=== PATIENT | female | born 1940 | race Caucasian/White ===

== ENCOUNTER → 2023-05-24 11:23 | Outpatient (REF) | payer MEDICARE, SELFPAY | LOC: RAD 11:23 | PROVIDERS: ATTENDING PHYSICIAN Family Medicine | DX: M25.561 Pain in right knee (principal) | CPT/HCPCS: 73564 ==

== ENCOUNTER → 2023-06-10 11:55 | Outpatient (REF) | payer MEDICARE, SELFPAY ==
[2023-06-10 13:22] LABS: % Basophils 0.8 % (0-2); % Eosinophils 0.3 % (0-6); % Immature Granulocytes 0.9 % (0-0.5); % Lymphocytes 3.7 % (20.5-51.1); % Monocytes 2.8 % (1.7-9.3); % Neutrophils 91.5 % (42.2-75.2); Absolute Basophils 0.1 10^3/uL (0-0.2); Absolute Eosinophils 0.1 10^3/uL (0-0.7); Absolute Immature Granulocytes 0.1 10^3/uL (0-0.05); Absolute Lymphocytes 0.5 10^3/uL (1.2-3.4); Absolute Monocytes 0.4 10^3/uL (0.1-0.6); Absolute Neutrophils 13.2 10^3/uL (1.4-6.5); Hematocrit 39.3 % (37.0-47.0); Hemoglobin 12.8 g/dL (12.0-16.0); Mean Corp Hgb Conc. 32.6 g/dL (33.0-37.0); Mean Corpuscular Hgb 28.8 pg (27.0-31.0); Mean Corpuscular Volume 88.3 fL (81.0-99.0); Mean Platelet Volume 11.1 fL (7.4-10.4); Nucleated Red Blood Cells % 0 %; Platelet Count 206 10^3/uL (130-400); Red Blood Cell Count 4.45 10^6/uL (4.20-5.40); White Blood Cell Count 14.5 10^3/uL (4.8-10.8)
[2023-06-10 13:54] LABS: ALT (SGPT) 19 U/L (0-35); AST (SGOT) 24 U/L (14-36); Albumin 4.2 g/dl (3.5-5.0); Alkaline Phosphatase 96 U/L (38-126); Direct Bilirubin 0.6 mg/dl (0.0-0.4); Total Bilirubin 0.9 mg/dl (0.2-1.3); Total Protein 6.6 g/dl (6.3-8.2)
== END ==
LOC: RAD 11:55
PROVIDERS: ATTENDING PHYSICIAN Radiology Radiation Oncology; FAMILY PHYSICIAN Family Medicine; REFERRING PHYSICIAN Internal Medicine Hematology & Oncology
DX: C34.32 Malignant neoplasm of lower lobe, left bronchus or lung (principal)
CPT/HCPCS: 36415; 71046; 71250; 80076; 85025

== ENCOUNTER 2023-07-09 23:15 | Inpatient (IN) | payer MEDICARE, SELFPAY ==
[2023-07-09 19:11] VITALS: BP 183/93
[2023-07-09 19:38] LABS: % Basophils 0.3 % (0-2); % Immature Granulocytes 0.7 % (0-0.5); % Lymphocytes 5.4 % (20.5-51.1); % Monocytes 2.7 % (1.7-9.3); % Neutrophils 90.9 % (42.2-75.2); Absolute Immature Granulocytes 0.1 10^3/uL (0-0.05); Absolute Lymphocytes 0.7 10^3/uL (1.2-3.4); Absolute Monocytes 0.4 10^3/uL (0.1-0.6); Absolute Neutrophils 12.3 10^3/uL (1.4-6.5); Hematocrit 38.8 % (37.0-47.0); Hemoglobin 13.3 g/dL (12.0-16.0); Mean Corp Hgb Conc. 34.3 g/dL (33.0-37.0); Mean Corpuscular Hgb 28.3 pg (27.0-31.0); Mean Corpuscular Volume 82.6 fL (81.0-99.0); Mean Platelet Volume 9.8 fL (7.4-10.4); Nucleated Red Blood Cells % 0 %; Platelet Count 235 10^3/uL (130-400); Red Cell Dist. Width 14.1 % (11.5-14.5); White Blood Cell Count 13.5 10^3/uL (4.8-10.8)
[2023-07-09 20:12] VITALS: BMI 37.4
--- NOTE | 2023-07-09 20:12 | ED.GENMED ---
History of Present Illness
General
Chief Complaint: Abdominal Pain
Source: patient
Exam Limitations: none
Time Seen by Provider: 07/09/23 19:42
Travel History
Have you had any contact with someone who has COVID-19?: No
Do you have any symptoms of coronavirus? Fever > 100 degrees, chills, cough, shortness of breath, sore throat, loss of taste or smell, muscle aches, or headache?: No
History of Present Illness
History of Present Illness:
This is a 83 year old female that comes in with c/o abd pain. States that this started around 3pm out of the blue. Family state that she feels she had a bowel obstruction again and this is how them come on. States that she has been eating salads and
her stomach was bothering her some after this. Today she states she only had a little salad and then she started with severe pain. States that she is nauseated but has not vomited. States that she did have a BM before coming. States that she is
always SOB with the COPD. Denies any fever, chills, chest pain, diarrhea, headache, dizziness, urinary burning.
Past History
Past History
ED Past Medical History: Asthma, CAD, Cancer (Lung CA), COPD, GERD, HTN, Hypercholesterolemia, Hyperthyroidism, Psychiatric (Anxiety, depression), Other (TIA, Migraines, Sleep apnea, DVT, Hemorrhoids, Hiatal hernia, C-diff, Ovarian cyst, Renal
calculus, UTI, Overactive Parathyroid, Anemia, ) and Other (Small bowel obstruction 2004, total colectomy for polyps, ileostomy with reversal)
ED Past Surgical History: Bowel resection, Cardiac (Catheterization, Stent), Orthopedic (Right hand tendon repair) and Other (Hernia, Cataracts, Right vein stripping)
Social History
Tobacco: Former smoker
Alcohol: None
Drug: None
Personal:
Living: alone
Employment: Retired
Family History
Family History: CAD
Review of Systems
Review of Systems
All Other Systems: ROS reviewed and negative except as documented in HPI and ROS
Constitutional: Reports no symptoms; Denies fever or chills
EENT: Reports no symptoms
Respiratory: Reports trouble breathing; Denies cough
Cardiac: Reports no symptoms; Denies chest pain
ABD/GI: Reports abdominal pain and nausea; Denies vomiting or diarrhea
: Reports no symptoms; Denies dysuria, frequency or urgency
Musculoskeletal: Reports no symptoms
Skin: Reports no symptoms
Neurological: Reports no symptoms; Denies dizzy or headache
Psychiatric: Reports no symptoms
Phy Exam
General Physical Exam
General Presentation: mild distress
General age: appears stated age
General Skin: warm and dry
General Habitus: elderly
General Mental: alert
General Hydration: dry mucous membranes
ENT Exam
ENT Exam: TM's normal, pharynx normal and neck supple
Eye Exam
Eye Exam: EOMI
Cardiovascular Exam
Cardiovascular Exam: regular rate/rhythm, no edema, no murmur and normal peripheral pulses
Pulmonary Exam
Pulmonary Exam: no respiratory distress, no rales, chest non tender, no crackles, no rhonchi, no cough and other (Exp wheezing throughout)
Gastrointestinal Exam
Gastrointestinal Exam: soft, no organomegaly, no pulsatile mass, non distended, tender (Upper abd tenderness with palpation) and other (Hyperactive bowel sounds)
Musculoskeletal Exam
Musculoskeletal Exam: full ROM and no edema
Skin Exam
Skin Exam: normal color, warm/dry, no rash and no petechia
Psychiatric Exam
Psychiatric Exam: normal mood/affect
Course
Orders/Labs/Results
Orders:
Orders
07/09/23 19:28
Complete Blood Count/With Diff Urgent
Comprehensive Metabolic Panel Urgent
Lipase Urgent
07/09/23 20:09
0.9% Sodium Chloride 1000 ml [Nss] 1,000 ml IV BOLUS
HYDROmorphone [Dilaudid] 0.5 mg IV NOW STA
Ondansetron Injectable [Zofran] 4 mg IV NOW STA
07/09/23 20:10
CT Abd/pelvis W Iv Cont Urgent
Comment: history of bowel obstruction
Reason For Exam: abd pain
07/09/23 20:15
Lactic Acid Urgent
07/09/23 20:34
HYDROmorphone [Dilaudid] 0.5 mg IV NOW STA
07/09/23 21:00
Ondansetron Injectable [Zofran] 4 mg .ROUTE .STK-MED ONE
07/09/23 21:01
Ondansetron Injectable [Zofran] 4 mg IV NOW STA
Abnormal Lab Results
07/09/23
19:28
WBC 13.5 H 10^3/uL
(4.8-10.8)
Abs Immat Gran (auto) 0.1 H 10^3/uL
(0-0.05)
Absolute Neuts (auto) 12.3 H 10^3/uL
(1.4-6.5)
Absolute Lymphs (auto) 0.7 L 10^3/uL
(1.2-3.4)
Immature Gran % 0.7 H %
(0-0.5)
Neutrophils % 90.9 H %
(42.2-75.2)
Lymphocytes % 5.4 L %
(20.5-51.1)
Sodium 132 L mmol/L
(135-145)
Carbon Dioxide 19 L mmol/L
(22-30)
BUN 25 H mg/dl
(7-17)
Glucose 122 H mg/dl
(70-99)
Calcium 10.7 H mg/dl
(8.4-10.2)
07/09/23 19:28
07/09/23 19:28
Leukocytosis, Sodium slightly low. Carbon dioxode low. Dehydration. Glucose nonfasting. Calcium slightly elevated. Lactic acid normal at 1.3
Vital Signs
Initial and Last Documented VS:
Initial Vital Signs
Temp Pulse BP Pulse Ox
98.3 F 86 183/93 95
07/09/23 19:11 07/09/23 19:11 07/09/23 19:11 07/09/23 19:11
Last Documented Vital Signs
Temp Pulse BP Pulse Ox
98.3 F 86 183/93 95
07/09/23 19:11 07/09/23 19:11 07/09/23 19:11 07/09/23 19:11
MDM/Problems Addressed
Differential Diagnosis Includes:
Bowel obstruction, Viral syndrome
MDM/Problems Addressed:
This is a 83 year old female that comes in with c/o abd pain. Family states that she feels she had a bowel obstruction. States that this just came on out of the blue.
Will get labs and CT scan. Medicate for pain, IV fluids
Back into see patent. Explained that the CT shows that she has a partial small bowel obstruction that is secondary to adhesions. Patient states that this time she has no nausea or pain. Hospitalist notified about admission.
Chronic conditions affecting care: Previous abdomnial surgery
Acute Exacerbation and/or Progression of Chronic Illness: Previous abdomnial surgery
*Radiology
Radiology exam reviewed: radiology read reviewed (CT Moderate distention of the small bowel loops in the right side of the midabdomen with suggetion of a partial small bowel obstruction secondary to a partially obstructing adhesive band. Distention
of distal small bowel loops in the lower abd and pelvis containing fecal-like material. ), all reviewed NAD by ED Provider (CT cont- Previous total proctocolectomy. Small midline lower anterior abd wall hernia containing a nonobstructed small bowel
loop. Small hiatal hernia. Fusiform infrarenal abdominal aortic aneurysm (2.3 cm AP dimension). Severe calcific atherosclerotic plaque in the abdominal aorta, right renal ) and other (CT cont- right renal artery and common iliac arteries. Mild
cardiomegaly. Severe lower lumbar facet joint arthrosis. )
*Pulse Oximetry
Patient hypoxic: no
*EKG
Interpreted by ED Provider?: NA
Rate: EKG- N/A
*Critical Care Note
Total Time (30-74mins, 75-104mins- exclusive of procedures): Not Applicable
ED Attending Note
-
Portions of this chart may have been created with voice recognition software.� Occasional wrong word or��sound alike� substitutions may have occurred due to the inherent limitations of voice recognition software.
Discharge Plan
Departure
Patient Disposition: Admit
Date of Disposition: 07/09/23
Time of Disposition: 22:28
Admit to: Med/Surg
Presentation/result/management discussed w/ accepting MD/DO: Hospitalist
Patient with high blood pressure during this ER visit?: Yes
Condition: Good
Covid-19: Not Applicable
Discharge Problem:
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
Prescriptions:
No Action
atorvastatin 40 MG tablet
40 mg PO QPM
aspirin 81 MG tablet,delayed release (DR/EC)
81 mg PO DAILY
pantoprazole 40 MG tablet,delayed release (DR/EC)
40 mg PO QPM
loperamide 2 MG capsule
2 mg PO Q4H PRN (Reason: diarrhea)
PreserVision AREDS 1 CAP capsule
1 cap PO DAILY
glucosamine sulfate 500 MG tablet
500 mg PO DAILY
nitroglycerin 0.4 MG tablet, sublingual
0.4 mg sublingual [id number] PRN (Reason: chest pain) Qty: 25 2RF
famotidine 20 MG tablet
20 mg PO DAILY PRN (Reason: heartburn)
dextromethorphan-guaifenesin [Mucinex DM] 1 EACH tablet extended release 12 hr
1 ea PO BID PRN (Reason: Cough/congestion)
albuterol sulfate 1 PUFF HFA aerosol inhaler
2 puff inhalation R Q4HPRN PRN (Reason: sob/wheezing)
cholecalciferol (vitamin D3) 1,000 UNITS tablet
1,000 units PO DAILY
citalopram 40 mg tablet
40 mg PO DAILY
Patient Comments:
Dose confirmed with patient and outside list of Pharmacy
nifedipine 60 mg Tablet Extended Release
60 mg PO DAILY Qty: 30 1RF
furosemide 40 mg tablet
40 mg PO DAILY
montelukast 10 mg tablet
10 mg PO DAILY
potassium chloride 10 mEq tablet,ER particles/crystals
10 meq PO DAILY
Soothe Night Time Lubricant 80-20 % Ointment
1 applic BOTH EYES HS
Soothe Lubricant 0.6-0.6 % Dropperette
1 drp OPHTHALMIC (EYE) BID PRN (Reason: dry/irrirated eyes)
Breztri Aerosphere 160-9-4.8 mcg/actuation Hfa Aerosol Inhaler
2 inh INHALATION R BID
prednisone 10 mg tablet
10 mg PO .TAPER
Rx Instructions:
take 5 tabs (50mg) daily x 3 days, take 4 tabs (40mg) daily x 3 days, take 3 tabs (30mg) daily x 3 days, take 2 tabs (20mg) daily x 3 days, take 1 tab (10mg) daily x 3 days
fexofenadine 180 mg Tablet
180 mg PO DAILY
latanoprost 0.005 % drops
1 drp BOTH EYES HS
ipratropium-albuterol 0.5 mg-3 mg(2.5 mg base)/3 mL solution for nebulization
3 ml INHALATION R Q6 PRN (Reason: sob/wheezing)
lorazepam 0.5 mg Tablet
0.5 mg PO Q8H PRN (Reason: anxiety)
Patient Comments:
07/09/2023: last filled 03/18/23, 15 tabs for 5 days from [id number]
ascorbic acid (vitamin C) [Vitamin C] 500 mg Tablet
500 mg PO DAILY
Referrals:
Juan Anaya MD [Family Provider] -
Interventions
Interventions:
*Risk Screen - Suicide Last Done: 07/09/23 19:11
*General Assessment Last Done: 07/09/23 19:11
*Neglect/Abuse Screening Last Done: 07/09/23 19:11
ED- Fall Risk Assessment Last Done: 07/09/23 20:02
*ED COVID-19 Vaccine History Last Done: 07/09/23 20:02
ZV-Revtpe-Ounfltacda Assessment Last Done: 07/09/23 20:02
[2023-07-09 20:16] LABS: ALT (SGPT) 21 U/L (0-35); AST (SGOT) 26 U/L (14-36); Albumin 4.4 g/dl (3.5-5.0); Alkaline Phosphatase 100 U/L (38-126); Blood Urea Nitrogen 25 mg/dl (7-17); Calcium 10.7 mg/dl (8.4-10.2); Carbon Dioxide 19 mmol/L (22-30); Chloride 107 mmol/L (98-107); Estimated Creatinine Clearance 45 ml/min; Glucose 122 mg/dl (70-99); Lipase 55 U/L (23-300); Potassium 4.6 mmol/L (3.5-5.1); Sodium 132 mmol/L (135-145); Total Bilirubin 0.8 mg/dl (0.2-1.3); Total Protein 7.1 g/dl (6.3-8.2); eGFR > 60.00
[2023-07-09] MEDS: ZOFRAN 4 MG IV ×2 (20:25→21:02)
[2023-07-09] MEDS: NSS 1000 IV (20:27)
[2023-07-09] MEDS: DILAUDID 0.5 MG IV ×2 (20:28→20:35)
[2023-07-09 20:39] LABS: Lactic Acid 1.3 mmol/L (0.7-2.0)
[2023-07-09 20:43] VITALS: BP 157/74
--- NOTE | 2023-07-09 22:41 | HPS.HSE ---
Family Physician
-
Family Physician: Juan Anaya
Chief Complaint
-
abrupt onset abdominal pain felt like obstucted again
History of Present Illness
83F HX partial SBO s/p total colectomy for polyps, ileostomy with reversal pw abrupt onset of sever abdominal pain following salad meal.
Associated Nausea . Denied vomiting. She had BM before coming.
@ ER she received IV Dilaudid 0.5mg x 2 and IV Zofran 4mg x 2.
Current abdominal pain is very similar to previous episodes of small bowel obstructions.
Just had large BM and felt improved with nausea and abdominal pain
ROS:
Denies back pain, no dysuria no urgency nor hematuria.
Denies chest pain nor shortness of breath.
Medical History
Past Medical History
Past Medical History: Reports Other
Additional Past Medical History:
CAD
COD
HTN
HKD
Hypothyroidism
Nephrolithiasis
Past Surgical History: Reports Other
Additional Past Surgical History:
Bowel Resection
TAC with ileostomy, ileostomy reversal, DLI reversal, ex lap with BREANNA
PTCA with stent
Tubal ligation)
Social History
Tobacco: Former Smoker
Alcohol: None
Drug: None
Family History
Family History: Not pertinent
Allergies / Home Medications
Allergies reflects when Allergies were last updated in [employer].
Home Medications with original date entered in [employer]
Allergy/Medication List:
Allergies
Allergy/AdvReac Type Severity Reaction Status Date / Time
codeine Allergy NAUSEA Verified 12/23/22 00:27
doxycycline Allergy HEART Verified 12/23/22 00:27
PALPITATIONS
meperidine HCl [From Demerol] Allergy Nausea/ligh Verified 12/23/22 00:27
theaded
morphine Allergy Nausea Verified 12/23/22 00:27
norepinephrine Allergy rash to Verified 12/23/22 00:27
ethylnorepinephrine
oxycodone Allergy SEVERE Verified 12/23/22 00:27
NAUSEA
pentazocine Allergy TALWIN Verified 12/23/22 00:27
pentazocine lactate Allergy Nausea Verified 12/23/22 00:27
[From Khushi]
Tetracyclines Allergy very Verified 12/23/22 00:27
disoriented
Home Medications
aspirin 81 mg tablet,delayed release 81 mg PO DAILY Blood clot prevention/tx 07/22/17
atorvastatin 40 mg tablet 40 mg PO QPM High cholesterol 07/22/17
pantoprazole 40 mg tablet,delayed release 40 mg PO QPM Gastrointestinal issue 07/22/17
loperamide 2 mg capsule 2 mg PO Q4H PRN diarrhea 06/21/18
glucosamine sulfate 500 mg tablet 500 mg PO DAILY Supplement 02/16/19
nitroglycerin 0.4 mg sublingual tablet 0.4 mg sublingual [id number] PRN chest pain #25 tabs 02/16/19
vitamins A,C,N-gkad-akaors 4,296 mcg-226 mg-90 mg capsule (PreserVision AREDS) 1 cap PO DAILY Eye condition 02/16/19
albuterol sulfate 90 mcg/actuation aerosol inhaler 2 puff inhalation R Q4HPRN PRN sob/wheezing 07/13/21
cholecalciferol (vitamin D3) 25 mcg (1,000 unit) tablet 1,000 units PO DAILY Supplement 07/13/21
dextromethorphan-guaifenesin ER 60 mg-1,200 mg tab,extend release,12hr (Mucinex DM) 1 ea PO BID PRN Cough/congestion 07/13/21
famotidine 20 mg tablet 20 mg PO DAILY PRN heartburn 07/13/21
citalopram 40 mg tablet 40 mg PO DAILY Mental Health/Anxiety 04/07/22
nifedipine 60 mg tablet,extended release 60 mg PO DAILY #30 tabs 04/11/22
budesonide 160 mcg-glycopyr 9 mcg-formot 4.8 mcg/actuation HFA inhaler (Breztri Aerosphere) 2 inh inhalation R BID Lung/Breathing Issues 12/25/22
furosemide 40 mg tablet 40 mg PO DAILY Fluid Retention/Swelling 12/25/22
montelukast 10 mg tablet 10 mg PO DAILY Lung/Breathing Issues 12/25/22
potassium chloride 10 mEq tablet,extended release(part/cryst) 10 meq PO DAILY Electrolyte Repletion 12/25/22
propylene glycol-glycerin 0.6 %-0.6 % eye drops in a dropperette (Soothe Lubricant) 1 drp ophthalmic (eye) BID PRN dry/irrirated eyes 12/25/22
white petrolatum-mineral oil 80 %-20 % eye ointment (Soothe Night Time Lubricant) 1 applic BOTH EYES HS dry eyes 12/25/22
ascorbic acid (vitamin C) 500 mg tablet (Vitamin C) 500 mg PO DAILY 07/09/23
fexofenadine 180 mg tablet 180 mg PO DAILY 07/09/23
ipratropium 0.5 mg-albuterol 3 mg (2.5 mg base)/3 mL nebulization soln 3 ml inhalation R Q6 PRN sob/wheezing 07/09/23
latanoprost 0.005 % eye drops 1 drp BOTH EYES HS 07/09/23
lorazepam 0.5 mg tablet 0.5 mg PO Q8H PRN anxiety 07/09/23
prednisone 10 mg tablet 10 mg PO .TAPER 07/09/23
Review of Systems
-
Constitutional: Reports No Symptoms
EENT: Reports No Symptoms
Respiratory: Reports No Symptoms
Cardiac: Reports No Symptoms
Abdomen/GI: Reports Abdominal Pain and Nausea; Denies Vomiting, Diarrhea or Constipated
: Reports No Symptoms
Musculoskeletal: Reports No Symptoms
Skin: Reports No Symptoms
Neurological: Reports No Symptoms
Endocrine: Reports No Symptoms
Hematologic/Lymphatic: Reports No Symptoms
Psych: Reports No Symptoms
Physical Exam
Vital Signs
Vital Signs
Temp Pulse BP Pulse Ox
98.3 F 86 183/93 95
07/09/23 19:11 07/09/23 19:11 07/09/23 19:11 07/09/23 19:11
Physical Exam
General: Well Nourished, No Apparent Distress, Comfortable and Other
HEENT: NormoCephalic, Anicteric and Moist mucous membranes
Respiratory: Clear
Cardiac: S1/S2 and Regular Rhythm; No Murmur
GI: Soft, Normal Bowel Sounds (hyperactive ) and Tender (upper abdomen with palpitation)
Genito-urinary: Deferred by me
Musculoskeletal: No Edema
Skin: Warm
Neuro: AO x 3
Psych: Calm
Laboratory Results
-
07/09/23 19:28
07/09/23 19:28
Laboratory Results
Lactic Acid 1.3 mmol/L (0.7-2.0) 07/09/23 20:15
Total Bilirubin 0.8 mg/dl (0.2-1.3) 07/09/23 19:28
AST 26 U/L (14-36) 07/09/23 19:28
ALT 21 U/L (0-35) 07/09/23 19:28
Alkaline Phosphatase 100 U/L (38-126) 07/09/23 19:28
Lipase 55 U/L (23-300) 07/09/23 19:28
Data Reviewed
-
CT Scan: Report Reviewed by me
Lab Data: Labs Reviewed by me
Old Records: Reviewed
Impression/Plan
-
Data
WCC 13.5
Na 132
CO2 19
BUN 25
nl [address] Abd/pelvis W Iv Cont
1. Moderate distention of small bowel loops in the right side of the midabdomen with suggestion of a PARTIAL SMALL BOWEL OBSTRUCTION secondary to a partially obstructing adhesive band.
2. Distention of distal small bowel loops in the lower abdomen and pelvis containing fecal-like material. PREVIOUS TOTAL PROCTOCOLECTOMY.
3. Small midline lower anterior abdominal wall hernia containing a nonobstructed small bowel loop.
4. Small hiatal hernia.
5. Fusiform infrarenal abdominal aortic aneurysm (2.3 cm AP dimension).
6. Severe calcific atherosclerotic plaque in the abdominal aorta, right renal artery, and common iliac arteries.
7. Mild cardiomegaly.
8. Severe lower lumbar facet joint arthrosis.
Last hospitalist admission: 12/23/22 - 12/27/22 DX: Partial small bowel obstruction
ASSESSMENT & PLAN
Partial SBO - recurrence
Likely secondary to adhesions
lower midline ventral hernia
HX multiple prior operations
- just has large BM at ER and abdominal has improved
- NPO, IVF, NGT for nausea or emesis
- Narcotic analgesia
- GS consult
HX GERD
- IV Protonix
Essential HTN
- add IV Hydralazine PRN
- Hold nifedipine due to NPO
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
HX COPD: Not on home O2
HX lung cancer LLL s/p XRT
HLD: Held Lipitor due to NPO
Hyperthyroidism
Anxiety/Depression - Held Celexa
HX TIA
DVT ppx: LMWH
Full code
IP MS
[2023-07-09 23:31] VITALS: BP 161/67
[2023-07-09 23:43] VITALS: BP 161/67
[2023-07-10] MEDS: NSS 1000 IV (00:17)
[2023-07-10 06:01] LABS: Hematocrit 37.8 % (37.0-47.0); Hemoglobin 12.2 g/dL (12.0-16.0); Mean Corp Hgb Conc. 32.3 g/dL (33.0-37.0); Mean Corpuscular Hgb 28.2 pg (27.0-31.0); Mean Corpuscular Volume 87.3 fL (81.0-99.0); Mean Platelet Volume 10.3 fL (7.4-10.4); Platelet Count 191 10^3/uL (130-400); Red Blood Cell Count 4.33 10^6/uL (4.20-5.40); Red Cell Dist. Width 14.3 % (11.5-14.5)
[2023-07-10 06:26] LABS: Blood Urea Nitrogen 21 mg/dl (7-17); Calcium 10.1 mg/dl (8.4-10.2); Carbon Dioxide 25 mmol/L (22-30); Chloride 105 mmol/L (98-107); Estimated Creatinine Clearance 58 ml/min; Glucose 90 mg/dl (70-99); Potassium 3.8 mmol/L (3.5-5.1); Sodium 138 mmol/L (135-145); eGFR > 60.00
--- NOTE | 2023-07-10 09:22 | W.PN.HOSP.TC ---
Today's Communication/Plan
-
see plan
Assessment / Plan
Assessment / Plan
CT Abd/pelvis W Iv Cont
1. � Moderate distention of small bowel loops in the right side of the midabdomen with suggestion of a PARTIAL SMALL BOWEL OBSTRUCTION secondary to a partially obstructing adhesive band.
2. � Distention of distal small bowel loops in the lower abdomen and pelvis containing fecal-like material. PREVIOUS TOTAL PROCTOCOLECTOMY.
3. � Small midline lower anterior abdominal wall hernia containing a nonobstructed small bowel loop.
4. � Small hiatal hernia.
5. � Fusiform infrarenal abdominal aortic aneurysm (2.3 cm AP dimension).
6. � Severe calcific atherosclerotic plaque in the abdominal aorta, right renal artery, and common iliac arteries.
7. � Mild cardiomegaly.
8. � Severe lower lumbar facet joint arthrosis.
Last hospitalist admission: 12/23/22 - 12/27/22 DX: Partial small bowel obstruction
ASSESSMENT & PLAN
Partial SBO - recurrence
Likely secondary to adhesions
lower midline ventral hernia
HX multiple prior operations
-now having BM with improvement in sx, obstruction seems to have resolved
-advance to clears
-resume home meds
-F/U further GS recs
HX GERD
-LABOR [employer]OR Protonix
Essential HTN
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
HX lung cancer LLL s/p XRT
HLD: Held Lipitor due to NPO
Hyperthyroidism
Anxiety/Depression - resume celexa
HX TIA - resume asa
DVT ppx: LMWH
Full code
IP MS
Anticipated Discharge: Within 24 hours
Subjective/Interval History
-
Date of Service: July 10, 2023
has had multiple BM
pain and nausea resolved
wants to drink
Objective Data
-
Labs:
Laboratory Results
07/10/23
05:46
WBC 14.0 H
Hgb 12.2
Hct 37.8
Plt Count 191
Sodium 138
Potassium 3.8
Chloride 105
Carbon Dioxide 25
BUN 21 H
Creatinine 0.7
Glucose 90
Calcium 10.1
Vital Signs:
Vital Signs
Temp Pulse Resp BP Pulse Ox
98.3 F 88 20 161/67 96
07/09/23 19:11 07/09/23 23:43 07/09/23 23:43 07/09/23 23:43 07/09/23 23:43
Review of Systems
-
History Source: Patient
All other systems: Reviewed and negative
Physical Exam
-
General: No Apparent Distress
HEENT: Normocephalic and Atraumatic
Respiratory: Wheezes (mild); Negative Rales or Rhonchi
Cardiac: Regular Rhythm and S1/S2
GI: Soft and Nontender
Genito-urinary: No Costovertebral Tender
Neuro: AO x 3
Hematologic / Lymphatic: No Lymphadenopathy
Psych: Calm
Data Reviewed
-
Diagnostic Radiology: Report Reviewed by me
Labs: Labs Reviewed by me
[2023-07-10] MEDS: DELTASONE 40 MG PO (11:07)
[2023-07-10] MEDS: SINGULAIR 10 MG PO (11:07)
[2023-07-10] MEDS: CELEXA 40 MG PO (11:07)
[2023-07-10] MEDS: ASPIR LOW (ENTERIC COATED) 81 MG PO (11:07)
[2023-07-10] MEDS: PROCARDIA XL (EXTENDED RELEASE) 60 MG PO (11:08)
[2023-07-10 11:13] VITALS: BP 155/51
--- NOTE | 2023-07-10 13:20 | CM ---
Patient seen at bedside. Patient lives alone in a ranch style home. Patient is very independent and states that she has a daughter and son that assist as she needs help. Patient PCP is Dr. patino and she uses the [facility] in [place]. Patient has a
walker, cane and transport chair at home. Patient has no home O2. Patient plan is to return to home with no needs. CM will continue to follow for discharge planning needs.
Plan;home with no needs vs home with VN; watch for possible home O2 needs
--- NOTE | 2023-07-10 14:12 | CON.GS ---
Consultation
-
Requesting Provider: Damaso
Performing Provider: Sona
Reason for Consultation: pSBO
Medical History
-
Chief Complaint: Abd pain
History of Present Illness:
83F with acute onset abdominal pain, that began after eating a salad. 'I ate a salad and I know that was a mistake.' Pain began shortly afterwards and was progressive and mod-sev, generalized, without exacerbating/relieving factors. Since arrival
has had a large BM with relief, now pain and nausea have resolved and she has tolerated clears.
Past Medical History
Past Medical History: Other (CAD COD HTN HKD Hypothyroidism Nephrolithiasis)
Past Surgical History: Other (Bowel Resection TAC with ileostomy, ileostomy reversal, DLI reversal, ex lap with BREANNA, PTCA with stent, Tubal ligation))
Social History
Tobacco: Former Smoker
Alcohol: None
Drug: None
Family History
Family History: Reviewed & Noncontributory
Allergies / Home Medications
Allergy/AdvReac Type Severity Reaction Status Date / Time
codeine Allergy NAUSEA Verified 12/23/22 00:27
doxycycline Allergy HEART Verified 12/23/22 00:27
PALPITATIONS
meperidine HCl [From Demerol] Allergy Nausea/ligh Verified 12/23/22 00:27
theaded
morphine Allergy Nausea Verified 12/23/22 00:27
norepinephrine Allergy rash to Verified 12/23/22 00:27
ethylnorepinephrine
oxycodone Allergy SEVERE Verified 12/23/22 00:27
NAUSEA
pentazocine Allergy TALWIN Verified 12/23/22 00:27
pentazocine lactate Allergy Nausea Verified 12/23/22 00:27
[From Talwin]
Tetracyclines Allergy very Verified 12/23/22 00:27
disoriented
Medication Instructions Recorded Confirmed Type
aspirin 81 mg tablet,delayed 81 mg PO DAILY Blood clot 07/22/17 07/09/23 History
release prevention/tx
atorvastatin 40 mg tablet 40 mg PO QPM High cholesterol 07/22/17 07/09/23 History
pantoprazole 40 mg tablet,delayed 40 mg PO QPM Gastrointestinal issue 07/22/17 07/09/23 History
release
loperamide 2 mg capsule 2 mg PO Q4H PRN diarrhea 06/21/18 07/09/23 History
glucosamine sulfate 500 mg tablet 500 mg PO DAILY Supplement 02/16/19 07/09/23 History
nitroglycerin 0.4 mg sublingual 0.4 mg sublingual [id number] PRN 02/16/19 07/09/23 Rx
tablet chest pain #25 tabs
vitamins A,C,N-xjjp-ijgzcr 4,296 1 cap PO DAILY Eye condition 02/16/19 07/09/23 History
mcg-226 mg-90 mg capsule
(PreserVision AREDS)
albuterol sulfate 90 mcg/actuation 2 puff inhalation R Q4HPRN PRN 07/13/21 07/09/23 History
aerosol inhaler sob/wheezing
cholecalciferol (vitamin D3) 25 1,000 units PO DAILY Supplement 07/13/21 07/09/23 History
mcg (1,000 unit) tablet
dextromethorphan-guaifenesin ER 60 1 ea PO BID PRN Cough/congestion 07/13/21 07/09/23 History
mg-1,200 mg tab,extend
release,12hr (Mucinex DM)
famotidine 20 mg tablet 20 mg PO DAILY PRN heartburn 07/13/21 07/09/23 History
citalopram 40 mg tablet 40 mg PO DAILY Mental 04/07/22 07/09/23 History
Health/Anxiety
nifedipine 60 mg tablet,extended 60 mg PO DAILY #30 tabs 04/11/22 07/09/23 Rx
release
budesonide 160 mcg-glycopyr 9 2 inh inhalation R BID 12/25/22 07/09/23 History
mcg-formot 4.8 mcg/actuation HFA Lung/Breathing Issues
inhaler (Breztri Aerosphere)
furosemide 40 mg tablet 40 mg PO DAILY Fluid 12/25/22 07/09/23 History
Retention/Swelling
montelukast 10 mg tablet 10 mg PO DAILY Lung/Breathing 12/25/22 07/09/23 History
Issues
potassium chloride 10 mEq 10 meq PO DAILY Electrolyte 12/25/22 07/09/23 History
tablet,extended release(part/cryst) Repletion
propylene glycol-glycerin 0.6 1 drp ophthalmic (eye) BID PRN 12/25/22 07/09/23 History
%-0.6 % eye drops in a dropperette dry/irrirated eyes
(Soothe Lubricant)
white petrolatum-mineral oil 80 1 applic BOTH EYES HS dry eyes 12/25/22 07/09/23 History
%-20 % eye ointment (Soothe Night
Time Lubricant)
ascorbic acid (vitamin C) 500 mg 500 mg PO DAILY 07/09/23 07/09/23 History
tablet (Vitamin C)
fexofenadine 180 mg tablet 180 mg PO DAILY 07/09/23 07/09/23 History
ipratropium 0.5 mg-albuterol 3 mg 3 ml inhalation R Q6 PRN 07/09/23 07/09/23 History
(2.5 mg base)/3 mL nebulization sob/wheezing
soln
latanoprost 0.005 % eye drops 1 drp BOTH EYES HS 07/09/23 07/09/23 History
lorazepam 0.5 mg tablet 0.5 mg PO Q8H PRN anxiety 07/09/23 07/09/23 History
prednisone 10 mg tablet 10 mg PO .TAPER 07/09/23 07/09/23 History
Review of Systems
-
A 10 point review of systems was completed, and was negative except as per HPI.
Physical Exam
Vital Signs
Temp Pulse Resp BP Pulse Ox
98.3 F 65 18 155/51 94
07/09/23 19:11 07/10/23 11:13 07/10/23 11:13 07/10/23 11:13 07/10/23 12:56
07/09/23 07/10/23 07/11/23
06:59 06:59 06:59
Actual Weight 85.5 kg
Body Mass Index (BMI) 37.4
Lab Results
07/10/23 05:46
07/10/23 05:46
WBC 14.0 10^3/uL (4.8-10.8) H 07/10/23 05:46
Hgb 12.2 g/dL (12.0-16.0) 07/10/23 05:46
Hct 37.8 % (37.0-47.0) 07/10/23 05:46
Plt Count 191 10^3/uL (130-400) 07/10/23 05:46
Abs Immat Gran (auto) 0.1 10^3/uL (0-0.05) H 07/09/23 19:28
Neutrophils % 90.9 % (42.2-75.2) H 07/09/23 19:28
Physical Exam
General: Well Developed, Well Nourished and No Apparent Distress
GI: Soft, Non Tender, Non Distended and Obese
Skin: Warm and Dry
Neuro: AO x 3
Psych: Calm
Data Reviewed
-
CT Scan: Image Personally Visualized and interpreted, Report Reviewed by me and Discussed with Patient
Labs: Labs Reviewed by me
Assessment / Plan
-
83F with resolving pSBO in setting of dietary indiscretion
AFVSS, passing BM and flatus, pain and nausea resolved, antonio clears
Mild leukocytosis trending up slightly
CT with dilated small bowel and an area of decompressed small bowel, apparent subtle transition point in the pelvis, all anastomoses appear patent, no signs of bowel compromise or threat
Plan:
Adv to fulls this steve
If no further issues, adv to LRD tomorrow am and DC home when tolerating
Dietary guidance, advised to avoid raw veg and to be careful generally with all fruit and veg
[2023-07-10 14:53] VITALS: BP 143/57
[2023-07-10 15:00] VITALS: BP 129/67
[2023-07-10 15:57] VITALS: BMI 37.6
[2023-07-10] MEDS: LOVENOX 40 MG SC (17:34)
[2023-07-10] MEDS: PROTONIX 40 MG PO (17:34)
[2023-07-10] MEDS: SYMBICORT 160/4.5 MCG INHALER 2 PUFF INH (20:16)
[2023-07-10] MEDS: VENTOLIN NEBULES 2.5 MG INH (20:17)
[2023-07-10] MEDS: XALATAN OPHTHALMIC SOLUTION 1 DROP BOTH EYES (21:03)
[2023-07-10] MEDS: REFRESH CELLUVISC GEL 1 DROPS BOTH EYES (21:03)
[2023-07-10 23:50] VITALS: BP 124/73
[2023-07-11] MEDS: VENTOLIN NEBULES 2.5 MG INH ×2 (01:39→06:20)
[2023-07-11 05:40] VITALS: BMI 37.4
[2023-07-11] MEDS: CELEXA 40 MG PO (07:26)
[2023-07-11] MEDS: ASPIR LOW (ENTERIC COATED) 81 MG PO (07:27)
[2023-07-11] MEDS: SINGULAIR 10 MG PO (07:27)
[2023-07-11] MEDS: DELTASONE 40 MG PO (07:27)
[2023-07-11] MEDS: PROCARDIA XL (EXTENDED RELEASE) 60 MG PO (07:28)
[2023-07-11 07:30] VITALS: BP 104/75
[2023-07-11] MEDS: SPIRIVA RESPIMAT 2.5 MCG 2 PUFF INH (08:29)
[2023-07-11] MEDS: SYMBICORT 160/4.5 MCG INHALER 2 PUFF INH (08:29)
[2023-07-11 08:53] LABS: Hematocrit 37.5 % (37.0-47.0); Hemoglobin 11.9 g/dL (12.0-16.0); Mean Corp Hgb Conc. 31.7 g/dL (33.0-37.0); Mean Corpuscular Hgb 28.1 pg (27.0-31.0); Mean Corpuscular Volume 88.7 fL (81.0-99.0); Mean Platelet Volume 10.2 fL (7.4-10.4); Platelet Count 172 10^3/uL (130-400); Red Blood Cell Count 4.23 10^6/uL (4.20-5.40); Red Cell Dist. Width 14.2 % (11.5-14.5); White Blood Cell Count 10.6 10^3/uL (4.8-10.8)
--- NOTE | 2023-07-11 09:40 | W.PN.GS2 ---
Today's Communication / Plan
-
`
Assessment / Plan
-
Assessment: 83 y/o female admitted with probable partial SBO
clinically resolving and antonio diet advancement
Plan: okay to d/c home on LR diet
dietary counseling provided
Subjective Data
-
Date of Service: July 11, 2023
pt seen and examined
antonio breakfast
no abd pain, no nausea
+ flatus
Objective Data
-
Intake and Output
07/10/23 07/11/23 07/12/23
06:59 06:59 06:59
Other:
Number of unmeasured voidings 2
How many times incontinent 1
Vital Signs
Temp Pulse Resp BP Pulse Ox
98.4 F 70 18 104/75 93
07/11/23 07:30 07/11/23 08:35 07/11/23 08:35 07/11/23 07:30 07/11/23 08:35
Lab Results
07/11/23 08:00
Calcium 10.1 mg/dl (8.4-10.2) 07/10/23 05:46
Total Bilirubin 0.8 mg/dl (0.2-1.3) 07/09/23 19:28
AST 26 U/L (14-36) 07/09/23 19:28
ALT 21 U/L (0-35) 07/09/23 19:28
Alkaline Phosphatase 100 U/L (38-126) 07/09/23 19:28
Total Protein 7.1 g/dl (6.3-8.2) 07/09/23 19:28
Albumin 4.4 g/dl (3.5-5.0) 07/09/23 19:28
Physical Exam
-
NAD AAOx3
ABD: soft, obese, ND, nontender
[2023-07-11 09:48] LABS: Blood Urea Nitrogen 13 mg/dl (7-17); Calcium 9.9 mg/dl (8.4-10.2); Carbon Dioxide 28 mmol/L (22-30); Chloride 103 mmol/L (98-107); Estimated Creatinine Clearance 57 ml/min; Glucose 69 mg/dl (70-99); Magnesium 1.7 mg/dl (1.6-2.3); Sodium 133 mmol/L (135-145); eGFR > 60.00
[2023-07-11] MEDS: PEPCID 20 MG PO (11:17)
--- NOTE | 2023-07-11 11:31 | W.PN.HOSP.TC ---
Addendum entered and electronically signed by Padmini Fierro MD 07/11/23 14:04:
Hyponatremia
-stable
Original Note:
Today's Communication/Plan
-
OK for DC today
Assessment / Plan
Assessment / Plan
CT Abd/pelvis W Iv Cont
1. � Moderate distention of small bowel loops in the right side of the midabdomen with suggestion of a PARTIAL SMALL BOWEL OBSTRUCTION secondary to a partially obstructing adhesive band.
2. � Distention of distal small bowel loops in the lower abdomen and pelvis containing fecal-like material. PREVIOUS TOTAL PROCTOCOLECTOMY.
3. � Small midline lower anterior abdominal wall hernia containing a nonobstructed small bowel loop.
4. � Small hiatal hernia.
5. � Fusiform infrarenal abdominal aortic aneurysm (2.3 cm AP dimension).
6. � Severe calcific atherosclerotic plaque in the abdominal aorta, right renal artery, and common iliac arteries.
7. � Mild cardiomegaly.
8. � Severe lower lumbar facet joint arthrosis.
Last hospitalist admission: 12/23/22 - 12/27/22 DX: Partial small bowel obstruction
ASSESSMENT & PLAN
Partial SBO - recurrence
Likely secondary to adhesions
lower midline ventral hernia
HX multiple prior operations
-now having BM with improvement in sx, obstruction seems to have resolved
-tolerated LRD this morning
-OK for DC
-home meds resumed
HX GERD
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
Essential HTN
-resume INDUSTRIAL TRUCK DRIVER Nifedipine
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
HX lung cancer LLL s/p XRT
HLD: resume lipitor on DC
Hyperthyroidism
Anxiety/Depression - resume celexa
HX TIA - resume asa
DVT ppx: LMWH
Full code
IP MS
Anticipated Discharge: Today
Subjective/Interval History
-
Date of Service: July 11, 2023
feeling better this morning
ate breakfast
Objective Data
-
Labs:
Laboratory Results
07/11/23
08:00
WBC 10.6
Hgb 11.9 L
Hct 37.5
Plt Count 172
Sodium 133 L
Potassium 4.0
Chloride 103
Carbon Dioxide 28
BUN 13
Creatinine 0.7
Glucose 69 L
Calcium 9.9
Vital Signs:
Vital Signs
Temp Pulse Resp BP Pulse Ox
98.4 F 70 18 104/75 93
07/11/23 07:30 07/11/23 08:35 07/11/23 08:35 07/11/23 07:30 07/11/23 08:35
Review of Systems
-
History Source: Patient
All other systems: Reviewed and negative
Physical Exam
-
General: No Apparent Distress
HEENT: Normocephalic and Atraumatic
Respiratory: Wheezes (mild); Negative Rales or Rhonchi
Cardiac: Regular Rhythm and S1/S2
GI: Soft and Nontender
Genito-urinary: No Costovertebral Tender
Neuro: AO x 3
Hematologic / Lymphatic: No Lymphadenopathy
Psych: Calm
Data Reviewed
-
Diagnostic Radiology: Report Reviewed by me
Labs: Labs Reviewed by me
--- NOTE | 2023-07-11 11:35 | W.DS.TRANS ---
DC Summary - Mid Level Net Developer
-
Discharge Instructions:
Discharge Diagnosis/Procedures partial small bowel obstruction
Diet Low Residue
Additional Diets low residue diet x 1 week; follow dietary recs
per surgeon
Activity As tolerated
Driving Restrictions As prior to admission
Bathing Restrictions None
Instructions:
Stand-Alone Forms:
Changes to Home Medications: No
Discharge Medications:
DC Medications w/original date entered in [employer]
aspirin 81 mg tablet,delayed release 81 mg PO DAILY Blood clot prevention/tx 07/22/17
atorvastatin 40 mg tablet 40 mg PO QPM High cholesterol 07/22/17
pantoprazole 40 mg tablet,delayed release 40 mg PO QPM Gastrointestinal issue 07/22/17
loperamide 2 mg capsule 2 mg PO Q4H PRN diarrhea 06/21/18
glucosamine sulfate 500 mg tablet 500 mg PO DAILY Supplement 02/16/19
nitroglycerin 0.4 mg sublingual tablet 0.4 mg sublingual [id number] PRN chest pain #25 tabs 02/16/19
vitamins A,C,C-ymqd-yzroej 4,296 mcg-226 mg-90 mg capsule (PreserVision AREDS) 1 cap PO DAILY Eye condition 02/16/19
albuterol sulfate 90 mcg/actuation aerosol inhaler 2 puff inhalation R Q4HPRN PRN sob/wheezing 07/13/21
cholecalciferol (vitamin D3) 25 mcg (1,000 unit) tablet 1,000 units PO DAILY Supplement 07/13/21
dextromethorphan-guaifenesin ER 60 mg-1,200 mg tab,extend release,12hr (Mucinex DM) 1 ea PO BID PRN Cough/congestion 07/13/21
famotidine 20 mg tablet 20 mg PO DAILY PRN heartburn 07/13/21
citalopram 40 mg tablet 40 mg PO DAILY Mental Health/Anxiety 04/07/22
nifedipine 60 mg tablet,extended release 60 mg PO DAILY #30 tabs 04/11/22
budesonide 160 mcg-glycopyr 9 mcg-formot 4.8 mcg/actuation HFA inhaler (Breztri Aerosphere) 2 inh inhalation R BID Lung/Breathing Issues 12/25/22
furosemide 40 mg tablet 40 mg PO DAILY Fluid Retention/Swelling 12/25/22
montelukast 10 mg tablet 10 mg PO DAILY Lung/Breathing Issues 12/25/22
potassium chloride 10 mEq tablet,extended release(part/cryst) 10 meq PO DAILY Electrolyte Repletion 12/25/22
propylene glycol-glycerin 0.6 %-0.6 % eye drops in a dropperette (Soothe Lubricant) 1 drp ophthalmic (eye) BID PRN dry/irrirated eyes 12/25/22
white petrolatum-mineral oil 80 %-20 % eye ointment (Soothe Night Time Lubricant) 1 applic BOTH EYES HS dry eyes 12/25/22
ascorbic acid (vitamin C) 500 mg tablet (Vitamin C) 500 mg PO DAILY 07/09/23
fexofenadine 180 mg tablet 180 mg PO DAILY 07/09/23
ipratropium 0.5 mg-albuterol 3 mg (2.5 mg base)/3 mL nebulization soln 3 ml inhalation R Q6 PRN sob/wheezing 07/09/23
latanoprost 0.005 % eye drops 1 drp BOTH EYES HS 07/09/23
lorazepam 0.5 mg tablet 0.5 mg PO Q8H PRN anxiety 07/09/23
prednisone 10 mg tablet 10 mg PO .TAPER 07/09/23
Home Medication Changes
Pending Results: No
--- NOTE | 2023-07-11 11:48 | CM ---
Patient seen bedside.
Patient denies home care needs.
IMM reviewed and signed.
Plan: home no needs.
--- NOTE | 2023-07-11 12:57 | PN.CDI ---
CDI
- -
CDI:
Physician Documentation Request
Admit Date: 07/09/23 23:15
Dear Doctor Vadim,
Patient admitted with partial small bowel obstruction reoccurrence.
Sodium resulted as follows:
Laboratory Tests
07/09/23 07/10/23 07/11/23
19:28 05:46 08:00
Sodium 132 L 138 133 L
Could you please provide a diagnosis that supports the above lab abnormalities and additional evaluation/ monitoring:
Hyponatremia
Abnormal lab value clinically insignificant
Other
Use of terms such as suspected, likely, concern for, or probable (associated with a specific diagnosis that is being evaluated, monitored, or treated as if it exists) are acceptable and can be coded in the inpatient setting, when documented at the
time of discharge.
Thank you,
Jessica Díaz RN, BSN
CDI Specialist
tiger text
Please use your independent medical judgment in providing your response.
--- NOTE | 2023-07-11 12:57 | W.DCSUMMARY ---
Discharge Summary
Discharge Data
Date of Admission: 07/09/23
Date of Discharge: 07/11/23
-
Pending Results: No
Hospital Course
Discharging Physician : Dr. Padmini Fierro
Disposition : Home
Primary care physician : Dr. Juan Anaya
Principal Discharge diagnosis : small bowel obstruction
Hospital Course :
Ms. Aisha Mandujano is a 83 yo woman with hx COPD, CAD, HTN, hypothyroidism, hx total abdominal colectomy with ileorectal anastomosis, admissions for SBO presents to the ER with abdominal pain. Triage vitals 98.3, P 86, BP 183/93, SpO2 95%. Labs
with WBC 13.5, Cr 0.9. CT with evidence of small bowel obstruction (results below). While in the ER patient had a bowel movement with relief of symptoms. She was admitted to medicine with GS consulting. Diet advanced to clears and patient
tolerated well. She was then advanced to LRD by hospital day 2 and feels ready for discharge. No changes made to home medications.
Time spent on discharge was 32 minutes.
Important imaging findings :
CT A/P 07/11/23
IMPRESSION:
1. � Moderate distention of small bowel loops in the right side of the midabdomen with suggestion of a PARTIAL SMALL BOWEL OBSTRUCTION secondary to a partially obstructing adhesive band.
2. � Distention of distal small bowel loops in the lower abdomen and pelvis containing fecal-like material. PREVIOUS TOTAL PROCTOCOLECTOMY.
3. � Small midline lower anterior abdominal wall hernia containing a nonobstructed small bowel loop.
4. � Small hiatal hernia.
5. � Fusiform infrarenal abdominal aortic aneurysm (2.3 cm AP dimension).
6. � Severe calcific atherosclerotic plaque in the abdominal aorta, right renal artery, and common iliac arteries.
7. � Mild cardiomegaly.
8. � Severe lower lumbar facet joint arthrosis.
Procedure findings :
Discharge Plan
-
Patient Disposition: Home (Routine Discharge)
Discharge Diagnosis/Procedures: partial small bowel obstruction
Condition: Good
Diet: Low Residue
Additional Diets: low residue diet x 1 week; follow dietary recs per surgeon
Activity: As tolerated
Driving Restrictions: As prior to admission
Bathing Restrictions: None
Referrals:
Juan Anaya MD [Family Provider] - in less than 1 week
Additional Discharge Medication Instructions: Resume prednisone taper as previously prescribed
Prescriptions:
Continued
atorvastatin 40 MG tablet
40 mg PO QPM
aspirin 81 MG tablet,delayed release (DR/EC)
81 mg PO DAILY
pantoprazole 40 MG tablet,delayed release (DR/EC)
40 mg PO QPM
loperamide 2 MG capsule
2 mg PO Q4H PRN (Reason: diarrhea)
PreserVision AREDS 1 CAP capsule
1 cap PO DAILY
glucosamine sulfate 500 MG tablet
500 mg PO DAILY
nitroglycerin 0.4 MG tablet, sublingual
0.4 mg sublingual [id number] PRN (Reason: chest pain) Qty: 25 2RF
famotidine 20 MG tablet
20 mg PO DAILY PRN (Reason: heartburn)
dextromethorphan-guaifenesin [Mucinex DM] 1 EACH tablet extended release 12 hr
1 ea PO BID PRN (Reason: Cough/congestion)
albuterol sulfate 1 PUFF HFA aerosol inhaler
2 puff inhalation R Q4HPRN PRN (Reason: sob/wheezing)
cholecalciferol (vitamin D3) 1,000 UNITS tablet
1,000 units PO DAILY
citalopram 40 mg tablet
40 mg PO DAILY
Patient Comments:
Dose confirmed with patient and outside list of Pharmacy
nifedipine 60 mg Tablet Extended Release
60 mg PO DAILY Qty: 30 1RF
furosemide 40 mg tablet
40 mg PO DAILY
montelukast 10 mg tablet
10 mg PO DAILY
potassium chloride 10 mEq tablet,ER particles/crystals
10 meq PO DAILY
Soothe Night Time Lubricant 80-20 % Ointment
1 applic BOTH EYES HS
Soothe Lubricant 0.6-0.6 % Dropperette
1 drp OPHTHALMIC (EYE) BID PRN (Reason: dry/irrirated eyes)
Breztri Aerosphere 160-9-4.8 mcg/actuation Hfa Aerosol Inhaler
2 inh INHALATION R BID
prednisone 10 mg tablet
10 mg PO .TAPER
Rx Instructions:
take 5 tabs (50mg) daily x 3 days, take 4 tabs (40mg) daily x 3 days, take 3 tabs (30mg) daily x 3 days, take 2 tabs (20mg) daily x 3 days, take 1 tab (10mg) daily x 3 days
fexofenadine 180 mg Tablet
180 mg PO DAILY
latanoprost 0.005 % drops
1 drp BOTH EYES HS
ipratropium-albuterol 0.5 mg-3 mg(2.5 mg base)/3 mL solution for nebulization
3 ml INHALATION R Q6 PRN (Reason: sob/wheezing)
lorazepam 0.5 mg Tablet
0.5 mg PO Q8H PRN (Reason: anxiety)
Patient Comments:
07/09/2023: last filled 03/18/23, 15 tabs for 5 days from [facility][id number]
ascorbic acid (vitamin C) [Vitamin C] 500 mg Tablet
500 mg PO DAILY
Discharge Orders:
Discharge Patient (As Directed); Ordered 07/11/23
Ordered By: Padmini Fierro
== END 2023-07-11 14:14 | disposition home or self-care (01) | DRG 389 ==
LOC: 4 WEST ACU 23:15
PROVIDERS: Clinical Nurse Specialist Family Health; ADMITTING PHYSICIAN Internal Medicine; ATTENDING PHYSICIAN Student in an Organized Health Care Education/Training Program; CONSULT PHYSICIAN Surgery; EMERGENCY PHYSICIAN Student in an Organized Health Care Education/Training Program; FAMILY PHYSICIAN Family Medicine
DX: K56.51 Intestinal adhesions [bands], with partial obstruction (principal); E87.1 Hypo-osmolality and hyponatremia; Z87.891 Personal history of nicotine dependence; I10 Essential (primary) hypertension; F32.A Depression, unspecified; F41.9 Anxiety disorder, unspecified; E05.90 Thyrotoxicosis, unspecified without thyrotoxic crisis or storm; K43.9 Ventral hernia without obstruction or gangrene; K44.9 Diaphragmatic hernia without obstruction or gangrene; I71.43 Infrarenal abdominal aortic aneurysm, without rupture; M47.819 Spondylosis without myelopathy or radiculopathy, site unspecified
CPT/HCPCS: 74177; 80048; 80053; 83605; 83690; 83735; 85025; 85027; 94640; 96361; 96374; 96375; 96376; 99285; Q9967

== ENCOUNTER → 2023-09-19 08:06 | Outpatient (REF) | payer MEDICARE, SELFPAY ==
[2023-09-19 10:00] LABS: % Basophils 0.3 % (0-2); % Eosinophils 0.1 % (0-6); % Immature Granulocytes 0.6 % (0-0.5); % Lymphocytes 6.8 % (20.5-51.1); % Monocytes 4.5 % (1.7-9.3); % Neutrophils 87.7 % (42.2-75.2); Absolute Immature Granulocytes 0.1 10^3/uL (0-0.05); Absolute Lymphocytes 0.5 10^3/uL (1.2-3.4); Absolute Monocytes 0.4 10^3/uL (0.1-0.6); Hematocrit 39.9 % (37.0-47.0); Hemoglobin 12.5 g/dL (12.0-16.0); Mean Corp Hgb Conc. 31.3 g/dL (33.0-37.0); Mean Corpuscular Volume 89.5 fL (81.0-99.0); Mean Platelet Volume 11.3 fL (7.4-10.4); Nucleated Red Blood Cells % 0 %; Platelet Count 164 10^3/uL (130-400); Red Blood Cell Count 4.46 10^6/uL (4.20-5.40); Red Cell Dist. Width 14.9 % (11.5-14.5)
[2023-09-19 10:36] LABS: C-Reactive Protein < 5.00 mg/L (0.0-10.00)
[2023-09-19 10:41] LABS: Erythrocyte Sed Rate 18 mm/hour (0-20)
[2023-09-19 11:02] LABS: Uric Acid 4.4 mg/dl (2.5-6.2)
== END ==
LOC: REG 08:06
PROVIDERS: ATTENDING PHYSICIAN Family Medicine
DX: M25.569 Pain in unspecified knee (principal); M25.469 Effusion, unspecified knee
CPT/HCPCS: 36415; 84550; 85025; 85652; 86140

== ENCOUNTER → 2023-09-20 11:29 | Outpatient (REF) | payer MEDICARE, SELFPAY | LOC: RAD 11:29 | PROVIDERS: ATTENDING PHYSICIAN Family Medicine | DX: M25.561 Pain in right knee (principal) | CPT/HCPCS: 73564 ==

== ENCOUNTER → 2023-09-27 17:59 | Outpatient (REF) | payer MEDICARE, SELFPAY | LOC: MRI 3T 17:59 | PROVIDERS: ATTENDING PHYSICIAN Student in an Organized Health Care Education/Training Program; FAMILY PHYSICIAN Family Medicine | DX: M17.11 Unilateral primary osteoarthritis, right knee (principal) | CPT/HCPCS: 73721 ==

== ENCOUNTER → 2023-10-03 11:22 | Outpatient (REF) | payer MEDICARE, SELFPAY | LOC: RCS 11:22 | PROVIDERS: ATTENDING PHYSICIAN Internal Medicine Cardiovascular Disease; FAMILY PHYSICIAN Family Medicine | DX: I25.10 Atherosclerotic heart disease of native coronary artery without angina pectoris (principal); I35.0 Nonrheumatic aortic (valve) stenosis | CPT/HCPCS: 93306 ==

== ENCOUNTER → 2023-11-21 11:17 | Outpatient (REF) | payer MEDICARE, SELFPAY ==
[2023-11-21 13:08] LABS: % Eosinophils 0.9 % (0-6); % Immature Granulocytes 0.9 % (0-0.5); % Lymphocytes 8.6 % (20.5-51.1); % Monocytes 5.4 % (1.7-9.3); % Neutrophils 83.2 % (42.2-75.2); Absolute Basophils 0.1 10^3/uL (0-0.2); Absolute Eosinophils 0.1 10^3/uL (0-0.7); Absolute Immature Granulocytes 0.1 10^3/uL (0-0.05); Absolute Lymphocytes 0.9 10^3/uL (1.2-3.4); Absolute Monocytes 0.6 10^3/uL (0.1-0.6); Absolute Neutrophils 8.6 10^3/uL (1.4-6.5); Hematocrit 38.5 % (37.0-47.0); Hemoglobin 12.6 g/dL (12.0-16.0); Mean Corp Hgb Conc. 32.7 g/dL (33.0-37.0); Mean Corpuscular Hgb 28.6 pg (27.0-31.0); Mean Corpuscular Volume 87.3 fL (81.0-99.0); Mean Platelet Volume 10.2 fL (7.4-10.4); Nucleated Red Blood Cells % 0 %; Platelet Count 212 10^3/uL (130-400); Red Blood Cell Count 4.41 10^6/uL (4.20-5.40); White Blood Cell Count 10.3 10^3/uL (4.8-10.8)
[2023-11-21 13:51] LABS: ALT (SGPT) 16 U/L (0-35); AST (SGOT) 23 U/L (14-36); Albumin 4.4 g/dl (3.5-5.0); Alkaline Phosphatase 83 U/L (38-126); Direct Bilirubin 0.3 mg/dl (0.0-0.4); Total Bilirubin 0.8 mg/dl (0.2-1.3); Total Protein 6.8 g/dl (6.3-8.2)
== END ==
LOC: REG 11:17
PROVIDERS: ATTENDING PHYSICIAN Internal Medicine Hematology & Oncology; FAMILY PHYSICIAN Family Medicine
DX: C34.12 Malignant neoplasm of upper lobe, left bronchus or lung (principal)
CPT/HCPCS: 36415; 80076; 85025

== ENCOUNTER 2024-01-09 09:34 | Inpatient (IN) | payer MEDICARE, SELFPAY ==
[2023-12-19 13:25] VITALS: BMI 38.4
[2023-12-19 14:26] LABS: Hematocrit 38.2 % (37.0-47.0); Hemoglobin 12.8 g/dL (12.0-16.0); Mean Corp Hgb Conc. 33.5 g/dL (33.0-37.0); Mean Corpuscular Hgb 29.8 pg (27.0-31.0); Mean Corpuscular Volume 88.8 fL (81.0-99.0); Mean Platelet Volume 10.4 fL (7.4-10.4); Platelet Count 176 10^3/uL (130-400); Red Cell Dist. Width 14.5 % (11.5-14.5); White Blood Cell Count 12.1 10^3/uL (4.8-10.8)
[2023-12-19 15:09] LABS: ALT (SGPT) 18 U/L (0-35); AST (SGOT) 27 U/L (14-36); Albumin 4.4 g/dl (3.5-5.0); Alkaline Phosphatase 94 U/L (38-126); Blood Urea Nitrogen 26 mg/dl (7-17); Calcium 10.8 mg/dl (8.4-10.2); Carbon Dioxide 26 mmol/L (22-30); Chloride 104 mmol/L (98-107); Estimated Creatinine Clearance 51 ml/min; Glucose 97 mg/dl (70-99); Potassium 4.9 mmol/L (3.5-5.1); Sodium 140 mmol/L (135-145); Total Bilirubin 0.9 mg/dl (0.2-1.3); Total Protein 6.9 g/dl (6.3-8.2); eGFR > 60.00
[2023-12-20 08:49] LABS: Glycohemoglobin (HgbA1c) 5.8 % (4.0-5.6)
[2024-01-03 09:08] VITALS: BMI 38.4
[2024-01-09] VITALS (18 sets, daily range): BP systolic 118–192; BP diastolic 53–88; PULSE 76; O2SAT 96
[2024-01-09] MEDS: TYLENOL 650 MG PO (10:19)
[2024-01-09] MEDS: CELEBREX 200 MG PO (10:20)
[2024-01-09] MEDS: NORMOSOL-R/PLASMALYTE-A 1000 IV ×2 (10:20→15:30)
[2024-01-09] MEDS: TRANDATE 5 MG IV (14:31)
[2024-01-09] MEDS: ULTRAM 50 MG PO ×2 (14:33→20:31)
--- NOTE | 2024-01-09 15:30 | PTCARENOTE ---
Pt received from the PACU via bed. Transport was w/o incident. Pt is AAOx3, HRR, lungs are clear, resp. are easy. VSS, Pt is afebrile. Pt's right leg with Prima seal dressing intact with scant bloody drainage noted at time of arrival to [facility]. No
current bleeding noted. Pt reports her pain in right leg as moderate 5/10 on pain scale. Will administer pain med as ordered. Pt denies nausea at this time. Pt instructed on plan of care. Pt verbalized understanding of instructions. Call [facility] is
within reach.
--- NOTE | 2024-01-09 15:59 | W.PN.UPDATE ---
Update Note
Progress Note Update
Patient seen and examined. S/P R TKR. Has been OOB and walking in the hamm. Doing well. VSS. Pulm: nonlabored. CV: regular. RLE: dressing CDI. NVI distally. Calf soft. Able to fully extend and flex to 90 degrees. Postop xrays as
expected. ASA for DVT prophylaxis. Plan for discharge home tomorrow with outpatient PT on Saturday.
[2024-01-09] MEDS: DILAUDID 2 MG PO (16:08)
[2024-01-09] MEDS: PROTONIX 40 MG PO (18:14)
[2024-01-09] MEDS: ASPIRIN 325 MG PO (18:14)
[2024-01-09] MEDS: LIPITOR 40 MG PO (18:14)
[2024-01-09] MEDS: SYMBICORT 160/4.5 MCG INHALER 2 PUFF INH (19:55)
[2024-01-09] MEDS: BACTROBAN 2% OINTMENT 1 APPLIC NASAL (20:28)
[2024-01-09] MEDS: ANCEF 5 IV (20:29)
[2024-01-09] MEDS: XALATAN OPHTHALMIC SOLUTION 1 DROP BOTH EYES (20:30)
[2024-01-10] MEDS: DILAUDID 2 MG PO ×2 (01:15→08:40)
[2024-01-10 03:02] VITALS: BP 152/64
[2024-01-10] MEDS: ANCEF 5 IV (03:40)
[2024-01-10] MEDS: ULTRAM 50 MG PO ×2 (06:02→12:17)
[2024-01-10] MEDS: MUCINEX 600 MG PO (06:26)
[2024-01-10] MEDS: ProAIR HFA INHALER 2 PUFF INH (06:33)
[2024-01-10] MEDS: SYMBICORT 160/4.5 MCG INHALER 2 PUFF INH (06:33)
[2024-01-10] MEDS: SPIRIVA RESPIMAT 2.5 MCG 2 PUFF INH (06:34)
--- NOTE | 2024-01-10 07:20 | W.PN.ORTHO ---
Today's Communication / Plan
-
Plan for discharge home today with outpatient PT on Saturday
Assessment
.
Distal Motor Intact: Yes
Dressing:
Clean, dry and intact.
Assessment:
Doing well s/p R TKR
Plan
.
Surgery / Date: 01/09/2024
DVT Prophylaxis: Aspirin
Activity:
Out of bed.
PT/OT
Discharge Plan: Home w/ Outpatient PT
Subjective
.
.:
Patient resting comfortably. Doing well
Vital Signs and Labs
.
Vital Signs and Labs:
Lab Results
12/19/23 13:33
12/19/23 13:33
Temp Pulse Resp BP Pulse Ox
98.3 F 77 18 152/64 96
01/10/24 03:02 01/10/24 06:41 01/10/24 06:41 01/10/24 03:02 01/10/24 06:41
Non-invasive Hgb result: 11.7
Physical Exam
-
Pulmonary nonlabored
CV: regular
Abd: benign
RLE: Dressing changed. Calf soft. Able to fully extend and flex to 90 degrees. NVI distally
[2024-01-10 07:39] VITALS: BP 121/89
[2024-01-10] MEDS: BACTROBAN 2% OINTMENT 1 APPLIC NASAL (08:05)
[2024-01-10] MEDS: CELEXA 40 MG PO (08:06)
[2024-01-10] MEDS: ASPIRIN 325 MG PO (08:06)
[2024-01-10] MEDS: CLARITIN 10 MG PO (08:06)
[2024-01-10] MEDS: LASIX 40 MG PO (08:06)
[2024-01-10] MEDS: PROCARDIA XL (EXTENDED RELEASE) 60 MG PO (08:06)
[2024-01-10] MEDS: SINGULAIR 10 MG PO (08:06)
[2024-01-10] MEDS: VITAMIN D3 (cholecalciferol) 25 MCG PO (08:06)
[2024-01-10] MEDS: OCUVITE SOFTGEL 1 CAP PO (08:06)
[2024-01-10] MEDS: KCL 10 MEQ PO (08:06)
[2024-01-10] MEDS: PLAVIX 75 MG PO (08:06)
[2024-01-10] MEDS: DELTASONE 5 MG PO (08:06)
--- NOTE | 2024-01-10 10:17 | CM ---
Reviewed the chart notes and spoke with the patient at the bedside. CM consult for VN/homcare received. Patient will be doing outpatient therapy. The patient reside alone in a one story home with one step to enter. The patient's daughter will be
staying with the patient and providing transportation to PT. The patient has a rolling walker, rollator, shower chair, transport chair, and a wheelchair in home. Patient denies VN or SNF in the past. CM continues to be available to patient/family
and is monitoring medical plan for needs at discharge.
Plan: Discharge to home today. Daughter will provide transportation.
[2024-01-10 10:55] VITALS: BP 126/57; BP 137/73; PULSE 75; PULSE 90; O2SAT 91
[2024-01-10 11:10] VITALS: BP 119/61
--- NOTE | 2024-01-10 12:06 | W.DS.TRANS ---
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
-
Discharge Instructions:
Discharge Diagnosis/Procedures s/p right total knee replacement
Diet No restrictions
Activity With assistance
Driving Restrictions Not until seen by your Dr
Bathing Restrictions OK to Shower
Wound Care Remove dressing in 7-10 days
Instructions:
Stand-Alone Forms:
Changes to Home Medications: No
Discharge Medications:
DC Medications w/original date entered in [employer]
aspirin 81 mg tablet,delayed release 81 mg PO DAILY Blood clot prevention/tx 07/22/17
atorvastatin 40 mg tablet 40 mg PO QPM High cholesterol 07/22/17
pantoprazole 40 mg tablet,delayed release 40 mg PO QPM Gastrointestinal issue 07/22/17
loperamide 2 mg capsule 2 mg PO Q4H PRN diarrhea 06/21/18
glucosamine sulfate 500 mg tablet 500 mg PO DAILY Supplement 02/16/19
nitroglycerin 0.4 mg sublingual tablet 0.4 mg sublingual [id number] PRN chest pain #25 tabs 02/16/19
vitamins A,C,I-fcup-jmynyw 4,296 mcg-226 mg-90 mg capsule (PreserVision AREDS) 1 cap PO DAILY Eye condition 02/16/19
albuterol sulfate 90 mcg/actuation aerosol inhaler 2 puff inhalation R Q4HPRN PRN sob/wheezing 07/13/21
cholecalciferol (vitamin D3) 25 mcg (1,000 unit) tablet 1,000 units PO DAILY Supplement 07/13/21
dextromethorphan-guaifenesin ER 60 mg-1,200 mg tab,extend release,12hr (Mucinex DM) 1 ea PO BID PRN Cough/congestion 07/13/21
famotidine 20 mg tablet 20 mg PO DAILY PRN GERD 07/13/21
citalopram 40 mg tablet 40 mg PO DAILY Mental Health/Anxiety 04/07/22
nifedipine 60 mg tablet,extended release 60 mg PO DAILY #30 tabs 04/11/22
budesonide 160 mcg-glycopyr 9 mcg-formot 4.8 mcg/actuation HFA inhaler (Breztri Aerosphere) 2 inh inhalation R BID Lung/Breathing Issues 12/25/22
furosemide 40 mg tablet 40 mg PO DAILY Fluid Retention/Swelling 12/25/22
montelukast 10 mg tablet 10 mg PO DAILY Lung/Breathing Issues 12/25/22
potassium chloride 10 mEq tablet,extended release(part/cryst) 10 meq PO DAILY Electrolyte Repletion 12/25/22
propylene glycol-glycerin 0.6 %-0.6 % eye drops in a dropperette (Soothe Lubricant) 1 drp ophthalmic (eye) BID PRN dry/irrirated eyes 12/25/22
white petrolatum-mineral oil 80 %-20 % eye ointment (Soothe Night Time Lubricant) 1 applic BOTH EYES HS dry eyes 12/25/22
ascorbic acid (vitamin C) 500 mg tablet (Vitamin C) 500 mg PO DAILY 07/09/23
fexofenadine 180 mg tablet 180 mg PO DAILY 07/09/23
ipratropium 0.5 mg-albuterol 3 mg (2.5 mg base)/3 mL nebulization soln 3 ml inhalation R Q6 PRN sob/wheezing 07/09/23
latanoprost 0.005 % eye drops 1 drp BOTH EYES HS 07/09/23
lorazepam 0.5 mg tablet 0.5 mg PO Q8H PRN anxiety 07/09/23
prednisone 5 mg tablet 5 mg PO DAILY 01/03/24
clopidogrel 75 mg tablet 75 mg PO DAILY Blood clot prevention/tx 30 days #30 tabs 01/09/24
docusate sodium 100 mg capsule 100 mg PO BID PRN Constipation 5 days #10 caps 01/09/24
mupirocin 2 % topical ointment 1 applic intranasal BID Infection 2 days 01/09/24
tramadol 50 mg tablet 50 mg PO Q6HPRN PRN moderate pain 5 days 01/09/24
aspirin 325 mg tablet 325 mg PO DAILY 30 days #30 tabs 01/10/24
Home Medication Changes
Pending Results: No
--- NOTE | 2024-01-10 12:07 | W.DCSUMMARY ---
Discharge Summary
Discharge Data
Date of Admission: 01/09/24
Date of Discharge: 01/10/24
-
Pending Results: No
Hospital Course
83 year old female admitted to the hospital following elective right total knee replacement on 01/09/24 under the direction of Dr. Petty. She was monitored overnight. She was able to work with physical therapy. Once she was medically stable and her
pain was controlled, she was discharged to home. She will be weight bearing as tolerated to the right leg. She is to take aspirin 325mg daily for one month and resume her plavix for DVT prophylaxis. She will have an outpatient appointment in two
weeks.
Discharge Plan
-
Patient Disposition: Home (Routine Discharge)
Discharge Diagnosis/Procedures: status post right total knee replacement
Condition: Good
Diet: No restrictions
Activity: With assistance
Driving Restrictions: Not until seen by your Dr
Bathing Restrictions: OK to Shower
Wound Care: Remove dressing in 7-10 days
Referrals:
Juan Anaya MD [Family Provider] -
Prescriptions:
New
docusate sodium 100 mg Capsule
100 mg PO BID PRN (Reason: Constipation) 5 Days Qty: 10 0RF
clopidogrel 75 mg Tablet
75 mg PO DAILY 30 Days Qty: 30 0RF
mupirocin 2 % Ointment
1 applic intranasal BID 2 Days 0RF
tramadol 50 mg Tablet
50 mg PO Q6HPRN PRN (Reason: moderate pain) 5 Days 0RF
aspirin 325 mg Tablet
325 mg PO DAILY 30 Days Qty: 30 0RF
Continued
atorvastatin 40 MG tablet
40 mg PO QPM
pantoprazole 40 MG tablet,delayed release (DR/EC)
40 mg PO QPM
loperamide 2 MG capsule
2 mg PO Q4H PRN (Reason: diarrhea)
PreserVision AREDS 1 CAP capsule
1 cap PO DAILY
nitroglycerin 0.4 MG tablet, sublingual
0.4 mg sublingual [id number] PRN (Reason: chest pain) Qty: 25 2RF
famotidine 20 MG tablet
20 mg PO DAILY PRN (Reason: GERD)
dextromethorphan-guaifenesin [Mucinex DM] 1 EACH tablet extended release 12 hr
1 ea PO BID PRN (Reason: Cough/congestion)
albuterol sulfate 1 PUFF HFA aerosol inhaler
2 puff inhalation R Q4HPRN PRN (Reason: sob/wheezing)
cholecalciferol (vitamin D3) 1,000 UNITS tablet
1,000 units PO DAILY
citalopram 40 mg tablet
40 mg PO DAILY
Patient Comments:
Dose confirmed with patient and outside list of Pharmacy
nifedipine 60 mg Tablet Extended Release
60 mg PO DAILY Qty: 30 1RF
furosemide 40 mg tablet
40 mg PO DAILY
montelukast 10 mg tablet
10 mg PO DAILY
potassium chloride 10 mEq tablet,ER particles/crystals
10 meq PO DAILY
Soothe Night Time Lubricant 80-20 % Ointment
1 applic BOTH EYES HS
Soothe Lubricant 0.6-0.6 % Dropperette
1 drp OPHTHALMIC (EYE) BID PRN (Reason: dry/irrirated eyes)
Breztri Aerosphere 160-9-4.8 mcg/actuation Hfa Aerosol Inhaler
2 inh INHALATION R BID
fexofenadine 180 mg Tablet
180 mg PO DAILY
latanoprost 0.005 % drops
1 drp BOTH EYES HS
ipratropium-albuterol 0.5 mg-3 mg(2.5 mg base)/3 mL solution for nebulization
3 ml INHALATION R Q6 PRN (Reason: sob/wheezing)
lorazepam 0.5 mg Tablet
0.5 mg PO Q8H PRN (Reason: anxiety)
Patient Comments:
07/09/2023: last filled 03/18/23, 15 tabs for 5 days from [facility]
ascorbic acid (vitamin C) [Vitamin C] 500 mg Tablet
500 mg PO DAILY
prednisone 5 mg Tablet
5 mg PO DAILY
Held
aspirin 81 MG tablet,delayed release (DR/EC)
81 mg PO DAILY
Hold Instructions: Resume on 01/30/24. Resume after 4 weeks post-op.
glucosamine sulfate 500 MG tablet
500 mg PO DAILY
Hold Instructions: Resume on 01/11/24.
Discontinued
mupirocin 2 % Ointment
1 applic TOPICAL BID
Discharge Orders:
Discharge Patient (As Directed); Ordered 01/10/24
Ordered By: Merly Nina
Discharge Date and Time
Print Language: SERBIAN
== END 2024-01-10 13:11 | disposition home or self-care (01) | DRG 470 ==
LOC: 2 SOUTH 09:34
PROVIDERS: ADMITTING PHYSICIAN Orthopaedic Surgery; FAMILY PHYSICIAN Family Medicine; OTHER PHYSICIAN Internal Medicine Cardiovascular Disease; REFERRING PHYSICIAN Internal Medicine Critical Care Medicine
PROC: 0SRC0J9 Replacement of Right Knee Joint with Synthetic Substitute, Cemented, Open Approach (ICD-10-PCS; 2024-01-09)
DX: M17.11 Unilateral primary osteoarthritis, right knee (principal); J44.9 Chronic obstructive pulmonary disease, unspecified; I10 Essential (primary) hypertension; F32.A Depression, unspecified; I25.10 Atherosclerotic heart disease of native coronary artery without angina pectoris; Z95.5 Presence of coronary angioplasty implant and graft; E78.00 Pure hypercholesterolemia, unspecified; E21.0 Primary hyperparathyroidism; F41.9 Anxiety disorder, unspecified; K21.9 Gastro-esophageal reflux disease without esophagitis; K59.00 Constipation, unspecified; Z79.02 Long term (current) use of antithrombotics/antiplatelets; Z79.82 Long term (current) use of aspirin; Z79.52 Long term (current) use of systemic steroids; Z79.899 Other long term (current) drug therapy; Z87.891 Personal history of nicotine dependence; Z87.19 Personal history of other diseases of the digestive system; Z86.73 Personal history of transient ischemic attack (TIA), and cerebral infarction without residual deficits; Z85.118 Personal history of other malignant neoplasm of bronchus and lung; Z82.49 Family history of ischemic heart disease and other diseases of the circulatory system; Z88.5 Allergy status to narcotic agent; Z88.8 Allergy status to other drugs, medicaments and biological substances
CPT/HCPCS: 36415; 73560; 80053; 83036; 85027; 87070; 94640; 97110; 97116; 97162; 97166; 97530; 97535; C1713; C1776

== ENCOUNTER → 2024-02-18 11:53 | Outpatient (REF) | payer MEDICARE, SELFPAY | LOC: RAD 11:53 | PROVIDERS: ATTENDING PHYSICIAN Orthopaedic Surgery; FAMILY PHYSICIAN Family Medicine | DX: M79.661 Pain in right lower leg (principal); Z96.651 Presence of right artificial knee joint | CPT/HCPCS: 93971 ==

== ENCOUNTER 2024-04-25 05:46 | Inpatient (IN) | payer MEDICARE, SELFPAY ==
[2024-04-25] VITALS (10 sets, daily range): BP systolic 130–156; BP diastolic 51–79; BMI 37.8; BMI 38.6
[2024-04-25 00:39] LABS: % Basophils 0.3 % (0-2); % Immature Granulocytes 0.4 % (0-0.5); % Lymphocytes 1.8 % (20.5-51.1); % Monocytes 5.7 % (1.7-9.3); % Neutrophils 91.8 % (42.2-75.2); Absolute Lymphocytes 0.2 10^3/uL (1.2-3.4); Absolute Monocytes 0.6 10^3/uL (0.1-0.6); Hematocrit 35.6 % (37.0-47.0); Hemoglobin 11.6 g/dL (12.0-16.0); Mean Corp Hgb Conc. 32.6 g/dL (33.0-37.0); Mean Corpuscular Hgb 28.6 pg (27.0-31.0); Mean Corpuscular Volume 87.9 fL (81.0-99.0); Mean Platelet Volume 10.7 fL (7.4-10.4); Nucleated Red Blood Cells % 0 %; Platelet Count 222 10^3/uL (130-400); Red Blood Cell Count 4.05 10^6/uL (4.20-5.40); Red Cell Dist. Width 14.4 % (11.5-14.5); White Blood Cell Count 10.9 10^3/uL (4.8-10.8)
[2024-04-25 01:02] LABS: AST (SGOT) 26 U/L (14-36); Albumin 4.2 g/dl (3.5-5.0); Alkaline Phosphatase 151 U/L (38-126); Blood Urea Nitrogen 28 mg/dl (7-17); Carbon Dioxide 19 mmol/L (22-30); Chloride 106 mmol/L (98-107); Glucose 183 mg/dl (70-99); Potassium 4.2 mmol/L (3.5-5.1); Sodium 139 mmol/L (135-145); Total Bilirubin 0.5 mg/dl (0.2-1.3); Total Protein 6.6 g/dl (6.3-8.2); eGFR 29.57
[2024-04-25 01:13] LABS: Troponin I 0.026 ng/ml
[2024-04-25 01:32] LABS: ALT (SGPT) < 30 U/L (0-35)
--- NOTE | 2024-04-25 01:50 | EDRN ---
Pt says 'I'm not breathing so good.' Pt has felt more sob in the past few days. Pt went to her doctor on and was given Rx for doxycyline 100mg BID and prednisone 60mg daily. Pt has had two doses of prednisone. Pt was told to call on
Saturday if she was not feeling better however pt did not feel better last night and called the doctor. While waiting for the doctor to call back, 911 was called and pt came to ED. Pt notes increased sob at rest and with exertion. Pt unable to
lie down to sleep at night due to sob. Pt has a hacking cough that is productive of clear mucus. Pt denies fever/chills, cp, abd pain, n/v/d/c, dizziness, urinary symptoms. Pt feels unsteady on her feet however she is doing PT for knee
replacement and uses a cane currently.
--- NOTE | 2024-04-25 02:33 | ED.GENMED ---
History of Present Illness
General
Chief Complaint: Breathing Problem
Source: patient
Exam Limitations: none
Time Seen by Provider: 04/25/24 01:41
History of Present Illness
History of Present Illness:
This is a 83 year old female that comes in with co SOB. States that this started 4-5 days ago. States that she saws the PCP on and she upped her Prednisone to 60mg for 3 days. States that she has done this know for 2 days. States that she
was also given Doxycycline 100mg. States that she was told that if she got worse to come to the ER. States that she is very SOB and has a headache. Denies any fever, chest pain, abd pain, nausea, vomiting, diarrhea, dizziness, urinary burning.
Past History
Past History
ED Past Medical History: Asthma, CAD, Cancer (Lung CA), COPD, GERD, HTN, Hypercholesterolemia, Hyperthyroidism, Hypothyroidism, Psychiatric (Anxiety, depression), Other (TIA, Migraines, Sleep apnea, DVT, Hemorrhoids, Hiatal hernia, C-diff, Ovarian
cyst, Renal calculus, UTI, Overactive Parathyroid, Anemia, Fibrosis, AAA) and Other (Small bowel obstruction 2004, total colectomy for polyps, ileostomy with reversal)
ED Past Surgical History: Bowel resection (Total proctocolectomy with Ileostomy and then reversal), Cardiac (Catheterization, Stent), Gynecological (Tubal), Orthopedic (Right hand tendon repair, Right knee replacement) and Other (Hernia, Cataracts,
Right vein stripping)
Social History
Tobacco: Former smoker
Alcohol: None
Drug: None
Personal:
Living: alone
Employment: Retired
Family History
Family History: CAD
Review of Systems
Review of Systems
All Other Systems: ROS reviewed and negative except as documented in HPI and ROS
Constitutional: Reports no symptoms; Denies fever or chills
EENT: Reports no symptoms
Respiratory: Reports cough and trouble breathing
Cardiac: Reports no symptoms; Denies chest pain
ABD/GI: Reports no symptoms; Denies abdominal pain, nausea, vomiting or diarrhea
: Reports no symptoms; Denies dysuria, frequency or urgency
Musculoskeletal: Reports no symptoms
Skin: Reports no symptoms
Neurological: Reports headache; Denies dizzy
Psychiatric: Reports no symptoms
Phy Exam
General Physical Exam
General Presentation: mild distress
General age: appears stated age
General Skin: warm and dry
General Habitus: elderly
General Mental: alert
General Hydration: appears well hydrated
ENT Exam
ENT Exam: TM's normal, pharynx normal and neck supple
Eye Exam
Eye Exam: EOMI
Cardiovascular Exam
Cardiovascular Exam: regular rate/rhythm, no edema and normal peripheral pulses
Pulmonary Exam
Pulmonary Exam: chest non tender, no rhonchi, respiratory distress (Tachypnea) and other (Faint exp wheezing throughout, Decreased breath sounds, Dry cough noted)
Gastrointestinal Exam
Gastrointestinal Exam: normal bowel sounds, non tender, soft, no organomegaly, no pulsatile mass and non distended
Musculoskeletal Exam
Musculoskeletal Exam: full ROM and no edema
Skin Exam
Skin Exam: normal color, warm/dry, no rash and no petechia
Psychiatric Exam
Psychiatric Exam: normal mood/affect
Scores
Heart Failure Risk
Heart Failure Risk Score: Not Applicable
Course
Orders/Labs/Results
Orders:
Orders
04/25/24 00:11
Electrocardiogram (*1) Urgent
Reason for Study: Shortness of Breath
04/25/24 00:12
EKG- Treatment ONCE
CXR2 [CR Chest - 2 Views ] Urgent
Comment:
Reason For Exam: cough and shortness of breath
04/25/24 00:24
CMP [Comprehensive Metabolic Panel] Urgent
Complete Blood Count/With Diff Urgent
Troponin I Urgent
04/25/24 02:29
COVID-19 Antigen Urgent
Source: Nasal Swab
Influenza A+B Rapid Molecular Urgent
CAROLINE Source: Nasal Swab
Specimen Description:
Ipratropium/Albuterol Sulfate [Duoneb] 3 ml INH R NOW ONE
04/25/24 02:32
Zosyn 3.375 grams IVPB NOW Piperacillin/Tazo 3.375 Gram [Zosyn] 3.375 gram in 50 ml IV NOW
Abnormal Lab Results
04/25/24
00:24
WBC 10.9 H 10^3/uL
(4.8-10.8)
RBC 4.05 L 10^6/uL
(4.20-5.40)
Hgb 11.6 L g/dL
(12.0-16.0)
Hct 35.6 L %
(37.0-47.0)
MCHC 32.6 L g/dL
(33.0-37.0)
MPV 10.7 H fL
(7.4-10.4)
Absolute Neuts (auto) 10.0 H 10^3/uL
(1.4-6.5)
Absolute Lymphs (auto) 0.2 L 10^3/uL
(1.2-3.4)
Neutrophils % 91.8 H %
(42.2-75.2)
Lymphocytes % 1.8 L %
(20.5-51.1)
Carbon Dioxide 19 L mmol/L
(22-30)
BUN 28 H mg/dl
(7-17)
Creatinine 1.7 H mg/dL
(0.6-1.0)
Glucose 183 H mg/dl
(70-99)
Calcium 11.0 H mg/dl
(8.4-10.2)
Alkaline Phosphatase 151 H U/L
(38-126)
04/25/24 00:24
04/25/24 00:24
WBC very slightly elevated. H/h slightly low. carbon dioxide low. Dehydration. Glucose nonfasting. Calcium slightly elevated. Alk phos elevation. Troponin 0.026
Vital Signs
Initial and Last Documented VS:
Initial Vital Signs
Temp Pulse Resp BP Pulse Ox
99.0 F 95 24 130/66 96
04/25/24 00:09 04/25/24 00:09 04/25/24 00:09 04/25/24 00:09 04/25/24 00:09
Last Documented Vital Signs
Temp Pulse Resp BP Pulse Ox
99.0 F 100 26 150/61 91
04/25/24 00:09 04/25/24 01:30 04/25/24 01:30 04/25/24 01:29 04/25/24 01:30
MDM/Problems Addressed
Differential Diagnosis Includes:
COPD/asthma exacerbation, PNA
MDM/Problems Addressed:
This is a 83 year old female that comes in with increased SOB. States that this has been going on for the past 4-5 days. State that they increased her Prednisone to 60mg which she has done for the past 2 days. States that she is more SOB.
Will check labs, chest x-ray, COVID, Influenza. Will give Duo neb and admit patient. Will also get Chest x-ray.
Explained to patient that she will be admitted. Hospitalist notified.
Chronic conditions affecting care: COPD and Asthma
Acute Exacerbation and/or Progression of Chronic Illness: COPD and Asthma
*Radiology
Radiology exam reviewed: preliminary read by ED provider (Chest- right lower lobe Pneumonia)
*Pulse Oximetry
Patient hypoxic: no
*EKG
Interpreted by ED Provider?: Yes
Heart Rate: 96
Rate: normal
Rhythm: sinus and PVC's
[place]: left axis deviation
Interval: normal interval
QRS Pattern: right bundle branch block
Ischemia: no ischemia
*District Or District Office Director Interpretation
Rate: normal
Heart Rate: 90
Rhythm: sinus and PVC's
*Critical Care Note
Total Time (30-74mins, 75-104mins- exclusive of procedures): Not Applicable
ED Attending Note
-
Portions of this chart may have been created with voice recognition software.� Occasional wrong word or��sound alike� substitutions may have occurred due to the inherent limitations of voice recognition software.
Discharge Plan
Departure
Patient Disposition: Admit
Date of Disposition: 04/25/24
Time of Disposition: 02:48
Admit to: Telemetry
Presentation/result/management discussed w/ accepting MD/DO: Hospitalist
Patient with high blood pressure during this ER visit?: Yes
Condition: Good
Discharge Problem:
Right lower lobe pneumonia, Acute exacerbation of COPD with asthma
Prescriptions:
No Action
atorvastatin 40 MG tablet
40 mg PO QPM
aspirin 81 MG tablet,delayed release (DR/EC)
81 mg PO DAILY
pantoprazole 40 MG tablet,delayed release (DR/EC)
40 mg PO QPM
loperamide 2 MG capsule
2 mg PO Q4H PRN (Reason: diarrhea)
PreserVision AREDS 1 CAP capsule
1 cap PO DAILY
glucosamine sulfate 500 MG tablet
500 mg PO DAILY
nitroglycerin 0.4 MG tablet, sublingual
0.4 mg sublingual [id number] PRN (Reason: chest pain) Qty: 25 2RF
famotidine 20 MG tablet
20 mg PO DAILY PRN (Reason: GERD)
dextromethorphan-guaifenesin [Mucinex DM] 1 EACH tablet extended release 12 hr
1 ea PO BID PRN (Reason: Cough/congestion)
albuterol sulfate 1 PUFF HFA aerosol inhaler
2 puff inhalation R Q4HPRN PRN (Reason: sob/wheezing)
cholecalciferol (vitamin D3) 1,000 UNITS tablet
1,000 units PO DAILY
citalopram 40 mg tablet
40 mg PO DAILY
Patient Comments:
Dose confirmed with patient and outside list of Pharmacy
nifedipine 60 mg Tablet Extended Release
60 mg PO DAILY Qty: 30 1RF
furosemide 40 mg tablet
40 mg PO DAILY
montelukast 10 mg tablet
10 mg PO DAILY
potassium chloride 10 mEq tablet,ER particles/crystals
10 meq PO DAILY
Soothe Night Time Lubricant 80-20 % Ointment
1 applic BOTH EYES HS
Soothe Lubricant 0.6-0.6 % Dropperette
1 drp OPHTHALMIC (EYE) BID PRN (Reason: dry/irritated eyes)
Breztri Aerosphere 160-9-4.8 mcg/actuation Hfa Aerosol Inhaler
2 inh INHALATION R BID
fexofenadine 180 mg Tablet
180 mg PO DAILY
latanoprost 0.005 % drops
1 drp BOTH EYES HS
ipratropium-albuterol 0.5 mg-3 mg(2.5 mg base)/3 mL solution for nebulization
3 ml INHALATION R Q6 PRN (Reason: sob/wheezing)
lorazepam 0.5 mg Tablet
0.5 mg PO Q8H PRN (Reason: anxiety)
Patient Comments:
07/09/2023: last filled 03/18/23, 15 tabs for 5 days from [id number]
ascorbic acid (vitamin C) [Vitamin C] 500 mg Tablet
500 mg PO DAILY
clopidogrel 75 mg Tablet
75 mg PO DAILY 30 Days Qty: 30 0RF
mupirocin 2 % Ointment
1 applic intranasal BID 2 Days 0RF
prednisone 20 mg Tablet
60 mg PO DAILY
doxycycline hyclate 100 mg Tablet
100 mg PO BID
Interventions
Interventions:
*Risk Screen - Suicide Last Done: 04/25/24 00:08
*General Assessment Last Done: 04/25/24 00:08
*Neglect/Abuse Screening Last Done: 04/25/24 00:08
*ED COVID-19 Vaccine History Last Done: 04/25/24 00:10
ED- Cardiac Assessment Last Done: 04/25/24 01:43
ED- Pulmonary Assessment Last Done: 04/25/24 01:43
Discharge Date and Time
Print Language: GUYANESE
[2024-04-25] MEDS: DECADRON 20 MG IV (03:02)
[2024-04-25] MEDS: DUONEB 3 ML INH ×5 (03:06→19:26)
[2024-04-25] MEDS: ZOSYN 50 IV (03:10)
[2024-04-25 03:12] LABS: COVID-19 Antigen Negative (Negative)
--- NOTE | 2024-04-25 04:08 | HPS.HSE ---
Family Physician
-
Family Physician: Juan Anaya
Chief Complaint
-
Shortness of breath
History of Present Illness
This is a 82-year-old female with past medical history of COPD not on home O2, hypertension, hyperlipidemia, hypothyroid, sleep apnea not on CPAP, GERD who presents to the emergency department with worsening shortness of breath.
Patient reports symptoms began about 6 days ago with productive cough, shortness of breath and wheezing. She reports chest congestion. No rhinorrhea or postnasal drip. Patient was seen by her clinic and was started on prednisone 60 mg daily about
3 days ago. She says she had no improvement despite taking the prednisone. She denied having any fevers at home. She denies having any chills. She reports and no increase in lower extremity edema. She denies orthopnea or PND. The shortness of
breath got more severe so she came to ED.
In the ED to was afebrile, blood pressure 150/60, pulse 92. Respiratory rate was high in the 20s. ECG showed a normal sinus rhythm with a drawl rate of 96. Troponin was negative. Chest x-ray with a small right lower lobe opacity. CBC was
unremarkable. Her creatinine is increased to 1.7 from a baseline of around 0.8. Her BUN is unchanged from prior. Electrolytes are unchanged from prior. COVID test was negative. Influenza test was positive.
Medical History
Past Medical History
Past Medical History: Reports Asthma, CAD (Status post stent), Cancer (Lungs Ca), COPD, GERD, HTN, Hypercholesterolemia, Hypothyroidism and Psychiatric (anxiety)
Additional Past Medical History:
Sleep apnea not on CPAP
History of DVT
History of TIA
Migraines
AAA
Past Surgical History: Reports Bowel Resection (Small bowel obstruction status post total colectomy, ileostomy with reversal,) and Orthopedic (Right total knee arthroplasty)
Additional Past Surgical History:
Partial small bowel obstruction
Intestinal adhesions
Social History
Tobacco: Non-smoker
Alcohol: None
Drug: None
Personal: Single
Living: Alone
Employment: Retired
Family History
Family History: Not pertinent
Allergies / Home Medications
Allergies reflects when Allergies were last updated in [employer]
Home Medications with original date entered in [employer]
Allergy/Medication List:
Allergies
Allergy/AdvReac Type Severity Reaction Status Date / Time
codeine Allergy NAUSEA Verified 04/25/24 00:04
doxycycline Allergy HEART Verified 04/25/24 00:04
PALPITATIONS
meperidine HCl [From Demerol] Allergy Nausea/ligh Verified 04/25/24 00:04
theaded
morphine Allergy Nausea Verified 04/25/24 00:04
norepinephrine Allergy rash to Verified 04/25/24 00:04
ethylnorepinephrine
oxycodone Allergy SEVERE Verified 04/25/24 00:04
NAUSEA
pentazocine Allergy TALWIN Verified 04/25/24 00:04
pentazocine lactate Allergy Nausea Verified 04/25/24 00:04
[From Talwin]
Tetracyclines Allergy very Verified 04/25/24 00:04
disoriented
Home Medications
aspirin 81 mg tablet,delayed release 81 mg PO DAILY Blood clot prevention/tx 07/22/17
atorvastatin 40 mg tablet 40 mg PO QPM High cholesterol 07/22/17
pantoprazole 40 mg tablet,delayed release 40 mg PO QPM Gastrointestinal issue 07/22/17
loperamide 2 mg capsule 2 mg PO Q4H PRN diarrhea 06/21/18
glucosamine sulfate 500 mg tablet 500 mg PO DAILY Supplement 02/16/19
nitroglycerin 0.4 mg sublingual tablet 0.4 mg sublingual [id number] PRN chest pain #25 tabs 02/16/19
vitamins A,C,B-icjp-xooazp 4,296 mcg-226 mg-90 mg capsule (PreserVision AREDS) 1 cap PO DAILY Eye condition 02/16/19
albuterol sulfate 90 mcg/actuation aerosol inhaler 2 puff inhalation R Q4HPRN PRN sob/wheezing 07/13/21
cholecalciferol (vitamin D3) 25 mcg (1,000 unit) tablet 1,000 units PO DAILY Supplement 07/13/21
dextromethorphan-guaifenesin ER 60 mg-1,200 mg tab,extend release,12hr (Mucinex DM) 1 ea PO BID PRN Cough/congestion 07/13/21
famotidine 20 mg tablet 20 mg PO DAILY PRN GERD 07/13/21
citalopram 40 mg tablet 40 mg PO DAILY Mental Health/Anxiety 04/07/22
nifedipine 60 mg tablet,extended release 60 mg PO DAILY #30 tabs 04/11/22
budesonide 160 mcg-glycopyr 9 mcg-formot 4.8 mcg/actuation HFA inhaler (Breztri Aerosphere) 2 inh inhalation R BID Lung/Breathing Issues 12/25/22
furosemide 40 mg tablet 40 mg PO DAILY Fluid Retention/Swelling 12/25/22
montelukast 10 mg tablet 10 mg PO DAILY Lung/Breathing Issues 12/25/22
potassium chloride 10 mEq tablet,extended release(part/cryst) 10 meq PO DAILY Electrolyte Repletion 12/25/22
propylene glycol-glycerin 0.6 %-0.6 % eye drops in a dropperette (Soothe Lubricant) 1 drp ophthalmic (eye) BID PRN dry/irritated eyes 12/25/22
white petrolatum-mineral oil 80 %-20 % eye ointment (Soothe Night Time Lubricant) 1 applic BOTH EYES HS dry eyes 12/25/22
ascorbic acid (vitamin C) 500 mg tablet (Vitamin C) 500 mg PO DAILY 07/09/23
fexofenadine 180 mg tablet 180 mg PO DAILY 07/09/23
ipratropium 0.5 mg-albuterol 3 mg (2.5 mg base)/3 mL nebulization soln 3 ml inhalation R Q6 PRN sob/wheezing 07/09/23
latanoprost 0.005 % eye drops 1 drp BOTH EYES HS 07/09/23
lorazepam 0.5 mg tablet 0.5 mg PO Q8H PRN anxiety 07/09/23
clopidogrel 75 mg tablet 75 mg PO DAILY Blood clot prevention/tx 30 days #30 tabs 01/09/24
mupirocin 2 % topical ointment 1 applic intranasal BID Infection 2 days 01/09/24
doxycycline hyclate 100 mg tablet 100 mg PO BID 04/25/24
prednisone 20 mg tablet 60 mg PO DAILY 04/25/24
Review of Systems
-
History Source: Patient
Constitutional: Reports No Symptoms
EENT: Reports No Symptoms
Respiratory: Reports Cough and Trouble Breathing
Cardiac: Reports No Symptoms
Abdomen/GI: Reports No Symptoms
: Reports No Symptoms
Musculoskeletal: Reports No Symptoms
Skin: Reports No Symptoms
Neurological: Reports No Symptoms
Endocrine: Reports No Symptoms
Hematologic/Lymphatic: Reports No Symptoms
Psych: Reports No Symptoms
Physical Exam
Vital Signs
Vital Signs
Temp Pulse Resp BP Pulse Ox
99.0 F 92 29 150/61 94
04/25/24 00:09 04/25/24 03:00 04/25/24 03:00 04/25/24 01:29 04/25/24 03:00
Physical Exam
General: Well Developed, Well Nourished and Respiratory Distress
HEENT: NormoCephalic, Anicteric and Moist mucous membranes
Respiratory: Clear, Wheezes and Accessory Resp Muscle Use
Cardiac: S1/S2 and Regular Rhythm
Breast: Deferred by me
GI: Soft, Non Tender and Normal Bowel Sounds
Rectal: Deferred by Provider
Genito-urinary: Deferred by me
Musculoskeletal: No Clubbing, No Cyanosis, Edema, Left Lower Extremity (1+) and Edema, Right Lower Extremity (1+)
Skin: Warm
Neuro: AO x 3 and Nonfocal/grossly intact
Hematologic/Lymphatic: No Lymphadenopathy
Psych: Calm
Laboratory Results
-
04/25/24 00:24
04/25/24 00:24
Laboratory Results
Total Bilirubin 0.5 mg/dl (0.2-1.3) 04/25/24 00:24
AST 26 U/L (14-36) 04/25/24 00:24
ALT < 30 U/L (0-35) 04/25/24 00:24
Alkaline Phosphatase 151 U/L (38-126) H 04/25/24 00:24
Troponin I 0.026 ng/ml 04/25/24 00:24
Data Reviewed
-
Diagnostic Radiology: Image Personally Visualized and interpreted
Medical Tests (Nuc Med, Echo, EKG etc): Image Personally Visualized and interpreted
Lab Data: Labs Reviewed by me
Old Records: Reviewed
Impression/Plan
-
IMPRESSION:
83 y.o w/ multiple commorbidities here with acute respiratory distress with wheezing, tachypnea and sob. Influenza is positive, no hypoxia at this time. Possible RLL infiltrate. Picture complicated by LEANN.
PLAN:
1. Influenza - S/P six days of symptoms. She remains quite tachypneic. She is afebrile. Not hypoxic
- admit to telemetry
- given severity of presentation will start tamiflu
- supportive care with supplemental oxygen and nebs
2. Pneumonia - RLL infiltrate, possible pna
- cover bacterial co-infection empirically with ceftriaxone
- check mrsa
- check procalcitonin
3. COPD exacerbation- Increase wob, few scattered wheezes
- solu-medrol 40 q 6
- albuterol nebs q 2 hours prn
- continue ics/laba and montelukast
- duonebs q 6
4. LEANN - Suspect ATN given influenza. Cannot rule out obstruction
- hold diuretics for now
- check renal/bladder u/s
- avoid nephrotoxins
- u/a
- nephrology consult.
5. HTN
- continue home nifedipine
6. CAD - no acute process
- continue aspirin/plavix statin
DVT PPX - heparin sq
Code status - DNR
[2024-04-25] MEDS: VENTOLIN NEBULES 2.5 MG INH (04:36)
[2024-04-25] MEDS: TAMIFLU 30 MG PO (04:36)
[2024-04-25 06:22] LABS: Hematocrit 36.5 % (37.0-47.0); Hemoglobin 11.6 g/dL (12.0-16.0); Mean Corp Hgb Conc. 31.8 g/dL (33.0-37.0); Mean Corpuscular Hgb 28.3 pg (27.0-31.0); Mean Platelet Volume 10.5 fL (7.4-10.4); Platelet Count 192 10^3/uL (130-400); Red Cell Dist. Width 14.4 % (11.5-14.5); White Blood Cell Count 11.3 10^3/uL (4.8-10.8)
[2024-04-25 06:29] LABS: Blood Urea Nitrogen 29 mg/dl (7-17); Calcium 10.9 mg/dl (8.4-10.2); Carbon Dioxide 20 mmol/L (22-30); Chloride 105 mmol/L (98-107); Glucose 173 mg/dl (70-99); Potassium 3.9 mmol/L (3.5-5.1); Sodium 138 mmol/L (135-145); eGFR 34.36
[2024-04-25 06:44] LABS: Procalcitonin < 0.05 ng/ml (0.0-0.25)
[2024-04-25] MEDS: PULMICORT 0.5 MG INH ×2 (08:42→19:26)
[2024-04-25 08:50] LABS: Urine Albumin Trace (Neg - Trace); Urine Bilirubin Negative (Negative); Urine Character Clear (Clear); Urine Color Yellow; Urine Glucose Negative (Negative); Urine Ketone Negative (Negative); Urine Leukocyte Negative (Negative); Urine Nitrite Negative (Negative); Urine Occult Blood Negative (Negative); Urine Urobilinogen Negative (Neg - 1+)
[2024-04-25] MEDS: PLAVIX 75 MG PO (08:51)
[2024-04-25] MEDS: ASPIR LOW (ENTERIC COATED) 81 MG PO (08:51)
[2024-04-25] MEDS: HEPARIN 5000 UNITS SC ×3 (08:51→23:17)
[2024-04-25] MEDS: CLARITIN 10 MG PO (08:51)
[2024-04-25] MEDS: SINGULAIR 10 MG PO (08:51)
[2024-04-25] MEDS: CELEXA 40 MG PO (08:51)
[2024-04-25] MEDS: PROCARDIA XL (EXTENDED RELEASE) 60 MG PO (08:54)
[2024-04-25] MEDS: ROBITUSSIN 200 MG PO ×3 (08:57→20:31)
[2024-04-25] MEDS: STERILE WATER FOR INJECTION 10 ML IV (09:25)
[2024-04-25] MEDS: ROCEPHIN 1000 MG IV (09:25)
--- NOTE | 2024-04-25 11:03 | PTCARENOTE ---
Assumed care of patient. AOx3, pleasant. Harsh, productive cough, sating 95% on 2L, tachypneic and labored breathing. RT at bedside administering Neb at this time. LS diminished w/ expiratory wheeze. Pt drinking and taking pills w/o difficulty. Does
not wish to eat at this time. Full assessment and admission as documented.
[2024-04-25] MEDS: SOLU-MEDROL PF 40 MG IV (11:41)
--- NOTE | 2024-04-25 14:29 | W.PN.HOSP.TC ---
Today's Communication/Plan
-
Monitor vital signs see plan
Wean oxygen as tolerated
Continue Tamiflu
Nephrology evaluation
Monitor urinary output
Start fluids
Continue antibiotics
Nonbillable note
Assessment / Plan
Assessment / Plan
General: Well Developed, Well Nourished and Respiratory Distress
HEENT: NormoCephalic, Anicteric and Moist mucous membranes
Respiratory: Clear, Wheezes and Accessory Resp Muscle Use
Cardiac: S1/S2 and Regular Rhythm
GI: Soft, Non Tender and Normal Bowel Sounds
Musculoskeletal: No Clubbing, No Cyanosis, Edema, Left Lower Extremity (1+) and Edema, Right Lower Extremity (1+)
Neuro: AO x 3 and Nonfocal/grossly intact
Psych: Calm
Acute hypoxic respiratory insufficiency likely secondary to influenza A with possibility of superimposed bacterial pneumonia, also COPD exacerbation
Started Tamiflu given severity of presentation
Wean oxygen as tolerated
- cover bacterial co-infection empirically with ceftriaxone and doxy
COPD exacerbation
- albuterol nebs q 2 hours prn
- continue ics/laba and montelukast
DuoNeb standing and as needed
Decadron
LEANN - Suspect ATN
- hold diuretics for now
- avoid nephrotoxins
- u/a normal
- nephrology evaluation
Give fluids
Hypercalcemia
Fluids
Monitor
HTN
- continue home nifedipine
CAD - no acute process
- continue aspirin/plavix statin
DVT PPX - heparin sq
Code status - DNR
Anticipated Discharge: > 48 hours
Subjective/Interval History
-
Date of Service: April 25, 2024
denies pain
Objective Data
-
Labs:
Laboratory Results
04/25/24
06:09
WBC 11.3 H
Hgb 11.6 L
Hct 36.5 L
Plt Count 192
Sodium 138
Potassium 3.9
Chloride 105
Carbon Dioxide 20 L
BUN 29 H
Creatinine 1.5 H
Glucose 173 H
Calcium 10.9 H
Vital Signs:
Vital Signs
Temp Pulse Resp BP Pulse Ox
98.3 F 106 20 150/73 98
04/25/24 12:58 04/25/24 12:58 04/25/24 12:58 04/25/24 12:58 04/25/24 12:58
--- NOTE | 2024-04-25 15:15 | W.CON.NEPH ---
Consultation
-
Date/Time Consultation Requested: 04/25/24 0551
Date/Time Consultation Performed: 04/25/24 1530
Requesting Provider: Donato Velazquez MD
Performing Provider: Varsha Maldonado
Reason for Consultation: LEANN
Medical History
-
Chief Complaint: SOB
History of Present Illness:
82-year-old female with past medical history of COPD on inhalers, hypertension on nifedipine, hyperlipidemia on atorvastatin, hypothyroid, sleep apnea not on CPAP, GERD on PPI,Remote history of kidney stone, takes Lasix with a history of heart
disease who presents to the emergency department with worsening shortness of breath on 04/24. Patient reports operative week of symptoms with coughing and wheezing with shortness of breath. She was prescribed prednisone 60 mg and doxycycline few
days ago however symptoms did not improve and presented to the ER. She is currently treated as COPD exacerbation And positive for influenza. Creatinine on admission was at 1.7, today improved to 1.5. Baseline creatinine of 0.8 in November 2023.
Calcium chronically intermittently elevated on admission was at 11. She reports of taking vitamin D and probably calcium tablets. She reports no fever or nausea or vomiting. No abdominal pain or diarrhea. Reports her oral intake has decreased in
last 1 week and compliant with her Lasix intake.
Past Medical History
Asthma, CAD (Status post stent), Cancer (Lungs Ca), COPD, GERD, HTN, Hypercholesterolemia, Hypothyroidism and Psychiatric (anxiety)
Sleep apnea not on CPAP
History of DVT
History of TIA
Migraines
AAA
History of kidney stones
primary hyperparathyroidism
Lung nodule
Depression
History of blood clots
Lung cancer lower lobe in 2019
TIA
Actinic keratosis
Past Surgical History: Bowel Resection ( status post colectomy, ileostomy with reversal), Orthopedic ( right knee arthroplasty) and Other (Hand surgery, rectal fissure repair, left breast biopsy, right hand tendon repair, bilateral tubal ligation,
bilateral cataract extraction and lens implants, vocal cord polypectomy, cardiac catheter with a stent, right knee replacement)
Social History
Tobacco: Non-Smoker
Alcohol: None
Drug: None
Personal: Single
Employment: Retired
Family History
no CKD
Family History: Not Pertinent
Allergies / Home Medications
Allergy/AdvReac Type Severity Reaction Status Date / Time
codeine Allergy NAUSEA Verified 04/25/24 00:04
doxycycline Allergy HEART Verified 04/25/24 00:04
PALPITATIONS
meperidine HCl [From Demerol] Allergy Nausea/ligh Verified 04/25/24 00:04
theaded
morphine Allergy Nausea Verified 04/25/24 00:04
norepinephrine Allergy rash to Verified 04/25/24 00:04
ethylnorepinephrine
oxycodone Allergy SEVERE Verified 04/25/24 00:04
NAUSEA
pentazocine Allergy TALWIN Verified 04/25/24 00:04
pentazocine lactate Allergy Nausea Verified 04/25/24 00:04
[From Talwin]
Tetracyclines Allergy very Verified 04/25/24 00:04
disoriented
�Medication �Instructions �Recorded �Confirmed �Type
aspirin 81 mg tablet,delayed 81 mg PO DAILY Blood clot 07/22/17 04/25/24 History
release prevention/tx
atorvastatin 40 mg tablet 40 mg PO QPM High cholesterol 07/22/17 04/25/24 History
pantoprazole 40 mg tablet,delayed 40 mg PO QPM Gastrointestinal issue 07/22/17 04/25/24 History
release
loperamide 2 mg capsule 2 mg PO Q4H PRN diarrhea 06/21/18 04/25/24 History
glucosamine sulfate 500 mg tablet 500 mg PO DAILY Supplement 02/16/19 04/25/24 History
nitroglycerin 0.4 mg sublingual 0.4 mg sublingual [id number] PRN 02/16/19 04/25/24 Rx
tablet chest pain #25 tabs
vitamins A,C,K-aoez-zlfrpp 4,296 1 cap PO DAILY Eye condition 02/16/19 04/25/24 History
mcg-226 mg-90 mg capsule
(PreserVision AREDS)
albuterol sulfate 90 mcg/actuation 2 puff inhalation R Q4HPRN PRN 07/13/21 04/25/24 History
aerosol inhaler sob/wheezing
cholecalciferol (vitamin D3) 25 1,000 units PO DAILY Supplement 07/13/21 04/25/24 History
mcg (1,000 unit) tablet
dextromethorphan-guaifenesin ER 60 1 ea PO BID PRN Cough/congestion 07/13/21 04/25/24 History
mg-1,200 mg tab,extend
release,12hr (Mucinex DM)
famotidine 20 mg tablet 20 mg PO DAILY PRN GERD 07/13/21 04/25/24 History
citalopram 40 mg tablet 40 mg PO DAILY Mental 04/07/22 04/25/24 History
Health/Anxiety
nifedipine 60 mg tablet,extended 60 mg PO DAILY #30 tabs 04/11/22 04/25/24 Rx
release
budesonide 160 mcg-glycopyr 9 2 inh inhalation R BID 12/25/22 04/25/24 History
mcg-formot 4.8 mcg/actuation HFA Lung/Breathing Issues
inhaler (Breztri Aerosphere)
furosemide 40 mg tablet 40 mg PO DAILY Fluid 12/25/22 04/25/24 History
Retention/Swelling
montelukast 10 mg tablet 10 mg PO DAILY Lung/Breathing 12/25/22 04/25/24 History
Issues
potassium chloride 10 mEq 10 meq PO DAILY Electrolyte 12/25/22 04/25/24 History
tablet,extended release(part/cryst) Repletion
propylene glycol-glycerin 0.6 1 drp ophthalmic (eye) BID PRN 12/25/22 04/25/24 History
%-0.6 % eye drops in a dropperette dry/irritated eyes
(Soothe Lubricant)
white petrolatum-mineral oil 80 1 applic BOTH EYES HS dry eyes 12/25/22 04/25/24 History
%-20 % eye ointment (Soothe Night
Time Lubricant)
ascorbic acid (vitamin C) 500 mg 500 mg PO DAILY 07/09/23 04/25/24 History
tablet (Vitamin C)
fexofenadine 180 mg tablet 180 mg PO DAILY 07/09/23 04/25/24 History
ipratropium 0.5 mg-albuterol 3 mg 3 ml inhalation R Q6 PRN 07/09/23 04/25/24 History
(2.5 mg base)/3 mL nebulization sob/wheezing
soln
latanoprost 0.005 % eye drops 1 drp BOTH EYES HS 07/09/23 04/25/24 History
lorazepam 0.5 mg tablet 0.5 mg PO Q8H PRN anxiety 07/09/23 04/25/24 History
clopidogrel 75 mg tablet 75 mg PO DAILY Blood clot 01/09/24 04/25/24 Rx
prevention/tx 30 days #30 tabs
mupirocin 2 % topical ointment 1 applic intranasal BID Infection 01/09/24 04/25/24 Rx
2 days
doxycycline hyclate 100 mg tablet 100 mg PO BID 04/25/24 04/25/24 History
prednisone 20 mg tablet 60 mg PO DAILY 04/25/24 04/25/24 History
Review of Systems
-
All complete all point review of system have been inquired and found negative other than stated in HPI
Physical Exam
Vital Signs
Vital Signs
Temp Pulse Resp BP Pulse Ox
98.3 F 106 20 150/73 98
04/25/24 12:58 04/25/24 12:58 04/25/24 12:58 04/25/24 12:58 04/25/24 12:58
Lab Results
WBC 11.3 10^3/uL (4.8-10.8) H 04/25/24 06:09
RBC 4.10 10^6/uL (4.20-5.40) L 04/25/24 06:09
Hgb 11.6 g/dL (12.0-16.0) L 04/25/24 06:09
Hct 36.5 % (37.0-47.0) L 04/25/24 06:09
Plt Count 192 10^3/uL (130-400) 04/25/24 06:09
Sodium 138 mmol/L (135-145) 04/25/24 06:09
Potassium 3.9 mmol/L (3.5-5.1) 04/25/24 06:09
Chloride 105 mmol/L (98-107) 04/25/24 06:09
Carbon Dioxide 20 mmol/L (22-30) L 04/25/24 06:09
BUN 29 mg/dl (7-17) H 04/25/24 06:09
Creatinine 1.5 mg/dL (0.6-1.0) H 04/25/24 06:09
eGFR 34.36 04/25/24 06:09
Glucose 173 mg/dl (70-99) H 04/25/24 06:09
Calcium 10.9 mg/dl (8.4-10.2) H 04/25/24 06:09
Albumin 4.2 g/dl (3.5-5.0) 04/25/24 00:24
CXR:
IMPRESSION:
New findings suggesting mild right lower lobe pneumonia.
Mild cardiomegaly. Stable.
Stable mid left lung scarring.
Renal ultrasound:
IMPRESSION: Unremarkable exam of the kidneys and bladder.
Postvoid residual not performed.
Bilateral ureteral jets not visualized.
Physical Exam
General: Awake, Alert, Oriented, AOx3, No Distress and Nontoxic
HEENT: EOMI, Anicteric, Facial Symmetry and No JVD
Respiratory: Wheezes, Normal Excursion and Nonlabored Respirations
Cardiac: S1/S2 and Regular Rate/Rhythm
Breast: Deferred by me
Abdomen: Soft, Nontender and Nondistended
Musculoskeletal: No Cyanosis and No Edema
Skin: No Rash
Neuro: Nonfocal/Grossly Intact
Psych: Mood/afflect pleasant, Insight/judgement good and Appropriate
Data Reviewed
-
Radiology: Report Reviewed by me and Discussed with Patient
Labs: Labs Reviewed by me and Discussed with Patient
Assessment/Plan
-
IMP:
Acute hypoxic respiratory insufficiency likely secondary to influenza A with possibility of superimposed bacterial pneumonia
COPD exacerbation
LEANN -baseline cr 0.8
Hypercalcemia
History of primary hyperparathyroidism, negative parathyroid scan in 2019
Sleep apnea
Depression/anxiety
HTN
CAD
History of kidney stone
h/o TIA
h/o lung ca
plan:
A/w SOb-noted flu positive, COPD exacerbation
LEANN-baseline creatinine 0.8, peaked 1.7 on admission and currently at 1.5
Agree unlikely has a CHF, okay to hold diuretics until creatinine stabilized
Gentle IV fluids per primary especially in setting of hypercalcemia too
Urinalysis is bland and nonacute renal ultrasound
Blood pressures are stable continue nifedipine
Hypercalcemia probably from hyperparathyroidism, check PTH.
Parathyroid scan in 2019 was negative
If PTH is not elevated likely need further evaluation for hypercalcemia
IV steroids and antibiotics per primary
Follow labs in the morning, follow bladder scan
Discussed with the patient
[2024-04-25] MEDS: NSS 1000 IV (16:07)
--- NOTE | 2024-04-25 16:32 | PTCARENOTE ---
Pt arrived aprox 1300 from ED in hospital bed. Pt positive flu. Vitals stable. 95 on 2 L. SR with BBC on monitor. Pt to eat lunch. Instructed on use of call gamez and advised to ring for assistance. [place] in place.
[2024-04-25] MEDS: LIPITOR 40 MG PO (17:04)
[2024-04-25] MEDS: PROTONIX 40 MG PO (17:04)
[2024-04-25] MEDS: DECADRON 4 MG IV (20:26)
[2024-04-25] MEDS: ANTIFUNGAL CLEAR 1 APPLIC TOPICAL (20:27)
[2024-04-26] MEDS: DECADRON 4 MG IV ×2 (03:35→21:04)
[2024-04-26] MEDS: ROBITUSSIN 200 MG PO ×3 (03:35→21:25)
[2024-04-26] MEDS: DUONEB 3 ML INH ×2 (03:46→07:49)
[2024-04-26 03:54] VITALS: BP 164/69
[2024-04-26] MEDS: NSS 1000 IV (06:14)
[2024-04-26 07:00] VITALS: BP 168/94
[2024-04-26 07:14] LABS: % Basophils 0.1 % (0-2); % Immature Granulocytes 0.8 % (0-0.5); % Lymphocytes 2.9 % (20.5-51.1); % Monocytes 3.1 % (1.7-9.3); % Neutrophils 93.1 % (42.2-75.2); Absolute Immature Granulocytes 0.1 10^3/uL (0-0.05); Absolute Lymphocytes 0.3 10^3/uL (1.2-3.4); Absolute Monocytes 0.3 10^3/uL (0.1-0.6); Absolute Neutrophils 9.9 10^3/uL (1.4-6.5); Hematocrit 37.7 % (37.0-47.0); Hemoglobin 11.9 g/dL (12.0-16.0); Mean Corp Hgb Conc. 31.6 g/dL (33.0-37.0); Mean Corpuscular Hgb 28.1 pg (27.0-31.0); Mean Corpuscular Volume 89.1 fL (81.0-99.0); Mean Platelet Volume 9.9 fL (7.4-10.4); Nucleated Red Blood Cells % 0 %; Platelet Count 183 10^3/uL (130-400); Red Blood Cell Count 4.23 10^6/uL (4.20-5.40); Red Cell Dist. Width 14.6 % (11.5-14.5); White Blood Cell Count 10.6 10^3/uL (4.8-10.8)
[2024-04-26] MEDS: PULMICORT 0.5 MG INH ×2 (07:49→19:47)
[2024-04-26 07:55] LABS: Blood Urea Nitrogen 22 mg/dl (7-17); Calcium 10.4 mg/dl (8.4-10.2); Carbon Dioxide 25 mmol/L (22-30); Chloride 103 mmol/L (98-107); Estimated Creatinine Clearance 59 ml/min; Glucose 129 mg/dl (70-99); Potassium 4.2 mmol/L (3.5-5.1); Sodium 137 mmol/L (135-145); eGFR > 60.00
[2024-04-26] MEDS: TAMIFLU 30 MG PO ×2 (08:59→21:04)
[2024-04-26] MEDS: SINGULAIR 10 MG PO (08:59)
[2024-04-26] MEDS: CELEXA 40 MG PO (08:59)
[2024-04-26] MEDS: PLAVIX 75 MG PO (08:59)
[2024-04-26] MEDS: CLARITIN 10 MG PO (08:59)
[2024-04-26] MEDS: HEPARIN 5000 UNITS SC ×2 (08:59→16:28)
[2024-04-26] MEDS: PROCARDIA XL (EXTENDED RELEASE) 60 MG PO (08:59)
[2024-04-26] MEDS: ASPIR LOW (ENTERIC COATED) 81 MG PO (08:59)
[2024-04-26] MEDS: ANTIFUNGAL CLEAR 1 APPLIC TOPICAL ×2 (09:01→21:09)
[2024-04-26] MEDS: STERILE WATER FOR INJECTION 10 ML IV (09:11)
[2024-04-26] MEDS: ROCEPHIN 1000 MG IV (09:11)
[2024-04-26 11:00] VITALS: BP 148/69
[2024-04-26] MEDS: ATIVAN 0.5 MG PO (11:16)
--- NOTE | 2024-04-26 12:16 | W.PN.HOSP.TC ---
Today's Communication/Plan
-
Monitor vital signs see plan
Continue with breathing treatments, titrate steroids
PTH pending
Wean oxygen as tolerated
Continue with Tamiflu
Assessment / Plan
Assessment / Plan
General: Well Developed, Well Nourished and Respiratory Distress
HEENT: NormoCephalic, Anicteric and Moist mucous membranes
Respiratory: Clear, Wheezes and Accessory Resp Muscle Use
Cardiac: S1/S2 and Regular Rhythm
GI: Soft, Non Tender and Normal Bowel Sounds
Musculoskeletal: No Clubbing, No Cyanosis, Edema, Left Lower Extremity (1+) and Edema, Right Lower Extremity (1+)
Neuro: AO x 3 and Nonfocal/grossly intact
Psych: Calm
Acute hypoxic respiratory insufficiency likely secondary to influenza A and COPD exacerbation
Started Tamiflu given severity of presentation; now that creatinine improved, transition to twice daily Tamiflu
Wean oxygen as tolerated
dc further abx; procal neg
COPD exacerbation
Xopenex, ipratropium as needed and standing
- continue ics/laba and montelukast
DuoNeb standing and as needed
Continue with Decadron
LEANN - Suspect ATN
- hold diuretics for now
- avoid nephrotoxins
- u/a normal
- nephrology following
Creatinine now improving
Hypercalcemia
Monitor, improving
PTH pending
Does have baseline essential tremors
HTN
- continue home nifedipine
Hydralazine as needed
CAD - no acute process
- continue aspirin/plavix statin
DVT PPX - heparin sq
Code status - DNR
I spent a total of 52 minutes with the patient or on the floor. More than 50% of this time involved counseling and coordination of care.
Anticipated Discharge: > 48 hours
Subjective/Interval History
-
Date of Service: April 26, 2024
Denies pain
Objective Data
-
Labs:
Laboratory Results
04/26/24
06:47
WBC 10.6
Hgb 11.9 L
Hct 37.7
Plt Count 183
Sodium 137
Potassium 4.2
Chloride 103
Carbon Dioxide 25
BUN 22 H
Creatinine 0.7
Glucose 129 H
Calcium 10.4 H
Vital Signs:
Vital Signs
Temp Pulse Resp BP Pulse Ox
97.3 F 89 20 168/94 95
04/26/24 07:00 04/26/24 07:51 04/26/24 07:51 04/26/24 07:00 04/26/24 07:51
I&O
04/25/24 04/26/24 04/27/24
06:59 06:59 06:59
Intake Total 980 / 980
Output Total 400 / 400
Balance 580 / 580
[2024-04-26] MEDS: ATROVENT NEBULES 0.5 MG INH ×2 (12:55→19:47)
[2024-04-26] MEDS: XOPENEX 1.25 MG INHALANT SOLUTION INH ×2 (12:55→19:46)
[2024-04-26 15:00] VITALS: BP 151/75
--- NOTE | 2024-04-26 16:08 | W.PN.NEPH.PH ---
Today's Communication / Plan
-
resume lasix tomorrow
Assessment/Plan
-
IMP:
Acute hypoxic respiratory insufficiency likely secondary to influenza A with possibility of superimposed bacterial pneumonia
COPD exacerbation
LEANN -baseline cr 0.8
Hypercalcemia
History of primary hyperparathyroidism, negative parathyroid scan in 2019
Sleep apnea
Depression/anxiety
HTN
CAD
History of kidney stone
h/o TIA
h/o lung ca
plan:
A/w SOb-noted flu positive, COPD exacerbation
LEANN-baseline creatinine 0.8, peaked 1.7 on admission and currently at 0.7
can d/c IVF and likely resume lasix in am
Urinalysis is bland and nonacute renal ultrasound, PVR 199cc
Blood pressures high likely from steroids, continue nifedipine
Hypercalcemia probably from hyperparathyroidism, pending PTH-pt saw endo before
Parathyroid scan in 2019 was negative
will s/o, call with ?s
-
-
Date of Service: April 26, 2024
CC / HPI / ROS
-
Chief Complaint:
LEANN
History of Present Illness:
cr is better at 0.7
BP high on IV steroids
no fever, wendy 10.4
Review of Systems:
no cp
sob improving slowly
still cough
on 2lit of O2
Labs
-
Labs:
WBC 10.6 10^3/uL (4.8-10.8) 04/26/24 06:47
RBC 4.23 10^6/uL (4.20-5.40) 04/26/24 06:47
Hgb 11.9 g/dL (12.0-16.0) L 04/26/24 06:47
Hct 37.7 % (37.0-47.0) 04/26/24 06:47
Plt Count 183 10^3/uL (130-400) 04/26/24 06:47
Sodium 137 mmol/L (135-145) 04/26/24 06:47
Potassium 4.2 mmol/L (3.5-5.1) 04/26/24 06:47
Chloride 103 mmol/L (98-107) 04/26/24 06:47
Carbon Dioxide 25 mmol/L (22-30) 04/26/24 06:47
BUN 22 mg/dl (7-17) H 04/26/24 06:47
Creatinine 0.7 mg/dL (0.6-1.0) 04/26/24 06:47
eGFR > 60.00 04/26/24 06:47
Glucose 129 mg/dl (70-99) H 04/26/24 06:47
Calcium 10.4 mg/dl (8.4-10.2) H 04/26/24 06:47
Albumin 4.2 g/dl (3.5-5.0) 04/25/24 00:24
Physical Exam
-
Vital Signs:
Vital Signs
Temp Pulse Resp BP Pulse Ox
97.8 F 96 20 151/75 96
04/26/24 15:00 04/26/24 15:00 04/26/24 15:00 04/26/24 15:00 04/26/24 15:00
Cardiovascular:: Regular rate and rhythm
Respiratory:: Bilateral: Rhonchi
Lung Excursion:: Normal
Abdomen:: Nontender and Soft
Extremity Edema:: None: Bilateral:
Jacobs Catheter: No
[2024-04-26] MEDS: NSS IV (16:29)
[2024-04-26] MEDS: PROTONIX 40 MG PO (16:29)
[2024-04-26] MEDS: LIPITOR 40 MG PO (16:29)
[2024-04-26 19:56] VITALS: BP 179/85
[2024-04-26] MEDS: XALATAN OPHTHALMIC SOLUTION 1 DROP BOTH EYES (21:06)
[2024-04-26 23:40] VITALS: BP 169/94
[2024-04-27] VITALS (8 sets, daily range): BP systolic 124–166; BP diastolic 68–94; PULSE 100; O2SAT 96; BMI 38.4
[2024-04-27] MEDS: HEPARIN 5000 UNITS SC ×3 (00:50→15:49)
[2024-04-27] MEDS: VENTOLIN NEBULES 2.5 MG INH (02:23)
[2024-04-27 07:24] LABS: % Basophils 0.2 % (0-2); % Lymphocytes 4.4 % (20.5-51.1); % Monocytes 4.3 % (1.7-9.3); % Neutrophils 90.1 % (42.2-75.2); Absolute Immature Granulocytes 0.1 10^3/uL (0-0.05); Absolute Lymphocytes 0.6 10^3/uL (1.2-3.4); Absolute Monocytes 0.5 10^3/uL (0.1-0.6); Absolute Neutrophils 11.2 10^3/uL (1.4-6.5); Hematocrit 36.6 % (37.0-47.0); Hemoglobin 11.9 g/dL (12.0-16.0); Mean Corp Hgb Conc. 32.5 g/dL (33.0-37.0); Mean Corpuscular Hgb 28.7 pg (27.0-31.0); Mean Corpuscular Volume 88.4 fL (81.0-99.0); Mean Platelet Volume 10.8 fL (7.4-10.4); Nucleated Red Blood Cells % 0 %; Platelet Count 187 10^3/uL (130-400); Red Blood Cell Count 4.14 10^6/uL (4.20-5.40); Red Cell Dist. Width 14.4 % (11.5-14.5); White Blood Cell Count 12.4 10^3/uL (4.8-10.8)
[2024-04-27] MEDS: PULMICORT 0.5 MG INH ×2 (07:28→19:08)
[2024-04-27] MEDS: ATROVENT NEBULES 0.5 MG INH ×3 (07:28→19:08)
[2024-04-27] MEDS: XOPENEX 1.25 MG INHALANT SOLUTION INH ×3 (07:28→19:08)
[2024-04-27 07:57] LABS: Blood Urea Nitrogen 21 mg/dl (7-17); Carbon Dioxide 29 mmol/L (22-30); Chloride 99 mmol/L (98-107); Estimated Creatinine Clearance 69 ml/min; Glucose 115 mg/dl (70-99); Potassium 4.1 mmol/L (3.5-5.1); Sodium 136 mmol/L (135-145); eGFR > 60.00
[2024-04-27] MEDS: PLAVIX 75 MG PO (08:35)
[2024-04-27] MEDS: PROCARDIA XL (EXTENDED RELEASE) 60 MG PO (08:35)
[2024-04-27] MEDS: CELEXA 40 MG PO (08:35)
[2024-04-27] MEDS: CLARITIN 10 MG PO (08:35)
[2024-04-27] MEDS: ASPIR LOW (ENTERIC COATED) 81 MG PO (08:35)
[2024-04-27] MEDS: SINGULAIR 10 MG PO (08:35)
[2024-04-27] MEDS: LASIX 40 MG PO (08:35)
[2024-04-27] MEDS: TAMIFLU 30 MG PO ×2 (08:36→20:10)
[2024-04-27] MEDS: DECADRON 4 MG IV ×2 (08:36→20:09)
[2024-04-27] MEDS: ANTIFUNGAL CLEAR 1 APPLIC TOPICAL ×2 (08:37→20:25)
--- NOTE | 2024-04-27 13:22 | W.PN.HOSP.TC ---
Addendum entered and electronically signed by Venkatesh Lizarraga DO 04/28/24 14:11:
CDI clarification: Tachycardia and tachypnea secondary to hypoxemia. Low suspicion for sepsis
Original Note:
Today's Communication/Plan
-
Continue Tamiflu, steroid, bronchodilators
Wean supplemental oxygen
PT eval
Assessment / Plan
Assessment / Plan
#Acute hypoxemic respiratory insufficiency
-Suspect multifactorial etiology with influenza A, COPD, possible pneumonia; may have component of hypercapnia
-Has not required more than 2 L of oxygen here, remains on 2 L via nasal cannula as of this morning
-Previously started on Tamiflu, bronchodilators, dexamethasone regimen; s/p course of antibiotics empirically
-States that she feels better today, remains on 2 L, no signs of respiratory distress
-Continue Tamiflu twice daily for planned 5-day course
-Continue with bronchodilators and dexamethasone, plan for steroid taper at DC
-Continue to wean oxygen for SpO2 goal 88 to 94%
-Low threshold for Pulm consult if worsening
#LEANN
-Suspected ATN, likely prerenal/ischemic
-Resolved, diuretics resumed
#Hypercalcemia
-Mild, near the borderline of the ULN
-Suspect primary hyperparathyroidism
-PTH ordered, will follow-up results
#HTN
-Home medications include nifedipine; also on Lasix for leg swelling
-No known history of hypertensive systemic disease states
-Blood pressure currently well-controlled on home regimen
#CAD s/p PCI
-Home medications include DAPT, high intensity statin; no beta-blockade
-Will confirm timing of most recent stent placement
-Will only need DAPT for 1 year after stenting
#Essential Tremors
-Noted on exam here, unclear if formally diagnosed
-Will consider low-dose propranolol
#H/O DVT
-Not currently on anticoagulant regimen though is on DAPT
-Suspect this was a provoked event and she completed anticoagulation
-Will confirm history with her
DVT PPhx - heparin sq
Diet - Low cholesterol
Code status - DNR
Anticipated Discharge: 24 - 48 hours
Subjective/Interval History
-
Date of Service: April 27, 2024
Seen and examined at the bedside. No acute events reported overnight. AFVSS on 2 L oxygen this morning
She states that she is feeling better, less short of breath today but still has significant cough and wheeze
Denies any acute complaints
Objective Data
-
Labs:
Laboratory Results
04/27/24
06:44
WBC 12.4 H
Hgb 11.9 L
Hct 36.6 L
Plt Count 187
Sodium 136
Potassium 4.1
Chloride 99
Carbon Dioxide 29
BUN 21 H
Creatinine 0.6
Glucose 115 H
Calcium 10.0
Vital Signs:
Vital Signs
Temp Pulse Resp BP Pulse Ox
98.6 F 93 20 166/75 97
04/27/24 11:00 04/27/24 11:00 04/27/24 11:00 04/27/24 11:00 04/27/24 11:00
I&O
04/26/24 04/27/24 04/28/24
06:59 06:59 06:59
Intake Total 980 / 980 1200 / 1200 480 / 480
Output Total 400 / 400 500 / 500 100 / 100
Balance 580 / 580 700 / 700 380 / 380
Review of Systems
-
History Source: Patient
All other systems: Reviewed and negative
Physical Exam
-
General: Well Developed, No Apparent Distress and Obese; Negative Comfortable or Respiratory Distress
HEENT: Normocephalic, Atraumatic, Moist Mucous Membranes, Anicteric and Oxygen
Respiratory: Wheezes (Generalized), Non Labored Respirations and Other (Shallow breaths with fairly persistent cough); Negative Rales, Rhonchi or Accessory Resp Muscle Use
Cardiac: Regular Rhythm and S1/S2; Negative Murmur, Rub or Gallop
GI: Soft, Nontender, Nondistended and Normal Bowel Sounds
Musculoskeletal: No Clubbing, No Cyanosis and No Edema
Skin: Warm, Dry and Normal Turgor; Negative Rash
Neuro: AO x 3 and Nonfocal/Grossly Intact
Psych: Calm
Data Reviewed
-
Labs: Labs Reviewed by me and Discussed with Patient
[2024-04-27] MEDS: APRESOLINE 5 MG IV (15:51)
[2024-04-27] MEDS: PROTONIX 40 MG PO (18:43)
[2024-04-27] MEDS: LIPITOR 40 MG PO (18:43)
[2024-04-27] MEDS: XALATAN OPHTHALMIC SOLUTION 1 DROP BOTH EYES (21:03)
[2024-04-27] MEDS: ROBITUSSIN 200 MG PO (23:43)
[2024-04-28] VITALS (10 sets, daily range): BP systolic 144–208; BP diastolic 8–94; PULSE 82–90; O2SAT 93–94; BMI 36.4
[2024-04-28] MEDS: HEPARIN SC (01:05)
[2024-04-28] MEDS: APRESOLINE 5 MG IV ×3 (03:20→23:07)
[2024-04-28] MEDS: VENTOLIN NEBULES 2.5 MG INH (03:56)
[2024-04-28 07:10] LABS: % Basophils 0.2 % (0-2); % Immature Granulocytes 1.6 % (0-0.5); % Lymphocytes 6.6 % (20.5-51.1); % Monocytes 4.9 % (1.7-9.3); % Neutrophils 86.7 % (42.2-75.2); Absolute Immature Granulocytes 0.2 10^3/uL (0-0.05); Absolute Lymphocytes 0.7 10^3/uL (1.2-3.4); Absolute Monocytes 0.5 10^3/uL (0.1-0.6); Absolute Neutrophils 9.2 10^3/uL (1.4-6.5); Hematocrit 37.2 % (37.0-47.0); Hemoglobin 12.1 g/dL (12.0-16.0); Mean Corp Hgb Conc. 32.5 g/dL (33.0-37.0); Mean Corpuscular Hgb 28.3 pg (27.0-31.0); Mean Corpuscular Volume 87.1 fL (81.0-99.0); Mean Platelet Volume 10.3 fL (7.4-10.4); Nucleated Red Blood Cells % 0 %; Platelet Count 169 10^3/uL (130-400); Red Blood Cell Count 4.27 10^6/uL (4.20-5.40); Red Cell Dist. Width 14.2 % (11.5-14.5); White Blood Cell Count 10.6 10^3/uL (4.8-10.8)
[2024-04-28] MEDS: ATROVENT NEBULES 0.5 MG INH ×3 (07:49→20:08)
[2024-04-28] MEDS: PULMICORT 0.5 MG INH ×2 (07:49→20:08)
[2024-04-28] MEDS: XOPENEX 1.25 MG INHALANT SOLUTION INH ×3 (07:50→20:08)
[2024-04-28 08:00] LABS: Blood Urea Nitrogen 22 mg/dl (7-17); Calcium 10.2 mg/dl (8.4-10.2); Carbon Dioxide 31 mmol/L (22-30); Chloride 95 mmol/L (98-107); Estimated Creatinine Clearance 67 ml/min; Glucose 116 mg/dl (70-99); Potassium 3.6 mmol/L (3.5-5.1); Sodium 134 mmol/L (135-145); eGFR > 60.00
[2024-04-28] MEDS: SINGULAIR 10 MG PO (08:17)
[2024-04-28] MEDS: LASIX 40 MG PO (08:17)
[2024-04-28] MEDS: PROCARDIA XL (EXTENDED RELEASE) 60 MG PO (08:17)
[2024-04-28] MEDS: HEPARIN 5000 UNITS SC ×3 (08:18→23:07)
[2024-04-28] MEDS: CELEXA 40 MG PO (08:18)
[2024-04-28] MEDS: TAMIFLU 30 MG PO (08:18)
[2024-04-28] MEDS: ASPIR LOW (ENTERIC COATED) 81 MG PO (08:18)
[2024-04-28] MEDS: PLAVIX 75 MG PO (08:18)
[2024-04-28] MEDS: CLARITIN 10 MG PO (08:18)
[2024-04-28] MEDS: DECADRON 4 MG IV ×2 (08:18→19:48)
[2024-04-28] MEDS: ANTIFUNGAL CLEAR 1 APPLIC TOPICAL ×2 (08:22→19:49)
--- NOTE | 2024-04-28 10:56 | PN.CDI ---
CDI
- -
CDI:
Physician Documentation Request
Admit Date: 04/25/24 05:46
Dear Doctor Zia,
Please review the following and provide your response in the progress notes.
Clinical Indicators:
Pt admitted with Influenza A/PNA / COPD exacerbation/ATN
Documented per ED, ' States that she saws the PCP on and she upped her Prednisone to 60mg for 3 days. States that she has done this know for 2 days. States that she was also given Doxycycline 100mg...'
On admission HR 118,Respirations 41
Please clarify which of the following most accurately describes the status of the patient's infection:
Viral Sepsis-POA
- Systemic manifestations of infection, with 2 or more SIRS criteria which include:
- Fever >100.4 degrees F or hypothermia < 96.8 degrees F
- Leukocytosis - WBC > 12,000 or leukopenia - WBC < 4,000 or > 10% bands
- Tachycardia > 90 beats per minute
- Tachypnea - RR > 20 breaths per minute or PaCO2 , 32mmHg
Source: Merck Manual 2013
Influenza A with PNA Only, Without Systemic Illness
Other ( please specify)
Use of terms such as suspected, likely, concern for, or probable (associated with a specific diagnosis that is being evaluated, monitored, or treated as if it exists) are acceptable and can be coded in the inpatient setting, when documented at the
time of discharge.
Thank you,
Yarelis Hurt RN
CDI Specialist
[facility]
Please use your independent medical judgment in providing your response.
[2024-04-28 12:21] LABS: Intact PTH 115.5 pg/ml (13.6-85.8)
--- NOTE | 2024-04-28 13:31 | CM ---
Met with patient to obtain information for assessment. Patient stated that she lives alone in a single, one story home with two steps to enter by herself. She relayed that her spouse last year, however her two daughters lives close and
are supportive. Patient described herself as independent with all ADLs, personal care, dressing and bathing. 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 She is not able to drive, however her daughters take her to all of her
appointments and assist with the shopping. Patient uses a cane to assist her ambulation. She does have a walker and a w/c at home as well.
She has not had VN services.
She has been to [facility] in the past.
Patient has a prescription plan and uses [facility] in [place] for all of her medications.
Her PCP is, Juan Anaya.
Patient stated that she is not on o2 at home but she currently needs it.
Plan: Case management will continue to follow and assist with discharge planning. Home will watch for o2 needs.
--- NOTE | 2024-04-28 14:12 | W.PN.HOSP.TC ---
Today's Communication/Plan
-
Continue bronchodilators, IV steroid, budesonide INH
Continue with Tamiflu through 04/30/2024
Wean oxygen for SpO2 goal 88 to 94%
Consider pulm consult in AM
Assessment / Plan
Assessment / Plan
#Acute hypoxemic and hypercapnic respiratory insufficiency
-Suspect multifactorial etiology with influenza A, COPD, possible pneumonia
-Has not required more than 2 L of oxygen here, remains on 2 L via nasal cannula as of this morning
-Previously started on Tamiflu, bronchodilators, dexamethasone regimen; s/p course of antibiotics empirically
-Remains on low level of oxygen, subjectively improving; remains with wheezes on exam
-Continue with bronchodilators and dexamethasone, plan prolonged steroid taper at DC
-Continue Tamiflu twice daily for planned 5-day course, last day 04/30/2024
-Continue to wean oxygen for SpO2 goal 88 to 94%
-Consider pulm consult if not off oxygen by tomorrow
#LEANN
-Suspected ATN, likely prerenal/ischemic
-Resolved, diuretics resumed
#Primary hyperparathyroidism
-Presented with borderline high calcium levels
-Has an elevated PTH consistent with primary hyperparathyroidism
-Need to have outpatient follow-up, unlikely a surgical candidate
#HTN
-Home medications include nifedipine; also on Lasix for leg swelling
-No known history of hypertensive systemic disease states
-Blood pressure currently well-controlled on home regimen
#CAD s/p PCI
-Home medications include DAPT, high intensity statin; no beta-blockade
-Will confirm timing of most recent stent placement
-Will only need DAPT for 1 year after stenting
#Essential Tremors
-Noted on exam here, unclear if formally diagnosed
-Will consider low-dose propranolol
#H/O DVT
-Not currently on anticoagulant regimen though is on DAPT
-Suspect this was a provoked event and she completed anticoagulation
DVT PPhx - heparin sq
Diet - Low cholesterol
Code status - DNR
Anticipated Discharge: 24 - 48 hours
Subjective/Interval History
-
Date of Service: April 28, 2024
Seen and examined while sitting in the chair. No acute events reported overnight. AFVSS on 1 to 2 L oxygen
Blood pressure was elevated prior to a.m. meds however improved afterward. Was temporarily off supplemental oxygen though became short of breath. States that she has worked with physical therapy, feels okay with her breathing when up and moving
Denies any acute complaints today. States she feels better slowly each day
Objective Data
-
Labs:
Laboratory Results
04/28/24
06:35
WBC 10.6
Hgb 12.1
Hct 37.2
Plt Count 169
Sodium 134 L
Potassium 3.6
Chloride 95 L
Carbon Dioxide 31 H
BUN 22 H
Creatinine 0.5 L
Glucose 116 H
Calcium 10.2
Vital Signs:
Vital Signs
Temp Pulse Resp BP Pulse Ox
97.8 F 86 18 157/77 94
04/28/24 11:32 04/28/24 12:29 04/28/24 12:29 04/28/24 11:32 04/28/24 12:29
I&O
04/27/24 04/28/24 04/29/24
06:59 06:59 06:59
Intake Total 1200 / 1200 2460 / 2460 480 / 480
Output Total 500 / 500 800 / 800
Balance 700 / 700 1660 / 1660 480 / 480
Review of Systems
-
History Source: Patient
All other systems: Reviewed and negative
Physical Exam
-
General: Well Developed, No Apparent Distress, Comfortable and Obese
HEENT: Normocephalic, Atraumatic, Moist Mucous Membranes, Anicteric and Oxygen
Respiratory: Clear to Auscultation, Wheezes, Non Labored Respirations and Other (Shallow breaths/poor inspiratory effort); Negative Rales, Rhonchi or Accessory Resp Muscle Use
Cardiac: Regular Rhythm and S1/S2; Negative Murmur, Rub or Gallop
GI: Soft, Nontender, Nondistended and Normal Bowel Sounds
Musculoskeletal: No Clubbing, No Cyanosis and No Edema
Skin: Warm, Dry and Normal Turgor; Negative Rash
Neuro: AO x 3 and Nonfocal/Grossly Intact; Negative Tremors
Psych: Calm
Data Reviewed
-
Labs: Labs Reviewed by me and Discussed with Patient
[2024-04-28] MEDS: LIPITOR 40 MG PO (17:11)
[2024-04-28] MEDS: PROTONIX 40 MG PO (17:11)
[2024-04-28] MEDS: TAMIFLU 75 MG PO (19:48)
[2024-04-28] MEDS: XALATAN OPHTHALMIC SOLUTION 1 DROP BOTH EYES (23:07)
[2024-04-29] VITALS (7 sets, daily range): BP systolic 125–216; BP diastolic 72–94; BMI 36.6
[2024-04-29] MEDS: ROBITUSSIN 200 MG PO (05:27)
[2024-04-29 06:52] LABS: % Basophils 0.3 % (0-2); % Immature Granulocytes 1.6 % (0-0.5); % Lymphocytes 8.1 % (20.5-51.1); % Monocytes 5.4 % (1.7-9.3); % Neutrophils 84.6 % (42.2-75.2); Absolute Immature Granulocytes 0.2 10^3/uL (0-0.05); Absolute Monocytes 0.6 10^3/uL (0.1-0.6); Absolute Neutrophils 10.1 10^3/uL (1.4-6.5); Hematocrit 39.1 % (37.0-47.0); Hemoglobin 12.7 g/dL (12.0-16.0); Mean Corp Hgb Conc. 32.5 g/dL (33.0-37.0); Mean Corpuscular Hgb 28.2 pg (27.0-31.0); Mean Corpuscular Volume 86.7 fL (81.0-99.0); Mean Platelet Volume 10.5 fL (7.4-10.4); Nucleated Red Blood Cells % 0 %; Platelet Count 184 10^3/uL (130-400); Red Blood Cell Count 4.51 10^6/uL (4.20-5.40); White Blood Cell Count 11.9 10^3/uL (4.8-10.8)
[2024-04-29 06:53] LABS: Venous Blood Gas B.E. 9.8 mmol/L (-4 to +4); Venous Blood Gas HCO3 33.4 mmol/L (22-27); Venous Blood Gas O2 Sat % 99.9 %; Venous Blood Gas pCO2 40 mmHg (35-48); Venous Blood Gas pH 7.53 (7.32-7.43); Venous Blood Gas pO2 162 mmHg (30-50)
[2024-04-29 06:56] LABS: Venous Blood Gas O2 Therapy 2L NC
[2024-04-29] MEDS: TAMIFLU 75 MG PO ×2 (07:43→19:45)
[2024-04-29] MEDS: PROCARDIA XL (EXTENDED RELEASE) 60 MG PO (07:43)
[2024-04-29] MEDS: PLAVIX 75 MG PO (07:43)
[2024-04-29] MEDS: CLARITIN 10 MG PO (07:43)
[2024-04-29] MEDS: ASPIR LOW (ENTERIC COATED) 81 MG PO (07:43)
[2024-04-29] MEDS: SINGULAIR 10 MG PO (07:44)
[2024-04-29] MEDS: LASIX 40 MG PO (07:44)
[2024-04-29] MEDS: DECADRON 4 MG IV ×2 (07:44→19:45)
[2024-04-29] MEDS: HEPARIN 5000 UNITS SC ×2 (07:44→17:18)
[2024-04-29] MEDS: CELEXA 40 MG PO (07:44)
[2024-04-29] MEDS: ANTIFUNGAL CLEAR 1 APPLIC TOPICAL ×2 (07:45→19:45)
[2024-04-29] MEDS: APRESOLINE 5 MG IV (07:45)
[2024-04-29 07:50] LABS: Blood Urea Nitrogen 21 mg/dl (7-17); Calcium 10.3 mg/dl (8.4-10.2); Carbon Dioxide 31 mmol/L (22-30); Chloride 95 mmol/L (98-107); Estimated Creatinine Clearance 58 ml/min; Glucose 105 mg/dl (70-99); Potassium 3.9 mmol/L (3.5-5.1); Sodium 133 mmol/L (135-145); eGFR > 60.00
[2024-04-29] MEDS: XOPENEX 1.25 MG INHALANT SOLUTION INH ×3 (07:54→19:25)
[2024-04-29] MEDS: ATROVENT NEBULES 0.5 MG INH ×3 (07:54→19:25)
--- NOTE | 2024-04-29 14:40 | W.PN.HOSP.TC ---
Addendum entered and electronically signed by Venkatesh Lizarraga DO 04/30/24 13:01:
[facility] clarification: Hyponatremia present, mild and clinically not contributing to her presentation here.
Original Note:
Today's Communication/Plan
-
Continue Tamiflu through 05/01
Oral prednisone tomorrow with taper at DC
Continue bronchodilators
O2 eval in the morning
Assessment / Plan
Assessment / Plan
#Acute hypoxemic and hypercapnic respiratory insufficiency
-Suspect multifactorial etiology with influenza A, COPD, possible pneumonia
-Has not required more than 2 L of oxygen here, remains on 2 L via nasal cannula as of this morning
-Previously started on Tamiflu, bronchodilators, dexamethasone regimen; s/p course of antibiotics empirically
-Remains on low level of oxygen, subjectively improving; remains with wheezes on exam
-Continue with bronchodilators and dexamethasone, plan prolonged steroid taper at DC
-Continue Tamiflu twice daily for planned 5-day course, last day 04/30/2024
-Continue to wean oxygen for SpO2 goal 88 to 94%
-O2 eval in the morning
#LEANN
-Suspected ATN, likely prerenal/ischemic
-Resolved, diuretics resumed
#Primary hyperparathyroidism
-Presented with borderline high calcium levels
-Has an elevated PTH consistent with primary hyperparathyroidism
-Need to have outpatient follow-up, unlikely a surgical candidate
#HTN
-Home medications include nifedipine; also on Lasix for leg swelling
-No known history of hypertensive systemic disease states
-Blood pressure currently well-controlled on home regimen
#CAD s/p PCI
-Home medications include DAPT, high intensity statin; no beta-blockade
-Will confirm timing of most recent stent placement
-Will only need DAPT for 1 year after stenting
#Essential Tremors
-Noted on exam here, unclear if formally diagnosed
-Will consider low-dose propranolol
#H/O DVT
-Not currently on anticoagulant regimen though is on DAPT
-Suspect this was a provoked event and she completed anticoagulation
DVT PPhx - heparin sq
Diet - Low cholesterol
Code status - DNR
Anticipated Discharge: 24 - 48 hours
Subjective/Interval History
-
Date of Service: April 29, 2024
Seen and examined at bedside. No acute events reported overnight. AFVSS on room air this morning.
States she feels short of breath since coming off oxygen. Also has headache that she associates with her blood pressure. Cough improving, less wheezy subjectively
Denies any acute complaints.
Objective Data
-
Labs:
Laboratory Results
04/29/24
06:44
WBC 11.9 H
Hgb 12.7
Hct 39.1
Plt Count 184
Sodium 133 L
Potassium 3.9
Chloride 95 L
Carbon Dioxide 31 H
BUN 21 H
Creatinine 0.7
Glucose 105 H
Calcium 10.3 H
Vital Signs:
Vital Signs
Temp Pulse Resp BP Pulse Ox
98 F 68 16 125/73 93
04/29/24 12:04 04/29/24 13:55 04/29/24 13:55 04/29/24 12:04 04/29/24 12:04
I&O
04/28/24 04/29/24 04/30/24
06:59 06:59 06:59
Intake Total 2460 / 2460 1919
Output Total 800 / 800
Balance 1660 / 1660 1919
Review of Systems
-
History Source: Patient
All other systems: Reviewed and negative
Physical Exam
-
General: Well Developed, No Apparent Distress, Comfortable and Obese
HEENT: Normocephalic, Atraumatic, Moist Mucous Membranes and Anicteric
Respiratory: Wheezes, Non Labored Respirations and Other (Tachypneic); Negative Rales, Rhonchi or Accessory Resp Muscle Use
Cardiac: Regular Rhythm and S1/S2; Negative Murmur, Rub or Gallop
GI: Soft, Nontender, Nondistended and Normal Bowel Sounds
Musculoskeletal: No Clubbing, No Cyanosis and No Edema
Skin: Warm, Dry and Normal Turgor; Negative Rash
Neuro: AO x 3 and Nonfocal/Grossly Intact
Psych: Calm
Data Reviewed
-
Labs: Labs Reviewed by me and Discussed with Patient
[2024-04-29] MEDS: PROTONIX 40 MG PO (17:18)
[2024-04-29] MEDS: LIPITOR 40 MG PO (17:18)
[2024-04-29] MEDS: XALATAN OPHTHALMIC SOLUTION 1 DROP BOTH EYES (21:03)
[2024-04-30] VITALS (8 sets, daily range): BP systolic 115–211; BP diastolic 54–92; O2SAT 94; BMI 35.2
[2024-04-30] MEDS: HEPARIN 5000 UNITS SC ×4 (00:56→23:08)
[2024-04-30] MEDS: APRESOLINE 5 MG IV ×2 (00:56→07:59)
[2024-04-30] MEDS: ATROVENT NEBULES 0.5 MG INH ×3 (07:57→19:09)
[2024-04-30] MEDS: XOPENEX 1.25 MG INHALANT SOLUTION INH ×3 (07:58→19:09)
[2024-04-30] MEDS: ANTIFUNGAL CLEAR 1 APPLIC TOPICAL ×2 (08:02→19:43)
[2024-04-30] MEDS: CELEXA 40 MG PO (08:02)
[2024-04-30] MEDS: TAMIFLU 75 MG PO ×2 (08:02→19:43)
[2024-04-30] MEDS: CLARITIN 10 MG PO (08:02)
[2024-04-30] MEDS: DELTASONE 40 MG PO (08:02)
[2024-04-30] MEDS: PROCARDIA XL (EXTENDED RELEASE) 60 MG PO (08:02)
[2024-04-30] MEDS: ASPIR LOW (ENTERIC COATED) 81 MG PO (08:02)
[2024-04-30] MEDS: SINGULAIR 10 MG PO (08:02)
[2024-04-30] MEDS: PLAVIX 75 MG PO (08:02)
[2024-04-30] MEDS: LASIX 40 MG PO (08:02)
--- NOTE | 2024-04-30 09:38 | PN.CDI ---
CDI
- -
CDI:
Physician Documentation Request
Admit Date: 04/25/24 05:46
Dear Doctor Zia,
Please review the following and provide your response in the progress notes.
Clinical Indicators:
Pt admitted with Influenza A/PNA / COPD exacerbation/ATN
Sodium levels are as below /Pt did get IVFs
Laboratory Tests
04/28/24 04/29/24
06:35 06:44
Sodium 134 L 133 L
Based on the above, could you clarify in the progress notes, the appropriate diagnosis, if significant, that supports the above abnormalities and additional evaluation, monitoring and/or treatment rendered:
Hyponatremia
Abnormal lab value only
Other ( please specify)
Use of terms such as suspected, likely, concern for, or probable (associated with a specific diagnosis that is being evaluated, monitored, or treated as if it exists) are acceptable and can be coded in the inpatient setting, when documented at the
time of discharge.
Thank you,
Yarelis Hurt RN
CDI Specialist
Stout Text
Please use your independent medical judgment in providing your response.
--- NOTE | 2024-04-30 16:20 | W.PN.HOSP.TC ---
Today's Communication/Plan
-
Continue steroid taper and nebulizers
Monitor on room air
Last dose of Tamiflu this evening
[facility]N services and likely DC tomorrow
Assessment / Plan
Assessment / Plan
#Acute hypoxemic and hypercapnic respiratory insufficiency
-Suspect multifactorial etiology with influenza A, COPD, possible pneumonia
-Has not required more than 2 L of oxygen here, remains on 2 L via nasal cannula as of this morning
-Previously started on Tamiflu, bronchodilators, dexamethasone regimen; s/p course of antibiotics empirically
-Remains on low level of oxygen, subjectively improving; remains with wheezes on exam
-Continue with bronchodilators and dexamethasone, plan prolonged steroid taper at DC
-Continue Tamiflu twice daily for planned 5-day course, last day 04/30/2024
-SpO2 goal 88 to 94%
-Follow-up O2 eval
#LEANN
-Suspected ATN, likely prerenal/ischemic
-Resolved, diuretics resumed
#Primary hyperparathyroidism
-Presented with borderline high calcium levels
-Has an elevated PTH consistent with primary hyperparathyroidism
-Need to have outpatient follow-up, unlikely a surgical candidate
#HTN
-Home medications include nifedipine; also on Lasix for leg swelling
-No known history of hypertensive systemic disease states
-Blood pressure currently well-controlled on home regimen
#CAD s/p PCI
-Home medications include DAPT, high intensity statin; no beta-blockade
-Will confirm timing of most recent stent placement
-Will only need DAPT for 1 year after stenting
#Essential Tremors
-Noted on exam here, unclear if formally diagnosed
-Will consider low-dose propranolol
#H/O DVT
-Not currently on anticoagulant regimen though is on DAPT
-Suspect this was a provoked event and she completed anticoagulation
DVT PPhx - heparin sq
Diet - Low cholesterol
Code status - DNR
Anticipated Discharge: Within 24 hours
Subjective/Interval History
-
Date of Service: April 30, 2024
Seen and examined at bedside. No acute events reported overnight. AFVSS on room air this morning
Patient states that she felt very tired. Continues to have shortness of breath without oxygen despite SpO2 in the 90s.
Denies any acute complaints. Has concerns about being alone at home after discharge
Objective Data
-
Vital Signs:
Vital Signs
Temp Pulse Resp BP Pulse Ox
97.8 F 122 26 131/55 96
04/30/24 15:10 04/30/24 15:10 04/30/24 15:10 04/30/24 15:10 04/30/24 15:10
I&O
04/29/24 04/30/24 05/01/24
06:59 06:59 06:59
Intake Total 1919 960 / 960
Balance 1919 960 / 960
Review of Systems
-
History Source: Patient
All other systems: Reviewed and negative
Physical Exam
-
General: Well Developed, Appears Chronically Ill, Obese and Other (Short of breath)
HEENT: Normocephalic, Atraumatic, Moist Mucous Membranes and Anicteric
Respiratory: Clear to Auscultation and Non Labored Respirations; Negative Wheezes, Rales or Rhonchi
Cardiac: Regular Rhythm and S1/S2; Negative Murmur, Rub or Gallop
GI: Soft, Nontender, Nondistended and Normal Bowel Sounds
Musculoskeletal: No Clubbing, No Cyanosis and No Edema
Skin: Warm, Dry and Normal Turgor; Negative Rash
Neuro: AO x 3 and Nonfocal/Grossly Intact
Psych: Anxious
[2024-04-30] MEDS: LIPITOR 40 MG PO (17:17)
[2024-04-30] MEDS: PROTONIX 40 MG PO (17:17)
[2024-04-30] MEDS: XALATAN OPHTHALMIC SOLUTION 1 DROP BOTH EYES (21:10)
[2024-05-01 03:00] VITALS: BP 121/52
[2024-05-01 05:33] VITALS: BMI 35.7
[2024-05-01 06:48] LABS: % Basophils 0.9 % (0-2); % Eosinophils 0.9 % (0-6); % Immature Granulocytes 4.7 % (0-0.5); % Neutrophils 71.5 % (42.2-75.2); Absolute Basophils 0.1 10^3/uL (0-0.2); Absolute Eosinophils 0.1 10^3/uL (0-0.7); Absolute Immature Granulocytes 0.7 10^3/uL (0-0.05); Absolute Lymphocytes 2.2 10^3/uL (1.2-3.4); Absolute Neutrophils 10.6 10^3/uL (1.4-6.5); Hemoglobin 12.7 g/dL (12.0-16.0); Mean Corp Hgb Conc. 33.4 g/dL (33.0-37.0); Mean Corpuscular Hgb 28.5 pg (27.0-31.0); Mean Corpuscular Volume 85.4 fL (81.0-99.0); Mean Platelet Volume 10.6 fL (7.4-10.4); Nucleated Red Blood Cells % 0 %; Platelet Count 161 10^3/uL (130-400); Red Blood Cell Count 4.45 10^6/uL (4.20-5.40); Red Cell Dist. Width 14.1 % (11.5-14.5); White Blood Cell Count 14.8 10^3/uL (4.8-10.8)
[2024-05-01] MEDS: XOPENEX 1.25 MG INHALANT SOLUTION INH ×2 (07:05→13:32)
[2024-05-01] MEDS: ATROVENT NEBULES 0.5 MG INH (07:05)
[2024-05-01 07:38] VITALS: BP 164/92
[2024-05-01 07:40] LABS: Blood Urea Nitrogen 37 mg/dl (7-17); Calcium 9.8 mg/dl (8.4-10.2); Carbon Dioxide 28 mmol/L (22-30); Chloride 96 mmol/L (98-107); Estimated Creatinine Clearance 50 ml/min; Glucose 85 mg/dl (70-99); Potassium 3.2 mmol/L (3.5-5.1); Sodium 134 mmol/L (135-145); eGFR > 60.00
[2024-05-01] MEDS: CLARITIN 10 MG PO (08:16)
[2024-05-01] MEDS: KCL 40 MEQ PO (08:16)
[2024-05-01] MEDS: PROCARDIA XL (EXTENDED RELEASE) 60 MG PO (08:16)
[2024-05-01] MEDS: ASPIR LOW (ENTERIC COATED) 81 MG PO (08:16)
[2024-05-01] MEDS: LASIX 40 MG PO (08:17)
[2024-05-01] MEDS: CELEXA 40 MG PO (08:17)
[2024-05-01] MEDS: PLAVIX 75 MG PO (08:17)
[2024-05-01] MEDS: SINGULAIR 10 MG PO (08:17)
[2024-05-01] MEDS: DELTASONE 40 MG PO (08:17)
[2024-05-01] MEDS: HEPARIN 5000 UNITS SC (08:18)
[2024-05-01] MEDS: ANTIFUNGAL CLEAR 1 APPLIC TOPICAL (08:33)
[2024-05-01 10:52] VITALS: PULSE 104; O2SAT 96
[2024-05-01 11:05] VITALS: BP 144/80
--- NOTE | 2024-05-01 11:59 | W.PN.HOSP.TC ---
Today's Communication/Plan
-
Replete potassium
Prednisone taper
Resume Breztri
OP follow-up with pulmonology
Ambulatory home oxygen
Assessment / Plan
Assessment / Plan
#Acute hypoxemic and hypercapnic respiratory insufficiency
-Suspect multifactorial etiology with influenza A, COPD, possible pneumonia
-Has not required more than 2 L of oxygen here, remains on 2 L via nasal cannula as of this morning
-Previously started on Tamiflu, bronchodilators, dexamethasone regimen; s/p course of antibiotics empirically
-Remains on low level of oxygen, subjectively improving; remains with wheezes on exam
-Continue with bronchodilators and dexamethasone, plan prolonged steroid taper at DC
-Continue Tamiflu twice daily for planned 5-day course, last day 04/30/2024
-20-day prednisone taper, from 40 mg, at discharge
-SpO2 goal 88 to 94%
#Hypokalemia
-Chronic issue, takes home potassium supplement
-Resumed on home supplement at discharge
-Provided 60 mEq today
#LEANN
-Suspected ATN, likely prerenal/ischemic
-Resolved, diuretics resumed
#Primary hyperparathyroidism
-Presented with borderline high calcium levels
-Has an elevated PTH consistent with primary hyperparathyroidism
-Need to have outpatient follow-up, unlikely a surgical candidate
#HTN
-Home medications include nifedipine; also on Lasix for leg swelling
-No known history of hypertensive systemic disease states
-Blood pressure currently well-controlled on home regimen
#CAD s/p PCI
-Home medications include DAPT, high intensity statin; no beta-blockade
-Will confirm timing of most recent stent placement
-Will only need DAPT for 1 year after stenting
#Essential Tremors
-Noted on exam here, unclear if formally diagnosed
-Will consider low-dose propranolol
#H/O DVT
-Not currently on anticoagulant regimen though is on DAPT
-Suspect this was a provoked event and she completed anticoagulation
DVT PPhx - heparin sq
Diet - Low cholesterol
Code status - DNR
Anticipated Discharge: Today
Subjective/Interval History
-
Date of Service: May 01, 2024
Seen and examined at the bedside. No acute events report overnight. AFVSS on room air
Patient states she feels well, better than previous days
Denies any acute complaints, ready to go home
Objective Data
-
Labs:
Laboratory Results
05/01/24
06:38
WBC 14.8 H
Hgb 12.7
Hct 38.0
Plt Count 161
Sodium 134 L
Potassium 3.2 L
Chloride 96 L
Carbon Dioxide 28
BUN 37 H
Creatinine 0.8
Glucose 85
Calcium 9.8
Vital Signs:
Vital Signs
Temp Pulse Resp BP Pulse Ox
98.2 F 107 18 144/80 94
05/01/24 11:05 05/01/24 11:05 05/01/24 11:05 05/01/24 11:05 05/01/24 11:05
I&O
04/30/24 05/01/24 05/02/24
06:59 06:59 06:59
Intake Total 960 / 960 1260 / 1260
Balance 960 / 960 1260 / 1260
Review of Systems
-
History Source: Patient
All other systems: Reviewed and negative
Physical Exam
-
General: Well Developed, No Apparent Distress, Comfortable and Obese
HEENT: Normocephalic, Atraumatic, Moist Mucous Membranes and Anicteric
Respiratory: Clear to Auscultation and Non Labored Respirations; Negative Wheezes or Accessory Resp Muscle Use
Cardiac: Regular Rhythm and S1/S2; Negative Murmur, Rub or Gallop
GI: Soft, Nontender, Nondistended and Normal Bowel Sounds
Musculoskeletal: No Clubbing, No Cyanosis and No Edema
Skin: Warm, Dry and Normal Turgor; Negative Rash
Neuro: AO x 3 and Nonfocal/Grossly Intact
Psych: Calm
[2024-05-01] MEDS: KCL 20 MEQ PO (12:26)
[2024-05-01] MEDS: ATROVENT NEBULES INH (13:32)
[2024-05-01 14:56] VITALS: BP 141/78
--- NOTE | 2024-05-01 15:13 | CM ---
Received notification that patient is stable for discharge. Referral made to [facility]. Met with patient who signed IMM and confirmed she has a ride home.
Plan: Case management will continue to follow and assist with discharge planning. Home with [facility].
--- NOTE | 2024-05-01 16:13 | VNURNOTE ---
Late entry: Patient left before [facility] liaison could meet with her. Called and spoke with her daughter Grazyna. Explained [facility] nurse/therapy, visits, schedule and homebound status. She is agreeable and understands that visits at home will be 2-3 x
per week to assess and teach medical management. She is familiar with our services. She is aware that [facility] will contact them for start of care in 1-2 days after discharge from .
[facility] referral completed in [facility].
--- NOTE | 2024-05-02 16:33 | W.DCSUMMARY ---
Discharge Summary
Discharge Data
Date of Admission: 04/25/24
Date of Discharge: 05/02/24
-
Pending Results: No
Hospital Course
83-year-old female with COPD from alpha-1 antitrypsin deficiency, asthma, GERD, hypertension that presented to the hospital with shortness of breath suspicion for COPD exacerbation on arrival. Tested positive for influenza A. Had right lower lobe
infiltrate concerning for possible pneumonia. She was started on IV steroids, bronchodilators, short course of antibiotics, and Tamiflu. Required 2 L of supplemental oxygen through hospital stay and was ultimately titrated down to room air while
resting. Transition to prolonged oral prednisone taper, recommended to continue on home inhalers with DuoNebs as needed. Completed Tamiflu and antibiotics in the hospital. Recommended to follow-up with manager fixed income, should have repeat PFTs and
6-minute walk test.
Discharge Plan
-
Patient Disposition: Home (Routine Discharge)
Discharge Diagnosis/Procedures: COPD exacerbation
Influenza
Condition: Fair
Diet: No restrictions
Activity: As tolerated
Driving Restrictions: Not until seen by your Dr
Bathing Restrictions: None
Blood Work: None
Others Tests: None
Other Services: [facility], PT and OT
Activity Restrictions/Additional Instructions:
After discharge from the hospital you should schedule a follow-up with your family doctor, should be seen in office within 1 to 2 weeks of your discharge
You will also need to follow-up with your manager fixed income. If you need a new manager fixed income, A referral has been provided below
Referrals:
Juan Anaya MD [Family Provider] -
Naveed Mcclain MD [Active] -
Additional Discharge Medication Instructions: Take prednisone 40 mg daily for 2 days after discharge, then taper by 10 mg every 5 days
Resume your Breztri Aerosphear upon discharge
Follow-up with your family doctor/stripper apprentice about whether to continue both aspirin and Plavix. These medications are for the history of your coronary stent, typically only taken for 1 year before either aspirin or Plavix is stopped
Prescriptions:
New
prednisone 10 mg tablet
See Taper PO DIRECTED Qty: 90 0RF
Taper: Prednisone DC Starting at 40 mg daily
40 mg Daily for 5 Days and 0 Hour
30 mg Daily for 5 Days and 0 Hour
20 mg Daily for 5 Days and 0 Hour
10 mg Daily for 5 Days and 0 Hour
Continued
atorvastatin 40 MG tablet
40 mg PO QPM
aspirin 81 MG tablet,delayed release (DR/EC)
81 mg PO DAILY
pantoprazole 40 MG tablet,delayed release (DR/EC)
40 mg PO QPM
PreserVision AREDS 1 CAP capsule
1 cap PO DAILY
glucosamine sulfate 500 MG tablet
500 mg PO DAILY
nitroglycerin 0.4 MG tablet, sublingual
0.4 mg sublingual [id number] PRN (Reason: chest pain) Qty: 25 2RF
famotidine 20 MG tablet
20 mg PO DAILY PRN (Reason: GERD)
dextromethorphan-guaifenesin [Mucinex DM] 1 EACH tablet extended release 12 hr
1 ea PO BID PRN (Reason: Cough/congestion)
albuterol sulfate 1 PUFF HFA aerosol inhaler
2 puff inhalation R Q4HPRN PRN (Reason: sob/wheezing)
cholecalciferol (vitamin D3) 1,000 UNITS tablet
1,000 units PO DAILY
citalopram 40 mg tablet
40 mg PO DAILY
Patient Comments:
Dose confirmed with patient and outside list of Pharmacy
nifedipine 60 mg Tablet Extended Release
60 mg PO DAILY Qty: 30 1RF
furosemide 40 mg tablet
40 mg PO DAILY
montelukast 10 mg tablet
10 mg PO DAILY
potassium chloride 10 mEq tablet,ER particles/crystals
10 meq PO DAILY
Soothe Night Time Lubricant 80-20 % Ointment
1 applic BOTH EYES HS
Soothe Lubricant 0.6-0.6 % Dropperette
1 drp OPHTHALMIC (EYE) BID PRN (Reason: dry/irritated eyes)
Breztri Aerosphere 160-9-4.8 mcg/actuation Hfa Aerosol Inhaler
2 inh INHALATION R BID
fexofenadine 180 mg Tablet
180 mg PO DAILY
latanoprost 0.005 % drops
1 drp BOTH EYES HS
ipratropium-albuterol 0.5 mg-3 mg(2.5 mg base)/3 mL solution for nebulization
3 ml INHALATION R Q6 PRN (Reason: sob/wheezing)
lorazepam 0.5 mg Tablet
0.5 mg PO Q8H PRN (Reason: anxiety)
Patient Comments:
07/09/2023: last filled 03/18/23, 15 tabs for 5 days from [id number]
ascorbic acid (vitamin C) [Vitamin C] 500 mg Tablet
500 mg PO DAILY
clopidogrel 75 mg Tablet
75 mg PO DAILY 30 Days Qty: 30 0RF
mupirocin 2 % Ointment
1 applic intranasal BID 2 Days 0RF
Discontinued
loperamide 2 MG capsule
2 mg PO Q4H PRN (Reason: diarrhea)
prednisone 20 mg Tablet
60 mg PO DAILY
doxycycline hyclate 100 mg Tablet
100 mg PO BID
Discharge Orders:
Discharge Patient (As Directed); Ordered 05/01/24
Ordered By: Venkatesh Lizarraga
Discharge Date and Time
Discharge Date/Time: 05/01/24 15:33
Print Language: NAMIBIAN
== END 2024-05-01 15:33 | disposition home or self-care (01) | DRG 193 ==
LOC: 3 WEST ACU 05:46
PROVIDERS: Clinical Nurse Specialist Family Health; Internal Medicine; ADMITTING PHYSICIAN Internal Medicine; ATTENDING PHYSICIAN Internal Medicine; CONSULT PHYSICIAN Internal Medicine; EMERGENCY PHYSICIAN Emergency Medicine; FAMILY PHYSICIAN Family Medicine
DX: J10.00 Influenza due to other identified influenza virus with unspecified type of pneumonia (principal); N17.0 Acute kidney failure with tubular necrosis; E87.1 Hypo-osmolality and hyponatremia; J44.0 Chronic obstructive pulmonary disease with (acute) lower respiratory infection; J45.901 Unspecified asthma with (acute) exacerbation; J44.1 Chronic obstructive pulmonary disease with (acute) exacerbation; I10 Essential (primary) hypertension; E78.00 Pure hypercholesterolemia, unspecified; E03.9 Hypothyroidism, unspecified; G47.30 Sleep apnea, unspecified; K21.9 Gastro-esophageal reflux disease without esophagitis; F41.9 Anxiety disorder, unspecified; I25.10 Atherosclerotic heart disease of native coronary artery without angina pectoris; Z95.5 Presence of coronary angioplasty implant and graft; Z85.118 Personal history of other malignant neoplasm of bronchus and lung; Z86.718 Personal history of other venous thrombosis and embolism; Z86.73 Personal history of transient ischemic attack (TIA), and cerebral infarction without residual deficits; G43.909 Migraine, unspecified, not intractable, without status migrainosus; I71.40 Abdominal aortic aneurysm, without rupture, unspecified; Z90.49 Acquired absence of other specified parts of digestive tract; Z96.651 Presence of right artificial knee joint; Z87.891 Personal history of nicotine dependence; Z88.5 Allergy status to narcotic agent; Z88.1 Allergy status to other antibiotic agents; Z79.82 Long term (current) use of aspirin; Z79.899 Other long term (current) drug therapy; Z79.02 Long term (current) use of antithrombotics/antiplatelets; R09.02 Hypoxemia; Z66 Do not resuscitate; Z87.442 Personal history of urinary calculi; E21.0 Primary hyperparathyroidism; F32.A Depression, unspecified; L57.0 Actinic keratosis; Z96.1 Presence of intraocular lens; Z98.41 Cataract extraction status, right eye; Z98.42 Cataract extraction status, left eye; J98.4 Other disorders of lung; E88.01 Alpha-1-antitrypsin deficiency; D64.9 Anemia, unspecified; E86.0 Dehydration; I45.10 Unspecified right bundle-branch block; I49.3 Ventricular premature depolarization; Z86.0100 Personal history of colon polyps, unspecified
CPT/HCPCS: 71046; 76770; 80048; 80053; 81003; 82805; 83970; 84145; 84484; 85025; 85027; 87070; 87502; 87811; 93005; 94640; 96365; 96375; 97116; 97162; 97166; 97530; 99285

== ENCOUNTER → 2024-06-08 10:10 | Outpatient (REF) | payer MEDICARE, SELFPAY | LOC: RAD 10:10 | PROVIDERS: ATTENDING PHYSICIAN Internal Medicine Hematology & Oncology; FAMILY PHYSICIAN Family Medicine; REFERRING PHYSICIAN Nurse Practitioner Family | DX: C34.12 Malignant neoplasm of upper lobe, left bronchus or lung (principal); Z87.01 Personal history of pneumonia (recurrent) | CPT/HCPCS: 71046; 72141 ==

== ENCOUNTER → 2024-06-18 10:43 | Outpatient (REF) | payer MEDICARE, SELFPAY | LOC: HWRAD 10:43 | PROVIDERS: ATTENDING PHYSICIAN Nurse Practitioner Family; FAMILY PHYSICIAN Family Medicine | DX: S12.9XXA Fracture of neck, unspecified, initial encounter (principal) | CPT/HCPCS: 72125 ==

== ENCOUNTER 2024-06-23 21:26 | Inpatient (IN) | payer MEDICARE, SELFPAY ==
[2024-06-23] VITALS (7 sets, daily range): BP systolic 143–180; BP diastolic 66–102; BMI 34.6; BMI 37.1
--- NOTE | 2024-06-23 18:04 | ED.GENMED ---
History of Present Illness
General
Chief Complaint: Breathing Problem
Source: patient
Exam Limitations: none
Time Seen by Provider: 06/23/24 17:26
Nursing documentation reviewed up to this point in time: agreed with
History of Present Illness
History of Present Illness:
84-year-old female with past medical history and metastatic lung cancer, COPD, hypothyroidism, anxiety, who presents emergency department today with concerns of hypoxia. Patient reports that she is on a 5-day [id number] radiation treatment
course and reports that this was for 50 treatment. She reports that during her radiation oncology session with Dr. Hagan, they were checking her vitals and she was noted to be hypoxic to 80% on room air. Patient does not wear oxygen at baseline
and has never required oxygen before. She states that she has chronic shortness of breath and does not feel like it is particularly worse on room air. Daughter present in room with patient reports that patient has been more fatigued recently.
Patient reports that she has been using tramadol and lorazepam as needed for anxiety and daughters concerned that this may cause her drowsiness/weakness. Patient denies chest pain, fevers or chills, coughing up sputum, coughing up blood,
palpitations. She states that she has never gone in the heart failure before, she follows with Dr. Freeman for heart murmur. She takes aspirin but she is not take any Xarelto, Eliquis, or anticoagulant medications. She denies any recent long
distance travel, denies any redness or swelling in her legs. Patient is also concerned about a fall she had yesterday. Patient reports that she was standing in a grocery store when her knees felt weak and she fell straight down onto her buttocks.
She states that she has pain in her tailbone. She denies any head trauma or neck trauma. She states that she has been walking normally after the injury.
Past History
Past History
ED Past Medical History: Asthma, CAD, Cancer (Lung CA), COPD, GERD, HTN, Hypercholesterolemia, Hyperthyroidism, Hypothyroidism, Psychiatric (Anxiety, depression), Other (TIA, Migraines, Sleep apnea, DVT, Hemorrhoids, Hiatal hernia, C-diff, Ovarian
cyst, Renal calculus, UTI, Overactive Parathyroid, Anemia, Fibrosis, AAA) and Other (Small bowel obstruction 2004, total colectomy for polyps, ileostomy with reversal)
ED Past Surgical History: Bowel resection (Total proctocolectomy with Ileostomy and then reversal), Cardiac (Catheterization, Stent), Gynecological (Tubal), Orthopedic (Right hand tendon repair, Right knee replacement) and Other (Hernia, Cataracts,
Right vein stripping)
Social History
Tobacco: Former smoker
Alcohol: None
Drug: None
Personal:
Living: alone
Employment: Retired
Family History
Family History: CAD
Review of Systems
Review of Systems
All Other Systems: ROS reviewed and negative except as documented in HPI and ROS
Phy Exam
Physical Exam
Physical Exam:
General: Patient is well appearing and in no acute distress; non-toxic
Skin: Warm and dry, no rashes or lesions
Head: Normocephalic, atraumatic
Eyes: Sclera non-icteric. EOMs intact.
Cardiac: Regular rate
Peripheral Vascular:
Pulm: Normal respiratory effort
Abdomen: No abdominal tenderness
Musculoskeletal:
Neuro: CN II-XII intact, no focal neurologic deficits.
Psychiatric: Appropriate mood and affect.
Scores
Heart Failure Risk
Heart Failure Risk Score: Not Applicable
Course
Orders/Labs/Results
Orders:
Orders
06/23/24 18:02
CR Chest - 2 Views Urgent
Comment:
Reason For Exam: hypoxia, shortness of breath
06/23/24 18:06
CR Sacrum/coccyx Min 2 View Urgent
Comment:
Reason For Exam: sacral/buttock pain following fall
06/23/24 18:51
Complete Blood Count/With Diff Urgent
Comprehensive Metabolic Panel Urgent
06/23/24 20:01
Dexamethasone Sod Phosphate [Decadron] 10 mg IV NOW STA
06/23/24 20:10
LevoFLOXacin 750 MG/150 ML [Levaquin] 750 mg in 150 ml IV NOW
Piperacillin/Tazo 4.5 Gram [Zosyn] 4.5 gram in 100 ml IV NOW
06/23/24 20:13
COVID-19 Antigen Urgent
Source: Nasal Swab
Influenza A+B Rapid Molecular Urgent
CAROLINE Source: Nasal Swab
Specimen Description:
06/23/24 20:42
Admit/Transfer Patient As Directed
Co-Sign Provider:
Level of Care: Inpatient admission
Assign to:: Telemetry
Physician / Group: hospitalist
Diagnosis: hypoxia
Reason for Telemetry: Chest Pain syndromes
Date to Stop Telemetry: 06/25/24
Time to Stop Telemetry: 11:00
Reason for Hospitalization: hypoxia
Expected length of stay greater than two midnights?: Yes
ELOS- Estimated Length of Stay in days: 2
I certify the patient meets the requirements for IP care: Yes
PRN Pain Medication Management As Directed
May give lesser potent ordered pain med per pt: Yes
preference::
Protocol:: Medication orders for pain may be administered in a
manner that supports deferring to patient preference
when the pt is:
- Requesting an ordered lesser potent pain medication.
Least to most potent pain medications are defined
as: acetaminophen < NSAID < tramadol < opioids
(morphine, oxycodone, hydromorphone).
- Requesting a lesser dose of the same medication IF
ORDERED.
- Requesting a less intrusive route of administration
if both routes are prescribed by the provider (PO <
IV).
06/23/24 20:44
Code Status As Directed
Resuscitation Status: Do not resuscitate
Reached after discussion with pt or family/Healthcare POA: Yes
06/23/24 20:45
DNR Bracelet Application ONCE
06/23/24 20:53
Vancomycin [Vancocin] 2,000 mg 0.9% Sodium Chloride 500 ml [Nss] 500 ml IV NOW
06/23/24 21:05
Diphenhydramine [Benadryl] 25 mg IV NOW STA
Diphenhydramine [Benadryl] 50 mg .ROUTE .STK-MED ONE
06/23/24 21:06
Dexamethasone Sod Phosphate [Decadron] 20 mg .ROUTE .STK-MED ONE
EPINEPHrine PF [Adrenalin] 0.3 mg IM NOW STA
EPINEPHrine PF [Adrenalin] 1 mg .ROUTE .STK-MED ONE
06/23/24 21:13
Dexamethasone Sod Phosphate [Decadron] 10 mg IV NOW STA
06/23/24 21:22
Famotidine [Pepcid] 20 mg IV NOW STA
06/23/24 21:45
D-Dimer Stat
PT/INR [Prothrombin Time] Stat
Procalcitonin Stat
PCT Algorithmm Indication: Respiratory
06/25/24 11:00
DC Protocol for Telemetry ONCE
Abnormal Lab Results
06/23/24
18:51
RBC 4.06 L 10^6/uL
(4.20-5.40)
Hgb 11.7 L g/dL
(12.0-16.0)
MCHC 31.5 L g/dL
(33.0-37.0)
RDW 15.4 H %
(11.5-14.5)
Abs Immat Gran (auto) 0.1 H 10^3/uL
(0-0.05)
Absolute Neuts (auto) 8.5 H 10^3/uL
(1.4-6.5)
Absolute Lymphs (auto) 0.9 L 10^3/uL
(1.2-3.4)
Immature Gran % 1.0 H %
(0-0.5)
Neutrophils % 84.7 H %
(42.2-75.2)
Lymphocytes % 8.8 L %
(20.5-51.1)
Glucose 112 H mg/dl
(70-99)
Calcium 10.7 H mg/dl
(8.4-10.2)
Alkaline Phosphatase 174 H U/L
(38-126)
06/23/24 18:51
06/23/24 18:51
Vital Signs
Initial and Last Documented VS:
Initial Vital Signs
Temp Pulse Resp BP Pulse Ox
98.1 F 97 18 149/67 86
06/23/24 15:37 06/23/24 15:37 06/23/24 15:37 06/23/24 15:37 06/23/24 15:37
Last Documented Vital Signs
Temp Pulse Resp BP Pulse Ox
98.1 F 93 36 145/102 96
06/23/24 15:37 06/23/24 21:45 06/23/24 21:45 06/23/24 21:31 06/23/24 21:45
MDM/Problems Addressed
Differential Diagnosis Includes:
ddx include COPD exacerbation, pneumonia, pleural effusion, PE
MDM/Problems Addressed:
84-year-old female with past medical history of metastatic lung cancer presents emergency department today with concerns of hypoxia. While getting her radiation treatment today, she was noted to be in the low 80s on room air and was sent to the
emergency department after her treatment. She follows with Dr. Iglesias. Patient states that this time she did not particularly feel more short of breath than her baseline. She denies any fevers or chills she denies any coughing up of sputum or any
hemoptysis. She denies any redness or swelling in her lower extremities. Emergency department, she is stable on 2 L via nasal cannula. She got a chest x-ray which demonstrated a parenchymal opacity within the left lower lobe which appears
slightly increased compared to prior x-ray which we concerning for pneumonia versus progressive changes associated with COPD. Did want to start Zosyn plus Vanco plus levofloxacin considering patient was admitted within the past 90 days and is
immunocompromise and has a history of COPD however reviewed case with hospitalist and decision was made to switch patient to Rocephin and vancomycin. When zosyn was started, patient did start to have facial flushing, itching in her hands as well as
dry throat and mild hoarseness to her voice. Patient was subsequently was given antihistamines and epinephrine. Hospitalist made aware.
*Pulse Oximetry
Patient hypoxic: no
*Critical Care Note
Total Time (30-74mins, 75-104mins- exclusive of procedures): Not Applicable
Data Reviewed
Review of Other/Old Records Reveals: Records (Reviewed [facility] reviewed discharge summary 05/02/2024 patient seen for COPD exacerbation, she was found to be flu positive)
Source: patient and records
Patient Management
Escalation/DeEscalation of care consider admission/obs:
Patient referred for admission
Case reviewed with my attending
Update Note
Update Note:
9:05 pm--We were alerted by nursing staff that patient started to have itchy hands, facial redness, and dry throat. Concern for allergic reaction. Benadryl and Epi given.
ED Attending Note
-
Portions of this chart may have been created with voice recognition software.� Occasional wrong word or��sound alike� substitutions may have occurred due to the inherent limitations of voice recognition software.
Discharge Plan
Departure
Patient Disposition: Admit
Date of Disposition: 06/23/24
Time of Disposition: 20:08
Admit to: Med/Surg
Presentation/result/management discussed w/ accepting MD/DO: Hospitalist
Patient with high blood pressure during this ER visit?: Yes
Condition: Fair
Discharge Problem:
Acute and chronic respiratory failure with hypoxia
Interventions
Interventions:
*Risk Screen - Suicide Last Done: 06/23/24 15:37
*General Assessment Last Done: 06/23/24 15:37
*Neglect/Abuse Screening Last Done: 06/23/24 15:37
*ED- Fall Risk Assessment Last Done: 06/23/24 18:49
*ED COVID-19 Vaccine History Last Done: 06/23/24 18:49
ED- Cardiac Assessment Last Done: 06/23/24 18:49
ED- Pulmonary Assessment Last Done: 06/23/24 18:49
[2024-06-23 19:01] LABS: % Basophils 0.7 % (0-2); % Eosinophils 0.7 % (0-6); % Lymphocytes 8.8 % (20.5-51.1); % Monocytes 4.1 % (1.7-9.3); % Neutrophils 84.7 % (42.2-75.2); Absolute Basophils 0.1 10^3/uL (0-0.2); Absolute Eosinophils 0.1 10^3/uL (0-0.7); Absolute Immature Granulocytes 0.1 10^3/uL (0-0.05); Absolute Lymphocytes 0.9 10^3/uL (1.2-3.4); Absolute Monocytes 0.4 10^3/uL (0.1-0.6); Absolute Neutrophils 8.5 10^3/uL (1.4-6.5); Hematocrit 37.2 % (37.0-47.0); Hemoglobin 11.7 g/dL (12.0-16.0); Mean Corp Hgb Conc. 31.5 g/dL (33.0-37.0); Mean Corpuscular Hgb 28.8 pg (27.0-31.0); Mean Corpuscular Volume 91.6 fL (81.0-99.0); Mean Platelet Volume 9.9 fL (7.4-10.4); Nucleated Red Blood Cells % 0 %; Platelet Count 172 10^3/uL (130-400); Red Blood Cell Count 4.06 10^6/uL (4.20-5.40); Red Cell Dist. Width 15.4 % (11.5-14.5); White Blood Cell Count 10.1 10^3/uL (4.8-10.8)
[2024-06-23 19:14] LABS: ALT (SGPT) 21 U/L (0-35); AST (SGOT) 26 U/L (14-36); Albumin 4.5 g/dl (3.5-5.0); Alkaline Phosphatase 174 U/L (38-126); Blood Urea Nitrogen 16 mg/dl (7-17); Calcium 10.7 mg/dl (8.4-10.2); Carbon Dioxide 25 mmol/L (22-30); Chloride 103 mmol/L (98-107); Glucose 112 mg/dl (70-99); Potassium 4.6 mmol/L (3.5-5.1); Sodium 136 mmol/L (135-145); eGFR > 60.00
[2024-06-23] MEDS: DECADRON 10 MG IV ×2 (20:13→21:13)
[2024-06-23] MEDS: ZOSYN 100 IV (20:20)
--- NOTE | 2024-06-23 20:27 | HPS.HSE ---
Family Physician
-
Family Physician: Juan Anaya
Chief Complaint
-
Hypoxia
History of Present Illness
This is a 84-year-old female with past medical history significant for CAD status post tenting, hypertension, hyperlipidemia, alpha 1 antitrypsin deficiency with history of COPD exacerbations last admitted with influenza and COPD exacerbation in
April, history of lung cancer who was recently diagnosed with recurrent metastatic lung cancer in the setting of neck pain and is currently on radiation treatment to the cervical spine presents from radiation oncology clinic after fifth round of
treatment with incidental finding of hypoxia.
Patient reported that prior to this finding she has been having several days of increasing dyspnea on exertion. She has some shortness of breath at rest. She always has some shortness of breath. She reports a chronic cough which is unchanged.
She denies fevers or chills. She denies having any chest pain pleuritic or otherwise. She reports occasional dizziness when she gets up. She denies any palpitations. She denies any lower extremity swelling orthopnea or PND. She denies any
changes to her medications.
Patient reported that she has been having neck pain for several months and about 2 weeks ago was found to have mets in the cervical spine. She is followed by Dr. Iglesias at [place]. She has had a CT scan which showed recurrence of lung cancer with
mets. She is on cycle 5 of radiation treatment and further treatment to be determined pending upcoming PET scan.
Patient had a recent fall after her last radiation treatment after she was placed on Xanax for anxiety.
In the emergency department today she was afebrile, blood pressure was 180/80 with a pulse of 80. Respiratory it was actually elevated at 30. Oxygen saturation was 95% on 2 L. CBC was unremarkable with a white count of 10 hemoglobin 11.7 and
platelet 172, electrolytes BUN/creatinine were all normal. Chest x-ray shows opacity in the left upper lobe which is slightly increased from her prior x-ray concerning for possible pneumonia. She had a sacrococcyx x-ray which shows no fractures.
Medical History
Past Medical History
Past Medical History: Reports Asthma, CAD (Status post stent), Cancer (Lungs Ca), COPD, GERD, HTN, Hypercholesterolemia, Hypothyroidism and Psychiatric (anxiety)
Additional Past Medical History:
Sleep apnea not on CPAP
History of DVT
History of TIA
Migraines
AAA
Past Surgical History: Reports Bowel Resection (Small bowel obstruction status post total colectomy, ileostomy with reversal,) and Orthopedic (Right total knee arthroplasty)
Additional Past Surgical History:
Partial small bowel obstruction
Intestinal adhesions
Social History
Tobacco: Non-smoker
Alcohol: None
Drug: None
Personal: Single
Living: Alone
Employment: Retired
Family History
Family History: Not pertinent
Allergies / Home Medications
Allergies reflects when Allergies were last updated in [employer].
Home Medications with original date entered in [employer]
Allergy/Medication List:
Allergies
Allergy/AdvReac Type Severity Reaction Status Date / Time
codeine Allergy NAUSEA Verified 06/23/24 15:37
doxycycline Allergy HEART Verified 06/23/24 15:37
PALPITATIONS
meperidine HCl [From Demerol] Allergy Nausea/ligh Verified 06/23/24 15:37
theaded
morphine Allergy Nausea Verified 06/23/24 15:37
norepinephrine Allergy rash to Verified 06/23/24 15:37
ethylnorepinephrine
oxycodone Allergy SEVERE Verified 06/23/24 15:37
NAUSEA
pentazocine Allergy TALWIN Verified 06/23/24 15:37
pentazocine lactate Allergy Nausea Verified 06/23/24 15:37
[From Talwin]
Tetracyclines Allergy very Verified 06/23/24 15:37
disoriented
Home Medications
aspirin 81 mg tablet,delayed release 81 mg PO DAILY Blood clot prevention/tx 07/22/17
atorvastatin 40 mg tablet 40 mg PO QPM High cholesterol 07/22/17
pantoprazole 40 mg tablet,delayed release 40 mg PO QPM Gastrointestinal issue 07/22/17
glucosamine sulfate 500 mg tablet 500 mg PO DAILY Supplement 02/16/19
nitroglycerin 0.4 mg sublingual tablet 0.4 mg sublingual [id number] PRN chest pain #25 tabs 02/16/19
vitamins A,C,F-bojw-dwfmat 4,296 mcg-226 mg-90 mg capsule (PreserVision AREDS) 1 cap PO DAILY Eye condition 02/16/19
albuterol sulfate 90 mcg/actuation aerosol inhaler 2 puff inhalation R Q4HPRN PRN sob/wheezing 07/13/21
cholecalciferol (vitamin D3) 25 mcg (1,000 unit) tablet 1,000 units PO DAILY Supplement 07/13/21
dextromethorphan-guaifenesin ER 60 mg-1,200 mg tab,extend release,12hr (Mucinex DM) 1 ea PO BID PRN Cough/congestion 07/13/21
famotidine 20 mg tablet 20 mg PO DAILY PRN GERD 07/13/21
citalopram 40 mg tablet 40 mg PO DAILY Mental Health/Anxiety 04/07/22
nifedipine 60 mg tablet,extended release 60 mg PO DAILY #30 tabs 04/11/22
budesonide 160 mcg-glycopyr 9 mcg-formot 4.8 mcg/actuation HFA inhaler (Breztri Aerosphere) 2 inh inhalation R BID Lung/Breathing Issues 12/25/22
furosemide 40 mg tablet 40 mg PO DAILY Fluid Retention/Swelling 12/25/22
montelukast 10 mg tablet 10 mg PO DAILY Lung/Breathing Issues 12/25/22
potassium chloride 10 mEq tablet,extended release(part/cryst) 10 meq PO DAILY Electrolyte Repletion 12/25/22
propylene glycol-glycerin 0.6 %-0.6 % eye drops in a dropperette (Soothe Lubricant) 1 drp ophthalmic (eye) BID PRN dry/irritated eyes 12/25/22
white petrolatum-mineral oil 80 %-20 % eye ointment (Soothe Night Time Lubricant) 1 applic BOTH EYES HS dry eyes 12/25/22
ascorbic acid (vitamin C) 500 mg tablet (Vitamin C) 500 mg PO DAILY Supplement 07/09/23
fexofenadine 180 mg tablet 180 mg PO DAILY Allergies 07/09/23
ipratropium 0.5 mg-albuterol 3 mg (2.5 mg base)/3 mL nebulization soln 3 ml inhalation R Q6 PRN sob/wheezing 07/09/23
latanoprost 0.005 % eye drops 1 drp BOTH EYES HS Eye Condition 07/09/23
lorazepam 0.5 mg tablet 0.5 mg PO Q8H PRN anxiety 07/09/23
clopidogrel 75 mg tablet 75 mg PO DAILY Blood clot prevention/tx 30 days #30 tabs 01/09/24
mupirocin 2 % topical ointment 1 applic intranasal BID Infection 2 days 01/09/24
prednisone 10 mg tablet See Taper PO DIRECTED #90 tabs 05/01/24
Review of Systems
-
History Source: Patient and Family
Constitutional: Reports No Symptoms
Respiratory: Reports Cough (Unchanged from prior) and Trouble Breathing (Increased dyspnea on exertion)
Cardiac: Reports No Symptoms
Abdomen/GI: Reports No Symptoms
: Reports No Symptoms
Musculoskeletal: Reports No Symptoms
Skin: Reports No Symptoms
Neurological: Reports No Symptoms
Endocrine: Reports No Symptoms
Hematologic/Lymphatic: Reports No Symptoms
Psych: Reports No Symptoms
Physical Exam
Vital Signs
Vital Signs
Temp Pulse Resp BP Pulse Ox
98.1 F 79 22 157/72 95
06/23/24 15:37 06/23/24 20:15 06/23/24 20:15 06/23/24 20:00 06/23/24 20:15
Physical Exam
General: Well Developed, Well Nourished and Comfortable
HEENT: NormoCephalic, Anicteric, Moist mucous membranes, Atraumatic, PERRLA and Oxygen
Respiratory: Clear and Decreased Breath Sounds; No Wheezes, Rales, Rhonchi or Crackles
Cardiac: S1/S2 and Regular Rhythm
Breast: Deferred by me
GI: Soft, Non Tender, Non Distended and Normal Bowel Sounds
Rectal: Deferred by Provider
Genito-urinary: Deferred by me
Musculoskeletal: No Clubbing, No Cyanosis and No Edema
Skin: Warm
Neuro: AO x 3 and Nonfocal/grossly intact
Hematologic/Lymphatic: No Lymphadenopathy
Psych: Calm
Laboratory Results
-
06/23/24 18:51
06/23/24 18:51
Laboratory Results
Total Bilirubin 1.0 mg/dl (0.2-1.3) 06/23/24 18:51
AST 26 U/L (14-36) 06/23/24 18:51
ALT 21 U/L (0-35) 06/23/24 18:51
Alkaline Phosphatase 174 U/L (38-126) H 06/23/24 18:51
Data Reviewed
-
Diagnostic Radiology: Image Personally Visualized and interpreted and Report Reviewed by me
Lab Data: Labs Reviewed by me
Old Records: Reviewed
Impression/Plan
-
IMPRESSION:
84-year-old female with history of alpha-1 antitrypsin deficiency with history of exacerbation in the past, recent diagnosis of recurrent lung cancer with mets to the cervical spine found to have hypoxia at radiation oncology clinic today satting
low 80s on room air. She is not on home O2. She has dyspnea on exertion and shortness of breath without any changes in cough productive or otherwise. She denies any pleuritic chest pain. Chest x-ray is equivocal with slight increase in the
chronic opacity found in the left lower lobe which may reflect a new consolidation on top of the chronic scar or malignancy. No evidence of congestive heart failure. Cannot rule out PE at this time. She is not wheezing to suggest a new COPD
exacerbation. She is however quite tachypneic.
PLAN:
1. Hypoxia - Pneumonia vs PE vs COPD exacerbation. No effusion.
- admit to telemetry
- check procal
- Vanc/ceftriaxone/axithromycin for now
- check d-dimer
- will start premed for CT PE, d/c if d-dimer absolutely negative
- covid/influenza pending
- prednisone increase to 40 daily and taper, continue nebs RTC and prn
- Pulmonary consult
2. CAD - No chest pain.
- tele
- ecg and trop x 1
- continue aspirin, statin
- lasix 40 daily, no volume overload
DVT - PPX - lovenox for now
Code status - DNR
[2024-06-23 20:49] LABS: COVID-19 Antigen Negative (Negative)
--- NOTE | 2024-06-23 21:02 | PHANOTE ---
[employer] tech(06/23/24)- Patient made clear she did not want to interview right now on medications, said to ask her again in the morning. She also does not have her list with her, and she takes care of her own medications, so unable to compile list
without patient's input.
[2024-06-23] MEDS: BENADRYL 25 MG IV (21:12)
[2024-06-23] MEDS: ADRENALIN 0.3 MG IM (21:12)
[2024-06-23] MEDS: PEPCID 20 MG IV (21:28)
[2024-06-23 22:03] LABS: INR 1.01; PT 13.6 Sec (11.4-14.6)
[2024-06-23 22:05] LABS: D-Dimer 3.42 ug/mlFEU (0.00-0.50)
[2024-06-23 22:18] LABS: Procalcitonin < 0.05 ng/ml (0.0-0.25)
--- NOTE | 2024-06-23 22:45 | PTCARENOTE ---
Patient arrived from the ED via stretcher. Pt pivoted onto the bed with help from staff. Pt AAOx3, arrived on 4LO2 O2 sat 96%. VSS. No complaints of pain. SOB on exertion. Pt oriented to the room, call gamez is within reach.
[2024-06-23] MEDS: XALATAN OPHTHALMIC SOLUTION 1 DROP BOTH EYES (23:21)
[2024-06-23] MEDS: ZITHROMAX INFUSION 250 IV (23:30)
[2024-06-23] MEDS: PEPCID 20 MG PO (23:30)
[2024-06-24] VITALS (7 sets, daily range): BP systolic 120–176; BP diastolic 59–99; PULSE 97; O2SAT 98
[2024-06-24 06:24] LABS: Hemoglobin 11.8 g/dL (12.0-16.0); Mean Corp Hgb Conc. 32.8 g/dL (33.0-37.0); Mean Corpuscular Hgb 29.4 pg (27.0-31.0); Mean Corpuscular Volume 89.8 fL (81.0-99.0); Mean Platelet Volume 10.3 fL (7.4-10.4); Platelet Count 149 10^3/uL (130-400); Red Blood Cell Count 4.01 10^6/uL (4.20-5.40); Red Cell Dist. Width 15.1 % (11.5-14.5); White Blood Cell Count 6.6 10^3/uL (4.8-10.8)
[2024-06-24 06:49] LABS: Blood Urea Nitrogen 13 mg/dl (7-17); Calcium 10.6 mg/dl (8.4-10.2); Carbon Dioxide 27 mmol/L (22-30); Chloride 105 mmol/L (98-107); Estimated Creatinine Clearance 56 ml/min; Glucose 155 mg/dl (70-99); Potassium 4.6 mmol/L (3.5-5.1); Sodium 137 mmol/L (135-145); eGFR > 60.00
[2024-06-24] MEDS: DUONEB 3 ML INH ×4 (07:52→19:41)
[2024-06-24] MEDS: SPIRIVA RESPIMAT 2.5 MCG 2 PUFF INH (07:53)
[2024-06-24] MEDS: SYMBICORT 160/4.5 MCG INHALER 2 PUFF INH ×2 (07:53→19:41)
[2024-06-24] MEDS: BENADRYL 50 MG PO (08:34)
[2024-06-24] MEDS: SOLU-CORTEF 200 MG IV (08:36)
[2024-06-24] MEDS: CLARITIN 10 MG PO (08:37)
[2024-06-24] MEDS: ASPIR LOW (ENTERIC COATED) 81 MG PO (08:37)
[2024-06-24] MEDS: CELEXA 40 MG PO (08:37)
[2024-06-24] MEDS: SINGULAIR 10 MG PO (08:37)
[2024-06-24] MEDS: PROCARDIA XL (EXTENDED RELEASE) 60 MG PO (08:37)
[2024-06-24] MEDS: SOLU-CORTEF IV (08:38)
--- NOTE | 2024-06-24 08:39 | VNURNOTE ---
Chart reviewed. Patient is current with [facility] nursing, PT, OT, LE[employer] HELPER. Will continue to follow hospital course and DC plans.
[2024-06-24] MEDS: LOVENOX 80 MG SC (08:47)
--- NOTE | 2024-06-24 09:20 | CON.ONC ---
Impression
Impression
Hypoxia/pulmonary infiltrate
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
Plan
Plan
Patient most likely has COPD exacerbation or possible pneumonia. CXR shows an increased parenchymal opacity within the left lower lobe appears slightly increased compared to radiograph of June 08, 2024, especially on the lateral view. This
finding raises the possibility of pneumonia, superimposed on chronic changes of lung cancer and/or post treatment changes and/or atelectasis.
Patient has been started on broad-spectrum antibiotics. Prednisone has been increased to 40 mg which would be appropriate if this was radiation pneumonitis. Unlikely radiation pneumonitis as her primary lung radiation was in 2019 (unlikely to have
acute radiation pneumonitis so long after XRT) and she is currently getting cervical spine radiation. Continue current therapy including antibiotics and prednisone. Await pulmonary consultation. Elevated D-dimer is noted and a CT angiogram was
ordered and is pending. Therapeutic dose Lovenox 80 SQ BID has empirically been started pending CT angiogram.
Patient History
History of Present Illness
CC: SOB
HPI: 84-year-old female with stage Ia left lower lobe lung carcinoma treated with SBRT in 2018 who underwent surveillance PET scan 01/2024 that showed uptake in the cervical spine. Follow-up MRI 06/08/2024 revealed spinal cord compression from
pathologic fracture. Patient initiated palliative radiation to the spine last week (06/17) with plans for 5 fractions of treatment to the cervical spine. Her last treatment was supposed to be today.
She also has history of COPD exacerbations last admitted with influenza and COPD exacerbation in April presents from radiation oncology clinic with incidental finding of hypoxia. Patient reported that prior to this finding she has been having
several days of increasing dyspnea on exertion with some shortness of breath at rest. She always has some shortness of breath. She reports a chronic cough which is unchanged. She denies fevers or chills. In ER Chest x-ray shows opacity in the
left upper lobe which is slightly increased from her prior x-ray concerning for possible pneumonia. We are consulted for the possibility of radiation pneumonitis. Pulmonary consultation is pending.
Past-Medical/Surgical History
PMH: Lung Ca 2019 LLL s.p XRT CAD status post tenting, hypertension, hyperlipidemia, alpha 1 antitrypsin deficiency, COPD exacerbations last admitted with influenza and COPD exacerbation in April, history of lung cancer who was recently diagnosed
with recurrent metastatic lung cancer in the setting of neck pain and cervical spine mets with spinal cord compression,
Asthma, CAD (Status post stent), Cancer (Lungs Ca), COPD, GERD, HTN, Hypercholesterolemia, Hypothyroidism and Psychiatric (anxiety)
Sleep apnea not on CPAP
History of DVT
History of TIA
Migraines
AAA
Past Surgical History: Reports Bowel Resection (Small bowel obstruction status post total colectomy, ileostomy with reversal,) and Orthopedic (Right total knee arthroplasty)
Additional Past Surgical History:
Partial small bowel obstruction
Intestinal adhesions
Social History
Tobacco: Non-smoker
Alcohol: None
Drug: None
Personal: Single
Living: Alone
Employment: Retired
Family History
Family History: Not pertinent
Patient Medication
�Medication �Instructions �Recorded �Confirmed �Last Taken �Type
aspirin 81 mg tablet,delayed 81 mg PO DAILY Blood clot 07/22/17 04/25/24 01/09/24 07:00 History
release prevention/tx
atorvastatin 40 mg tablet 40 mg PO QPM High cholesterol 07/22/17 04/25/24 01/08/24 19:00 History
pantoprazole 40 mg tablet,delayed 40 mg PO QPM Gastrointestinal issue 07/22/17 04/25/24 01/08/24 19:00 History
release
glucosamine sulfate 500 mg tablet 500 mg PO DAILY Supplement 02/16/19 04/25/24 12/26/23 History
nitroglycerin 0.4 mg sublingual 0.4 mg sublingual [id number] PRN 02/16/19 04/25/24 Unknown Rx
tablet chest pain #25 tabs
vitamins A,C,G-skin-verrmu 4,296 1 cap PO DAILY Eye condition 02/16/19 04/25/24 12/26/23 History
mcg-226 mg-90 mg capsule
(PreserVision AREDS)
albuterol sulfate 90 mcg/actuation 2 puff inhalation R Q4HPRN PRN 07/13/21 04/25/24 01/08/24 History
aerosol inhaler sob/wheezing
cholecalciferol (vitamin D3) 25 1,000 units PO DAILY Supplement 07/13/21 04/25/24 12/26/23 History
mcg (1,000 unit) tablet
dextromethorphan-guaifenesin ER 60 1 ea PO BID PRN Cough/congestion 07/13/21 04/25/24 01/08/24 19:00 History
mg-1,200 mg tab,extend
release,12hr (Mucinex DM)
famotidine 20 mg tablet 20 mg PO DAILY PRN GERD 07/13/21 04/25/24 01/08/24 History
citalopram 40 mg tablet 40 mg PO DAILY Mental 04/07/22 04/25/24 01/02/24 History
Health/Anxiety
nifedipine 60 mg tablet,extended 60 mg PO DAILY #30 tabs 04/11/22 04/25/24 01/08/24 08:00 Rx
release
budesonide 160 mcg-glycopyr 9 2 inh inhalation R BID 12/25/22 04/25/24 01/08/24 History
mcg-formot 4.8 mcg/actuation HFA Lung/Breathing Issues
inhaler (Breztri Aerosphere)
furosemide 40 mg tablet 40 mg PO DAILY Fluid 12/25/22 04/25/24 01/08/24 08:00 History
Retention/Swelling
montelukast 10 mg tablet 10 mg PO DAILY Lung/Breathing 12/25/22 04/25/24 01/08/24 History
Issues
potassium chloride 10 mEq 10 meq PO DAILY Electrolyte 12/25/22 04/25/24 01/07/24 History
tablet,extended release(part/cryst) Repletion
propylene glycol-glycerin 0.6 1 drp ophthalmic (eye) BID PRN 12/25/22 04/25/24 Unknown History
%-0.6 % eye drops in a dropperette dry/irritated eyes
(Soothe Lubricant)
white petrolatum-mineral oil 80 1 applic BOTH EYES HS dry eyes 12/25/22 04/25/24 01/08/24 19:00 History
%-20 % eye ointment (Soothe Night
Time Lubricant)
ascorbic acid (vitamin C) 500 mg 500 mg PO DAILY Supplement 07/09/23 04/25/24 01/08/24 19:00 History
tablet (Vitamin C)
fexofenadine 180 mg tablet 180 mg PO DAILY Allergies 07/09/23 04/25/24 01/08/24 History
ipratropium 0.5 mg-albuterol 3 mg 3 ml inhalation R Q6 PRN 07/09/23 04/25/24 Unknown History
(2.5 mg base)/3 mL nebulization sob/wheezing
soln
latanoprost 0.005 % eye drops 1 drp BOTH EYES HS Eye Condition 07/09/23 04/25/24 01/08/24 19:00 History
lorazepam 0.5 mg tablet 0.5 mg PO Q8H PRN anxiety 07/09/23 04/25/24 Unknown History
clopidogrel 75 mg tablet 75 mg PO DAILY Blood clot 01/09/24 04/25/24 Unknown Rx
prevention/tx 30 days #30 tabs
mupirocin 2 % topical ointment 1 applic intranasal BID Infection 01/09/24 04/25/24 Unknown Rx
2 days
prednisone 10 mg tablet See Taper PO DIRECTED #90 tabs 05/01/24 Unknown Rx
Active Medications
Generic Name Dose Route Start Last Admin
Trade Name Freq PRN Reason Stop Dose Admin
Albuterol/Ipratropium 3 ml 06/23/24 22:49
Ipratropium 0.5/Albuterol 3 Mg (3 Ml Ampul) INH
R Q4HPRN PRN
short of breath
Protocol
Albuterol/Ipratropium 3 ml 06/24/24 08:00 06/24/24 07:52
Ipratropium 0.5/Albuterol 3 Mg (3 Ml Ampul) INH 3 ml
R QID NIKHIL Administration
Protocol
Aspirin 81 mg 06/24/24 08:00 06/24/24 08:37
Aspirin 81 Mg (Enteric Coated) Tablet PO 07/22/24 07:59 81 mg
DAILY NIKHIL Administration
Atorvastatin Calcium 40 mg 06/24/24 18:00
Atorvastatin (Lipitor) 40 Mg Tablet PO 07/22/24 17:59
QPM NIKHIL
Budesonide/Formoterol Fumarate 2 puff 06/24/24 08:00 06/24/24 07:53
Symbicort Inhaler 160/4.5 INH 07/22/24 07:59 2 puff
R BID NIKHIL Administration
Protocol
Citalopram Hydrobromide 40 mg 06/24/24 08:00 06/24/24 08:37
Citalopram 40 Mg Tablet PO 07/22/24 07:59 40 mg
DAILY NIKHIL Administration
Enoxaparin Sodium 80 mg 06/24/24 08:00 06/24/24 08:47
Enoxaparin Sodium 80 Mg/0.8 Ml Syringe SC 07/22/24 07:59 80 mg
Q12H NIKHIL Administration
Famotidine 20 mg 06/23/24 22:49 06/23/24 23:30
Famotidine 20 Mg Tablet PO 07/21/24 22:48 20 mg
DAILYPRN PRN Administration
GERD
Hydrocortisone Sodium Succinate 50 mg 06/24/24 08:00 06/24/24 08:38
Hydrocortisone Sodium Succinate 100 Mg/2 Ml Vial IV 07/22/24 07:59 Not Given
Q8 NIKHIL
Azithromycin 500 mg in 250 mls @ 250 mls/hr 06/24/24 00:00 06/23/24 23:30
Zithromax Infusion IV 250 mls
Q24H NIKHIL Administration
Latanoprost 0 drop 06/23/24 22:49 06/23/24 23:21
Latanoprost 0.005% (Ophthalmic Solution) 2.5 Ml Bottle BOTH EYES 07/21/24 22:48 1 drop
HS NIKHIL Administration
Loratadine 10 mg 06/24/24 08:00 06/24/24 08:37
Loratadine 10 Mg Tablet PO 07/22/24 07:59 10 mg
DAILY NIKHIL Administration
Lorazepam 0.5 mg 06/23/24 22:49
Lorazepam 0.5 Mg Tablet PO 07/21/24 22:48
Q8HPRN PRN
anxiety
Montelukast Sodium 10 mg 06/24/24 08:00 06/24/24 08:37
Montelukast Sodium 10 Mg Tablet PO 07/22/24 07:59 10 mg
DAILY NIKHIL Administration
Nifedipine 60 mg 06/24/24 08:00 06/24/24 08:37
Nifedipine 60 Mg Extended Release Tablet PO 07/22/24 07:59 60 mg
DAILY NIKHIL Administration
Pantoprazole Sodium 40 mg 06/24/24 18:00
Pantoprazole 40 Mg Delayed Release Tablet PO 07/22/24 17:59
QPM NIKHIL
Sodium Chloride 0 flush 06/23/24 23:00
Sodium Chloride 0.9% (Flush) Syringe IV 07/21/24 22:59
PER PROTOCOL NIKHIL
Tiotropium Bluejacket 2 puff 06/24/24 08:00 06/24/24 07:53
Tiotropium (Spiriva Respimat) 2.5 Mcg Inhaler INH 07/22/24 07:59 2 puff
R DAILY NIKHIL Administration
Protocol
Review of Systems
-
History Source: Patient
Respiratory: Reports Cough and Trouble Breathing
Cardiac: Reports No Symptoms
Physical Exam
-
General: No Apparent Distress
HEENT: Negative Jaundice
Cardiology: S1 and S2
Pulmonary: Clear
GI: Soft and Other (obese)
Extremities: No C/C/E
Labs
Lab Results
WBC 6.6 10^3/uL (4.8-10.8) 06/24/24 06:01
RBC 4.01 10^6/uL (4.20-5.40) L 06/24/24 06:01
Hgb 11.8 g/dL (12.0-16.0) L 06/24/24 06:01
Hct 36.0 % (37.0-47.0) L 06/24/24 06:01
MCV 89.8 fL (81.0-99.0) 06/24/24 06:
MCH 29.4 pg (27.0-31.0) 06/24/24 06:01
MCHC 32.8 g/dL (33.0-37.0) L 06/24/24 06:01
RDW 15.1 % (11.5-14.5) H 06/24/24 06:01
Plt Count 149 10^3/uL (130-400) 06/24/24 06:01
MPV 10.3 fL (7.4-10.4) 06/24/24 06:01
Abs Immat Gran (auto) 0.1 10^3/uL (0-0.05) H 06/23/24 18:51
Absolute Neuts (auto) 8.5 10^3/uL (1.4-6.5) H 06/23/24 18:51
Absolute Lymphs (auto) 0.9 10^3/uL (1.2-3.4) L 06/23/24 18:51
Absolute Monos (auto) 0.4 10^3/uL (0.1-0.6) 06/23/24 18:51
Absolute Eos (auto) 0.1 10^3/uL (0-0.7) 06/23/24 18:51
Absolute Basos (auto) 0.1 10^3/uL (0-0.2) 06/23/24 18:51
Immature Gran % 1.0 % (0-0.5) H 06/23/24 18:51
Neutrophils % 84.7 % (42.2-75.2) H 06/23/24 18:51
Lymphocytes % 8.8 % (20.5-51.1) L 06/23/24 18:51
Monocytes % 4.1 % (1.7-9.3) 06/23/24 18:51
Eosinophils % 0.7 % (0-6) 06/23/24 18:51
Basophils % 0.7 % (0-2) 06/23/24 18:51
Creatinine 0.7 mg/dL (0.6-1.0) 06/24/24 06:01
Vital Signs
Vital Signs
Temp Pulse Resp BP Pulse Ox
97.5 F 90 26 176/99 98
06/24/24 07:40 06/24/24 07:40 06/24/24 07:40 06/24/24 07:40 06/24/24 07:40
[2024-06-24 09:29] LABS: NT-proBNP 692 pg/ml
--- NOTE | 2024-06-24 09:58 | W.PN.HOSP.TC ---
Today's Communication/Plan
-
Pending CT
cont Abx
cont steroids
wean off O2
Assessment / Plan
Assessment / Plan
84yo F with PMHX of COPD, hypothyroidism, anxiety, CAD, HLD, Hx of TIA, migraines, HX of DVT, AAA, lung CA was undergoing RT, was sent from radiation oncology office due to pre-RT check showed hypoxia to 80%. Admitted with possible
radiation pneumonitis vs rule out pulmonary embolism
A/P:
#Acute hypoxic respiratory insufficiency 2/2 possible radiation pneumonitis vs PE v pneumonia
#COPD, no wheezing, but still can be exacerbation with hypoxia
#Spinal cord compression with metastatic CA
Significant ddimer elevation - but can be explained with CA
US LE
CT chest pending after steroids prep
Lovenox theraputic meanwhile
Steroids
Pulm consult
Oncology consult: radiation to cervical pine due to stenosis, unlikely radiation pneumonitis
COVID-19, Influenza PCR neg
Procalcitonin low
Wean off O2
cont bronchodilators
ProBNP 692 - doubt cardiac cause, Echo since Hx of mild MR
Ceftriaxone/Azithromicin and monitor QTc with EKG
#chronic Alk.phos elevation
no RUQ pain
most liekly 2/2 metastatic CA
#Mild adnemia
follow up PCP
#Hypercalcemia
mild 2/2 CA
follow Ca
#Essential HTN
#CAD stable
#Migraines
#Hx of TIA
#Hypothyroidism
cont home meds
DVT ppx lovenox
DNR/DNI
I have spent at least 56min reviewing chart, test results, communication with consultants and direct patient care
Anticipated Discharge: > 48 hours
Subjective/Interval History
-
Date of Service: June 24, 2024
Objective Data
-
Labs:
Laboratory Results
06/23/24 06/24/24
21:45 06:01
WBC 6.6
Hgb 11.8 L
Hct 36.0 L
Plt Count 149
PT 13.6
INR 1.01
Sodium 137
Potassium 4.6
Chloride 105
Carbon Dioxide 27
BUN 13
Creatinine 0.7
Glucose 155 H
Calcium 10.6 H
Vital Signs:
Vital Signs
Temp Pulse Resp BP Pulse Ox
97.5 F 95 18 176/99 98
06/24/24 07:40 06/24/24 07:50 06/24/24 07:50 06/24/24 07:40 06/24/24 07:50
I&O
06/23/24 06/24/24 06/25/24
06:59 06:59 06:59
Intake Total 730 / 730
Balance 730 / 730
Review of Systems
-
History Source: Patient
All other systems: Reviewed and negative
Physical Exam
-
General: No Apparent Distress
HEENT: Normocephalic
Respiratory: Clear to Auscultation and Decreased Breath Sounds; Negative Wheezes
Cardiac: Regular Rhythm
GI: Soft
Genito-urinary: No Costovertebral Tender
Musculoskeletal: No Clubbing, No Cyanosis and No Edema
Skin: Warm
Neuro: Awake, Alert, Oriented and AO x 3
Psych: Calm
[2024-06-24] MEDS: STERILE WATER FOR INJECTION 10 ML IV (10:38)
[2024-06-24] MEDS: ROCEPHIN 1000 MG IV (10:38)
--- NOTE | 2024-06-24 13:03 | CON.PUL ---
Consultation
Consultation Request
Date/Time Consultation Requested: 06/24/24
Date/Time Consultation Performed: 06/24/24
Performing Provider: Kassandra
Reason for Consultation: SOB
Medical History
-
History of Present Illness:
Patient is a 84-year-old female with past medical history significant for CAD s/p stent, hypertension, hyperlipidemia, alpha 1 antitrypsin deficiency/COPD, metastatic lung cancer noted to have new hypoxemia, acute on chronic WATSON, chronic cough.
In ER, she was afebrile, blood pressure was 180/80 with a pulse of 80. Respiratory rate notably 30s. Oxygen saturation was 95% on 2 L. CBC was unremarkable with a white count of 10 hemoglobin 11.7 and platelet 172, electrolytes BUN/creatinine
were all normal. Chest x-ray shows opacity in the left upper lobe which is slightly increased from her prior x-ray concerning for possible pneumonia.
Receiving active treatment from oncology.
.
Past Medical History
Past Medical History: Other (see list below)
Social History
Tobacco: Non-smoker
Alcohol: None
Drug: None
Family History
Family History: Reviewed & Not Pertinent
Allergies / Home Medications
Allergies
Allergy/AdvReac Type Severity Reaction Status Date / Time
codeine Allergy NAUSEA Verified 06/23/24 15:37
doxycycline Allergy HEART Verified 06/23/24 15:37
PALPITATIONS
meperidine HCl [From Demerol] Allergy Nausea/ligh Verified 06/23/24 15:37
theaded
morphine Allergy Nausea Verified 06/23/24 15:37
norepinephrine Allergy rash to Verified 06/23/24 15:37
ethylnorepinephrine
oxycodone Allergy SEVERE Verified 06/23/24 15:37
NAUSEA
pentazocine Allergy TALWIN-N/V Verified 06/23/24 22:51
pentazocine lactate Allergy Nausea Verified 06/23/24 15:37
[From Talwin]
piperacillin [From Zosyn] Allergy Anaphylaxis Verified 06/23/24 22:51
tazobactam [From Zosyn] Allergy Anaphylaxis Verified 06/23/24 22:51
Tetracyclines Allergy very Verified 06/23/24 15:37
disoriented
iv contrast Allergy Severe Shortness Uncoded 06/24/24 03:58
of Breath
Home Medications
�Medication �Instructions �Recorded �Confirmed �Last Taken �Type
aspirin 81 mg tablet,delayed 81 mg PO DAILY Blood clot 07/22/17 04/25/24 01/09/24 07:00 History
release prevention/tx
atorvastatin 40 mg tablet 40 mg PO QPM High cholesterol 07/22/17 04/25/24 01/08/24 19:00 History
pantoprazole 40 mg tablet,delayed 40 mg PO QPM Gastrointestinal issue 07/22/17 04/25/24 01/08/24 19:00 History
release
glucosamine sulfate 500 mg tablet 500 mg PO DAILY Supplement 02/16/19 04/25/24 12/26/23 History
nitroglycerin 0.4 mg sublingual 0.4 mg sublingual [id number] PRN 02/16/19 04/25/24 Unknown Rx
tablet chest pain #25 tabs
vitamins A,C,G-ztfb-hxnbso 4,296 1 cap PO DAILY Eye condition 02/16/19 04/25/24 12/26/23 History
mcg-226 mg-90 mg capsule
(PreserVision AREDS)
albuterol sulfate 90 mcg/actuation 2 puff inhalation R Q4HPRN PRN 07/13/21 04/25/24 01/08/24 History
aerosol inhaler sob/wheezing
cholecalciferol (vitamin D3) 25 1,000 units PO DAILY Supplement 07/13/21 04/25/24 12/26/23 History
mcg (1,000 unit) tablet
dextromethorphan-guaifenesin ER 60 1 ea PO BID PRN Cough/congestion 07/13/21 04/25/24 01/08/24 19:00 History
mg-1,200 mg tab,extend
release,12hr (Mucinex DM)
famotidine 20 mg tablet 20 mg PO DAILY PRN GERD 07/13/21 04/25/24 01/08/24 History
citalopram 40 mg tablet 40 mg PO DAILY Mental 04/07/22 04/25/24 01/02/24 History
Health/Anxiety
nifedipine 60 mg tablet,extended 60 mg PO DAILY #30 tabs 04/11/22 04/25/24 01/08/24 08:00 Rx
release
budesonide 160 mcg-glycopyr 9 2 inh inhalation R BID 12/25/22 04/25/24 01/08/24 History
mcg-formot 4.8 mcg/actuation HFA Lung/Breathing Issues
inhaler (Breztri Aerosphere)
furosemide 40 mg tablet 40 mg PO DAILY Fluid 12/25/22 04/25/24 01/08/24 08:00 History
Retention/Swelling
montelukast 10 mg tablet 10 mg PO DAILY Lung/Breathing 12/25/22 04/25/24 01/08/24 History
Issues
potassium chloride 10 mEq 10 meq PO DAILY Electrolyte 12/25/22 04/25/24 01/07/24 History
tablet,extended release(part/cryst) Repletion
propylene glycol-glycerin 0.6 1 drp ophthalmic (eye) BID PRN 12/25/22 04/25/24 Unknown History
%-0.6 % eye drops in a dropperette dry/irritated eyes
(Soothe Lubricant)
white petrolatum-mineral oil 80 1 applic BOTH EYES HS dry eyes 12/25/22 04/25/24 01/08/24 19:00 History
%-20 % eye ointment (Soothe Night
Time Lubricant)
ascorbic acid (vitamin C) 500 mg 500 mg PO DAILY Supplement 07/09/23 04/25/24 01/08/24 19:00 History
tablet (Vitamin C)
fexofenadine 180 mg tablet 180 mg PO DAILY Allergies 07/09/23 04/25/24 01/08/24 History
ipratropium 0.5 mg-albuterol 3 mg 3 ml inhalation R Q6 PRN 07/09/23 04/25/24 Unknown History
(2.5 mg base)/3 mL nebulization sob/wheezing
soln
latanoprost 0.005 % eye drops 1 drp BOTH EYES HS Eye Condition 07/09/23 04/25/24 01/08/24 19:00 History
lorazepam 0.5 mg tablet 0.5 mg PO Q8H PRN anxiety 07/09/23 04/25/24 Unknown History
clopidogrel 75 mg tablet 75 mg PO DAILY Blood clot 01/09/24 04/25/24 Unknown Rx
prevention/tx 30 days #30 tabs
mupirocin 2 % topical ointment 1 applic intranasal BID Infection 01/09/24 04/25/24 Unknown Rx
2 days
prednisone 10 mg tablet See Taper PO DIRECTED #90 tabs 05/01/24 Unknown Rx
Review of Systems
-
History Source: Patient
All other systems: Negative unless noted
Vitals / Labs / Diagnostic Testing
Vital Signs
Temp Pulse Resp BP Pulse Ox
98.2 F 90 16 156/80 98
06/24/24 11:24 06/24/24 11:40 06/24/24 11:40 06/24/24 11:24 06/24/24 11:40
Lab Data
06/24/24 06:01
06/24/24 06:01
Laboratory Results
06/23/24
21:45
PT 13.6
INR 1.01
Microbiology
06/24/24 00:23 Urine Legionella Urinary Antigen - Final
Negative for Legionella pneumophila Serogroup 1 antigen.
A negative result does not rule out the possiblity of
Legionella infection due to other serogroups or species of
Legionella. Clinical correlation is recommended.
06/24/24 00:23 Urine Streptococcus pneumoniae Antigen (M - Final
Negative for Streptococcus pneumoniae antigen.
A negative result does not exclude infection with
Streptococcus pneumoniae. Clinical correlation is
recommended.
06/23/24 20:13 Nasal Swab Influenza Types A & B (KRISTOFER) - Final
Negative for Influenza A & B, NAAT
Negative results must be combined with clinical observations
and patient history.
Nucleic Acid Amplification test (NAAT)performed on the
[employer] platform.
Diagnostic Testing:
Physical Exam
-
HEENT: Normocephalic, Anicteric and Moist Mucous Membranes
Cardiovascular: S1/S2 and Regular Rhythm
Respiratory: Clear and Non-Labored Respirations
GI: Soft, Non Distended and Non Tender
Neurology: Awake, Alert, Oriented and No Motor Deficits
Skin: Warm, Dry and Good Color
General: Comfortable and Other (NAD)
Assessment
-
Patient is a 84-year-old female with past medical history significant for CAD s/p stent, hypertension, hyperlipidemia, alpha 1 antitrypsin deficiency/COPD, metastatic lung cancer noted to have new hypoxemia, acute on chronic AWTSON, chronic cough. In
ER, she was afebrile, blood pressure was 180/80 with a pulse of 80. Respiratory rate notably 30s. Oxygen saturation was 95% on 2 L. CBC was unremarkable with a white count of 10 hemoglobin 11.7 and platelet 172, electrolytes BUN/creatinine were
all normal. Chest x-ray shows opacity in the left upper lobe which is slightly increased from her prior x-ray concerning for possible pneumonia. We are consulted for evaluation.
New hypoxemic resp failure, acute
Acute on chronic SOB
Possible AECOPD
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
COVID/Flu [facility] 2021
CAD s/p stents
COPD, on albuterol HFA/nebs and breztri bid. Not on home O2
Heterozygous alpha 1-antitrypsin deficiency
Follows Dr Mcclain
LLL adenocarcinoma, CT guided biopsy 09-16-18, s/p XRT only (6 wks course at [facility])
-not candidate for surgery due to functional status, did not receive chemo, continues routine follow up, told lung cancer in remission after treatment
GERD
HTN
HLD
Hyperthyroidism
Anxiety
Depression
TIA
LILLIAN/CSA on BPAP 02/26
RUE DVT due to PICC line
Small bowel obstruction 2004, total colectomy, ileostomy with reversal
Former smoker: 1 ppd for 40 y, quit 20 y ago
Current mild episode of major depressive disorder
Hyperparathyroidism
Obesity, Body mass index [BMI] 37.0-37.9, adult
Plan
Hypoxemia noted on arrival, she is placed on 4L NC
No oxygen was needed at home at baseline
Home O2 evaluation
Prior history of lung disease is noted including COPD with moderate lung disease
OP records reviewed--last PFT with reduced FEV1 57-62%, maintained on Breztri
Will repeat bedside report to evaluate SOB
Low lung volumes and bibasilar atelectasis likely
CXR/CT obtained indicating possible L sided PNA, CT obtained showing nodular opacities on the L that are stable from previous
PCT negative, proBNP negative
Nothing to suggest infection
Would hold off on abx and observe
LILLIAN history, resume on BIPAP while inpatient
PT/OT, need evaluations
Increase IS, ambulation
Prior ECHO results are reviewed indicating stable function
Likely noncardiac cause, proBNP negative
Weight loss measures recommended
Obesity likely contributing to respiratory symptoms
Will need outpatient pulmonary evaluation in our office for PFTs and 6MWT
Reviewed with patient
We will follow
Diagnostic Data
CT chest 06/24/24- No CTA evidence for an acute pulmonary thromboembolism. Nodular opacities in the inferior left lower lobe most in keeping with the patient's known lung cancer. Bandlike triangular opacity in the infrahilar left lower lobe may
represent posttreatment related changes/scarring versus an additional site of disease. Trace left pleural effusion. Chronic obstructive pulmonary disease.
Chest CTA -16: Lungs: There is ill-defined parenchymal opacity in the infrahilar left lower lobe measuring approximately 3.0 x 1.8 cm at the site of the patient's treated pulmonary neoplasm. There is contiguous linear scarring and nodularity at
the anterior aspect of the inferior left lower lobe. The overall appearance of the left lower lobe findings are unchanged compared to the prior chest CT. A few small sub-4 mm pulmonary nodules in the right lung are stable. There is no new or
enlarging pulmonary mass or nodule. Moderate centrilobular emphysema is identified with a biapical predominance. There is no pleural effusion or pneumothorax. The trachea and central airways are patent.
Upper abdomen: Small sliding hiatal hernia. IMPRESSION: No CTA evidence for an acute pulmonary thromboembolism. Stable appearance of nodular opacities in the left lower lobe related to the patient's treated pulmonary neoplasm.
PET CT 03-02-19 FINDINGS:
Head and Neck: There is no FDG avid adenopathy.
Chest: There is no FDG avid adenopathy. Right hilar lymph node SUV max 2.2, previous 2.1.
Previously described 2 cm spiculated mass in the left lower lobe posteriorly has decreased in size and now measures 1.4 cm. Decreased FDG avidity, SUV max 1.8, previous 3.7.
Small focus of soft tissue nodularity in the lateral left lung base on image 70, SUV max 1.4, previous 1.0. Nonspecific. Likely represents atelectasis or scarring.
Abdomen and pelvis: No FDG avid adenopathy. There is physiologic uptake in the GI and tract.
Musculoskeletal: No abnormal FDG avid osseous uptake. Minimal increased uptake in the soft tissues along the posterior lateral left hemithorax at the inferior aspect of the left scapula. This appears to be musculoskeletal rather than metastatic.
ECHO 10/03/23- Normal left ventricular size and systolic function. LV ejection fraction is 65-70% . Mild aortic stenosis. Mild aortic regurgitation. Compared to prior study the findings are similar. transaortic gradients are mildly higher.
TTE - CONCLUSIONS: Technically difficult study - Definity should be considered for future studies. Normal biventricular size and systolic function without regional wall motion abnormality. Stage I diastolic dysfunction suggestive of abnormal
relaxation.
Mild aortic stenosis. Mild aortic regurgitation. Mild mitral stenosis. Compared to previous echo 01/13/2019, there is now mild aortic and mitral stenosis. Otherwise the findings are similar.
[place] 05/18/2024: FVC 1.43/76%, FEV1 0.86/62%, ratio 60%, no significant BD response. Moderate obstruction.
Spirometry 08/07/23-FEV1 790 mL-57%, FVC 1.38-73%, no significant BD response. Moderate obstruction.
PFT 10/29/22-FEV1 1.04-72%
Total time spent on this consultation __78__ minutes which includes review of history, physical exam, medications, laboratory data, personal review of imaging, extensive review of outpatient records, discussion with care team and respiratory therapy.
[2024-06-24] MEDS: SOLU-CORTEF 50 MG IV ×2 (15:39→23:22)
--- NOTE | 2024-06-24 16:43 | CM ---
Patient seen bedside.
IA completed.
Patient lives alone in a 1 story home with 2 steps to enter.
Patient independent prior to admission.
Patient ambulates with a RW, cane and has a WC.
Patient has a nebulizer at home, not on home oxygen.
Patient daughter can transport on d/c.
Patient current with [facility].
PCP: Dr Anaya
Pharmacy: [facility], watch for home oxygen needs.
[2024-06-24] MEDS: PROTONIX 40 MG PO (16:55)
[2024-06-24] MEDS: LIPITOR 40 MG PO (16:55)
[2024-06-24] MEDS: ROBITUSSIN 100 MG PO (20:18)
[2024-06-24] MEDS: XALATAN OPHTHALMIC SOLUTION 1 DROP BOTH EYES (20:20)
[2024-06-24] MEDS: ZITHROMAX INFUSION 250 IV (23:23)
[2024-06-25] MEDS: ROBITUSSIN 100 MG PO ×3 (01:13→20:03)
[2024-06-25] MEDS: DUONEB 3 ML INH ×5 (02:49→19:33)
[2024-06-25 03:59] VITALS: BP 146/55
[2024-06-25] MEDS: SPIRIVA RESPIMAT 2.5 MCG 2 PUFF INH (07:14)
[2024-06-25] MEDS: SYMBICORT 160/4.5 MCG INHALER 2 PUFF INH ×2 (07:14→19:33)
[2024-06-25 07:17] LABS: % Basophils 0.3 % (0-2); % Immature Granulocytes 0.7 % (0-0.5); % Lymphocytes 4.4 % (20.5-51.1); % Monocytes 4.9 % (1.7-9.3); % Neutrophils 89.7 % (42.2-75.2); Absolute Immature Granulocytes 0.1 10^3/uL (0-0.05); Absolute Lymphocytes 0.5 10^3/uL (1.2-3.4); Absolute Monocytes 0.6 10^3/uL (0.1-0.6); Absolute Neutrophils 10.9 10^3/uL (1.4-6.5); Hematocrit 34.4 % (37.0-47.0); Mean Corpuscular Hgb 28.6 pg (27.0-31.0); Mean Corpuscular Volume 89.6 fL (81.0-99.0); Mean Platelet Volume 10.5 fL (7.4-10.4); Nucleated Red Blood Cells % 0 %; Platelet Count 158 10^3/uL (130-400); Red Blood Cell Count 3.84 10^6/uL (4.20-5.40); Red Cell Dist. Width 15.5 % (11.5-14.5); White Blood Cell Count 12.1 10^3/uL (4.8-10.8)
[2024-06-25 08:16] LABS: ALT (SGPT) 18 U/L (0-35); AST (SGOT) 20 U/L (14-36); Alkaline Phosphatase 142 U/L (38-126); Blood Urea Nitrogen 19 mg/dl (7-17); Calcium 10.9 mg/dl (8.4-10.2); Carbon Dioxide 27 mmol/L (22-30); Chloride 103 mmol/L (98-107); Estimated Creatinine Clearance 56 ml/min; Glucose 123 mg/dl (70-99); Potassium 3.9 mmol/L (3.5-5.1); Sodium 137 mmol/L (135-145); Total Bilirubin 0.8 mg/dl (0.2-1.3); Total Protein 6.3 g/dl (6.3-8.2); eGFR > 60.00
[2024-06-25 08:28] VITALS: BP 168/70
[2024-06-25] MEDS: SOLU-CORTEF 50 MG IV (09:04)
[2024-06-25] MEDS: PROCARDIA XL (EXTENDED RELEASE) 60 MG PO (09:04)
[2024-06-25] MEDS: ASPIR LOW (ENTERIC COATED) 81 MG PO (09:05)
[2024-06-25] MEDS: SINGULAIR 10 MG PO (09:05)
[2024-06-25] MEDS: CELEXA 40 MG PO (09:05)
[2024-06-25] MEDS: CLARITIN 10 MG PO (09:05)
--- NOTE | 2024-06-25 10:07 | W.PN.HOSP.TC ---
Today's Communication/Plan
-
switch to Solumedrol
restart Lasix
Assessment / Plan
Assessment / Plan
84yo F with PMHX of COPD, hypothyroidism, anxiety, CAD, HLD, Hx of TIA, migraines, HX of DVT, AAA, lung CA was undergoing RT, was sent from radiation oncology office due to pre-RT check showed hypoxia to 80%. Admitted with hypoxia 2/2
COPD exacerbation vs pneumonia
Patient had radiation to cervical spine over past 4 days due to spinal stenosis 2/2 metastatic CA
A/P:
#Acute hypoxic respiratory insufficiency 2/2 pneumonia and COPD exacerbation
#Spinal cord compression with metastatic CA
Significant ddimer elevation - but can be explained with CA
US LE neg for DVT
CT chest showed no PE
Steroids taper, bronchodilators
Pulm consult
Oncology consult: radiation to cervical pine due to stenosis, unlikely radiation pneumonitis
COVID-19, Influenza PCR neg
Procalcitonin low but would cont Ceftriaxone/Azithromycin pending sputum Cx (QTc WNL)
#Mild-moderate
#mild pulmonary HTN
Echo with EF 70-75%
No clinical signs of volume overload
#chronic Alk.phos elevation
no RUQ pain
most liekly 2/2 metastatic CA
#Mild adnemia
follow up PCP
#Hypercalcemia
mild 2/2 CA
follow Ca
#Essential HTN
#CAD stable
#Migraines
#Hx of TIA
#Hypothyroidism
cont home meds
DVT ppx lovenox
DNR/DNI
I have spent at least 55min reviewing chart, test results, communication with consultants and direct patient care
Anticipated Discharge: > 48 hours
Subjective/Interval History
-
Date of Service: June 25, 2024
Objective Data
-
Labs:
Laboratory Results
06/25/24
06:42
WBC 12.1 H
Hgb 11.0 L
Hct 34.4 L
Plt Count 158
Sodium 137
Potassium 3.9
Chloride 103
Carbon Dioxide 27
BUN 19 H
Creatinine 0.7
Glucose 123 H
Calcium 10.9 H
Total Bilirubin 0.8
AST 20
ALT 18
Alkaline Phosphatase 142 H
Vital Signs:
Vital Signs
Temp Pulse Resp BP Pulse Ox
98.2 F 102 18 168/70 97
06/25/24 08:28 06/25/24 08:28 06/25/24 08:28 06/25/24 08:28 06/25/24 08:28
I&O
06/24/24 06/25/24 06/26/24
06:59 06:59 06:59
Intake Total 1270 / 1270
Balance 1270 / 1270
[2024-06-25] MEDS: ROCEPHIN 1000 MG IV (10:58)
[2024-06-25] MEDS: STERILE WATER FOR INJECTION 10 ML IV (10:58)
[2024-06-25] MEDS: KCL 10 MEQ PO (10:58)
[2024-06-25] MEDS: LASIX 40 MG PO (10:58)
[2024-06-25 11:58] VITALS: BP 136/53
--- NOTE | 2024-06-25 12:53 | W.PN.PUL3 ---
Today's Communication / Plan
-
Spirometry suggestive of AECOPD, decline in function, reviewed with patient
This may also be due to sedentary lifestyle, BMI-- not sure if her function will be reversible with steroids alone
Encouraged OOB/PT, ambulation
Agree with IV steroids, but would rapidly taper to PO course
Continue nebs, supportive care
Assessment
-
Patient is a 84-year-old female with past medical history significant for CAD s/p stent, hypertension, hyperlipidemia, alpha 1 antitrypsin deficiency/COPD, metastatic lung cancer noted to have new hypoxemia, acute on chronic WATSON, chronic cough. In
ER, she was afebrile, blood pressure was 180/80 with a pulse of 80. Respiratory rate notably 30s. Oxygen saturation was 95% on 2 L. CBC was unremarkable with a white count of 10 hemoglobin 11.7 and platelet 172, electrolytes BUN/creatinine were
all normal. Chest x-ray shows opacity in the left upper lobe which is slightly increased from her prior x-ray concerning for possible pneumonia. We are consulted for evaluation.
New hypoxemic resp failure, acute
Acute on chronic SOB
Possible AECOPD
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
COVID/Flu [facility] 2021
CAD s/p stents
COPD, on albuterol HFA/nebs and breztri bid. Not on home O2
Heterozygous alpha 1-antitrypsin deficiency
Follows Dr Mcclain
LLL adenocarcinoma, CT guided biopsy 09-16-18, s/p XRT only (6 wks course at [facility])
-not candidate for surgery due to functional status, did not receive chemo, continues routine follow up, told lung cancer in remission after treatment
GERD
HTN
HLD
Hyperthyroidism
Anxiety
Depression
TIA
LILLIAN/CSA on BPAP 02/26
RUE DVT due to PICC line
Small bowel obstruction 2004, total colectomy, ileostomy with reversal
Former smoker: 1 ppd for 40 y, quit 20 y ago
Current mild episode of major depressive disorder
Hyperparathyroidism
Obesity, Body mass index [BMI] 37.0-37.9, adult
Plan
Hypoxemia noted on arrival, she is placed on 4L NC
No oxygen was needed at home at baseline
Home O2 evaluation
Prior history of lung disease is noted including COPD with moderate lung disease
OP records reviewed--last PFT with reduced FEV1 57-62%, maintained on Breztri
Will repeat bedside report to evaluate SOB--Spirometry 06/25/24: FEV1 0.54L 35%, FVC 0.82L 40%, ratio 66. Post FEV1 0.55L 36%
Worsening severe obstruction, declined from prior (62% to 35%)--confirms AECOPD
Low lung volumes and bibasilar atelectasis likely
AECOPD suspected
Started on IV steroids by care team today
Would quickly taper to PO course
CXR/CT obtained indicating possible L sided PNA, CT obtained showing nodular opacities on the L that are stable from previous
PCT negative, proBNP negative
Nothing to suggest infection
Would hold off on abx and observe
LILLIAN history, resume on BIPAP while inpatient
PT/OT, need evaluations
Increase IS, ambulation
Prior ECHO results are reviewed indicating stable function
Likely noncardiac cause, proBNP negative
Weight loss measures recommended
Obesity likely contributing to respiratory symptoms
Will need outpatient pulmonary evaluation in our office for PFTs and 6MWT
Reviewed with patient
Diagnostic Data
CT chest 06/24/24- No CTA evidence for an acute pulmonary thromboembolism. Nodular opacities in the inferior left lower lobe most in keeping with the patient's known lung cancer. Bandlike triangular opacity in the infrahilar left lower lobe may
represent posttreatment related changes/scarring versus an additional site of disease. Trace left pleural effusion. Chronic obstructive pulmonary disease.
Chest CTA 12-16: Lungs: There is ill-defined parenchymal opacity in the infrahilar left lower lobe measuring approximately 3.0 x 1.8 cm at the site of the patient's treated pulmonary neoplasm. There is contiguous linear scarring and nodularity at
the anterior aspect of the inferior left lower lobe. The overall appearance of the left lower lobe findings are unchanged compared to the prior chest CT. A few small sub-4 mm pulmonary nodules in the right lung are stable. There is no new or
enlarging pulmonary mass or nodule. Moderate centrilobular emphysema is identified with a biapical predominance. There is no pleural effusion or pneumothorax. The trachea and central airways are patent.
Upper abdomen: Small sliding hiatal hernia. IMPRESSION: No CTA evidence for an acute pulmonary thromboembolism. Stable appearance of nodular opacities in the left lower lobe related to the patient's treated pulmonary neoplasm.
PET CT 03-02-19 FINDINGS:
Head and Neck: There is no FDG avid adenopathy.
Chest: There is no FDG avid adenopathy. Right hilar lymph node SUV max 2.2, previous 2.1.
Previously described 2 cm spiculated mass in the left lower lobe posteriorly has decreased in size and now measures 1.4 cm. Decreased FDG avidity, SUV max 1.8, previous 3.7.
Small focus of soft tissue nodularity in the lateral left lung base on image 70, SUV max 1.4, previous 1.0. Nonspecific. Likely represents atelectasis or scarring.
Abdomen and pelvis: No FDG avid adenopathy. There is physiologic uptake in the GI and tract.
Musculoskeletal: No abnormal FDG avid osseous uptake. Minimal increased uptake in the soft tissues along the posterior lateral left hemithorax at the inferior aspect of the left scapula. This appears to be musculoskeletal rather than metastatic.
ECHO 10/03/23- Normal left ventricular size and systolic function. LV ejection fraction is 65-70% . Mild aortic stenosis. Mild aortic regurgitation. Compared to prior study the findings are similar. transaortic gradients are mildly higher.
TTE 04- CONCLUSIONS: Technically difficult study - Definity should be considered for future studies. Normal biventricular size and systolic function without regional wall motion abnormality. Stage I diastolic dysfunction suggestive of abnormal
relaxation.
Mild aortic stenosis. Mild aortic regurgitation. Mild mitral stenosis. Compared to previous echo 01/13/2019, there is now mild aortic and mitral stenosis. Otherwise the findings are similar.
[place] 05/18/2024: FVC 1.43/76%, FEV1 0.86/62%, ratio 60%, no significant BD response. Moderate obstruction.
Spirometry 08/07/23-FEV1 790 mL-57%, FVC 1.38-73%, no significant BD response. Moderate obstruction.
PFT 10/29/22-FEV1 1.04-72%
Total time spent on this consultation __58__ minutes which includes review of history, physical exam, medications, laboratory data, personal review of imaging, extensive review of outpatient records, discussion with care team and respiratory therapy.
Subjective Data
-
Date of Service:
Date of Service: June 25, 2024
Chief Complaint: Pulmonary Follow Up
Subjective:
Feels slightly better, otherwise no new complaints
Sitting in chair, no new findings
Objective Data
Data Reviewed
Vital Signs / I&O / Oxygen:
Vital Signs
Temp Pulse Resp BP Pulse Ox
98.1 F 94 20 136/53 97
06/25/24 11:58 06/25/24 11:58 06/25/24 11:58 06/25/24 11:58 06/25/24 11:58
Intake and Output
06/24/24 06/25/24 06/26/24
06:59 06:59 06:59
Intake Total 1270 / 1270
Balance 1270 / 1270
SaO2 97
Nasal Cannula flow liters per 4
minute
Physical Exam
General: Comfortable and Other (NAD)
HEENT: Normocephalic, Anicteric and Moist Mucous Membranes
Cardiovascular: S1-S2 and Regular Rhythm
Respiratory: Clear (poor air movement) and Non-Labored Respirations
GI: Soft, Non Distended and Non Tender
Neurology: Awake, Alert, Oriented and No Motor Deficits
Skin: Warm, Dry and Good Color
Labs/Micro/Reports
Lab Data
06/25/24 06:42
06/25/24 06:42
Microbiology
06/24/24 00:23 Nose MRSA Screen - Final
No Methicillin Resistant Staphylococcus aureus isolated.
06/24/24 00:23 Urine Legionella Urinary Antigen - Final
Negative for Legionella pneumophila Serogroup 1 antigen.
A negative result does not rule out the possiblity of
Legionella infection due to other serogroups or species of
Legionella. Clinical correlation is recommended.
06/24/24 00:23 Urine Streptococcus pneumoniae Antigen (M - Final
Negative for Streptococcus pneumoniae antigen.
A negative result does not exclude infection with
Streptococcus pneumoniae. Clinical correlation is
recommended.
06/23/24 20:13 Nasal Swab Influenza Types A & B (KRISTOFER) - Final
Negative for Influenza A & B, NAAT
Negative results must be combined with clinical observations
and patient history.
Nucleic Acid Amplification test (NAAT)performed on the
[employer] platform.
[2024-06-25] MEDS: ATIVAN 0.5 MG PO ×2 (13:10→21:56)
--- NOTE | 2024-06-25 14:00 | CM ---
Patient seen bedside.
Patient continues on oxygen 4 liters.
Continue Nebs, IV anbx.
PT recommending skilled vs home with [facility]N.
Patient declined skilled rehab, current with [facility].
Daughter will transport when stable.
Plan: home with [facility]
[2024-06-25 16:52] VITALS: BP 110/66
[2024-06-25] MEDS: PROTONIX 40 MG PO (17:03)
[2024-06-25] MEDS: LIPITOR 40 MG PO (17:04)
[2024-06-25] MEDS: LOVENOX 40 MG SC (17:04)
[2024-06-25] MEDS: SOLU-MEDROL PF 40 MG IV ×2 (17:04→23:28)
[2024-06-25 19:55] VITALS: BP 139/61
[2024-06-25] MEDS: TYLENOL 650 MG PO (20:03)
[2024-06-25] MEDS: XALATAN OPHTHALMIC SOLUTION 1 DROP BOTH EYES (20:06)
[2024-06-25] MEDS: ZITHROMAX INFUSION 250 IV (23:28)
[2024-06-25 23:43] VITALS: BP 151/72
[2024-06-26] VITALS (7 sets, daily range): BP systolic 138–183; BP diastolic 62–87; PULSE 109; O2SAT 97
[2024-06-26] MEDS: DUONEB 3 ML INH ×6 (01:07→19:15)
[2024-06-26 06:35] LABS: % Basophils 0.1 % (0-2); % Immature Granulocytes 0.5 % (0-0.5); % Lymphocytes 3.3 % (20.5-51.1); % Neutrophils 95.1 % (42.2-75.2); Absolute Immature Granulocytes 0.1 10^3/uL (0-0.05); Absolute Lymphocytes 0.3 10^3/uL (1.2-3.4); Absolute Monocytes 0.1 10^3/uL (0.1-0.6); Absolute Neutrophils 9.4 10^3/uL (1.4-6.5); Hematocrit 33.4 % (37.0-47.0); Hemoglobin 11.1 g/dL (12.0-16.0); Mean Corp Hgb Conc. 33.2 g/dL (33.0-37.0); Mean Corpuscular Hgb 29.3 pg (27.0-31.0); Mean Corpuscular Volume 88.1 fL (81.0-99.0); Mean Platelet Volume 10.4 fL (7.4-10.4); Nucleated Red Blood Cells % 0 %; Platelet Count 149 10^3/uL (130-400); Red Blood Cell Count 3.79 10^6/uL (4.20-5.40); Red Cell Dist. Width 15.6 % (11.5-14.5); White Blood Cell Count 9.8 10^3/uL (4.8-10.8)
[2024-06-26 07:08] LABS: ALT (SGPT) 18 U/L (0-35); AST (SGOT) 23 U/L (14-36); Albumin 3.7 g/dl (3.5-5.0); Alkaline Phosphatase 157 U/L (38-126); Blood Urea Nitrogen 19 mg/dl (7-17); Calcium 10.4 mg/dl (8.4-10.2); Carbon Dioxide 29 mmol/L (22-30); Chloride 102 mmol/L (98-107); Estimated Creatinine Clearance 65 ml/min; Glucose 146 mg/dl (70-99); Potassium 3.9 mmol/L (3.5-5.1); Sodium 135 mmol/L (135-145); Total Bilirubin 0.7 mg/dl (0.2-1.3); Total Protein 6.2 g/dl (6.3-8.2); eGFR > 60.00
[2024-06-26] MEDS: SYMBICORT 160/4.5 MCG INHALER 2 PUFF INH ×2 (08:14→19:14)
[2024-06-26] MEDS: SPIRIVA RESPIMAT 2.5 MCG 2 PUFF INH (08:14)
[2024-06-26] MEDS: LASIX 40 MG PO (09:14)
[2024-06-26] MEDS: SINGULAIR 10 MG PO (09:14)
[2024-06-26] MEDS: CELEXA 40 MG PO (09:14)
[2024-06-26] MEDS: PROCARDIA XL (EXTENDED RELEASE) 60 MG PO (09:14)
[2024-06-26] MEDS: ASPIR LOW (ENTERIC COATED) 81 MG PO (09:14)
[2024-06-26] MEDS: KCL 10 MEQ PO (09:14)
[2024-06-26] MEDS: CLARITIN 10 MG PO (09:14)
[2024-06-26] MEDS: STERILE WATER FOR INJECTION 10 ML IV (09:15)
[2024-06-26] MEDS: ROBITUSSIN 100 MG PO ×2 (09:15→20:11)
[2024-06-26] MEDS: ROCEPHIN 1000 MG IV (09:15)
[2024-06-26] MEDS: SOLU-MEDROL PF 40 MG IV ×2 (09:15→20:07)
[2024-06-26] MEDS: ATIVAN 0.5 MG PO ×2 (09:15→18:46)
[2024-06-26] MEDS: FLUSH (NSS) 2 FLUSH IV (09:16)
--- NOTE | 2024-06-26 09:53 | W.PN.PUL3 ---
Today's Communication / Plan
-
Continue on IV steroids, will start tapering dose today (not sure there is benefit at high doses)
Increasing lethargy noted today, check VBG
Encouraged BIPAP use, she has been noncompliant
DNR status, may be appropriate to discuss palliative care if not improving
Assessment
-
Patient is a 84-year-old female with past medical history significant for CAD s/p stent, hypertension, hyperlipidemia, alpha 1 antitrypsin deficiency/COPD, metastatic lung cancer noted to have new hypoxemia, acute on chronic WATSON, chronic cough. In
ER, she was afebrile, blood pressure was 180/80 with a pulse of 80. Respiratory rate notably 30s. Oxygen saturation was 95% on 2 L. CBC was unremarkable with a white count of 10 hemoglobin 11.7 and platelet 172, electrolytes BUN/creatinine were
all normal. Chest x-ray shows opacity in the left upper lobe which is slightly increased from her prior x-ray concerning for possible pneumonia. We are consulted for evaluation.
New hypoxemic resp failure, acute
Acute on chronic SOB
AECOPD
Lethargy
Noncompliance
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
COVID/Flu [facility] 2021
CAD s/p stents
COPD, on albuterol HFA/nebs and breztri bid. Not on home O2
Heterozygous alpha 1-antitrypsin deficiency
Follows Dr Mcclain
LLL adenocarcinoma, CT guided biopsy 09-16-18, s/p XRT only (6 wks course at [facility])
-not candidate for surgery due to functional status, did not receive chemo, continues routine follow up, told lung cancer in remission after treatment
GERD
HTN
HLD
Hyperthyroidism
Anxiety
Depression
TIA
LILLIAN/CSA on BPAP 02/26-noncompliant
RUE DVT due to PICC line
Small bowel obstruction 2004, total colectomy, ileostomy with reversal
Former smoker: 1 ppd for 40 y, quit 20 y ago
Current mild episode of major depressive disorder
Hyperparathyroidism
Obesity, Body mass index [BMI] 37.0-37.9, adult
Plan
Hypoxemia noted on arrival, she is placed on 4L NC
No oxygen was needed at home at baseline
Home O2 evaluation
Prior history of lung disease is noted including COPD with moderate lung disease
OP records reviewed--last PFT with reduced FEV1 57-62%, maintained on Breztri
Will repeat bedside report to evaluate SOB--Spirometry 06/25/24: FEV1 0.54L 35%, FVC 0.82L 40%, ratio 66. Post FEV1 0.55L 36%
Worsening severe obstruction, declined from prior (62% to 35%)--confirms AECOPD
Low lung volumes and bibasilar atelectasis likely
AECOPD suspected
Started on IV steroids by care team today
Would quickly taper to PO course
CXR/CT obtained indicating possible L sided PNA, CT obtained showing nodular opacities on the L that are stable from previous
PCT negative, proBNP negative
Nothing to suggest infection
Would hold off on abx and observe
LILLIAN history, resume on BIPAP while inpatient
She has been noncompliant, I stressed importance of use
She is more lethargic today, check VBG
PT/OT, need evaluations
Increase IS, ambulation
Prior ECHO results are reviewed indicating stable function
Likely noncardiac cause, proBNP negative
Weight loss measures recommended
Obesity likely contributing to respiratory symptoms
Will need outpatient pulmonary evaluation in our office for PFTs and 6MWT
She is DNR, compliance is an issue
Diagnostic Data
CT chest 06/24/24- No CTA evidence for an acute pulmonary thromboembolism. Nodular opacities in the inferior left lower lobe most in keeping with the patient's known lung cancer. Bandlike triangular opacity in the infrahilar left lower lobe may
represent posttreatment related changes/scarring versus an additional site of disease. Trace left pleural effusion. Chronic obstructive pulmonary disease.
Chest CTA 12-16: Lungs: There is ill-defined parenchymal opacity in the infrahilar left lower lobe measuring approximately 3.0 x 1.8 cm at the site of the patient's treated pulmonary neoplasm. There is contiguous linear scarring and nodularity at
the anterior aspect of the inferior left lower lobe. The overall appearance of the left lower lobe findings are unchanged compared to the prior chest CT. A few small sub-4 mm pulmonary nodules in the right lung are stable. There is no new or
enlarging pulmonary mass or nodule. Moderate centrilobular emphysema is identified with a biapical predominance. There is no pleural effusion or pneumothorax. The trachea and central airways are patent.
Upper abdomen: Small sliding hiatal hernia. IMPRESSION: No CTA evidence for an acute pulmonary thromboembolism. Stable appearance of nodular opacities in the left lower lobe related to the patient's treated pulmonary neoplasm.
PET CT 03-02-19 FINDINGS:
Head and Neck: There is no FDG avid adenopathy.
Chest: There is no FDG avid adenopathy. Right hilar lymph node SUV max 2.2, previous 2.1.
Previously described 2 cm spiculated mass in the left lower lobe posteriorly has decreased in size and now measures 1.4 cm. Decreased FDG avidity, SUV max 1.8, previous 3.7.
Small focus of soft tissue nodularity in the lateral left lung base on image 70, SUV max 1.4, previous 1.0. Nonspecific. Likely represents atelectasis or scarring.
Abdomen and pelvis: No FDG avid adenopathy. There is physiologic uptake in the GI and tract.
Musculoskeletal: No abnormal FDG avid osseous uptake. Minimal increased uptake in the soft tissues along the posterior lateral left hemithorax at the inferior aspect of the left scapula. This appears to be musculoskeletal rather than metastatic.
ECHO 10/03/23- Normal left ventricular size and systolic function. LV ejection fraction is 65-70% . Mild aortic stenosis. Mild aortic regurgitation. Compared to prior study the findings are similar. transaortic gradients are mildly higher.
TTE 08-10 CONCLUSIONS: Technically difficult study - Definity should be considered for future studies. Normal biventricular size and systolic function without regional wall motion abnormality. Stage I diastolic dysfunction suggestive of abnormal
relaxation.
Mild aortic stenosis. Mild aortic regurgitation. Mild mitral stenosis. Compared to previous echo 01/13/2019, there is now mild aortic and mitral stenosis. Otherwise the findings are similar.
Tj 05/18/2024: FVC 1.43/76%, FEV1 0.86/62%, ratio 60%, no significant BD response. Moderate obstruction.
Spirometry 08/07/23-FEV1 790 mL-57%, FVC 1.38-73%, no significant BD response. Moderate obstruction.
PFT 10/29/22-FEV1 1.04-72%
Total time spent on this consultation __51__ minutes which includes review of history, physical exam, medications, laboratory data, personal review of imaging, extensive review of outpatient records, discussion with care team and respiratory therapy.
Subjective Data
-
Date of Service:
Date of Service: June 26, 2024
Chief Complaint: Pulmonary Follow Up
Subjective:
Sitting in chair, more lethargic today
She does not endorse worsening SOB
Objective Data
Data Reviewed
Vital Signs / I&O / Oxygen:
Vital Signs
Temp Pulse Resp BP Pulse Ox
98 F 102 24 168/73 96
06/26/24 07:40 06/26/24 09:14 06/26/24 08:18 06/26/24 09:14 06/26/24 08:18
Intake and Output
06/25/24 06/26/24 06/27/24
06:59 06:59 06:59
Intake Total 1270 / 1270
Balance 1270 / 1270
SaO2 96
Nasal Cannula flow liters per 3
minute
Physical Exam
General: Comfortable and Other (NAD)
HEENT: Normocephalic, Anicteric and Moist Mucous Membranes
Cardiovascular: S1-S2 and Regular Rhythm
Respiratory: Clear (poor air movement) and Non-Labored Respirations
GI: Soft, Non Distended and Non Tender
Neurology: No Motor Deficits and Lethargic (arousable but falling asleep)
Skin: Warm, Dry and Good Color
Labs/Micro/Reports
Lab Data
06/26/24 05:59
06/26/24 05:59
Microbiology
06/24/24 00:23 Nose MRSA Screen - Final
No Methicillin Resistant Staphylococcus aureus isolated.
06/24/24 00:23 Urine Legionella Urinary Antigen - Final
Negative for Legionella pneumophila Serogroup 1 antigen.
A negative result does not rule out the possiblity of
Legionella infection due to other serogroups or species of
Legionella. Clinical correlation is recommended.
06/24/24 00:23 Urine Streptococcus pneumoniae Antigen (M - Final
Negative for Streptococcus pneumoniae antigen.
A negative result does not exclude infection with
Streptococcus pneumoniae. Clinical correlation is
recommended.
06/23/24 20:13 Nasal Swab Influenza Types A & B ([facility]) - Final
Negative for Influenza A & B, NAAT
Negative results must be combined with clinical observations
and patient history.
Nucleic Acid Amplification test (NAAT)performed on the
[employer] platform.
--- NOTE | 2024-06-26 11:03 | W.PN.HOSP.TC ---
Today's Communication/Plan
-
cont Abx and steroids at the same dose for one more day
Assessment / Plan
Assessment / Plan
84yo F with PMHX of COPD, hypothyroidism, anxiety, CAD, HLD, Hx of TIA, migraines, HX of DVT, AAA, lung CA was undergoing RT, was sent from radiation oncology office due to pre-RT check showed hypoxia to 80%. Admitted with hypoxia 2/2
COPD exacerbation vs pneumonia
Patient had radiation to cervical spine over past 4 days due to spinal stenosis 2/2 metastatic CA
A/P:
#Acute hypoxic respiratory insufficiency 2/2 pneumonia and COPD exacerbation
#Spinal cord compression with metastatic CA
Significant ddimer elevation - but can be explained with CA
US LE neg for DVT
CT chest showed no PE
Steroids taper, bronchodilators
Pulm consult: worsening pulmonary function, possible new bruno in home O2, attempt steroids, but advised to wean off rapidly
Oncology consult: radiation to cervical pine due to stenosis, unlikely radiation pneumonitis
COVID-19, Influenza PCR neg
Procalcitonin low but would cont Ceftriaxone/Azithromycin pending sputum Cx (QTc WNL)
#Mild-moderate
#mild pulmonary HTN
Echo with EF 70-75%
No clinical signs of volume overload
#chronic Alk.phos elevation
no RUQ pain
most liekly 2/2 metastatic CA
#Mild adnemia
follow up PCP
#Hypercalcemia
mild 2/2 CA
follow Ca
#Essential HTN
#CAD stable
#Migraines
#Hx of TIA
#Hypothyroidism
cont home meds
DVT ppx lovenox
DNR/DNI
I have spent at least 55min reviewing chart, test results, communication with consultants and direct patient care
Anticipated Discharge: > 48 hours
Subjective/Interval History
-
Date of Service: June 26, 2024
Objective Data
-
Labs:
Laboratory Results
06/26/24
05:59
WBC 9.8
Hgb 11.1 L
Hct 33.4 L
Plt Count 149
Sodium 135
Potassium 3.9
Chloride 102
Carbon Dioxide 29
BUN 19 H
Creatinine 0.6
Glucose 146 H
Calcium 10.4 H
Total Bilirubin 0.7
AST 23
ALT 18
Alkaline Phosphatase 157 H
Vital Signs:
Vital Signs
Temp Pulse Resp BP Pulse Ox
98 F 102 24 168/73 96
06/26/24 07:40 06/26/24 09:14 06/26/24 08:18 06/26/24 09:14 06/26/24 08:18
I&O
06/25/24 06/26/24 06/27/24
06:59 06:59 06:59
Intake Total 1270 / 1270
Balance 1270 / 1270
Review of Systems
-
History Source: Patient
All other systems: Reviewed and negative
Respiratory: Reports Trouble Breathing
Physical Exam
-
General: Comfortable
HEENT: Moist Mucous Membranes
Respiratory: Clear to Auscultation
GI: Soft, Nontender and Nondistended
Musculoskeletal: No Clubbing, No Cyanosis and No Edema
Neuro: Awake, Alert, Oriented and AO x 3
Psych: Calm
[2024-06-26] MEDS: TYLENOL 650 MG PO ×2 (11:24→22:11)
--- NOTE | 2024-06-26 12:08 | CM ---
Patient seen bedside.
Patient continues on oxygen 4 liters.
Continue Nebs, IV anbx, and IV steroids.
Daughter will transport when stable.
Patient declined skilled rehab, will resume [facility].
patient stated she will require oxygen at time of d/c, will need home oxygen assessment, no preference for oxygen company.
Already has a nebulizer at home.
Plan: home with [facility] and home oxygen
[2024-06-26 14:55] LABS: Venous Blood Gas B.E. 6.7 mmol/L (-4 to +4); Venous Blood Gas HCO3 32.4 mmol/L (22-27); Venous Blood Gas O2 Sat % 77.5 %; Venous Blood Gas pCO2 50 mmHg (35-48); Venous Blood Gas pH 7.42 (7.32-7.43); Venous Blood Gas pO2 48 mmHg (30-50)
--- NOTE | 2024-06-26 15:36 | PN.CDI ---
Addendum entered and electronically signed by Flaquito Alba MD 06/26/24 15:50:
no sepsis
Original Note:
CDI
- -
CDI:
Physician Documentation Request
Admit Date: 06/23/24 21:26
Dear Doctor Anjali,
Patient admitted for pneumonia and COPD exacerbation.
Selected Entries
06/23/24
15:37 06/23/24
20:45 06/23/24
22:30
Pulse 97 112 98
06/23/24
18:45 06/23/24
19:15 06/23/24
19:45
Resp Rate 32 30 32
Please clarify which of the following most accurately describes the status of the patient's infection:
Sepsis, POA
- Systemic manifestations of infection, with 2 or more SIRS criteria which include:
- Fever >100.4 degrees F or hypothermia < 96.8 degrees F
- Leukocytosis - WBC > 12,000 or leukopenia - WBC < 4,000 or > 10% bands
- Tachycardia > 90 beats per minute
- Tachypnea - RR > 20 breaths per minute or PaCO2 , 32mmHg
Source: Merck Manual 2012
- Indicate the known or suspected organism
- Indicate the known or suspected underlying infection, such as UTI, pneumonia or cellulitis
- Indicate if a suspected bacterial infection of unknown source
- Indicate if associated with an implanted device such as a F/C, PICC line, orthopedic hardware, etc.
Localized Infection Only, Without Systemic Illness
- indicate the site/source, such as UTI, pneumonia etc
Other
Use of terms such as suspected, likely, concern for, or probable (associated with a specific diagnosis that is being evaluated, monitored, or treated as if it exists) are acceptable and can be coded in the inpatient setting, when documented at the
time of discharge.
Thank you,
Shyann Alex RN, BSN
CDI Specialist
Available via [place] text
Please use your independent medical judgment in providing your response.
--- NOTE | 2024-06-26 15:55 | VNURNOTE ---
Chart reviewed. As time of this note, no DC planned for > 48hrs. Will need home 02 eval closer to DC. CM and Hospitalist aware. [facility] resumption referral accepted in [place],.
[2024-06-26] MEDS: LIPITOR 40 MG PO (17:49)
[2024-06-26] MEDS: LOVENOX 40 MG SC (17:49)
[2024-06-26] MEDS: PROTONIX 40 MG PO (17:49)
[2024-06-26] MEDS: XALATAN OPHTHALMIC SOLUTION 1 DROP BOTH EYES (22:12)
[2024-06-26] MEDS: ZITHROMAX INFUSION 250 IV (23:48)
[2024-06-27] MEDS: DUONEB 3 ML INH ×6 (00:22→18:59)
--- NOTE | 2024-06-27 03:24 | PTCARENOTE ---
Talked to the pt about Bipap during the night. Pt refuses, states she had it in the past and couldn't tolerate it. Pt is currently on 3L NC.
[2024-06-27] MEDS: ROBITUSSIN 100 MG PO ×4 (03:50→23:59)
[2024-06-27] MEDS: TYLENOL 650 MG PO ×2 (03:51→09:00)
[2024-06-27 03:54] VITALS: BP 160/78
[2024-06-27] MEDS: SYMBICORT 160/4.5 MCG INHALER 2 PUFF INH ×2 (07:16→18:59)
[2024-06-27] MEDS: SPIRIVA RESPIMAT 2.5 MCG 2 PUFF INH (07:16)
[2024-06-27 07:35] VITALS: BP 154/73
[2024-06-27] MEDS: ASPIR LOW (ENTERIC COATED) 81 MG PO (08:53)
[2024-06-27] MEDS: SOLU-MEDROL PF 40 MG IV ×2 (08:53→20:28)
[2024-06-27] MEDS: CLARITIN 10 MG PO (08:53)
[2024-06-27] MEDS: PROCARDIA XL (EXTENDED RELEASE) 60 MG PO (08:53)
[2024-06-27] MEDS: KCL 10 MEQ PO (08:53)
[2024-06-27] MEDS: SINGULAIR 10 MG PO (08:53)
[2024-06-27] MEDS: LASIX 40 MG PO (08:53)
[2024-06-27] MEDS: CELEXA 40 MG PO (08:53)
[2024-06-27] MEDS: STERILE WATER FOR INJECTION 10 ML IV (09:49)
[2024-06-27] MEDS: ROCEPHIN 1000 MG IV (09:50)
--- NOTE | 2024-06-27 11:15 | W.PN.HOSP.TC ---
Today's Communication/Plan
-
COnt steroids, attempt to wean off O2
Encouraged BiPAP at HS -patient will try
Assessment / Plan
Assessment / Plan
84yo F with PMHX of COPD, hypothyroidism, anxiety, CAD, HLD, Hx of TIA, migraines, HX of DVT, AAA, lung CA was undergoing RT, was sent from radiation oncology office due to pre-RT check showed hypoxia to 80%. Admitted with hypoxia 2/2
COPD exacerbation vs pneumonia
Patient had radiation to cervical spine over past 4 days due to spinal stenosis 2/2 metastatic CA
A/P:
#Acute hypoxic respiratory insufficiency 2/2 pneumonia and COPD exacerbation
#Spinal cord compression with metastatic CA
Significant ddimer elevation - but can be explained with CA
US LE neg for DVT
CT chest showed no PE
Steroids taper, bronchodilators
Pulm consult: worsening pulmonary function, possible new bruno in home O2, attempt steroids, but advised to wean off rapidly
Oncology consult: radiation to cervical pine due to stenosis, unlikely radiation pneumonitis
COVID-19, Influenza PCR neg
Procalcitonin low but would cont Ceftriaxone/Azithromycin (QTc WNL)
sputum Cx without significant growth - complete Abx for 5 days empirically (till 06/28/24)
Encourage BiPAP at night - patient is non-compliant
#Mild-moderate
#mild pulmonary HTN
Echo with EF 70-75%
No clinical signs of volume overload
#chronic Alk.phos elevation
no RUQ pain
most liekly 2/2 metastatic CA
#Mild adnemia
follow up PCP
#Hypercalcemia
mild 2/2 CA
follow Ca
#Essential HTN
#CAD stable
#Migraines
#Hx of TIA
#Hypothyroidism
cont home meds
DVT ppx lovenox
DNR/DNI
I have spent at least 55min reviewing chart, test results, communication with consultants and direct patient care
Anticipated Discharge: > 48 hours
Subjective/Interval History
-
Date of Service: June 27, 2024
Objective Data
-
Vital Signs:
Vital Signs
Temp Pulse Resp BP Pulse Ox
98.2 F 102 16 154/73 96
06/27/24 07:35 06/27/24 07:35 06/27/24 07:35 06/27/24 07:35 06/27/24 07:35
I&O
06/26/24 06/27/24 06/28/24
06:59 06:59 07:59
Intake Total 540 / 540
Balance 540 / 540
Review of Systems
-
History Source: Patient
All other systems: Reviewed and negative
Physical Exam
-
General: Well Developed
HEENT: Atraumatic
Respiratory: Clear to Auscultation
Cardiac: Regular Rhythm
GI: Soft, Nontender and Nondistended
Genito-urinary: No Costovertebral Tender
Musculoskeletal: No Clubbing, No Cyanosis and No Edema
Neuro: Awake, Alert, Oriented and AO x 3
Psych: Calm
[2024-06-27 11:40] VITALS: BP 121/59
[2024-06-27] MEDS: ZOFRAN 4 MG IV (12:04)
[2024-06-27] MEDS: ATIVAN 0.5 MG PO (12:04)
[2024-06-27] MEDS: PROCARDIA XL (EXTENDED RELEASE) 30 MG PO (12:07)
[2024-06-27 15:20] VITALS: BP 138/60
--- NOTE | 2024-06-27 16:09 | W.PN.PUL3 ---
Today's Communication / Plan
-
-Continue Duoneb
-Can hold Spiriva while on Duoneb
-Add Mucinex ER 600 bid
-Can d/c Antibiotics
-Taper steroids to 40 mg daily in AM
-Assess for Home O2 need prior to discharge
Assessment
-
Patient is a 84-year-old female with past medical history significant for CAD s/p stent, hypertension, hyperlipidemia, alpha 1 antitrypsin deficiency/COPD, metastatic lung cancer noted to have new hypoxemia, acute on chronic WATSON, chronic cough. In
ER, she was afebrile, blood pressure was 180/80 with a pulse of 80. Respiratory rate notably 30s. Oxygen saturation was 95% on 2 L. CBC was unremarkable with a white count of 10 hemoglobin 11.7 and platelet 172, electrolytes BUN/creatinine were
all normal. Chest x-ray shows opacity in the left upper lobe which is slightly increased from her prior x-ray concerning for possible pneumonia. We are consulted for evaluation.
New hypoxemic resp failure, acute
Acute on chronic SOB
AECOPD
Lethargy
Noncompliance
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
COVID/Flu [facility] 2021
CAD s/p stents
COPD, on albuterol HFA/nebs and breztri bid. Not on home O2
Heterozygous alpha 1-antitrypsin deficiency
Follows Dr Mcclain
LLL adenocarcinoma, CT guided biopsy 09-16-18, s/p XRT only (6 wks course at [facility])
-not candidate for surgery due to functional status, did not receive chemo, continues routine follow up, told lung cancer in remission after treatment
GERD
HTN
HLD
Hyperthyroidism
Anxiety
Depression
TIA
LILLIAN/CSA on BPAP 02/26-noncompliant
RUE DVT due to PICC line
Small bowel obstruction 2004, total colectomy, ileostomy with reversal
Former smoker: 1 ppd for 40 y, quit 20 y ago
Current mild episode of major depressive disorder
Hyperparathyroidism
Obesity, Body mass index [BMI] 37.0-37.9, adult
Plan
#1. Acute hypoxic respiratory failure with acute exacerbation of COPD.
-Continue Duoneb
-Can hold Spiriva while on Duoneb as excessive anti-cholinergic effect can make scretions thicker
-Add Mucinex ER 600 bid
-Can d/c Antibiotics
-Taper steroids to 40 mg daily in AM
-Assess for Home O2 need prior to discharge
Prior history of lung disease is noted including COPD with moderate lung disease
OP records reviewed--last PFT with reduced FEV1 57-62%, maintained on Breztri
Will repeat bedside report to evaluate SOB--Spirometry 06/25/24: FEV1 0.54L 35%, FVC 0.82L 40%, ratio 66. Post FEV1 0.55L 36%
Worsening severe obstruction, declined from prior (62% to 35%)--confirms AECOPD
Low lung volumes and bibasilar atelectasis likely
AECOPD suspected
Started on IV steroids by care team today
Would quickly taper to PO course.
CXR/CT obtained indicating possible L sided PNA, CT obtained showing nodular opacities on the L that are stable from previous
PCT negative, proBNP negative
Nothing to suggest infection
Would hold off on abx and observe
LILLIAN history, resume on BIPAP while inpatient
She has been noncompliant, I stressed importance of use
She is more lethargic today, check VBG
PT/OT, need evaluations
Increase IS, ambulation
Prior ECHO results are reviewed indicating stable function
Likely noncardiac cause, proBNP negative
Weight loss measures recommended
Obesity likely contributing to respiratory symptoms
Will need outpatient pulmonary evaluation in our office for PFTs and 6MWT
She is DNR, compliance is an issue
Diagnostic Data
CT chest 06/24/24- No CTA evidence for an acute pulmonary thromboembolism. Nodular opacities in the inferior left lower lobe most in keeping with the patient's known lung cancer. Bandlike triangular opacity in the infrahilar left lower lobe may
represent posttreatment related changes/scarring versus an additional site of disease. Trace left pleural effusion. Chronic obstructive pulmonary disease.
Chest CTA 12-16: Lungs: There is ill-defined parenchymal opacity in the infrahilar left lower lobe measuring approximately 3.0 x 1.8 cm at the site of the patient's treated pulmonary neoplasm. There is contiguous linear scarring and nodularity at
the anterior aspect of the inferior left lower lobe. The overall appearance of the left lower lobe findings are unchanged compared to the prior chest CT. A few small sub-4 mm pulmonary nodules in the right lung are stable. There is no new or
enlarging pulmonary mass or nodule. Moderate centrilobular emphysema is identified with a biapical predominance. There is no pleural effusion or pneumothorax. The trachea and central airways are patent.
Upper abdomen: Small sliding hiatal hernia. IMPRESSION: No CTA evidence for an acute pulmonary thromboembolism. Stable appearance of nodular opacities in the left lower lobe related to the patient's treated pulmonary neoplasm.
PET CT 03-02-19 FINDINGS:
Head and Neck: There is no FDG avid adenopathy.
Chest: There is no FDG avid adenopathy. Right hilar lymph node SUV max 2.2, previous 2.1.
Previously described 2 cm spiculated mass in the left lower lobe posteriorly has decreased in size and now measures 1.4 cm. Decreased FDG avidity, SUV max 1.8, previous 3.7.
Small focus of soft tissue nodularity in the lateral left lung base on image 70, SUV max 1.4, previous 1.0. Nonspecific. Likely represents atelectasis or scarring.
Abdomen and pelvis: No FDG avid adenopathy. There is physiologic uptake in the GI and tract.
Musculoskeletal: No abnormal FDG avid osseous uptake. Minimal increased uptake in the soft tissues along the posterior lateral left hemithorax at the inferior aspect of the left scapula. This appears to be musculoskeletal rather than metastatic.
ECHO 10/03/23- Normal left ventricular size and systolic function. LV ejection fraction is 65-70% . Mild aortic stenosis. Mild aortic regurgitation. Compared to prior study the findings are similar. transaortic gradients are mildly higher.
TTE 04- CONCLUSIONS: Technically difficult study - Definity should be considered for future studies. Normal biventricular size and systolic function without regional wall motion abnormality. Stage I diastolic dysfunction suggestive of abnormal
relaxation.
Mild aortic stenosis. Mild aortic regurgitation. Mild mitral stenosis. Compared to previous echo 01/13/2019, there is now mild aortic and mitral stenosis. Otherwise the findings are similar.
Tj 05/18/2024: FVC 1.43/76%, FEV1 0.86/62%, ratio 60%, no significant BD response. Moderate obstruction.
Spirometry 08/07/23-FEV1 790 mL-57%, FVC 1.38-73%, no significant BD response. Moderate obstruction.
PFT 10/29/22-FEV1 1.04-72%
Total time spent on this consultation __51__ minutes which includes review of history, physical exam, medications, laboratory data, personal review of imaging, extensive review of outpatient records, discussion with care team and respiratory therapy.
Subjective Data
-
Date of Service:
Date of Service: June 27, 2024
Chief Complaint: Pulmonary Follow Up
Objective Data
Data Reviewed
Vital Signs / I&O / Oxygen:
Vital Signs
Temp Pulse Resp BP Pulse Ox
97.4 F 88 16 121/59 96
06/27/24 11:40 06/27/24 15:40 06/27/24 15:40 06/27/24 11:40 06/27/24 15:40
Intake and Output
06/26/24 06/27/24 06/28/24
06:59 06:59 07:59
Intake Total 540 / 540
Balance 540 / 540
SaO2 96
Nasal Cannula flow liters per 3
minute
Physical Exam
General: Comfortable and Other (NAD)
HEENT: Normocephalic, Anicteric and Moist Mucous Membranes
Cardiovascular: S1-S2 and Regular Rhythm
Respiratory: Clear (poor air movement), Wheeze and Non-Labored Respirations
GI: Soft, Non Distended and Non Tender
Neurology: No Motor Deficits and Lethargic (arousable but falling asleep)
Skin: Warm, Dry and Good Color
Labs/Micro/Reports
Lab Data
06/26/24 05:59
06/26/24 05:59
Microbiology
06/25/24 19:40 Sputum Respiratory Culture - Final
06/25/24 19:40 Sputum Gram Stain - Final
06/24/24 00:23 Nose MRSA Screen - Final
No Methicillin Resistant Staphylococcus aureus isolated.
[2024-06-27] MEDS: LIPITOR 40 MG PO (17:09)
[2024-06-27] MEDS: PROTONIX 40 MG PO (17:09)
[2024-06-27] MEDS: LOVENOX 40 MG SC (17:09)
[2024-06-27 19:32] VITALS: BP 125/64
[2024-06-27] MEDS: XALATAN OPHTHALMIC SOLUTION 1 DROP BOTH EYES (21:54)
[2024-06-27 23:21] VITALS: BP 148/61
[2024-06-27] MEDS: ZITHROMAX INFUSION 250 IV (23:59)
[2024-06-28] VITALS (7 sets, daily range): BP systolic 124–197; BP diastolic 71–102; PULSE 2–85; BMI 37.6
[2024-06-28] MEDS: DUONEB 3 ML INH ×4 (07:37→19:37)
[2024-06-28] MEDS: SYMBICORT 160/4.5 MCG INHALER 2 PUFF INH (07:37)
[2024-06-28] MEDS: CELEXA 40 MG PO (08:56)
[2024-06-28] MEDS: KCL 10 MEQ PO (08:56)
[2024-06-28] MEDS: MUCINEX 600 MG PO ×2 (08:56→20:22)
[2024-06-28] MEDS: DELTASONE 40 MG PO (08:56)
[2024-06-28] MEDS: ROBITUSSIN 100 MG PO ×3 (08:56→21:43)
[2024-06-28] MEDS: SINGULAIR 10 MG PO (08:56)
[2024-06-28] MEDS: CLARITIN 10 MG PO (08:56)
[2024-06-28] MEDS: ASPIR LOW (ENTERIC COATED) 81 MG PO (08:56)
[2024-06-28] MEDS: LASIX 40 MG PO (08:56)
[2024-06-28] MEDS: STERILE WATER FOR INJECTION 10 ML IV (09:05)
[2024-06-28] MEDS: PROCARDIA XL (EXTENDED RELEASE) 60 MG PO (09:05)
[2024-06-28] MEDS: PROCARDIA XL (EXTENDED RELEASE) 30 MG PO (09:05)
[2024-06-28] MEDS: ROCEPHIN 1000 MG IV (09:05)
--- NOTE | 2024-06-28 10:41 | W.PN.HOSP.TC ---
Today's Communication/Plan
-
Home O2 assessment
complete Abx
Prednisone taper
Assessment / Plan
Assessment / Plan
84yo F with PMHX of COPD on chronic prednisone, hypothyroidism, anxiety, CAD, HLD, Hx of TIA, migraines, HX of DVT, AAA, lung CA was undergoing RT, was sent from radiation oncology office due to pre-RT check showed hypoxia to 80%.
Admitted with hypoxia 2/2 COPD exacerbation vs pneumonia. Apparently with worsening pulmonary function now, so will need home O2. COmpleted empiric Abx and as per Pulm advise - can switch to oral steroids. Patient declined rehab
Patient had radiation to cervical spine over past 4 days due to spinal stenosis 2/2 metastatic CA
A/P:
#Acute hypoxic respiratory insufficiency 2/2 pneumonia and COPD exacerbation
#Spinal cord compression with metastatic CA
Significant ddimer elevation - but can be explained with CA
US LE neg for DVT
CT chest showed no PE
Steroids taper, abnd cont home Prednisone 5mg afterwards, bronchodilators
Pulm consult: worsening pulmonary function, possible new bruno in home O2, attempt steroids, but advised to wean off rapidly. Attempt to Rx Trilogy vent for home, otherwise- outpatient eval for BiPAP/CPAP
Oncology consult: radiation to cervical pine due to stenosis, unlikely radiation pneumonitis
COVID-19, Influenza PCR neg
Procalcitonin low but would cont Ceftriaxone/Azithromycin (QTc WNL)
sputum Cx without significant growth - complete Abx for 5 days empirically (till 06/28/24)
Encourage BiPAP at night - patient is non-compliant
#Mild-moderate
#mild pulmonary HTN
Echo with EF 70-75%
No clinical signs of volume overload
#chronic Alk.phos elevation
no RUQ pain
most likely 2/2 metastatic CA
#Mild anemia
follow up PCP
#Hypercalcemia
mild 2/2 CA
follow Ca
#Essential HTN
#CAD stable
#Migraines
#Hx of TIA
#Hypothyroidism
cont home meds
DVT ppx lovenox
DNR/DNI
I have spent at least 35min reviewing chart, test results, communication with consultants and direct patient care
Anticipated Discharge: Within 24 hours
Subjective/Interval History
-
Date of Service: June 28, 2024
Objective Data
-
Vital Signs:
Vital Signs
Temp Pulse Resp BP Pulse Ox
98.9 F 86 20 197/102 93
06/28/24 07:57 06/28/24 07:57 06/28/24 07:57 06/28/24 07:57 06/28/24 07:57
I&O
06/27/24 06/28/24 06/29/24
05:59 06:59 06:59
Intake Total 240 / 240
Balance 240 / 240
Review of Systems
-
History Source: Patient
All other systems: Reviewed and negative
Physical Exam
-
General: No Apparent Distress
HEENT: Normocephalic
Respiratory: Clear to Auscultation
GI: Soft, Nontender and Nondistended
Genito-urinary: No Costovertebral Tender
Musculoskeletal: No Clubbing, No Cyanosis and No Edema
Neuro: Awake, Alert, Oriented and AO x 3
Psych: Calm
--- NOTE | 2024-06-28 13:26 | W.PN.UPDATE ---
Update Note
Progress Note Update
Patient is a 84yo female with end stage COPD. She has had multiple ER and hospital readmissions with the chief complaint of Shortness of Breath and Respiratory Failure. The patient has a PaCO2 of 50 mmHg on 2 liters of oxygen. The patient reports he
is on oxygen continuously. The patient reports he gets short of breath with minimal exertion. She also reports diffuse joint pain and is very limited because of his breathing. Due to the patient�s COPD and hypoventilation, the patient is at risk of
worsening Chronic Respiratory Failure. I have considered BiLevel, BiLevel ST, and BiLevel VAPS therapy and they have all been ruled out due to the patients worsening condition. The patient now requires a unique mode of ventilation not offered on
less costly options. The patient requires a device that will not fail in the event of a power failure and is also portable for mobility within the home when needed. Due to the patient�s worsening condition, I am prescribing Non-Invasive Ventilation
therapy to decrease the chance of continued unplanned expensive medical encounters including physician office visits, emergency/urgent care treatment and hospital readmissions
--- NOTE | 2024-06-28 15:01 | W.PN.PUL3 ---
Today's Communication / Plan
-
-Continue Duoneb add Budesonide
-Resume Breztri at discharge
-Add Mucinex ER 600 bid
-Can d/c Antibiotics
-Taper steroids further
-Assess for Home O2 need prior to discharge
-BIPAP nightly, known h/o LILLIAN but had not been using PAP therapy
Assessment
-
Patient is a 84-year-old female with past medical history significant for CAD s/p stent, hypertension, hyperlipidemia, alpha 1 antitrypsin deficiency/COPD, metastatic lung cancer noted to have new hypoxemia, acute on chronic WATSON, chronic cough. In
ER, she was afebrile, blood pressure was 180/80 with a pulse of 80. Respiratory rate notably 30s. Oxygen saturation was 95% on 2 L. CBC was unremarkable with a white count of 10 hemoglobin 11.7 and platelet 172, electrolytes BUN/creatinine were
all normal. Chest x-ray shows opacity in the left upper lobe which is slightly increased from her prior x-ray concerning for possible pneumonia. We are consulted for evaluation.
New hypoxemic resp failure, acute
Acute on chronic SOB
AECOPD
Lethargy
Noncompliance
Conditions [facility]:
COVID/Flu A Hosp 2021
CAD s/p stents
COPD, on albuterol HFA/nebs and breztri bid. Not on home O2
Heterozygous alpha 1-antitrypsin deficiency
Follows Dr Mcclain
LLL adenocarcinoma, CT guided biopsy 09-16-18, s/p XRT only (6 wks course at [facility])
-not candidate for surgery due to functional status, did not receive chemo, continues routine follow up, told lung cancer in remission after treatment
GERD
HTN
HLD
Hyperthyroidism
Anxiety
Depression
TIA
LILLIAN/CSA on BPAP 02/26-noncompliant
RUE DVT due to PICC line
Small bowel obstruction 2004, total colectomy, ileostomy with reversal
Former smoker: 1 ppd for 40 y, quit 20 y ago
Current mild episode of major depressive disorder
Hyperparathyroidism
Obesity, Body mass index [BMI] 37.0-37.9, adult
Plan
#1. Acute hypoxic respiratory failure with acute exacerbation of COPD.
-Continue Duoneb
-Continue to hold Spiriva while on Duoneb as excessive anti-cholinergic effect can make scretions thicker
-Added Mucinex ER 600 bid
-Can d/c Antibiotics
-Continue to taper Prednisone
-Assess for Home O2 need prior to discharge
Prior history of lung disease is noted including COPD with moderate lung disease
OP records reviewed--last PFT with reduced FEV1 57-62%, maintained on Breztri
Will repeat bedside report to evaluate SOB--Spirometry 06/25/24: FEV1 0.54L 35%, FVC 0.82L 40%, ratio 66. Post FEV1 0.55L 36%
Worsening severe obstruction, declined from prior (62% to 35%)--confirms AECOPD
Low lung volumes and bibasilar atelectasis likely
AECOPD suspected
Started on IV steroids by care team today
Would quickly taper to PO course.
CXR/CT obtained indicating possible L sided PNA, CT obtained showing nodular opacities on the L that are stable from previous
PCT negative, proBNP negative
Nothing to suggest infection
Would hold off on abx and observe
LILLIAN history, resume on BIPAP while inpatient
She has been noncompliant, I stressed importance of use
She is more lethargic today, check VBG
PT/OT, need evaluations
Increase IS, ambulation
Prior ECHO results are reviewed indicating stable function
Likely noncardiac cause, proBNP negative
Weight loss measures recommended
Obesity likely contributing to respiratory symptoms
Will need outpatient pulmonary evaluation in our office for PFTs and 6MWT
She is DNR, compliance is an issue
Diagnostic Data
CT chest 06/24/24- No CTA evidence for an acute pulmonary thromboembolism. Nodular opacities in the inferior left lower lobe most in keeping with the patient's known lung cancer. Bandlike triangular opacity in the infrahilar left lower lobe may
represent posttreatment related changes/scarring versus an additional site of disease. Trace left pleural effusion. Chronic obstructive pulmonary disease.
Chest CTA 12-16: Lungs: There is ill-defined parenchymal opacity in the infrahilar left lower lobe measuring approximately 3.0 x 1.8 cm at the site of the patient's treated pulmonary neoplasm. There is contiguous linear scarring and nodularity at
the anterior aspect of the inferior left lower lobe. The overall appearance of the left lower lobe findings are unchanged compared to the prior chest CT. A few small sub-4 mm pulmonary nodules in the right lung are stable. There is no new or
enlarging pulmonary mass or nodule. Moderate centrilobular emphysema is identified with a biapical predominance. There is no pleural effusion or pneumothorax. The trachea and central airways are patent.
Upper abdomen: Small sliding hiatal hernia. IMPRESSION: No CTA evidence for an acute pulmonary thromboembolism. Stable appearance of nodular opacities in the left lower lobe related to the patient's treated pulmonary neoplasm.
PET CT 03-02-19 FINDINGS:
Head and Neck: There is no FDG avid adenopathy.
Chest: There is no FDG avid adenopathy. Right hilar lymph node SUV max 2.2, previous 2.1.
Previously described 2 cm spiculated mass in the left lower lobe posteriorly has decreased in size and now measures 1.4 cm. Decreased FDG avidity, SUV max 1.8, previous 3.7.
Small focus of soft tissue nodularity in the lateral left lung base on image 70, SUV max 1.4, previous 1.0. Nonspecific. Likely represents atelectasis or scarring.
Abdomen and pelvis: No FDG avid adenopathy. There is physiologic uptake in the GI and tract.
Musculoskeletal: No abnormal FDG avid osseous uptake. Minimal increased uptake in the soft tissues along the posterior lateral left hemithorax at the inferior aspect of the left scapula. This appears to be musculoskeletal rather than metastatic.
ECHO 10/03/23- Normal left ventricular size and systolic function. LV ejection fraction is 65-70% . Mild aortic stenosis. Mild aortic regurgitation. Compared to prior study the findings are similar. transaortic gradients are mildly higher.
TTE 04- CONCLUSIONS: Technically difficult study - Definity should be considered for future studies. Normal biventricular size and systolic function without regional wall motion abnormality. Stage I diastolic dysfunction suggestive of abnormal
relaxation.
Mild aortic stenosis. Mild aortic regurgitation. Mild mitral stenosis. Compared to previous echo 01/13/2019, there is now mild aortic and mitral stenosis. Otherwise the findings are similar.
[place] 05/18/2024: FVC 1.43/76%, FEV1 0.86/62%, ratio 60%, no significant BD response. Moderate obstruction.
Spirometry 08/07/23-FEV1 790 mL-57%, FVC 1.38-73%, no significant BD response. Moderate obstruction.
PFT 10/29/22-FEV1 1.04-72%
Total time spent on this consultation __51__ minutes which includes review of history, physical exam, medications, laboratory data, personal review of imaging, extensive review of outpatient records, discussion with care team and respiratory therapy.
Subjective Data
-
Date of Service:
Date of Service: June 28, 2024
Chief Complaint: Pulmonary Follow Up
Subjective:
Patient reports feeling better. Used BIPAP last night
Review of Systems
Genitourinary: Other (No new symptoms reported )
Objective Data
Data Reviewed
Vital Signs / I&O / Oxygen:
Vital Signs
Temp Pulse Resp BP Pulse Ox
98.2 F 89 18 163/77 93
06/28/24 11:35 06/28/24 11:35 06/28/24 11:35 06/28/24 11:35 06/28/24 11:35
Intake and Output
06/27/24 06/28/24 06/29/24
05:59 06:59 06:59
Intake Total 240 / 240
Balance 240 / 240
SaO2 93
Nasal Cannula flow liters per 3
minute
Physical Exam
General: Comfortable and Other (NAD)
HEENT: Normocephalic, Anicteric and Moist Mucous Membranes
Cardiovascular: S1-S2 and Regular Rhythm
Respiratory: Clear (poor air movement), Wheeze (quiet improved ) and Non-Labored Respirations
GI: Soft, Non Distended and Non Tender
Neurology: No Motor Deficits and Lethargic (arousable but falling asleep)
Skin: Warm, Dry and Good Color
Labs/Micro/Reports
Lab Data
06/26/24 05:59
06/26/24 05:59
Microbiology
06/25/24 19:40 Sputum Respiratory Culture - Final
06/25/24 19:40 Sputum Gram Stain - Final
[2024-06-28] MEDS: PROTONIX 40 MG PO (17:27)
[2024-06-28] MEDS: LIPITOR 40 MG PO (17:27)
[2024-06-28] MEDS: LOVENOX 40 MG SC (17:27)
[2024-06-28] MEDS: PULMICORT 0.5 MG INH (19:37)
[2024-06-28] MEDS: XALATAN OPHTHALMIC SOLUTION 1 DROP BOTH EYES (21:43)
[2024-06-28] MEDS: ZITHROMAX INFUSION 250 IV (23:34)
[2024-06-29 03:50] VITALS: BP 151/70
[2024-06-29 04:36] LABS: B.E. 8.7 mmol/L; HCO3 33.5 mmol/L (21-28); O2 Saturation % 96.9 % (94-98); PCO2 46 mmHg (32-35); PO2 81 mmHg (83-108); pH 7.47 (7.35-7.45)
[2024-06-29] MEDS: DUONEB 3 ML INH ×5 (05:06→19:16)
[2024-06-29 05:47] VITALS: BMI 37.3
[2024-06-29 07:30] VITALS: BP 114/81
[2024-06-29] MEDS: PULMICORT 0.5 MG INH ×2 (07:32→19:16)
--- NOTE | 2024-06-29 08:42 | W.PN.HOSP.TC ---
Today's Communication/Plan
-
Antibiotics. Steroids. Diuretics. Discharge planning
Assessment / Plan
Assessment / Plan
Physical exam:
General: Well Developed, Well Nourished and No Apparent Distress
HEENT: Wearing cervical collar. Normocephalic, Atraumatic and Moist Mucous Membranes
Respiratory: Some scattered rhonchi; Negative Wheezes, Rales
Cardiac: Regular Rhythm and S1/S2
GI: Soft, Nontender and Nondistended
Musculoskeletal: No Clubbing, No Cyanosis and No Edema
Neuro: Awake, Alert and Oriented
Psych: Calm
A/P:
84yo F with PMHX of COPD on chronic prednisone, hypothyroidism, anxiety, CAD, HLD, Hx of TIA, migraines, HX of DVT, AAA, lung CA was undergoing RT, was sent from radiation oncology office due to pre-RT check showed hypoxia to 80%.
Admitted with hypoxia 2/2 COPD exacerbation vs pneumonia. Apparently with worsening pulmonary function now, so will need home O2. COmpleted empiric Abx and as per Pulm advise - can switch to oral steroids. Patient declined rehab
Patient had radiation to cervical spine over past 4 days due to spinal stenosis 2/2 metastatic CA
#Acute hypoxic respiratory insufficiency 2/2 pneumonia and COPD exacerbation
#Spinal cord compression with metastatic CA
Significant ddimer elevation - but can be explained with CA
US LE neg for DVT
CT chest showed no PE
Steroids taper, abnd cont home Prednisone 5mg afterwards, bronchodilators
Pulm consult: worsening pulmonary function, possible new bruno in home O2, attempt steroids, but advised to wean off rapidly. Attempt to Rx Trilogy vent for home, otherwise- outpatient eval for BiPAP/CPAP
Oncology consult: radiation to cervical pine due to stenosis, unlikely radiation pneumonitis
COVID-19, Influenza PCR neg
Procalcitonin low but would cont Ceftriaxone/Azithromycin (QTc WNL)
sputum Cx without significant growth -change antibiotics to oral today (till 06/30/24)
Encourage BiPAP at night - patient is non-compliant
Appreciated pulmonary follow-up today
Appreciate oncology follow-up today
Discussed with RN today
Discussed with case management today via [place] text
poundmaster working on arrangement prior to discharge that will be completed most likely by tomorrow.
#Mild-moderate
#mild pulmonary HTN
Echo with EF 70-75%
No clinical signs of volume overload
#chronic Alk.phos elevation
no RUQ pain
most likely 2/2 metastatic CA
#Mild anemia
follow up PCP
#Hypercalcemia
mild 2/2 CA
follow Ca
#Essential HTN
#CAD stable
#Migraines
#Hx of TIA
#Hypothyroidism
cont home meds
DVT ppx lovenox
DNR
Anticipated Discharge: Within 24 hours
Subjective/Interval History
-
Date of Service: June 29, 2024
Patient feels better from respiratory standpoint. She has some mild neck and shoulder discomfort when moving her neck but no neurological deficits appreciated. Afebrile
Objective Data
-
Labs:
Laboratory Results
06/29/24
04:24
HCO3 33.5 H
Vital Signs:
Vital Signs
Temp Pulse Resp BP Pulse Ox
98.4 F 77 16 114/81 96
06/29/24 07:30 06/29/24 07:36 06/29/24 07:36 06/29/24 07:30 06/29/24 07:36
I&O
06/28/24 06/29/24 06/30/24
06:59 06:59 06:59
Intake Total 970 / 970
Balance 970 / 970
--- NOTE | 2024-06-29 09:45 | W.PN.PUL.V3 ---
Today's Communication / Plan
-
Wean oxygen.
Assessment discharge supplemental oxygen needs.
Prednisone taper.
Finally course of empiric antibiotics.
Inhalers-Spiriva and Symbicort while here-back to [facility] as an outpatient
Assessment
-
Patient is a 84-year-old female with past medical history significant for CAD s/p stent, hypertension, hyperlipidemia, alpha 1 antitrypsin deficiency/COPD, metastatic lung cancer noted to have new hypoxemia, acute on chronic WATSON, chronic cough. In
ER, she was afebrile, blood pressure was 180/80 with a pulse of 80. Respiratory rate notably 30s. Oxygen saturation was 95% on 2 L. CBC was unremarkable with a white count of 10 hemoglobin 11.7 and platelet 172, electrolytes BUN/creatinine were
all normal. Chest x-ray shows opacity in the left upper lobe which is slightly increased from her prior x-ray concerning for possible pneumonia. We are consulted for evaluation.
New hypoxemic resp failure, acute
Acute on chronic SOB
AECOPD
Lethargy
Noncompliance
Conditions [employer]:
COVID/Flu A Hosp 2021
CAD s/p stents
COPD, on albuterol HFA/nebs and breztri bid. Not on home O2
Heterozygous alpha 1-antitrypsin deficiency
Follows Dr Mcclain
LLL adenocarcinoma, CT guided biopsy 09-16-18, s/p XRT only (6 wks course at [facility])
-not candidate for surgery due to functional status, did not receive chemo, continues routine follow up, told lung cancer in remission after treatment
GERD
HTN
HLD
Hyperthyroidism
Anxiety
Depression
TIA
LILLIAN/CSA on BPAP 02/26-noncompliant
RUE DVT due to PICC line
Small bowel obstruction 2004, total colectomy, ileostomy with reversal
Former smoker: 1 ppd for 40 y, quit 20 y ago
Current mild episode of major depressive disorder
Hyperparathyroidism
Obesity, Body mass index [BMI] 37.0-37.9, adult
Plan
Respiratory decompensation due to pneumonia and COPD improving.
Supplemental oxygen as needed-attempt to wean to room air.
Check rest and exercise oximetry prior to discharge-told patient she might require temporary outpatient supplemental oxygen.
Prednisone taper.
Mucinex.
Inhalers.
Nebulizers.
Outpatient Breztri
Aspiration precautions.
Steroid taper..
BiPAP as tolerated-has LILLIAN as an outpatient-has been noncompliant
Cultures reviewed.
Legionella and streptococcal urine antigen negative.
MRSA screen negative.
Influenza 06/23/24 negative.
Influenza 04/25/24-positive.
Sputum culture. 06/25/24-2 WBCs, mixed organisms.
Empiric antibiotics-Omnicef and azithromycin
Pro-calcitonin negative
DVT prophylaxis-on Lovenox.
Nutrition
Early mobilization
Will need outpatient pulmonary evaluation in our office for PFTs and 6MWT-follows with Dr. cMclain
Diagnostic Data
CT chest 06/24/24- No CTA evidence for an acute pulmonary thromboembolism. Nodular opacities in the inferior left lower lobe most in keeping with the patient's known lung cancer. Bandlike triangular opacity in the infrahilar left lower lobe may
represent posttreatment related changes/scarring versus an additional site of disease. Trace left pleural effusion. Chronic obstructive pulmonary disease.
Chest CTA 12-16: Lungs: There is ill-defined parenchymal opacity in the infrahilar left lower lobe measuring approximately 3.0 x 1.8 cm at the site of the patient's treated pulmonary neoplasm. There is contiguous linear scarring and nodularity at
the anterior aspect of the inferior left lower lobe. The overall appearance of the left lower lobe findings are unchanged compared to the prior chest CT. A few small sub-4 mm pulmonary nodules in the right lung are stable. There is no new or
enlarging pulmonary mass or nodule. Moderate centrilobular emphysema is identified with a biapical predominance. There is no pleural effusion or pneumothorax. The trachea and central airways are patent.
Upper abdomen: Small sliding hiatal hernia. IMPRESSION: No CTA evidence for an acute pulmonary thromboembolism. Stable appearance of nodular opacities in the left lower lobe related to the patient's treated pulmonary neoplasm.
PET CT 03-02-19 FINDINGS:
Head and Neck: There is no FDG avid adenopathy.
Chest: There is no FDG avid adenopathy. Right hilar lymph node SUV max 2.2, previous 2.1.
Previously described 2 cm spiculated mass in the left lower lobe posteriorly has decreased in size and now measures 1.4 cm. Decreased FDG avidity, SUV max 1.8, previous 3.7.
Small focus of soft tissue nodularity in the lateral left lung base on image 70, SUV max 1.4, previous 1.0. Nonspecific. Likely represents atelectasis or scarring.
Abdomen and pelvis: No FDG avid adenopathy. There is physiologic uptake in the GI and tract.
Musculoskeletal: No abnormal FDG avid osseous uptake. Minimal increased uptake in the soft tissues along the posterior lateral left hemithorax at the inferior aspect of the left scapula. This appears to be musculoskeletal rather than metastatic.
ECHO 10/03/23- Normal left ventricular size and systolic function. LV ejection fraction is 65-70% . Mild aortic stenosis. Mild aortic regurgitation. Compared to prior study the findings are similar. transaortic gradients are mildly higher.
TTE 04-21 CONCLUSIONS: Technically difficult study - Definity should be considered for future studies. Normal biventricular size and systolic function without regional wall motion abnormality. Stage I diastolic dysfunction suggestive of abnormal
relaxation.
Mild aortic stenosis. Mild aortic regurgitation. Mild mitral stenosis. Compared to previous echo 01/13/2019, there is now mild aortic and mitral stenosis. Otherwise the findings are similar.
Tj 05/18/2024: FVC 1.43/76%, FEV1 0.86/62%, ratio 60%, no significant BD response. Moderate obstruction.
Spirometry 08/07/23-FEV1 790 mL-57%, FVC 1.38-73%, no significant BD response. Moderate obstruction.
PFT 10/29/22-FEV1 1.04-72%
Subjective Data
-
Date of Service:
Date of Service: June 29, 2024
Chief Complaint: Pulmonary Follow Up and Dyspnea Follow Up
Subjective:
Feels better, less short of breath, some mucus production but clear, no chest pain, abdominal pain or leg swelling
Review of Systems
General: Other ( per HPI)
Objective Data
Data Reviewed
Vital Signs / I&O:
Vital Signs
Temp Pulse Resp BP Pulse Ox
98.4 F 77 16 114/81 96
06/29/24 07:30 06/29/24 07:36 06/29/24 07:36 06/29/24 07:30 06/29/24 09:42
Intake and Output
06/28/24 06/29/24 06/30/24
06:59 06:59 06:59
Intake Total 970 / 970
Balance 970 / 970
SaO2: 96
Nasal Cannula flow liters per minute: 2
Physical Exam
General: Respiratory Distress (n), Comfortable and Other (NAD)
HEENT: Normocephalic, Anicteric and Moist Mucous Membranes
Cardiovascular: S1-S2 and Regular Rhythm
Respiratory: Clear (poor air movement), Wheeze (quiet improved ), Non-Labored Respirations, Accessory Resp Muscle Use (n) and Stridor (n)
GI: Soft, Non Distended and Non Tender
Neurology: Awake, Alert and No Motor Deficits
Skin: Warm, Dry and Good Color
Labs/Micro/Reports
Lab Data
06/26/24 05:59
06/26/24 05:59
Laboratory Results
06/29/24
04:24
pH 7.47 H
pCO2 46 H
pO2 81 L
HCO3 33.5 H
O2 Delivery Level
Microbiology
06/25/24 19:40 Sputum Respiratory Culture - Final
06/25/24 19:40 Sputum Gram Stain - Final
[2024-06-29] MEDS: DELTASONE 40 MG PO (09:50)
[2024-06-29] MEDS: MUCINEX 600 MG PO ×2 (09:50→21:27)
[2024-06-29] MEDS: PROCARDIA XL (EXTENDED RELEASE) 60 MG PO (09:50)
--- NOTE | 2024-06-29 09:50 | VNURNOTE ---
Addendum entered by Didi Mancini, ZACHARY 06/29/24 10:55:
Rec'ed update from Franchesca Bass. Trilogy accepted. Can be delivered to home tomorrow/. YASHIRA Pulliam updated.
Original Note:
Chart reviewed. Spoke with Franchesca at [facility]. Confirmed fax rec'ed for home 02 and Trilogy. Per Franchesca, Trilogy approval pending. If approved, probable delivery to home tomorrow (patient would have to be DC'ed before 1400). Franchesca confirmed that
home 02 portable can be delivered to bedside today before 1500. YASHIRA Pulliam notified.
[2024-06-29] MEDS: CLARITIN 10 MG PO (09:51)
[2024-06-29] MEDS: CELEXA 40 MG PO (09:51)
[2024-06-29] MEDS: KCL 10 MEQ PO (09:51)
[2024-06-29] MEDS: PROCARDIA XL (EXTENDED RELEASE) 30 MG PO (09:51)
[2024-06-29] MEDS: LASIX 40 MG PO (09:51)
[2024-06-29] MEDS: ASPIR LOW (ENTERIC COATED) 81 MG PO (09:51)
[2024-06-29] MEDS: SINGULAIR 10 MG PO (09:55)
[2024-06-29] MEDS: STERILE WATER FOR INJECTION 10 ML IV (09:56)
[2024-06-29] MEDS: ROCEPHIN 1000 MG IV (09:56)
[2024-06-29] MEDS: FLUSH (NSS) 1 FLUSH IV (09:57)
--- NOTE | 2024-06-29 10:48 | CM ---
Trilogy and Oxygen ordered via [employer] .
[facility] Bernard[facility] and [facility] said Trilogy denied . Appeal has started . and Pulmonary notified.
Oxygen 2 liters can be delivered today Pox 96% on 2 liters NC.
PLAN [facility] New oxygen pending Trilogy
--- NOTE | 2024-06-29 11:40 | W.PN.ONC2 ---
Today's Communication / Plan
-
.
Impression
Impression
COPD exacerbation
PNA
stage IV lung cancer
spinal cord compression s/p XRT wtih Dr. Hagan
Plan
Plan
steroids per pulmonary
PET/CT planned upon discharge
OP [facility] testing on 2018 lung tissue results pending
OP follow up with XRT as scheduled
Pt has follow up with Dr. Iglesias 07/21
Subjective/Objective
Subjective
compliant with c spine soft collar, reports neck pain when bending down to pick something off floor. Denies any neurological deficits.
Vital Signs:
Vital Signs
Temp Pulse Resp BP Pulse Ox
98.4 F 76 16 114/81 96
06/29/24 07:30 06/29/24 09:51 06/29/24 07:36 06/29/24 09:51 06/29/24 09:45
Lab Results:
Laboratory Data
WBC 9.8 10^3/uL (4.8-10.8) 06/26/24 05:59
Hgb 11.1 g/dL (12.0-16.0) L 06/26/24 05:59
Plt Count 149 10^3/uL (130-400) 06/26/24 05:59
PT 13.6 Sec (11.4-14.6) 06/23/24 21:45
INR 1.01 06/23/24 21:45
eGFR > 60.00 06/26/24 05:59
[2024-06-29 12:43] VITALS: BP 147/78; PULSE 107; O2SAT 93
[2024-06-29] MEDS: TYLENOL 650 MG PO (12:47)
[2024-06-29 15:35] VITALS: BP 128/64
--- NOTE | 2024-06-29 17:02 | PTCARENOTE ---
Pt AAO x3, FATIMA; OOB to chair/BSC with assist x1/walker, antonio well. Pt wears soft cervical collar d/t neck pain. VSS. maintained on nc 2 lpm- pulse ox 96%, pt with (+) slight WATSON; occ productive cough- clear mucus. Abd obese, soft, antonio PO well.
Voids on BSC without difficulty. Resting in bed at present. Will continue to monitor.
[2024-06-29] MEDS: LIPITOR 40 MG PO (18:01)
[2024-06-29] MEDS: PROTONIX 40 MG PO (18:01)
[2024-06-29] MEDS: LOVENOX 40 MG SC (18:01)
[2024-06-29] MEDS: OMNICEF 300 MG PO (21:27)
[2024-06-29] MEDS: ZITHROMAX 500 MG PO (21:27)
[2024-06-29] MEDS: XALATAN OPHTHALMIC SOLUTION 1 DROP BOTH EYES (21:28)
[2024-06-29 23:15] VITALS: BP 131/56
[2024-06-30 05:30] VITALS: BMI 37.1
[2024-06-30] MEDS: PULMICORT 0.5 MG INH (07:32)
[2024-06-30] MEDS: DUONEB 3 ML INH ×2 (07:32→11:36)
[2024-06-30 07:55] VITALS: BP 179/97
--- NOTE | 2024-06-30 08:33 | W.PN.HOSP.TC ---
Addendum entered and electronically signed by Omi Tirado MD 07/01/24 15:13:
Acute hypoxic respiratory failure
Original Note:
Today's Communication/Plan
-
Discharge planning today
Assessment / Plan
Assessment / Plan
Physical exam:
General: Well Developed, Well Nourished and No Apparent Distress
HEENT: Wearing cervical collar. Normocephalic, Atraumatic and Moist Mucous Membranes
Respiratory: Clear to auscultation bilateral; Negative Wheezes, Rales
Cardiac: Regular Rhythm and S1/S2
GI: Soft, Nontender and Nondistended
Musculoskeletal: No Clubbing, No Cyanosis and No Edema
Neuro: Awake, Alert and Oriented
Psych: Calm
A/P:
84yo F with PMHX of COPD on chronic prednisone, hypothyroidism, anxiety, CAD, HLD, Hx of TIA, migraines, HX of DVT, AAA, lung CA was undergoing RT, was sent from radiation oncology office due to pre-RT check showed hypoxia to 80%.
Admitted with hypoxia 2/2 COPD exacerbation vs pneumonia. Apparently with worsening pulmonary function now, so will need home O2. COmpleted empiric Abx and as per Pulm advise - can switch to oral steroids. Patient declined rehab
Patient had radiation to cervical spine over past 4 days due to spinal stenosis 2/2 metastatic CA
#Acute hypoxic respiratory insufficiency 2/2 pneumonia and COPD exacerbation
#Spinal cord compression with metastatic CA
Significant ddimer elevation - but can be explained with CA
US LE neg for DVT
CT chest showed no PE
Steroids taper, abnd cont home Prednisone 5mg afterwards, bronchodilators
Pulm consult: worsening pulmonary function, possible new bruno in home O2, attempt steroids, but advised to wean off rapidly. Attempt to Rx Trilogy vent for home, otherwise- outpatient eval for BiPAP/CPAP
Oncology consult: radiation to cervical pine due to stenosis, unlikely radiation pneumonitis
COVID-19, Influenza PCR neg
Procalcitonin low but would cont Ceftriaxone/Azithromycin (QTc WNL)
sputum Cx without significant growth -change antibiotics to oral today (till 06/30/24)
Encourage BiPAP at night - patient is non-compliant.
Appreciated pulmonary consult and follow-up
Appreciate oncology consult and follow-up today
Discussed with case management yesterday via [place] text
Plan to discharge today
#Mild-moderate
#mild pulmonary HTN
Echo with EF 70-75%
No clinical signs of volume overload
#chronic Alk.phos elevation
no RUQ pain
most likely 2/2 metastatic CA
#Mild anemia
follow up PCP
#Hypercalcemia
mild 2/2 CA
follow Ca
#Essential HTN
#CAD stable
#Migraines
#Hx of TIA
#Hypothyroidism
cont home meds
DVT ppx lovenox
DNR
Anticipated Discharge: Today
Subjective/Interval History
-
Date of Service: June 30, 2024
Patient doing well today. On supplemental oxygen. Afebrile
Objective Data
-
Vital Signs:
Vital Signs
Temp Pulse Resp BP Pulse Ox
98.5 F 71 20 179/97 100
06/30/24 07:55 06/30/24 07:55 06/30/24 07:55 06/30/24 07:55 06/30/24 07:55
I&O
06/29/24 06/30/24 07/01/24
06:59 06:59 06:59
Intake Total 970 / 970 1080 / 1080
Balance 970 / 970 1080 / 1080
--- NOTE | 2024-06-30 08:39 | W.DCSUMMARY ---
Discharge Summary
Discharge Data
Date of Admission: 06/23/24
Date of Discharge: 06/30/24
-
Pending Results: No
Hospital Course
Patient 84 years old female history of CAD, hypertension, hyperlipidemia COPD, alpha-1 antitrypsin deficiency, metastatic lung cancer came into the hospital with dyspnea and hypoxemia. Clinical picture concerning for pneumonia and COPD
exacerbation. She finished course of antibiotics in the hospital. She had a CTA negative for PE. Pulmonary consulted. She will continue with a tapering course of steroids as outpatient. Oncology was also consulted due to her underlying
malignancy with spinal cord compression and pathologic fractures status post palliative radiation to the spine. Oncology will continue to follow-up as outpatient. java project manager arranged outpatient trilogy and home oxygen. PT evaluated the patient
and recommended home health. Pulmonary and oncology cleared her for discharge. Patient will be discharged in relatively stable condition today.
Discharge duration: 35 minutes
Discharge Plan
-
Patient Disposition: Home with Home Care
Discharge Diagnosis/Procedures: Acute hypoxic respiratory failure. Pneumonia. Chronic obstructive pulmonary disease exacerbation. Chronic cervical fracture with spinal cord compression. Lung cancer, stage IV.
Diet: Low Cholesterol
Activity: As tolerated
Blood Work: Please PCP to order CBC, BMP within 1 week
Referrals:
Emiliano Iglesias DO [Active] - in two to four weeks
Juan Anaya MD [Family Provider] - in less than 1 week
Naveed Mcclain MD [Active] - in two to three weeks (Dr. Mcclain or [facility])
Prescriptions:
New
prednisone 10 mg Tablet
See Rx Instructions .ROUTE .COMPLEX Qty: 30 0RF
Rx Instructions:
Take By Mouth:
40 mg daily x3 days, 30 mg daily x3 days,
20 mg daily x3 days, 10 mg daily x3 days.
Continued
atorvastatin 40 MG tablet
40 mg PO QPM
aspirin 81 MG tablet,delayed release (/EC)
81 mg PO DAILY
pantoprazole 40 MG tablet,delayed release (DR/EC)
40 mg PO QPM
PreserVision AREDS 1 CAP capsule
1 cap PO DAILY
glucosamine sulfate 500 MG tablet
500 mg PO DAILY
nitroglycerin 0.4 MG tablet, sublingual
0.4 mg sublingual [id number] PRN (Reason: chest pain) Qty: 25 2RF
famotidine 20 MG tablet
20 mg PO DAILY PRN (Reason: GERD)
dextromethorphan-guaifenesin [Mucinex DM] 1 EACH tablet extended release 12 hr
1 ea PO BID PRN (Reason: Cough/congestion)
albuterol sulfate 1 PUFF HFA aerosol inhaler
2 puff inhalation R Q4HPRN PRN (Reason: sob/wheezing)
cholecalciferol (vitamin D3) 1,000 UNITS tablet
1,000 units PO DAILY
citalopram 40 mg tablet
40 mg PO DAILY
Patient Comments:
Dose confirmed with patient and outside list of Pharmacy
nifedipine 60 mg Tablet Extended Release
60 mg PO DAILY Qty: 30 1RF
furosemide 40 mg tablet
40 mg PO DAILY
montelukast 10 mg tablet
10 mg PO DAILY
potassium chloride 10 mEq tablet,ER particles/crystals
10 meq PO DAILY
Soothe Night Time Lubricant 80-20 % Ointment
1 applic BOTH EYES HS
Soothe Lubricant 0.6-0.6 % Dropperette
1 drp OPHTHALMIC (EYE) BID PRN (Reason: dry/irritated eyes)
Breztri Aerosphere 160-9-4.8 mcg/actuation Hfa Aerosol Inhaler
2 inh INHALATION R BID
fexofenadine 180 mg Tablet
180 mg PO DAILY
latanoprost 0.005 % drops
1 drp BOTH EYES HS
ipratropium-albuterol 0.5 mg-3 mg(2.5 mg base)/3 mL solution for nebulization
3 ml INHALATION R Q6 PRN (Reason: sob/wheezing)
lorazepam 0.5 mg Tablet
0.5 mg PO Q8H PRN (Reason: anxiety)
Patient Comments:
07/09/2023: last filled 03/18/23, 15 tabs for 5 days from [id number]
ascorbic acid (vitamin C) [Vitamin C] 500 mg Tablet
500 mg PO DAILY
clopidogrel 75 mg Tablet
75 mg PO DAILY 30 Days Qty: 30 0RF
mupirocin 2 % Ointment
1 applic intranasal BID 2 Days 0RF
Discontinued
prednisone 10 mg tablet
See Taper PO DIRECTED Qty: 90 0RF
Taper: Prednisone DC Starting at 40 mg daily
40 mg Daily for 5 Days and 0 Hour
30 mg Daily for 5 Days and 0 Hour
20 mg Daily for 5 Days and 0 Hour
10 mg Daily for 5 Days and 0 Hour
Discharge Orders:
Discharge Patient (As Directed); Ordered 06/30/24
Ordered By: Omi Tirado
Discharge Date and Time
Discharge Date/Time: 06/30/24 13:52
Print Language: WELSH
[2024-06-30] MEDS: MUCINEX 600 MG PO (08:45)
[2024-06-30] MEDS: CELEXA 40 MG PO (08:45)
[2024-06-30] MEDS: OMNICEF 300 MG PO (08:45)
[2024-06-30] MEDS: PROCARDIA XL (EXTENDED RELEASE) 30 MG PO (08:46)
[2024-06-30] MEDS: ASPIR LOW (ENTERIC COATED) 81 MG PO (08:46)
[2024-06-30] MEDS: DELTASONE 40 MG PO (08:46)
[2024-06-30] MEDS: CLARITIN 10 MG PO (08:46)
[2024-06-30] MEDS: PROCARDIA XL (EXTENDED RELEASE) 60 MG PO (08:46)
[2024-06-30] MEDS: SINGULAIR 10 MG PO (08:46)
[2024-06-30] MEDS: KCL 10 MEQ PO (08:47)
[2024-06-30] MEDS: LASIX 40 MG PO (08:47)
[2024-06-30] MEDS: TYLENOL 650 MG PO (08:51)
[2024-06-30] MEDS: ROBITUSSIN PO (08:52)
--- NOTE | 2024-06-30 09:25 | CM ---
entered order for discharge.
[facility].Spoke with Franchesca Bass pt to call [facility] [phone] at discharge so Trilogy and concentrator can be delivered to home today.
Pt s dgt Grazyna to drive her home today.
Pt on Oxygen 2 liters Pox 100%.
PLAN Home with [facility] with Trilogy and oxygen from [facility]
--- NOTE | 2024-06-30 09:47 | W.PN.ONC ---
Today's Communication / Plan
-
d/c planning
outpatient onc f/u (07/21) after PET/Ct
Impression
Impression
COPD exacerbation
PNA
stage IV lung cancer
spinal cord compression s/p XRT wtih Dr. Hagan (completed in early June
Plan
Plan
steroids per pulmonary
PET/CT in late June, and f/u with Dr. Iglesias 07/21/24
[facility] testing on 2019 lung tissue results pending
OP follow up with XRT as scheduled
d/c planning
will sign off, pls call with questions
Subjective/Objective
Subjective/Objective
feeling better, anticipated d/c home today
Vital Signs:
Vital Signs
Temp Pulse Resp BP Pulse Ox
98.5 F 71 20 179/97 100
06/30/24 07:55 06/30/24 07:55 06/30/24 07:55 06/30/24 07:55 06/30/24 07:55
Lab Results:
Laboratory Data
WBC 9.8 10^3/uL (4.8-10.8) 06/26/24 05:59
Hgb 11.1 g/dL (12.0-16.0) L 06/26/24 05:59
Plt Count 149 10^3/uL (130-400) 06/26/24 05:59
PT 13.6 Sec (11.4-14.6) 06/23/24 21:45
INR 1.01 06/23/24 21:45
eGFR > 60.00 06/26/24 05:59
--- NOTE | 2024-06-30 10:03 | W.PN.PUL.V3 ---
Today's Communication / Plan
-
.
Resume outpatient Breztri OR DuoNeb/budesonide nebulizers.
Reviewed discharge medications with her and nursing.
Stable for proposed discharge.
Outpatient pulmonary follow-up
Assessment
-
Patient is a 84-year-old female with past medical history significant for CAD s/p stent, hypertension, hyperlipidemia, alpha 1 antitrypsin deficiency/COPD, metastatic lung cancer noted to have new hypoxemia, acute on chronic WATSON, chronic cough. In
ER, she was afebrile, blood pressure was 180/80 with a pulse of 80. Respiratory rate notably 30s. Oxygen saturation was 95% on 2 L. CBC was unremarkable with a white count of 10 hemoglobin 11.7 and platelet 172, electrolytes BUN/creatinine were
all normal. Chest x-ray shows opacity in the left upper lobe which is slightly increased from her prior x-ray concerning for possible pneumonia. We are consulted for evaluation.
New hypoxemic resp failure, acute
Acute on chronic SOB
AECOPD
Lethargy
Noncompliance
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
COVID/Flu A Hosp 2021
CAD s/p stents
COPD, on albuterol HFA/nebs and breztri bid. Not on home O2
Heterozygous alpha 1-antitrypsin deficiency
Follows Dr Mcclain
LLL adenocarcinoma, CT guided biopsy 09-16-18, s/p XRT only (6 wks course at [facility])
-not candidate for surgery due to functional status, did not receive chemo, continues routine follow up, told lung cancer in remission after treatment
GERD
HTN
HLD
Hyperthyroidism
Anxiety
Depression
TIA
LILLIAN/CSA on BPAP 02/26-noncompliant
RUE DVT due to PICC line
Small bowel obstruction 2004, total colectomy, ileostomy with reversal
Former smoker: 1 ppd for 40 y, quit 20 y ago
Current mild episode of major depressive disorder
Hyperparathyroidism
Obesity, Body mass index [BMI] 37.0-37.9, adult
Plan
Respiratory decompensation due to pneumonia and COPD improving.
Supplemental oxygen as needed-attempt to wean to room air.
Check rest and exercise oximetry prior to discharge-told patient she might require temporary outpatient supplemental oxygen.
Prednisone taper continues.
Mucinex.
Inhalers.
Nebulizers.
Outpatient Breztri or DuoNeb/budesonide nebulizers. I explained to the patient-one or the other
Aspiration precautions.
BiPAP as tolerated-has LILLIAN as an outpatient-has been noncompliant-she reports that she would rather not use CPAP or BiPAP
Cultures reviewed.
Legionella and streptococcal urine antigen negative.
MRSA screen negative.
Influenza 06/23/24 negative.
Influenza 04/25/24-positive.
Sputum culture. 06/25/24-2 WBCs, mixed organisms.
Empiric antibiotics-Omnicef and azithromycin-finite course
Pro-calcitonin negative
DVT prophylaxis-on Lovenox.
Nutrition
Early mobilization.
Stable from a pulmonary perspective for proposed discharge
Will need outpatient pulmonary evaluation in our office for PFTs and 6MWT-follows with Dr. Mcclain
Diagnostic Data
CT chest 06/24/24- No CTA evidence for an acute pulmonary thromboembolism. Nodular opacities in the inferior left lower lobe most in keeping with the patient's known lung cancer. Bandlike triangular opacity in the infrahilar left lower lobe may
represent posttreatment related changes/scarring versus an additional site of disease. Trace left pleural effusion. Chronic obstructive pulmonary disease.
Chest CTA 12-16: Lungs: There is ill-defined parenchymal opacity in the infrahilar left lower lobe measuring approximately 3.0 x 1.8 cm at the site of the patient's treated pulmonary neoplasm. There is contiguous linear scarring and nodularity at
the anterior aspect of the inferior left lower lobe. The overall appearance of the left lower lobe findings are unchanged compared to the prior chest CT. A few small sub-4 mm pulmonary nodules in the right lung are stable. There is no new or
enlarging pulmonary mass or nodule. Moderate centrilobular emphysema is identified with a biapical predominance. There is no pleural effusion or pneumothorax. The trachea and central airways are patent.
Upper abdomen: Small sliding hiatal hernia. IMPRESSION: No CTA evidence for an acute pulmonary thromboembolism. Stable appearance of nodular opacities in the left lower lobe related to the patient's treated pulmonary neoplasm.
PET CT 03-02-19 FINDINGS:
Head and Neck: There is no FDG avid adenopathy.
Chest: There is no FDG avid adenopathy. Right hilar lymph node SUV max 2.2, previous 2.1.
Previously described 2 cm spiculated mass in the left lower lobe posteriorly has decreased in size and now measures 1.4 cm. Decreased FDG avidity, SUV max 1.8, previous 3.7.
Small focus of soft tissue nodularity in the lateral left lung base on image 70, SUV max 1.4, previous 1.0. Nonspecific. Likely represents atelectasis or scarring.
Abdomen and pelvis: No FDG avid adenopathy. There is physiologic uptake in the GI and tract.
Musculoskeletal: No abnormal FDG avid osseous uptake. Minimal increased uptake in the soft tissues along the posterior lateral left hemithorax at the inferior aspect of the left scapula. This appears to be musculoskeletal rather than metastatic.
ECHO 10/03/23- Normal left ventricular size and systolic function. LV ejection fraction is 65-70% . Mild aortic stenosis. Mild aortic regurgitation. Compared to prior study the findings are similar. transaortic gradients are mildly higher.
TTE - CONCLUSIONS: Technically difficult study - Definity should be considered for future studies. Normal biventricular size and systolic function without regional wall motion abnormality. Stage I diastolic dysfunction suggestive of abnormal
relaxation.
Mild aortic stenosis. Mild aortic regurgitation. Mild mitral stenosis. Compared to previous echo 01/13/2019, there is now mild aortic and mitral stenosis. Otherwise the findings are similar.
[place] 05/18/2024: FVC 1.43/76%, FEV1 0.86/62%, ratio 60%, no significant BD response. Moderate obstruction.
Spirometry 08/07/23-FEV1 790 mL-57%, FVC 1.38-73%, no significant BD response. Moderate obstruction.
PFT 10/29/22-FEV1 1.04-72%
Subjective Data
-
Date of Service:
Date of Service: June 30, 2024
Chief Complaint: Pulmonary Follow Up and Dyspnea Follow Up
Subjective:
Feels better, less short of breath, still needs oxygen, desaturates with ambulation, chest pain, chest congestion, productive cough, or abdominal pain
Review of Systems
General: Other ( per HPI)
Objective Data
Data Reviewed
Vital Signs / I&O:
Vital Signs
Temp Pulse Resp BP Pulse Ox
98.5 F 71 20 179/97 100
06/30/24 07:55 06/30/24 07:55 06/30/24 07:55 06/30/24 07:55 06/30/24 07:55
Intake and Output
06/29/24 06/30/24 07/01/24
06:59 06:59 06:59
Intake Total 970 / 970 1080 / 1080
Balance 970 / 970 1080 / 1080
SaO2: 100
Nasal Cannula flow liters per minute: 2
Physical Exam
General: Respiratory Distress (n), Comfortable and Other (NAD)
HEENT: Normocephalic, Anicteric and Moist Mucous Membranes
Cardiovascular: Regular Rhythm
Respiratory: Clear (poor air movement), Wheeze (quiet improved ), Non-Labored Respirations, Accessory Resp Muscle Use (n) and Stridor (n)
GI: Soft, Non Distended and Non Tender
Neurology: Awake, Alert and No Motor Deficits
Skin: Warm, Dry and Good Color
Labs/Micro/Reports
Lab Data
06/26/24 05:59
06/26/24 05:59
[2024-06-30 13:20] VITALS: BP 145/74
--- NOTE | 2024-07-01 10:29 | PN.CDI ---
CDI
- -
CDI:
Physician Documentation Request
Admit Date: 06/23/24 21:26
Dear Doctor Candida,
Patient admitted for COPD exacerbation.
06/23 PCN: 'Pt AAOx3, arrived on 4LO2 O2 sat 96%.'
06/25 PCN: 'Patient continues on oxygen 4 liters. Continue Nebs, IV anbx.'
06/29 Pulmonary PN: 'New hypoxemic resp failure, acute. Acute on chronic SOB. AECOPD. Lethargy'
06/30 Hospitalist PN: 'Acute hypoxic respiratory insufficiency 2/2 pneumonia and COPD exacerbation'
Please clarify the patients respiratory status:
Acute hypoxic respiratory failure
Acute hypoxic respiratory insufficiency
Other
Use of terms such as suspected, likely, concern for, or probable (associated with a specific diagnosis that is being evaluated, monitored, or treated as if it exists) are acceptable and can be coded in the inpatient setting, when documented at the
time of discharge.
Thank you,
Shyann Alex RN, BSN
CDI Specialist
Available via [place] text
Please use your independent medical judgment in providing your response.
== END 2024-06-30 13:52 | disposition home health service (06) | DRG 193 ==
LOC: 4 EAST ACU 21:26
PROVIDERS: Emergency Medicine; Internal Medicine; Physician Assistant; ADMITTING PHYSICIAN Internal Medicine; ATTENDING PHYSICIAN Hospitalist; EMERGENCY PHYSICIAN Emergency Medicine; FAMILY PHYSICIAN Family Medicine; OTHER PHYSICIAN Internal Medicine; OTHER PHYSICIAN Internal Medicine Hematology & Oncology
PROC: 5A09357 Assistance with Respiratory Ventilation, Less than 24 Consecutive Hours, Continuous Positive Airway Pressure (ICD-10-PCS; 2024-06-28)
DX: J18.9 Pneumonia, unspecified organism (principal); J96.01 Acute respiratory failure with hypoxia; J44.1 Chronic obstructive pulmonary disease with (acute) exacerbation; G95.20 Unspecified cord compression; C79.51 Secondary malignant neoplasm of bone; C34.32 Malignant neoplasm of lower lobe, left bronchus or lung; F32.0 Major depressive disorder, single episode, mild; J98.11 Atelectasis; D84.9 Immunodeficiency, unspecified; E03.9 Hypothyroidism, unspecified; F41.9 Anxiety disorder, unspecified; I25.10 Atherosclerotic heart disease of native coronary artery without angina pectoris; E78.00 Pure hypercholesterolemia, unspecified; Z86.73 Personal history of transient ischemic attack (TIA), and cerebral infarction without residual deficits; G43.909 Migraine, unspecified, not intractable, without status migrainosus; Z86.718 Personal history of other venous thrombosis and embolism; D64.9 Anemia, unspecified; D63.0 Anemia in neoplastic disease; I10 Essential (primary) hypertension; Z66 Do not resuscitate; I27.20 Pulmonary hypertension, unspecified; E88.01 Alpha-1-antitrypsin deficiency; Z95.5 Presence of coronary angioplasty implant and graft; K21.9 Gastro-esophageal reflux disease without esophagitis; I71.40 Abdominal aortic aneurysm, without rupture, unspecified; Z87.19 Personal history of other diseases of the digestive system; Z90.49 Acquired absence of other specified parts of digestive tract; Z96.651 Presence of right artificial knee joint; Z87.891 Personal history of nicotine dependence; Z88.5 Allergy status to narcotic agent; Z88.1 Allergy status to other antibiotic agents; Z79.82 Long term (current) use of aspirin; Z79.02 Long term (current) use of antithrombotics/antiplatelets; Z92.3 Personal history of irradiation; Z79.899 Other long term (current) drug therapy; E05.90 Thyrotoxicosis, unspecified without thyrotoxic crisis or storm; G47.33 Obstructive sleep apnea (adult) (pediatric); E21.3 Hyperparathyroidism, unspecified; E66.9 Obesity, unspecified; Z68.37 Body mass index [BMI] 37.0-37.9, adult; Z86.0100 Personal history of colon polyps, unspecified; Z11.52 Encounter for screening for COVID-19
CPT/HCPCS: 71046; 71275; 72220; 80048; 80053; 82805; 83880; 84145; 85025; 85027; 85379; 85610; 87070; 87205; 87449; 87502; 87811; 87899; 93005; 93306; 93970; 94060; 94640; 94660; 96365; 96375; 97116; 97163; 97530; 99285; Q9967

== ENCOUNTER → 2024-07-06 16:00 | Outpatient (REF) | payer MEDICARE, SELFPAY ==
[2024-07-06 17:25] LABS: Blood Urea Nitrogen 26 mg/dl (7-17); Calcium 10.2 mg/dl (8.4-10.2); Carbon Dioxide 27 mmol/L (22-30); Chloride 101 mmol/L (98-107); Glucose 145 mg/dl (70-99); Potassium 4.5 mmol/L (3.5-5.1); Sodium 134 mmol/L (135-145); eGFR > 60.00
[2024-07-06 17:46] LABS: Hematocrit 37.7 % (37.0-47.0); Hemoglobin 12.2 g/dL (12.0-16.0); Mean Corp Hgb Conc. 32.4 g/dL (33.0-37.0); Mean Corpuscular Hgb 29.2 pg (27.0-31.0); Mean Corpuscular Volume 90.2 fL (81.0-99.0); Mean Platelet Volume 10.8 fL (7.4-10.4); Platelet Count 192 10^3/uL (130-400); Red Blood Cell Count 4.18 10^6/uL (4.20-5.40); Red Cell Dist. Width 15.2 % (11.5-14.5); White Blood Cell Count 18.9 10^3/uL (4.8-10.8)
== END ==
LOC: CLAB 16:00
PROVIDERS: ATTENDING PHYSICIAN Family Medicine
DX: J96.01 Acute respiratory failure with hypoxia (principal); J44.1 Chronic obstructive pulmonary disease with (acute) exacerbation; J18.9 Pneumonia, unspecified organism
CPT/HCPCS: 36415; 80048; 85027

== ENCOUNTER → 2024-08-04 18:51 | Outpatient (REF) | payer MEDICARE, SELFPAY | LOC: MRI 18:51 | PROVIDERS: ATTENDING PHYSICIAN Internal Medicine Hematology & Oncology | DX: C34.12 Malignant neoplasm of upper lobe, left bronchus or lung (principal) | CPT/HCPCS: 72156; A9575 ==

== ENCOUNTER → 2024-09-02 13:03 | Outpatient (REF) | payer MEDICARE, SELFPAY | LOC: RAD 13:03 | PROVIDERS: ATTENDING PHYSICIAN Nurse Practitioner Family; FAMILY PHYSICIAN Family Medicine | DX: M48.50XA Collapsed vertebra, not elsewhere classified, site unspecified, initial encounter for fracture (principal) | CPT/HCPCS: 72040 ==

== ENCOUNTER → 2024-09-16 16:44 | Outpatient (REF) | payer MEDICARE, SELFPAY ==
[2024-09-16 17:28] LABS: ALT (SGPT) 15 U/L (0-35); AST (SGOT) 19 U/L (14-36); Albumin 4.5 g/dl (3.5-5.0); Alkaline Phosphatase 320 U/L (38-126); Blood Urea Nitrogen 20 mg/dl (7-17); Calcium 10.5 mg/dl (8.4-10.2); Carbon Dioxide 27 mmol/L (22-30); Chloride 103 mmol/L (98-107); Glucose 110 mg/dl (70-99); Potassium 4.6 mmol/L (3.5-5.1); Sodium 135 mmol/L (135-145); Total Bilirubin 0.8 mg/dl (0.2-1.3); Total Protein 7.2 g/dl (6.3-8.2); eGFR > 60.00
[2024-09-16 19:03] LABS: % Basophils 0.9 % (0-2); % Eosinophils 0.9 % (0-6); % Lymphocytes 8.1 % (20.5-51.1); % Neutrophils 85.1 % (42.2-75.2); Absolute Basophils 0.1 10^3/uL (0-0.2); Absolute Eosinophils 0.1 10^3/uL (0-0.7); Absolute Immature Granulocytes 0.1 10^3/uL (0-0.05); Absolute Monocytes 0.5 10^3/uL (0.1-0.6); Absolute Neutrophils 10.8 10^3/uL (1.4-6.5); Hematocrit 38.5 % (37.0-47.0); Hemoglobin 12.8 g/dL (12.0-16.0); Mean Corp Hgb Conc. 33.2 g/dL (33.0-37.0); Mean Corpuscular Hgb 29.2 pg (27.0-31.0); Mean Corpuscular Volume 87.9 fL (81.0-99.0); Mean Platelet Volume 10.8 fL (7.4-10.4); Nucleated Red Blood Cells % 0 %; Platelet Count 234 10^3/uL (130-400); Red Blood Cell Count 4.38 10^6/uL (4.20-5.40); Red Cell Dist. Width 14.3 % (11.5-14.5); White Blood Cell Count 12.6 10^3/uL (4.8-10.8)
== END ==
LOC: HWRAD 16:44
PROVIDERS: ATTENDING PHYSICIAN Neurological Surgery; FAMILY PHYSICIAN Family Medicine; REFERRING PHYSICIAN Internal Medicine Hematology & Oncology
DX: M48.50XA Collapsed vertebra, not elsewhere classified, site unspecified, initial encounter for fracture (principal); C34.12 Malignant neoplasm of upper lobe, left bronchus or lung
CPT/HCPCS: 72125; 80053; 85025

== ENCOUNTER 2024-09-22 15:01 | Inpatient (IN) | payer MEDICARE, SELFPAY ==
[2024-09-21] VITALS (8 sets, daily range): BP systolic 124–177; BP diastolic 54–103; BMI 37.6; BMI 37.5
[2024-09-21 12:06] LABS: % Basophils 0.6 % (0-2); % Eosinophils 2.1 % (0-6); % Immature Granulocytes 0.6 % (0-0.5); % Lymphocytes 15.4 % (20.5-51.1); % Monocytes 8.5 % (1.7-9.3); % Neutrophils 72.8 % (42.2-75.2); Absolute Basophils 0.1 10^3/uL (0-0.2); Absolute Eosinophils 0.2 10^3/uL (0-0.7); Absolute Immature Granulocytes 0.1 10^3/uL (0-0.05); Absolute Lymphocytes 1.5 10^3/uL (1.2-3.4); Absolute Monocytes 0.8 10^3/uL (0.1-0.6); Absolute Neutrophils 6.9 10^3/uL (1.4-6.5); Hematocrit 34.9 % (37.0-47.0); Hemoglobin 11.2 g/dL (12.0-16.0); Mean Corp Hgb Conc. 32.1 g/dL (33.0-37.0); Mean Corpuscular Hgb 29.2 pg (27.0-31.0); Mean Corpuscular Volume 91.1 fL (81.0-99.0); Mean Platelet Volume 9.9 fL (7.4-10.4); Nucleated Red Blood Cells % 0 %; Platelet Count 216 10^3/uL (130-400); Red Blood Cell Count 3.83 10^6/uL (4.20-5.40); Red Cell Dist. Width 14.6 % (11.5-14.5); White Blood Cell Count 9.5 10^3/uL (4.8-10.8)
[2024-09-21] MEDS: VENTOLIN NEBULES 2.5 MG INH (12:17)
[2024-09-21] MEDS: DILAUDID 1 MG IV ×2 (12:17→14:15)
[2024-09-21 12:41] LABS: COVID-19 Antigen Negative (Negative)
[2024-09-21 12:58] LABS: ALT (SGPT) 14 U/L (0-35); AST (SGOT) 23 U/L (14-36); Albumin 3.9 g/dl (3.5-5.0); Alkaline Phosphatase 197 U/L (38-126); Blood Urea Nitrogen 21 mg/dl (7-17); Calcium 10.2 mg/dl (8.4-10.2); Carbon Dioxide 31 mmol/L (22-30); Chloride 106 mmol/L (98-107); Estimated Creatinine Clearance 50 ml/min; Glucose 121 mg/dl (70-99); Potassium 4.2 mmol/L (3.5-5.1); Sodium 140 mmol/L (135-145); Total Protein 6.4 g/dl (6.3-8.2); eGFR > 60.00
--- NOTE | 2024-09-21 14:22 | ED.GENMED ---
History of Present Illness
General
Chief Complaint: Cancer Problem
Source: patient
Exam Limitations: none
Time Seen by Provider: 09/21/24 11:48
History of Present Illness
History of Present Illness:
Patient with history of metastatic lung cancer, currently oxygen dependent at home, presents to ED secondary to persistent intermittent cough, along with increased shortness of breath over the past 2 days. Denies fever or chills. Denies nausea,
vomiting, or diarrhea. Denies chest pain. Denies abdominal pain. Denies loss of sensation or weakness. Denies urinary or bowel incontinence. Denies headache. Denies neck pain. Patient also reports continual back pain, despite taking Dilaudid
at home. Patient states that her back pain is not any different than what she experiences daily.
Past History
Past History
ED Past Medical History: Asthma, CAD, Cancer (Lung CA), COPD, GERD, HTN, Hypercholesterolemia, Hyperthyroidism, Hypothyroidism, Psychiatric (Anxiety, depression), Other (TIA, Migraines, Sleep apnea, DVT, Hemorrhoids, Hiatal hernia, C-diff, Ovarian
cyst, Renal calculus, UTI, Overactive Parathyroid, Anemia, Fibrosis, AAA) and Other (Small bowel obstruction 2004, total colectomy for polyps, ileostomy with reversal)
ED Past Surgical History: Bowel resection (Total proctocolectomy with Ileostomy and then reversal), Cardiac (Catheterization, Stent), Gynecological (Tubal), Orthopedic (Right hand tendon repair, Right knee replacement) and Other (Hernia, Cataracts,
Right vein stripping)
Social History
Tobacco: Former smoker
Alcohol: None
Drug: None
Personal:
Living: alone
Employment: Retired
Family History
Family History: CAD
Review of Systems
Review of Systems
Allergies reviewed?: Yes
All Other Systems: ROS reviewed and negative except as documented in HPI and ROS
Constitutional: Reports no symptoms; Denies fever or chills
Respiratory: Reports cough and trouble breathing
Cardiac: Reports no symptoms
ABD/GI: Reports no symptoms; Denies vomiting or diarrhea
Musculoskeletal: Reports back pain; Denies neck pain
Skin: Reports no symptoms
Neurological: Reports no symptoms; Denies headache or weakness
Phy Exam
Physical Exam
Physical Exam:
Physical Exam
General: mild respiratory distress. afebrile. weak appearing
Head: nc/at. eomi
Neck: supple. no meningeal signs.
Heart: s1/s2 regular rate and rhythm
Lungs: mild respiratory distress. wheezing bilaterally
Abdomen: normal bowel sounds. not tender.
Neuro: alert and oriented x 3. no focal neurological deficits
Skin: no rash
Psychiatric: well kept. interactive and cooperative
Extremities: LE b/l, nonpitting edema. no calf tenderness.
Course
Orders/Labs/Results
Orders:
Orders
09/21/24 11:36
Electrocardiogram (*1) Urgent
Reason for Study: Shortness of Breath
EKG- Treatment ONCE
09/21/24 11:57
CMP [Comprehensive Metabolic Panel] Urgent
Complete Blood Count/With Diff Urgent
09/21/24 12:07
Albuterol Nebs [Ventolin Nebules] 2.5 mg INH R NOW STA
HYDROmorphone [Dilaudid] 1 mg IV NOW STA
CR Chest - 2 Views Urgent
Comment:
Reason For Exam: cough/sob
09/21/24 12:18
COVID-19 Antigen Urgent
Source: Nasal Swab
09/21/24 14:07
HYDROmorphone [Dilaudid] 1 mg IV NOW STA
09/21/24 14:30
Dexamethasone Sod Phosphate [Decadron] 6 mg IV NOW STA
09/21/24 Dinner
Regular
At Your Request: Full Participation
09/21/24 16:20
Admit/Transfer Patient As Directed
Co-Sign Provider:
Level of Care: Observation services
Assign to:: Medical/Surgical
Physician / Group: Garcia Hart
Diagnosis: intractable back pain, shingles
09/21/24 16:21
PRN Pain Medication Management As Directed
May give lesser potent ordered pain med per pt: Yes
preference::
Protocol:: Medication orders for pain may be administered in a
manner that supports deferring to patient preference
when the pt is:
- Requesting an ordered lesser potent pain medication.
Least to most potent pain medications are defined
as: acetaminophen < NSAID < tramadol < opioids
(morphine, oxycodone, hydromorphone).
- Requesting a lesser dose of the same medication IF
ORDERED.
- Requesting a less intrusive route of administration
if both routes are prescribed by the provider (PO <
IV).
09/21/24 16:23
Code Status As Directed
Resuscitation Status: Do not resuscitate
Reached after discussion with pt or family/Healthcare POA: Yes
Decision communicated with: patient
DNR Bracelet Application ONCE
09/21/24 19:40
Albuterol [ProAIR HFA INHALER] 2 puff INH R Q4HPRN PRN sob/wheezing
Atorvastatin [Lipitor] 40 mg PO QPM
Enoxaparin Sodium [Lovenox] 40 mg SC QPM
Ipratropium/Albuterol Sulfate [Duoneb] 3 ml INH R Q6HPRN PRN sob/wheezing
Ondansetron HCl [Zofran] 4 mg PO Q6HPRN PRN nausea
Pantoprazole [Protonix] 40 mg PO QPM
09/21/24 19:40
Activity As Directed
Activity Level: As Tolerated
Vital Signs As Directed
Frequency: Per unit guidelines
Weight As Directed
Frequency: Once
Comment: on admission
Bipap [RESP] Routine
Patient to use own unit?: No
Inspiratory Pressure (cm H2O): 11
Expiratory Pressure (cm H2O): 7
Oxygen Liter Flow: 2
Instructions: titrate settings as needed
HS and PRN
O2 Therapy [RESP] Routine
Nasal Cannula Liter Flow: 2 LPM
Titrate/Wean O2 to maintain O2 sat greater than (%): 93
DX Deep Vein Thrombosis Video Routine
09/21/24 20:00
Acetaminophen [Tylenol] 1,000 mg PO Q6H
Budesonide/Formoterol 160/4.5 [Symbicort 160/4.5 Mcg Inhaler] 2 puff INH R BID
HYDROmorphone [Dilaudid] 4 mg PO Q4H
09/21/24 22:00
Gabapentin [Neurontin] 300 mg PO TID
Latanoprost [Xalatan Ophthalmic Solution] See Dose Instructions BOTH EYES HS
09/21/24 23:00
Dexamethasone Sod Phosphate [Decadron] 4 mg IV Q8H
09/22/24 08:00
Aspirin Low Dose EC [Aspir Low (Enteric Coated)] 81 mg PO DAILY
Citalopram [Celexa] 40 mg PO DAILY
Famotidine [Pepcid] 20 mg PO DAILY
Furosemide [Lasix] 40 mg PO DAILY
Lisinopril [Zestril] 5 mg PO DAILY
Loperamide [Imodium] 2 mg PO DAILY
Loratadine [Claritin] 10 mg PO DAILY
Montelukast Sodium [Singulair] 10 mg PO DAILY
Multivitamin [Theragran] 1 tablet PO DAILY
NIFEdipine EXTENDED RELEASE [Procardia Xl (Extended Release)] 60 mg PO DAILY
Potassium Chloride [KCl] 10 meq PO DAILY
Vit C/Vit E/Lutein/Min/[place]-3 [Ocuvite Softgel] 1 cap PO DAILY
glucosamine sulfate 500 mg PO DAILY
Abnormal Lab Results
09/21/24
11:57
RBC 3.83 L 10^6/uL
(4.20-5.40)
Hgb 11.2 L g/dL
(12.0-16.0)
Hct 34.9 L %
(37.0-47.0)
MCHC 32.1 L g/dL
(33.0-37.0)
RDW 14.6 H %
(11.5-14.5)
Abs Immat Gran (auto) 0.1 H 10^3/uL
(0-0.05)
Absolute Neuts (auto) 6.9 H 10^3/uL
(1.4-6.5)
Absolute Monos (auto) 0.8 H 10^3/uL
(0.1-0.6)
Immature Gran % 0.6 H %
(0-0.5)
Lymphocytes % 15.4 L %
(20.5-51.1)
Carbon Dioxide 31 H mmol/L
(22-30)
BUN 21 H mg/dl
(7-17)
Glucose 121 H mg/dl
(70-99)
Alkaline Phosphatase 197 H U/L
(38-126)
09/21/24 11:57
09/21/24 11:57
Vital Signs
Initial and Last Documented VS:
Initial Vital Signs
Temp Pulse Resp BP Pulse Ox
98.4 F 78 26 124/54 93
09/21/24 11:36 09/21/24 11:36 09/21/24 11:36 09/21/24 11:36 09/21/24 11:36
Last Documented Vital Signs
Temp Pulse Resp BP Pulse Ox
98.1 F 92 16 136/56 95
09/22/24 07:01 09/22/24 08:54 09/22/24 08:54 09/22/24 07:01 09/22/24 08:54
MDM/Problems Addressed
MDM/Problems Addressed:
History and exam consistent with likely increased work of breathing, secondary to exacerbation of underlying COPD, as well as lung cancer. Chest x-ray preliminarily does not reveal any acute focal infiltrate. Patient also required multiple doses
of Dilaudid for chronic back pain. As such, patient will be admitted for further events or treatment, including better pain control along with continued treatment via nebulizer treatment as well as IV steroids.
*Critical Care Note
Total Time (30-74mins, 75-104mins- exclusive of procedures): Not Applicable
ED Attending Note
-
Portions of this chart may have been created with voice recognition software.� Occasional wrong word or��sound alike� substitutions may have occurred due to the inherent limitations of voice recognition software.
Discharge Plan
Departure
Patient Disposition: Admit
Date of Disposition: 09/21/24
Time of Disposition: 14:32
Presentation/result/management discussed w/ accepting MD/DO: Hospitalist
Discharge Problem:
COPD exacerbation, Intractable low back pain
Interventions
Interventions:
*Risk Screen - Suicide Last Done: 09/21/24 11:42
*Neglect/Abuse Screening Last Done: 09/21/24 11:42
*ED- Fall Risk Assessment Last Done: 09/21/24 11:42
*ED COVID-19 Vaccine History Last Done: 09/21/24 11:42
*Nursing Disposition Last Done: 09/21/24 19:48
ED- Cardiac Assessment Last Done: 09/21/24 11:43
ED- Pulmonary Assessment Last Done: 09/21/24 11:44
Discharge Date and Time
Discharge Date/Time: 09/21/24 19:49
[2024-09-21] MEDS: DECADRON 6 MG IV (14:40)
--- NOTE | 2024-09-21 15:34 | HPS.HSE ---
Family Physician
-
Family Physician: Juan Anaya
Chief Complaint
-
intractable back pain
History of Present Illness
Patient is a 84-year old female with past medical history significant for asthma, CAD, Hx metastatic Lung cancer, COPD, GERD, hypertension, hypercholesterolemia, hypothyroidism, depression/anxiety and sleep apnea not on CPAP who presented to [facility] ED
for evaluation of intractable back pain. Patient reports that approximately 1 week ago she was diagnosed with active shingles at primary care provider, started on Valacyclovir and was unable to tolerate it, she reports becoming severely nauseous and
called and her primary care instructed her she could stop taking it. She states she is unsure if pain is from pathologic fracture and metastatic disease or from the shingles. She reports that she hydromorphone at home and was ineffective in giving
any relief. Patient denies any fever, chills, cough, shortness of breath, increased oxygen demand, chest pain, nausea, vomiting, constipation, diarrhea or urinary symptoms.
Medical History
Past Medical History
Past Medical History: Reports Other
Additional Past Medical History:
asthma
CAD
Hx metastatic Lung cancer
COPD
GERD
hypertension
hypercholesterolemia
hypothyroidism
depression/anxiety
Sleep apnea not on CPAP
History of DVT
History of TIA
Migraines
AAA
Past Surgical History: Reports Other
Additional Past Surgical History:
Small bowel obstruction status post total colectomy, ileostomy with reversal
Partial small bowel obstruction
Intestinal adhesions
Right total knee arthroplasty
cardiac catheterization with stent
tubal ligation
hernia repair
cataract extraction
Social History
Tobacco: Non-smoker
Alcohol: None
Drug: None
Personal: Single
Living: Alone
Employment: Retired
Family History
Family History: Not pertinent
Allergies / Home Medications
Allergies reflects when Allergies were last updated in [facility].
Home Medications with original date entered in [facility]
Allergy/Medication List:
Allergies
Allergy/AdvReac Type Severity Reaction Status Date / Time
codeine Allergy NAUSEA Verified 06/23/24 15:37
doxycycline Allergy HEART Verified 06/23/24 15:37
PALPITATIONS
meperidine HCl (From Demerol) Allergy Nausea/ligh Verified 06/23/24 15:37
theaded
morphine Allergy Nausea Verified 06/23/24 15:37
norepinephrine Allergy rash to Verified 06/23/24 15:37
ethylnorepinephrine
oxycodone Allergy SEVERE Verified 06/23/24 15:37
NAUSEA
pentazocine Allergy TALWIN-N/V Verified 06/23/24 22:51
pentazocine lactate (From Allergy Nausea Verified 06/23/24 15:37
Talwin)
piperacillin (From Zosyn) Allergy Anaphylaxis Verified 06/23/24 22:51
tazobactam (From Zosyn) Allergy Anaphylaxis Verified 06/23/24 22:51
Tetracyclines Allergy very Verified 06/23/24 15:37
disoriented
iv contrast Allergy Severe Shortness Uncoded 06/24/24 03:58
of Breath
Home Medications
aspirin 81 mg tablet,delayed release 81 mg PO DAILY Blood clot prevention/tx 07/22/17
atorvastatin 40 mg tablet 40 mg PO QPM High cholesterol 07/22/17
pantoprazole 40 mg tablet,delayed release 40 mg PO QPM Gastrointestinal issue 07/22/17
glucosamine sulfate 500 mg tablet 500 mg PO DAILY Supplement 02/16/19
vitamins A,C,L-bvel-dlwuzq 4,296 mcg-226 mg-90 mg capsule (PreserVision AREDS) 1 cap PO DAILY Eye condition 02/16/19
albuterol sulfate 90 mcg/actuation aerosol inhaler (Ventolin HFA) 2 puff inhalation R Q4HPRN PRN sob/wheezing 07/13/21
famotidine 20 mg tablet 20 mg PO DAILY GERD 07/13/21
citalopram 40 mg tablet 40 mg PO DAILY Mental Health/Anxiety 04/07/22
nifedipine 60 mg tablet,extended release 60 mg PO DAILY #30 tabs 04/11/22
budesonide 160 mcg-glycopyr 9 mcg-formot 4.8 mcg/actuation HFA inhaler (Breztri Aerosphere) 2 inh inhalation R BID Lung/Breathing Issues 12/25/22
furosemide 40 mg tablet 40 mg PO DAILY Fluid Retention/Swelling 12/25/22
montelukast 10 mg tablet 10 mg PO DAILY Lung/Breathing Issues 12/25/22
potassium chloride 10 mEq tablet,extended release(part/cryst) 10 meq PO DAILY Electrolyte Repletion 12/25/22
fexofenadine 180 mg tablet 180 mg PO DAILY Allergies 07/09/23
ipratropium 0.5 mg-albuterol 3 mg (2.5 mg base)/3 mL nebulization soln 3 ml inhalation R Q6HPRN PRN sob/wheezing 07/09/23
latanoprost 0.005 % eye drops 1 drp BOTH EYES HS Eye Condition 07/09/23
acetaminophen 500 mg tablet (Tylenol Extra Strength) 1,000 mg PO Q6H 09/21/24
hydromorphone 4 mg tablet 4 mg PO Q4H 09/21/24
lisinopril 5 mg tablet 5 mg PO DAILY 09/21/24
loperamide 2 mg tablet 2 mg PO DAILY 09/21/24
ondansetron HCl 4 mg tablet 4 mg PO Q6HPRN PRN nausea 09/21/24
prednisone 5 mg tablet 5 mg PO DAILY 09/21/24
therapeutic multivitamin 1 tab PO DAILY 09/21/24
Review of Systems
-
History Source: Patient
Musculoskeletal: Reports Other (c-spine intractable pain )
Physical Exam
Vital Signs
Vital Signs
Temp Pulse Resp BP Pulse Ox
98.4 F 75 22 160/89 97
09/21/24 11:36 09/21/24 15:15 09/21/24 15:15 09/21/24 15:00 09/21/24 13:53
Physical Exam
General: Well Developed, Well Nourished, No Apparent Distress, Comfortable, Conversant and Morbidly Obese
HEENT: NormoCephalic, Moist mucous membranes, Atraumatic, [place] Conjunctivae, Nose Appears Normal and Ears Appear Normal
Respiratory: Clear, Non Labored Respirations and Decreased Breath Sounds
Cardiac: S1/S2 and Regular Rhythm
Breast: Deferred by me
GI: Soft, Non Tender, Non Distended and Normal Bowel Sounds; No Organomegaly
Rectal: Deferred by Provider
Genito-urinary: Deferred by me
Musculoskeletal: No Clubbing, No Cyanosis and No Edema
Skin: IV/Catheter Site and Other (crusted shingle lesions to cervical spine tracing around to right jaw line )
Neuro: Awake, Alert, AO x 3 and Nonfocal/grossly intact
Psych: Calm and Intact Judgment/Insight
Laboratory Results
-
09/21/24 11:57
09/21/24 11:57
Laboratory Results
Total Bilirubin 1.0 mg/dl (0.2-1.3) 09/21/24 11:57
AST 23 U/L (14-36) 09/21/24 11:57
ALT 14 U/L (0-35) 09/21/24 11:57
Alkaline Phosphatase 197 U/L (38-126) H 09/21/24 11:57
Data Reviewed
-
Diagnostic Radiology: Report Reviewed by me (CXR: Moderate cardiomegaly. No acute disease of the chest.)
Medical Tests (Nuc Med, Echo, EKG etc): Report Reviewed by me (EKG; NORMAL SINUS RHYTHM WITH SINUS ARRHYTHMIA LEFT AXIS DEVIATION RIGHT BUNDLE BRANCH BLOCK)
Lab Data: Labs Reviewed by me
Impression/Plan
-
IMPRESSION/PLAN:
#intractable back pain in c-spine area 2/2 pathological fracture site vs. shingles infection
- Admit to med/surg for observation
- start Gabapentin 300mg TID
- continue with home pain regimen
#COPD
#asthma
#Hx metastatic Lung cancer
CXR: Moderate cardiomegaly.
No acute disease of the chest.
EKG: NORMAL SINUS RHYTHM WITH SINUS ARRHYTHMIA
LEFT AXIS DEVIATION
RIGHT BUNDLE BRANCH BLOCK
- Decadron 4mg q8
- DuoNebs
- continue with oxygen 2 liters, PRN albuterol PRN, Breztri, montelukast and prednisone
#CAD
- continue aspirin, atorvastatin
#GERD
- continue famotidine and pantoprazole
#hypertension
- continue furosemide, lisinopril, nifedipine
#depression/anxiety
- continue citalopram
#Sleep apnea
BiPap at home, settings 02/26 with 2 liters oxygen
- continue BiPap qHS and PRN
#hypercholesterolemia
#hypothyroidism
Code status: DNR
DVT prophylaxis: Lovenox sq
--- NOTE | 2024-09-21 16:16 | W.PN.UPDATE ---
Update Note
Progress Note Update
I saw and examined the patient.
The DRYWALL APPLICATION SUPERVISOR or PA's note was reviewed and I agree with the note.
Comment: 84-year-old female with past medical history of Asthma, CAD, Cancer (Lung CA), COPD on home O2, GERD, HTN, Hypercholesterolemia, Hyperthyroidism, Hypothyroidism, anxiety came to the hospital with upper back pain. Patient had shingles a
week and a half ago and was prescribed Valtrex however patient developed nausea vomiting which limited her to take antiviral treatment. Per patient her pain did not improve which prompted her to come to the ED for evaluation. Pain appears to be
secondary to underlying cervical spinal fracture with known malignancy and shingles. Start gabapentin. Continue with p.o. hydromorphone with holding parameters if sedated. Start IV steroids for mild COPD exacerbation. Continue with home nebs.
BiPAP nightly as needed. DNR
I spent a total of 77 minutes with the patient or on the floor. More than 50% of this time involved counseling and coordination of care.
[2024-09-21] MEDS: DILAUDID 4 MG PO ×2 (18:41→23:21)
[2024-09-21] MEDS: SYMBICORT 160/4.5 MCG INHALER 2 PUFF INH (20:32)
--- NOTE | 2024-09-21 21:00 | PTCARENOTE ---
Received patient from ED at approx 1999. 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 AAA x3. Oriented to room. Call gamez in reach.
[2024-09-21] MEDS: LIPITOR 40 MG PO (21:01)
[2024-09-21] MEDS: PROTONIX 40 MG PO (21:01)
[2024-09-21] MEDS: NEURONTIN 300 MG PO (21:01)
[2024-09-21] MEDS: TYLENOL 1000 MG PO (21:01)
[2024-09-21] MEDS: LOVENOX 40 MG SC (21:02)
[2024-09-21] MEDS: XALATAN OPHTHALMIC SOLUTION 1 DROP BOTH EYES (21:03)
[2024-09-21] MEDS: DECADRON 4 MG IV (23:22)
[2024-09-22] MEDS: TYLENOL 1000 MG PO ×4 (02:58→21:53)
[2024-09-22] MEDS: DILAUDID 4 MG PO ×5 (03:00→19:58)
--- NOTE | 2024-09-22 05:16 | PTCARENOTE ---
Patient stated she wasn't able to wear BiPap HS due to it bothering the shingles on her face and scalp. Patient returned to wearing 2L O2 via nasal cannula.
[2024-09-22 07:01] VITALS: BP 136/56
[2024-09-22] MEDS: NEURONTIN 300 MG PO ×3 (07:42→21:53)
[2024-09-22] MEDS: LASIX 40 MG PO (07:43)
[2024-09-22] MEDS: CELEXA 40 MG PO (07:43)
[2024-09-22] MEDS: SINGULAIR 10 MG PO (07:43)
[2024-09-22] MEDS: ASPIR LOW (ENTERIC COATED) 81 MG PO (07:43)
[2024-09-22] MEDS: OCUVITE SOFTGEL 1 CAP PO (07:43)
[2024-09-22] MEDS: PEPCID 20 MG PO (07:43)
[2024-09-22] MEDS: CLARITIN 10 MG PO (07:43)
[2024-09-22] MEDS: ZESTRIL 5 MG PO (07:43)
[2024-09-22] MEDS: IMODIUM 2 MG PO (07:43)
[2024-09-22] MEDS: KCL 10 MEQ PO (07:44)
[2024-09-22] MEDS: PROCARDIA XL (EXTENDED RELEASE) 60 MG PO (07:44)
[2024-09-22] MEDS: THERAGRAN 1 TABLET PO (07:44)
[2024-09-22] MEDS: DECADRON 4 MG IV ×3 (07:44→22:28)
[2024-09-22] MEDS: SYMBICORT 160/4.5 MCG INHALER 2 PUFF INH ×2 (08:48→19:46)
[2024-09-22] MEDS: SPIRIVA RESPIMAT 2.5 MCG 2 PUFF INH (08:48)
--- NOTE | 2024-09-22 10:37 | PTOTSP ---
Dysphagia Eval
Patient is at an elevated risk for dysphagia given comorbidities (i.e., asthma, metastatic lung cancer with c-spine involvement s/p XRT, COPD, GERD, hx of b/l vocal fold lesions s/p removal). She is without current aspiraion complications (CXR w/o
PNA) but reported multiple PNAs in the past year and current sensation of 'choking' with meats.
Recommend:
1. IDDSI Level 7 Regular (pick soft/moist foods), thin liquids
2. Medications as best tolerated
3. Upright to 90 degrees, chew well, small single sips/bites, slow rate, reflux precautions
4. Video swallow study to objectively assess pharyngeal swallow
5. GI consult pending results of video swallow study
--- NOTE | 2024-09-22 12:56 | CM ---
CM reviewed chart, patient seen bedside, initial assessment completed. Patient resides in a ranch style home, independently, two steps to enter. Patient reports having a cane, walker, rollator, wheelchair, and transport chair at home, ambulates in
home with walker, has home O2 through [employer], 2L baseline. Patient reports she was supposed to start services with [facility], will confirm with liaison. Patient reports SNF history in past, [facility], reports she will never return to SNF. Patient PCP
Juan Anaya, pharmacy [facility], confirms prescription coverage. Patient denies insecurities at home. [facility] form reviewed, provided, placed in chart. CM will continue to follow for all discharge planning needs.
Plan; [facility], will confirm patient will be a [facility] patient
--- NOTE | 2024-09-22 13:49 | VNURNOTE ---
Home Health Liaison met with patient and daughter Grazyna at bedside to discuss [facility] nurse/therapy, visits, schedule and homebound status. Patient is agreeable and understands that visits at home will be 2-3 x per week to assess and teach medical
management. COLLECTIONS ASSISTANT patient was supposed to sign onto [facility], however, she declined first available visit and requested [facility] to wait a week. Patient ended up coming to . Reviewed with patient and daughter that [facility] would want to see her for start of
care within 1-2 days after DC from . [facility] would contact pt first. Daughter and patient are agreeable.
[facility] referral completed in [facility].
--- NOTE | 2024-09-22 14:33 | W.PN.HOSP.TC ---
Today's Communication/Plan
-
Monitor vital signs and see plan
Continue with steroids
Speech following
[facility] troponin
PT eval
Discussed with daughter over the phone
Assessment / Plan
Assessment / Plan
intractable back pain in c-spine area likely multifactorial 2/2 pathological fracture site and shingles infection
Patient was prescribed antiviral however she could not tolerate. Started more than a week ago. Started gabapentin, slowly improving
- Gabapentin 300mg TID
- continue with home pain regimen
#COPD
#asthma
#Hx metastatic Lung cancer
Suspect mild exacerbation of asthma/COPD
CXR: Moderate cardiomegaly.
No acute disease of the chest.
EKG: NORMAL SINUS RHYTHM WITH SINUS ARRHYTHMIA
LEFT AXIS DEVIATION
RIGHT BUNDLE BRANCH BLOCK
- Decadron 4mg q8
- DuoNebs
- continue with oxygen 2 liters, PRN albuterol PRN, Breztri, montelukast and prednisone
intermittent sensation of dysphagia
no overt sx per speech but recommend [facility]SE
#CAD
- continue aspirin, atorvastatin
#GERD
- continue famotidine and pantoprazole
#hypertension
- continue furosemide, lisinopril, nifedipine
#depression/anxiety
- continue citalopram
#Sleep apnea
BiPap at home, settings 02/26 with 2 liters oxygen
- continue BiPap qHS and PRN
#hypercholesterolemia
#hypothyroidism
Code status: DNR
DVT prophylaxis: Lovenox sq
General: Well Developed, Well Nourished, No Apparent Distress, Comfortable, Conversant and Morbidly Obese
HEENT: NormoCephalic, Moist mucous membranes, Atraumatic
Respiratory: Clear, Non Labored Respirations and Decreased Breath Sounds
Cardiac: S1/S2 and Regular Rhythm
GI: Soft, Non Tender, Non Distended and Normal Bowel Sounds
Musculoskeletal: No Edema
Skin: Other (crusted shingle lesions to cervical spine tracing around to right jaw line )
Neuro: Awake, Alert, AO x 3 and Nonfocal/grossly intact
Psych: Calm and Intact Judgment/Insight
Anticipated Discharge: Within 24 hours
Subjective/Interval History
-
Date of Service: September 22, 2024
feeling better
Objective Data
-
Vital Signs:
Vital Signs
Temp Pulse Resp BP Pulse Ox
98.1 F 92 16 136/56 95
09/22/24 07:01 09/22/24 08:54 09/22/24 08:54 09/22/24 07:01 09/22/24 08:54
I&O
09/21/24 09/22/24 09/23/24
06:59 06:59 06:59
Intake Total 480 / 480
Balance 480 / 480
[2024-09-22 15:09] LABS: % Basophils 0.1 % (0-2); % Immature Granulocytes 0.4 % (0-0.5); % Lymphocytes 7.1 % (20.5-51.1); % Monocytes 2.3 % (1.7-9.3); % Neutrophils 90.1 % (42.2-75.2); Absolute Lymphocytes 0.6 10^3/uL (1.2-3.4); Absolute Monocytes 0.2 10^3/uL (0.1-0.6); Absolute Neutrophils 7.5 10^3/uL (1.4-6.5); Hematocrit 33.8 % (37.0-47.0); Hemoglobin 11.3 g/dL (12.0-16.0); Mean Corp Hgb Conc. 33.4 g/dL (33.0-37.0); Mean Corpuscular Hgb 29.4 pg (27.0-31.0); Mean Platelet Volume 9.6 fL (7.4-10.4); Nucleated Red Blood Cells % 0 %; Platelet Count 235 10^3/uL (130-400); Red Blood Cell Count 3.84 10^6/uL (4.20-5.40); Red Cell Dist. Width 14.6 % (11.5-14.5); White Blood Cell Count 8.4 10^3/uL (4.8-10.8)
[2024-09-22 15:24] VITALS: BP 118/45
[2024-09-22 15:25] LABS: Blood Urea Nitrogen 24 mg/dl (7-17); Calcium 10.6 mg/dl (8.4-10.2); Carbon Dioxide 25 mmol/L (22-30); Chloride 105 mmol/L (98-107); Estimated Creatinine Clearance 45 ml/min; Glucose 171 mg/dl (70-99); Potassium 4.5 mmol/L (3.5-5.1); Sodium 137 mmol/L (135-145); eGFR > 60.00
[2024-09-22 17:02] VITALS: BP 139/76; BP 91/60; PULSE 85; O2SAT 94
[2024-09-22] MEDS: NSS 1000 IV (17:05)
[2024-09-22] MEDS: PROTONIX 40 MG PO (17:05)
[2024-09-22] MEDS: LOVENOX 40 MG SC (17:05)
[2024-09-22] MEDS: LIPITOR 40 MG PO (17:05)
[2024-09-22] MEDS: XALATAN OPHTHALMIC SOLUTION 1 DROP BOTH EYES (19:59)
[2024-09-22 20:02] VITALS: BP 137/62
[2024-09-22 23:03] VITALS: BP 130/49
[2024-09-23] MEDS: DILAUDID 4 MG PO ×4 (00:26→13:04)
[2024-09-23] MEDS: TYLENOL 1000 MG PO ×3 (03:03→13:49)
[2024-09-23 07:13] VITALS: BP 157/76
[2024-09-23 07:23] LABS: % Basophils 0.1 % (0-2); % Immature Granulocytes 0.8 % (0-0.5); % Monocytes 2.6 % (1.7-9.3); % Neutrophils 91.5 % (42.2-75.2); Absolute Immature Granulocytes 0.1 10^3/uL (0-0.05); Absolute Lymphocytes 0.6 10^3/uL (1.2-3.4); Absolute Monocytes 0.3 10^3/uL (0.1-0.6); Absolute Neutrophils 10.4 10^3/uL (1.4-6.5); Hematocrit 32.8 % (37.0-47.0); Hemoglobin 10.6 g/dL (12.0-16.0); Mean Corp Hgb Conc. 32.3 g/dL (33.0-37.0); Mean Corpuscular Volume 89.6 fL (81.0-99.0); Mean Platelet Volume 9.9 fL (7.4-10.4); Nucleated Red Blood Cells % 0 %; Platelet Count 192 10^3/uL (130-400); Red Blood Cell Count 3.66 10^6/uL (4.20-5.40); Red Cell Dist. Width 14.5 % (11.5-14.5); White Blood Cell Count 11.4 10^3/uL (4.8-10.8)
[2024-09-23 07:52] LABS: Blood Urea Nitrogen 26 mg/dl (7-17); Calcium 10.2 mg/dl (8.4-10.2); Carbon Dioxide 25 mmol/L (22-30); Chloride 106 mmol/L (98-107); Estimated Creatinine Clearance 58 ml/min; Glucose 171 mg/dl (70-99); Potassium 4.7 mmol/L (3.5-5.1); Sodium 136 mmol/L (135-145); eGFR > 60.00
[2024-09-23] MEDS: SPIRIVA RESPIMAT 2.5 MCG 2 PUFF INH (08:43)
[2024-09-23] MEDS: SYMBICORT 160/4.5 MCG INHALER 2 PUFF INH (08:43)
[2024-09-23] MEDS: CLARITIN 10 MG PO (09:30)
[2024-09-23] MEDS: OCUVITE SOFTGEL 1 CAP PO (09:30)
[2024-09-23] MEDS: ZESTRIL 5 MG PO (09:30)
[2024-09-23] MEDS: KCL 10 MEQ PO (09:31)
[2024-09-23] MEDS: PROCARDIA XL (EXTENDED RELEASE) 60 MG PO (09:31)
[2024-09-23] MEDS: NEURONTIN 300 MG PO (09:31)
[2024-09-23] MEDS: ASPIR LOW (ENTERIC COATED) 81 MG PO (09:31)
[2024-09-23] MEDS: CELEXA 40 MG PO (09:31)
[2024-09-23] MEDS: SINGULAIR 10 MG PO (09:31)
[2024-09-23] MEDS: LASIX 40 MG PO (09:31)
[2024-09-23] MEDS: DECADRON 4 MG IV (09:32)
[2024-09-23] MEDS: THERAGRAN 1 TABLET PO (09:32)
[2024-09-23] MEDS: PEPCID 20 MG PO (09:32)
[2024-09-23] MEDS: IMODIUM 2 MG PO (09:32)
--- NOTE | 2024-09-23 11:21 | PTOTSP ---
Videofluoroscopic swallow study
Oral/pharyngeal stages of swallowing grossly within functional limits. No aspiration occurred. Esophageal sweep with moderate retention that did not clear with a liquid wash. This is concerning for esophageal dysphagia. GI consult recommended.
Recommend:
1. IDDSI Level 7 Regular (pick soft/moist foods), thin liquids
2. Medications as best tolerated
3. Upright to 90 degrees, chew well, small single sips/bites, slow rate, reflux precautions
4. GI consult
5. No further dysphagia therapy warranted with an SENIOR MOBILE APPLICATION DEVELOPER. Will sign off.
--- NOTE | 2024-09-23 12:25 | W.PN.HOSP.TC ---
Addendum entered and electronically signed by Garcia Hart MD 09/23/24 12:56:
Time of discharge 38 minutes
Original Note:
Today's Communication/Plan
-
monitor vitals
see plan
feeling better
cw gabapentin
she follows up with pain management outpatient
Called daughter, left voicemail
Assessment / Plan
Assessment / Plan
intractable back pain in c-spine area likely multifactorial 2/2 pathological fracture site and shingles infection
Patient was prescribed antiviral however she could not tolerate. Started more than a week ago. Started gabapentin, slowly improving
- Gabapentin 300mg TID
- continue with home pain regimen
#COPD
#asthma
#Hx metastatic Lung cancer
Suspect mild exacerbation of asthma/COPD
CXR: Moderate cardiomegaly.
No acute disease of the chest.
EKG: NORMAL SINUS RHYTHM WITH SINUS ARRHYTHMIA
LEFT AXIS DEVIATION
RIGHT BUNDLE BRANCH BLOCK
- Switch Decadron to p.o. prednisone
- DuoNebs
- continue with oxygen 2 liters, PRN albuterol PRN, Breztri, montelukast and prednisone
intermittent sensation of dysphagia
no overt sx per speech but recommend VSE, VSE 09/23 noted. Discussed with speech therapy and think outpatient GI follow-up. Currently no signs of aspiration
#CAD
- continue aspirin, atorvastatin
#GERD
- continue famotidine and pantoprazole
#hypertension
- continue furosemide, lisinopril, nifedipine
#depression/anxiety
- continue citalopram
#Sleep apnea
BiPap at home, settings 02/26 with 2 liters oxygen
- continue BiPap qHS and PRN
#hypercholesterolemia
#hypothyroidism
Code status: DNR
DVT prophylaxis: Lovenox sq
General: Well Developed, Well Nourished, No Apparent Distress, Comfortable, Conversant and Morbidly Obese
HEENT: NormoCephalic, Moist mucous membranes, Atraumatic
Respiratory: Clear, Non Labored Respirations and Decreased Breath Sounds
Cardiac: S1/S2 and Regular Rhythm
GI: Soft, Non Tender, Non Distended and Normal Bowel Sounds
Musculoskeletal: No Edema
Skin: Other (crusted shingle lesions to cervical spine tracing around to right jaw line )
Neuro: Awake, Alert, AO x 3 and Nonfocal/grossly intact
Psych: Calm and Intact Judgment/Insight
Anticipated Discharge: Today
Subjective/Interval History
-
Date of Service: September 23, 2024
denies nausea
Objective Data
-
Labs:
Laboratory Results
09/23/24
06:49
WBC 11.4 H
Hgb 10.6 L
Hct 32.8 L
Plt Count 192
Sodium 136
Potassium 4.7
Chloride 106
Carbon Dioxide 25
BUN 26 H
Creatinine 0.7
Glucose 171 H
Calcium 10.2
Vital Signs:
Vital Signs
Temp Pulse Resp BP Pulse Ox
97.9 F 77 20 157/76 97
09/23/24 07:13 09/23/24 08:45 09/23/24 08:45 09/23/24 07:13 09/23/24 08:45
I&O
09/22/24 09/23/24 09/24/24
06:59 06:59 06:59
Intake Total 480 / 480 960 / 960
Balance 480 / 480 960 / 960
--- NOTE | 2024-09-23 12:55 | W.DCSUMMARY ---
Discharge Summary
Discharge Data
Date of Admission: 09/22/24
Date of Discharge: 09/23/24
-
Pending Results: No
Hospital Course
84-year-old female with past medical history of COPD, asthma, metastatic lung cancer with spinal stenosis and radiation to cervical spine with compression, aortic stenosis, migraine, TIA, hypothyroidism, CAD came to the hospital with back pain which
was thought was secondary to 2 already known pathological fracture and recently diagnosed shingles infection. Patient was prescribed antiviral however she could not tolerate at home. Here she was started on gabapentin for pain which improved her
symptoms. She also had mild exacerbation of asthma/COPD for which she was initially started on IV steroids which was later transitioned to p.o. prednisone with taper prior to discharge. On this hospitalization she also had intermittent sensation
of dysphagia where she was seen by speech therapy. No overt signs of aspiration was noted however video swallow study was done and there was suspected concern of possibility of esophageal retention at times. Patient was instructed to chew soft
food per speech recommendation and to follow-up with GI outpatient. Patient was also evaluated by physical therapy who recommended SNF however patient refused. Once patient symptoms were improving, she was then discharged home with instructions to
follow-up with all her physicians outpatient.
Discharge Plan
-
Patient Disposition: Home with Home Care
Discharge Diagnosis/Procedures: Intractable back pain in c-spine area likely multifactorial 2/2 pathological fracture site and shingles infection
Dysphagia
Mild asthma/COPD exacerbation
Diet: As tolerated
Activity: With assistance and As tolerated
Driving Restrictions: Not until seen by your Dr
Bathing Restrictions: None
Referrals:
Emiliano Iglesias DO [Active, Hematology / Oncology]
Juan Anaya MD [Family Provider, Family Practice] - in less than 1 week
Emmy Edwards MD [Active, Gastroenterology] - in one week
Prescriptions:
New
prednisone 10 mg Tablet
See Rx Instructions .ROUTE .COMPLEX Qty: 30 0RF
Rx Instructions:
Take By Mouth:
40 mg daily x3 days, 30 mg daily x3 days,
20 mg daily x3 days, 10 mg daily x3 days.
gabapentin 300 mg Capsule
300 mg PO TID Qty: 90 0RF
Continued
atorvastatin 40 MG tablet
40 mg PO QPM
aspirin 81 MG tablet,delayed release (DR/EC)
81 mg PO DAILY
pantoprazole 40 MG tablet,delayed release (DR/EC)
40 mg PO QPM
PreserVision AREDS 1 CAP capsule
1 cap PO DAILY
glucosamine sulfate 500 MG tablet
500 mg PO DAILY
famotidine 20 MG tablet
20 mg PO DAILY
albuterol sulfate [Ventolin HFA] 1 PUFF HFA aerosol inhaler
2 puff inhalation R Q4HPRN PRN (Reason: sob/wheezing)
citalopram 40 mg tablet
40 mg PO DAILY
nifedipine 60 mg Tablet Extended Release
60 mg PO DAILY Qty: 30 1RF
furosemide 40 mg tablet
40 mg PO DAILY
montelukast 10 mg tablet
10 mg PO DAILY
potassium chloride 10 mEq tablet,ER particles/crystals
10 meq PO DAILY
Breztri Aerosphere 160-9-4.8 mcg/actuation Hfa Aerosol Inhaler
2 inh INHALATION R BID
fexofenadine 180 mg Tablet
180 mg PO DAILY
latanoprost 0.005 % drops
1 drp BOTH EYES HS
ipratropium-albuterol 0.5 mg-3 mg(2.5 mg base)/3 mL solution for nebulization
3 ml INHALATION R Q6HPRN PRN (Reason: sob/wheezing)
ondansetron HCl 4 mg Tablet
4 mg PO Q6HPRN PRN (Reason: nausea)
loperamide 2 mg Tablet
2 mg PO DAILY
therapeutic multivitamin Tablet
1 tab PO DAILY
acetaminophen [Tylenol Extra Strength] 500 mg Tablet
1,000 mg PO Q6H
lisinopril 5 mg Tablet
5 mg PO DAILY
hydromorphone 4 mg Tablet
4 mg PO Q4H
Held
prednisone 5 mg Tablet
5 mg PO DAILY
Hold Instructions: Restart when done with prednisone taper
Discharge Orders:
Discharge Patient (As Directed); Ordered 09/23/24
Ordered By: Garcia Hart
Discharge Date and Time
Discharge Date/Time: 09/23/24 14:48
Print Language: MALDIVIAN
--- NOTE | 2024-09-23 13:15 | CM ---
CM reviewed chart, patient seen bedside, for discharge today. Patient confirms daughter will provide transportation home. IMM verbally reviewed, patient declining need for copy, placed on chart. [facility] following patient. Patient confirms daughter will
provide home O2. CM will continue to follow for all discharge planning needs.
Plan; home with [facility]
[2024-09-23 13:59] VITALS: BP 124/54
== END 2024-09-23 14:48 | disposition home health service (06) | DRG 543 ==
LOC: 4 WEST ACU 15:01
PROVIDERS: ADMITTING PHYSICIAN Internal Medicine; EMERGENCY PHYSICIAN Emergency Medicine; FAMILY PHYSICIAN Family Medicine
PROC: 5A09357 Assistance with Respiratory Ventilation, Less than 24 Consecutive Hours, Continuous Positive Airway Pressure (ICD-10-PCS; 2024-09-21)
DX: M84.48XA Pathological fracture, other site, initial encounter for fracture (principal); J44.1 Chronic obstructive pulmonary disease with (acute) exacerbation; J45.901 Unspecified asthma with (acute) exacerbation; B02.9 Zoster without complications; I25.10 Atherosclerotic heart disease of native coronary artery without angina pectoris; K21.9 Gastro-esophageal reflux disease without esophagitis; F32.A Depression, unspecified; F41.9 Anxiety disorder, unspecified; E78.00 Pure hypercholesterolemia, unspecified; E03.9 Hypothyroidism, unspecified; G47.30 Sleep apnea, unspecified; I10 Essential (primary) hypertension; Z66 Do not resuscitate; Z85.118 Personal history of other malignant neoplasm of bronchus and lung; Z86.718 Personal history of other venous thrombosis and embolism; Z86.73 Personal history of transient ischemic attack (TIA), and cerebral infarction without residual deficits; G43.909 Migraine, unspecified, not intractable, without status migrainosus; Z90.49 Acquired absence of other specified parts of digestive tract; Z87.19 Personal history of other diseases of the digestive system; Z87.891 Personal history of nicotine dependence; Z88.1 Allergy status to other antibiotic agents; Z88.5 Allergy status to narcotic agent; Z91.041 Radiographic dye allergy status; Z79.82 Long term (current) use of aspirin; Z79.899 Other long term (current) drug therapy; R13.10 Dysphagia, unspecified; D64.9 Anemia, unspecified; Z86.0100 Personal history of colon polyps, unspecified; Z96.651 Presence of right artificial knee joint; Z99.81 Dependence on supplemental oxygen; Z11.52 Encounter for screening for COVID-19
CPT/HCPCS: 71046; 74230; 80048; 80053; 85025; 87811; 92610; 92611; 93005; 94640; 94660; 96374; 96375; 97163; 99285

== ENCOUNTER 2024-09-30 12:54 | Inpatient (IN) | payer MEDICARE, SELFPAY ==
[2024-09-28 23:20] VITALS: BP 140/74
[2024-09-28 23:40] VITALS: BP 137/79
[2024-09-28 23:43] VITALS: BMI 38.6
[2024-09-29] VITALS (10 sets, daily range): BP systolic 77–161; BP diastolic 42–76; PULSE 91; O2SAT 97; BMI 37.6
[2024-09-29] MEDS: DILAUDID 1 MG IV (00:33)
[2024-09-29 00:34] LABS: % Basophils 0.5 % (0-2); % Eosinophils 0.3 % (0-6); % Immature Granulocytes 4.4 % (0-0.5); % Lymphocytes 7.3 % (20.5-51.1); % Monocytes 4.4 % (1.7-9.3); % Neutrophils 83.1 % (42.2-75.2); Absolute Basophils 0.1 10^3/uL (0-0.2); Absolute Immature Granulocytes 0.7 10^3/uL (0-0.05); Absolute Lymphocytes 1.2 10^3/uL (1.2-3.4); Absolute Monocytes 0.7 10^3/uL (0.1-0.6); Absolute Neutrophils 13.1 10^3/uL (1.4-6.5); Hematocrit 36.2 % (37.0-47.0); Hemoglobin 11.7 g/dL (12.0-16.0); Mean Corp Hgb Conc. 32.3 g/dL (33.0-37.0); Mean Corpuscular Hgb 29.2 pg (27.0-31.0); Mean Corpuscular Volume 90.3 fL (81.0-99.0); Mean Platelet Volume 9.9 fL (7.4-10.4); Nucleated Red Blood Cells % 0 %; Platelet Count 236 10^3/uL (130-400); Red Blood Cell Count 4.01 10^6/uL (4.20-5.40); Red Cell Dist. Width 14.8 % (11.5-14.5); White Blood Cell Count 15.8 10^3/uL (4.8-10.8)
[2024-09-29 00:44] LABS: Blood Urea Nitrogen 39 mg/dl (7-17); Calcium 9.9 mg/dl (8.4-10.2); Carbon Dioxide 25 mmol/L (22-30); Chloride 104 mmol/L (98-107); Estimated Creatinine Clearance 44 ml/min; Glucose 135 mg/dl (70-99); Magnesium 1.9 mg/dl (1.6-2.3); Potassium 5.3 mmol/L (3.5-5.1); Sodium 136 mmol/L (135-145); eGFR > 60.00
[2024-09-29] MEDS: DILAUDID 0.5 MG IV (01:48)
--- NOTE | 2024-09-29 02:39 | ED.GENMED ---
History of Present Illness
General
Chief Complaint: Trauma Significant Mechanism
Source: patient
Exam Limitations: none
Time Seen by Provider: 09/28/24 23:53
Nursing documentation reviewed up to this point in time: agreed with
History of Present Illness
History of Present Illness:
Patient recently diagnosed with cancer in her neck, with previous history of lung cancer, presents to ED after witnessed fall in the bathroom, as she attempted to sit, to have a bowel movement. Patient feels as though she may have passed out
briefly. Her daughter who was standing right behind her, was unable to catch her before she fell on the bathroom floor. Patient was fully awake when her daughter went to assist her. Patient presents with laceration in her frontal scalp, along
with pain in her neck and right shoulder. Denies dizziness or blurred vision. Denies loss of sensation or weakness. Denies chest pain. Denies shortness of breath. Denies abdominal pain. Denies back pain.
Past History
Past History
ED Past Medical History: Asthma, CAD, Cancer (Lung CA), COPD, GERD, HTN, Hypercholesterolemia, Hyperthyroidism, Hypothyroidism, Psychiatric (Anxiety, depression), Other (TIA, Migraines, Sleep apnea, DVT, Hemorrhoids, Hiatal hernia, C-diff, Ovarian
cyst, Renal calculus, UTI, Overactive Parathyroid, Anemia, Fibrosis, AAA) and Other (Small bowel obstruction 2004, total colectomy for polyps, ileostomy with reversal)
ED Past Surgical History: Bowel resection (Total proctocolectomy with Ileostomy and then reversal), Cardiac (Catheterization, Stent), Gynecological (Tubal), Orthopedic (Right hand tendon repair, Right knee replacement) and Other (Hernia, Cataracts,
Right vein stripping)
Social History
Tobacco: Former smoker
Alcohol: None
Drug: None
Personal:
Living: alone
Employment: Retired
Family History
Family History: CAD
Review of Systems
Review of Systems
Allergies reviewed?: Yes
All Other Systems: ROS reviewed and negative except as documented in HPI and ROS
Constitutional: Reports no symptoms; Denies fever
Respiratory: Reports no symptoms; Denies trouble breathing
Cardiac: Reports syncope; Denies chest pain or palpitations
ABD/GI: Denies vomiting or diarrhea
Musculoskeletal: Reports neck pain and other (shoulder pain)
Skin: Reports other (scalp laceration)
Neurological: Reports headache; Denies dizzy, weakness or numbness
Phy Exam
Physical Exam
Physical Exam:
Physical Exam
General: moderate painful distress, not acutely ill. afebrile
Head an approx 3cm linear, horizontal superficial laceration over right frontal scalp without active bleeding
Neck: supple. diffuse tenderness to palpation, without obvious deformity
Heart: s1/s2 regular rate and rhythm
Lungs: no acute respiratory distress. clear bilaterally. chest wall nontender to palpation
Abdomen: normal bowel sounds. not tender.
Neuro: alert and oriented x 3. no focal neurological deficits
Skin: no rash
Psychiatric: well kept. interactive and cooperative
Extremities: right shoulder diffusely tender to palpation without obvious deformity/ecchmosis.
Course
Orders/Labs/Results
Orders:
Orders
09/29/24 00:06
CT Cervical Spine W/o Iv Contr Urgent
Comment:
Reason For Exam: trauma
CT Head W/o Iv Contrast Urgent
Comment:
Reason For Exam: trauma to frontal scalp
HYDROmorphone [Dilaudid] 1 mg IV NOW STA
CR Shoulder - Right Min 2 View Urgent
Comment:
Reason For Exam: trauma
09/29/24 00:15
Basic Metabolic Panel Urgent
Complete Blood Count/With Diff Urgent
Magnesium Urgent
09/29/24 00:26
Electrocardiogram (*1) Urgent
Reason for Study: Syncope
EKG- Treatment ONCE
09/29/24 01:46
HYDROmorphone [Dilaudid] 0.5 mg .ROUTE .STK-MED ONE
09/29/24 01:48
HYDROmorphone [Dilaudid] 0.5 mg IV NOW STA
09/29/24 03:53
Admit/Transfer Patient As Directed
Co-Sign Provider:
Level of Care: Observation services
Assign to:: Medical/Surgical
Physician / Group: Marcus
Diagnosis: Right humeral head fracture
PRN Pain Medication Management As Directed
May give lesser potent ordered pain med per pt: Yes
preference::
Protocol:: Medication orders for pain may be administered in a
manner that supports deferring to patient preference
when the pt is:
- Requesting an ordered lesser potent pain medication.
Least to most potent pain medications are defined
as: acetaminophen < NSAID < tramadol < opioids
(morphine, oxycodone, hydromorphone).
- Requesting a lesser dose of the same medication IF
ORDERED.
- Requesting a less intrusive route of administration
if both routes are prescribed by the provider (PO <
IV).
09/29/24 03:56
Code Status As Directed
Resuscitation Status: Do not resuscitate
Reached after discussion with pt or family/Healthcare POA: Yes
09/29/24 03:57
DNR Bracelet Application ONCE
09/29/24 05:11
Acetaminophen [Tylenol] 1,000 mg PO Q6H
Albuterol [ProAIR HFA INHALER] 2 puff INH R Q4HPRN PRN sob/wheezing
HYDROmorphone [Dilaudid] 0.5 mg IV Q1HPRN PRN
Ipratropium/Albuterol Sulfate [Duoneb] 3 ml INH R Q6HPRN PRN sob/wheezing
Magnesium Hydroxide [Milk of Magnesia] 30 ml PO DAILYPRN PRN
Tamsulosin [Flomax] 0.4 mg PO DAILYPRN PRN
09/29/24 05:11
ORTHOPEDIC CONSULT Routine
Consulting Provider: Fortunato Hwang
Was physician already notified: Yes
Activity As Directed
Activity Level: With Assistance
Bladder Scan As Directed
Follow Bladder Retention/Intermittent Cath Algorithm?: Yes
PRN if no void in __ hours: 6
Comment: if not voiding 6 hrs upon arrival to floor, bladder scan & follow algorithm
Intake/ Output As Directed
Frequency: Per unit guidelines
Straight Cath As Directed
Frequency: Per Retention Algorithm
Additional Instructions: straight cath as needed per acute urinary retention algorithm for 24 hrs
Additional Instructions: for bladder scan greater than 400 mL
Vital Signs As Directed
Frequency: Per unit guidelines
Pt Eval And Treat Routine
Activity Level: With Assistance
DX Deep Vein Thrombosis Video Routine
09/29/24 Breakfast
Cholesterol Lowering
At Your Request: Limited Participation
Does patient need a safe tray?: No
Cholesterol Lowering: Sodium, 2 Gram
HYDROmorphone [Dilaudid] 4 mg PO Q4H
09/29/24 08:00
Acetaminophen [Tylenol] 650 mg PO Q4HWA
Aspirin Low Dose EC [Aspir Low (Enteric Coated)] 81 mg PO DAILY
Budesonide/Formoterol 160/4.5 [Symbicort 160/4.5 Mcg Inhaler] 2 puff INH R BID
Citalopram [Celexa] 40 mg PO DAILY
Famotidine [Pepcid] 20 mg PO DAILY
Furosemide [Lasix] 40 mg PO DAILY
Gabapentin [Neurontin] 300 mg PO TID
Lisinopril [Zestril] 5 mg PO DAILY
Loperamide [Imodium] 2 mg PO DAILY
Loratadine [Claritin] 10 mg PO DAILY
Montelukast Sodium [Singulair] 10 mg PO DAILY
NIFEdipine EXTENDED RELEASE [Procardia Xl (Extended Release)] 60 mg PO DAILY
Prednisone [Deltasone] 20 mg PO DAILY
09/29/24 18:00
Atorvastatin [Lipitor] 40 mg PO QPM
Enoxaparin Sodium [Lovenox] 40 mg SC QPM
Pantoprazole [Protonix] 40 mg PO QPM
09/29/24 20:00
Docusate Sodium [Colace] 100 mg PO BID
Sennosides [Senokot] 17.2 mg PO BID
09/29/24 22:00
Latanoprost [Xalatan Ophthalmic Solution] 1 drop BOTH EYES HS
Abnormal Lab Results
09/29/24
00:15
WBC 15.8 H 10^3/uL
(4.8-10.8)
RBC 4.01 L 10^6/uL
(4.20-5.40)
Hgb 11.7 L g/dL
(12.0-16.0)
Hct 36.2 L %
(37.0-47.0)
MCHC 32.3 L g/dL
(33.0-37.0)
RDW 14.8 H %
(11.5-14.5)
Abs Immat Gran (auto) 0.7 H 10^3/uL
(0-0.05)
Absolute Neuts (auto) 13.1 H 10^3/uL
(1.4-6.5)
Absolute Monos (auto) 0.7 H 10^3/uL
(0.1-0.6)
Immature Gran % 4.4 H %
(0-0.5)
Neutrophils % 83.1 H %
(42.2-75.2)
Lymphocytes % 7.3 L %
(20.5-51.1)
Potassium 5.3 H mmol/L
(3.5-5.1)
BUN 39 H mg/dl
(7-17)
Glucose 135 H mg/dl
(70-99)
09/29/24 00:15
09/29/24 00:15
Vital Signs
Initial and Last Documented VS:
Initial Vital Signs
Temp Pulse Resp BP Pulse Ox
97.8 F 96 30 140/74 98
09/28/24 23:20 09/28/24 23:20 09/28/24 23:20 09/28/24 23:20 09/28/24 23:20
Last Documented Vital Signs
Temp Pulse Resp BP Pulse Ox
98.0 F 83 18 146/71 97
09/30/24 07:15 09/30/24 08:30 09/30/24 08:30 09/30/24 07:15 09/30/24 08:30
MDM/Problems Addressed
MDM/Problems Addressed:
CT head and CT cervical spine without any acute findings, although already known osseous lesions noted on cervical spine.
Shoulder x-ray reveals comminuted displaced proximal humeral head fracture. Patient will be placed arm sling. In light of patient's significant persistent pain, patient be admitted for further evaluation and treatment.
*Critical Care Note
Total Time (30-74mins, 75-104mins- exclusive of procedures): Not Applicable
ED Attending Note
-
Portions of this chart may have been created with voice recognition software.� Occasional wrong word or��sound alike� substitutions may have occurred due to the inherent limitations of voice recognition software.
Discharge Plan
Departure
Patient Disposition: Admit
Date of Disposition: 09/29/24
Time of Disposition: 03:00
Admit to: Med/Surg
Presentation/result/management discussed w/ accepting MD/DO: Hospitalist
Discharge Problem:
Laceration of scalp, Fracture, humerus closed
Interventions
Interventions:
*General Assessment Last Done: 09/28/24 23:43
*Neglect/Abuse Screening Last Done: 09/28/24 23:20
*ED- Fall Risk Assessment Last Done: 09/28/24 23:43
*Nursing Disposition Last Done: 09/29/24 04:53
ED-Musculoskeletal Assessment Last Done: 09/28/24 23:43
ED-Skin Assessment Last Done: 09/28/24 23:43
Discharge Date and Time
Discharge Date/Time: 09/29/24 04:53
--- NOTE | 2024-09-29 03:34 | HPS.HSE ---
Family Physician
-
Family Physician: Juan Anaya
Chief Complaint
-
Mechanical fall, fracture
History of Present Illness
This is a 84-year-old female with COPD, asthma, metastatic lung cancer with spinal stenosis and radiation to cervical spine with compression, aortic stenosis, migraine, TIA, hypothyroidism, CAD presenting to the emergency department with a witnessed
fall in the bathroom.
She apparently was attempting to sit to have a bowel movement. It is unclear but patient felt that she might have been passed out very briefly. Daughter was standing right behind but was unable to catch her before she fell in the bathroom floor.
She was immediately fully awake recognize the daughter when that attempted to assist.
She denied having any chest pain. She denied having any palpitations. She has not had any lightheadedness prior to this episode. Denies focal weakness numbness tingling shortness of breath abdominal pain nausea or vomiting.
She has a laceration line. As well as pain in her neck and right shoulder.
In the emergency department she was afebrile, blood pressure was 155 with a pulse of 96. She was satting 98% on room air.
ECG shows normal sinus rhythm at a rate of 83 with right bundle branch block and occasional PVC.
X-ray shows a right femoral head fracture
CT of the head shows no acute intracranial injury. CT of the C-spine shows no acute fracture or malalignment, chronic moderate compression deformity of the C6 vertebral body with numerous osseous lesions since throughout the mid and lower cervical
spine.
Medical History
Past Medical History
Past Medical History: Reports Other
Additional Past Medical History:
asthma
CAD
Hx metastatic Lung cancer
COPD
GERD
hypertension
hypercholesterolemia
hypothyroidism
depression/anxiety
Sleep apnea not on CPAP
History of DVT
History of TIA
Migraines
AAA
Past Surgical History: Reports Other
Additional Past Surgical History:
Small bowel obstruction status post total colectomy, ileostomy with reversal
Partial small bowel obstruction
Intestinal adhesions
Right total knee arthroplasty
cardiac catheterization with stent
tubal ligation
hernia repair
cataract extraction
Social History
Tobacco: Non-smoker
Alcohol: None
Drug: None
Personal: Single
Living: Alone
Employment: Retired
Family History
Family History: Not pertinent
Allergies / Home Medications
Allergies reflects when Allergies were last updated in [employer].
Home Medications with original date entered in [employer] [facility]
Allergy/Medication List:
Allergies
Allergy/AdvReac Type Severity Reaction Status Date / Time
codeine Allergy NAUSEA Verified 06/23/24 15:37
doxycycline Allergy HEART Verified 06/23/24 15:37
PALPITATIONS
meperidine HCl (From Demerol) Allergy Nausea/ligh Verified 06/23/24 15:37
theaded
morphine Allergy Nausea Verified 06/23/24 15:37
norepinephrine Allergy rash to Verified 06/23/24 15:37
ethylnorepinephrine
oxycodone Allergy SEVERE Verified 06/23/24 15:37
NAUSEA
pentazocine Allergy TALWIN-N/V Verified 06/23/24 22:51
pentazocine lactate (From Allergy Nausea Verified 06/23/24 15:37
Talwin)
piperacillin (From Zosyn) Allergy Anaphylaxis Verified 06/23/24 22:51
tazobactam (From Zosyn) Allergy Anaphylaxis Verified 06/23/24 22:51
Tetracyclines Allergy very Verified 06/23/24 15:37
disoriented
iv contrast Allergy Severe Shortness Uncoded 06/24/24 03:58
of Breath
Home Medications
aspirin 81 mg tablet,delayed release 81 mg PO DAILY Blood clot prevention/tx 07/22/17
atorvastatin 40 mg tablet 40 mg PO QPM High cholesterol 07/22/17
pantoprazole 40 mg tablet,delayed release 40 mg PO QPM Gastrointestinal issue 07/22/17
glucosamine sulfate 500 mg tablet 500 mg PO DAILY Supplement 02/16/19
vitamins A,C,J-[id number] 4,296 mcg-226 mg-90 mg capsule (PreserVision AREDS) 1 cap PO DAILY Eye condition 02/16/19
albuterol sulfate 90 mcg/actuation aerosol inhaler (Ventolin HFA) 2 puff inhalation R Q4HPRN PRN sob/wheezing 07/13/21
famotidine 20 mg tablet 20 mg PO DAILY GERD 07/13/21
citalopram 40 mg tablet 40 mg PO DAILY Mental Health/Anxiety 04/07/22
nifedipine 60 mg tablet,extended release 60 mg PO DAILY #30 tabs 04/11/22
budesonide 160 mcg-glycopyr 9 mcg-formot 4.8 mcg/actuation HFA inhaler (Breztri Aerosphere) 2 inh inhalation R BID Lung/Breathing Issues 12/25/22
furosemide 40 mg tablet 40 mg PO DAILY Fluid Retention/Swelling 12/25/22
montelukast 10 mg tablet 10 mg PO DAILY Lung/Breathing Issues 12/25/22
potassium chloride 10 mEq tablet,extended release(part/cryst) 10 meq PO DAILY Electrolyte Repletion 12/25/22
fexofenadine 180 mg tablet 180 mg PO DAILY Allergies 07/09/23
ipratropium 0.5 mg-albuterol 3 mg (2.5 mg base)/3 mL nebulization soln 3 ml inhalation R Q6HPRN PRN sob/wheezing 07/09/23
latanoprost 0.005 % eye drops 1 drp BOTH EYES HS Eye Condition 07/09/23
acetaminophen 500 mg tablet (Tylenol Extra Strength) 1,000 mg PO Q6H 09/21/24
hydromorphone 4 mg tablet 4 mg PO Q4H 09/21/24
lisinopril 5 mg tablet 5 mg PO DAILY 09/21/24
loperamide 2 mg tablet 2 mg PO DAILY 09/21/24
ondansetron HCl 4 mg tablet 4 mg PO Q6HPRN PRN nausea 09/21/24
prednisone 5 mg tablet 5 mg PO DAILY 09/21/24
therapeutic multivitamin 1 tab PO DAILY 09/21/24
Review of Systems
-
History Source: Patient
Musculoskeletal: Reports Joint Pain (Neck and right shoulder) and Other (c-spine intractable pain )
Skin: Reports Other (Forehead laceration)
Physical Exam
Vital Signs
Vital Signs
Temp Pulse Resp BP Pulse Ox
97.8 F 96 24 125/55 98
09/28/24 23:20 09/29/24 03:00 09/29/24 03:00 09/29/24 03:00 09/29/24 03:00
Physical Exam
General: Well Developed, Well Nourished, No Apparent Distress, Comfortable, Conversant and Morbidly Obese
HEENT: NormoCephalic, Moist mucous membranes, Atraumatic, Effie Conjunctivae, Nose Appears Normal and Ears Appear Normal
Respiratory: Clear, Non Labored Respirations and Decreased Breath Sounds
Cardiac: S1/S2 and Regular Rhythm
Breast: Deferred by me
GI: Soft, Non Tender, Non Distended and Normal Bowel Sounds; No Organomegaly
Rectal: Deferred by Provider
Genito-urinary: Deferred by me
Musculoskeletal: No Clubbing, No Cyanosis and No Edema
Skin: IV/Catheter Site and Other (crusted shingle lesions to cervical spine tracing around to right jaw line )
Neuro: Awake, Alert, AO x 3 and Nonfocal/grossly intact
Psych: Calm and Intact Judgment/Insight
Laboratory Results
-
09/29/24 00:15
09/29/24 00:15
Data Reviewed
-
Diagnostic Radiology: Image Personally Visualized and interpreted
CT Scan: Report Reviewed by me
Medical Tests (Nuc Med, Echo, EKG etc): Image Personally Visualized and interpreted
Lab Data: Labs Reviewed by me
Old Records: Reviewed
Impression/Plan
-
IMPRESSION:
84-year-old female with past medical history significant for metastatic cancer to the cervical spine, previous history of lung cancer, COPD on 2 L home O2, CHF, hypertension, asthma chronic pain presenting to the emergency department following a
mechanical fall while sitting on the commode. Possibly vasovagal episode however there is no clear loss of consciousness. She unfortunately fell on the right side and fractured her right humerus at the head.
PLAN:
Right femoral head fracture - patient stated that she is not a candidate for any kind of surgery due to her underlying comorbidities and metastatic dz
- admit to tele observation
- pain control
- immobilize arm and no weight bearing for now
- orthopedic consultation
COPD - Recent COPD exacerbation, on prednisone taper,
- 2 L O2
- continue her home inhalers and rescue inhalers as needed
- Prednisone to 20mg daily x 3 days, then 10 x 3 days, then 5 daily
CAD/HTN
- continue aspirin for now
- continue her home bp meds
- continue lasix 40 daily
Family aware of condition, no interest in [place] snf but rather returnng home
- Pt consult
DVT PPX - lovenox sq
Code status - DNR
--- NOTE | 2024-09-29 05:00 | PTCARENOTE ---
Pt arrived to unit from ED, ambulated with x2 assist from stretcher to bed. VSS, 97% on 2L. Pt AAOx3, plan of care reviewed with pt. Pt oriented to room, call gamez in reach. Bed in lowest position and bed alarm in place. Scheduled dilaudid 4mg
provided to pt. Pt is drowsy but verbally arousable. Pt reports having shingles on her right cheek and ear for 2 weeks; no open wounds or drainage from right cheek or ear noted by this board writer. Quality Control Inspector Licha notified of pt's shingles;
customer services supervisor will reach out to ID this morning and check to see if pt needs a private room.
[2024-09-29] MEDS: DILAUDID 4 MG PO ×4 (06:54→22:31)
--- NOTE | 2024-09-29 07:21 | CON.ORTHO ---
Consultation
-
Date/Time Consultation Requested: 09/29/24 @5am
Date/Time Consultation Performed: 09/29/24 @7am
Requesting Provider: Marcus
Performing Provider: Merly Nina PA-C for Fortunato Hwang MD
Reason for Consultation: right proximal humerus fracture
Consultation - Orthopedics
History
HPI: 84yo female admitted to [facility] for right shoulder pain. Yesterday, she sustained a fall while in the bathroom. Her daughter was with her at the time of the fall but was unable to catch her. She landed on her right side. She
presented to the ER for evaluation. Xrays were performed which reveal a right proximal humerus fracture. She was placed into a sling. She states that she does have pain especially with any movement. She is right hand dominant.
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
PAST SURGICAL HISTORY: Small bowel obstruction status post total colectomy, ileostomy with reversal, Partial small bowel obstruction, Intestinal adhesions, Right total knee arthroplasty, cardiac catheterization with stent, tubal ligation, hernia
repair, cataract extraction
SOCIAL HISTORY: denies tobacco, alcohol
FAMILY HISTORY: Noncontributory
REVIEW OF SYSTEMS: 12 point review of systems obtained and negative except those mentioned in the HPI
Allergies / Home Medications
Allergy/AdvReac Type Severity Reaction Status Date / Time
codeine Allergy NAUSEA Verified 09/28/24 23:24
doxycycline Allergy HEART Verified 09/28/24 23:24
PALPITATIONS
Iodinated Contrast Media Allergy IV Verified 09/28/24 23:24
CONTRAST-SOB
meperidine HCl (From Demerol) Allergy Nausea/ligh Verified 09/28/24 23:24
theaded
morphine Allergy Nausea Verified 09/28/24 23:24
norepinephrine Allergy rash to Verified 09/28/24 23:24
ethylnorepinephrine
oxycodone Allergy SEVERE Verified 09/28/24 23:24
NAUSEA
pentazocine Allergy TALWIN-N/V Verified 09/28/24 23:24
pentazocine lactate (From Allergy Nausea Verified 09/28/24 23:24
Talwin)
piperacillin (From Zosyn) Allergy Anaphylaxis Verified 09/28/24 23:24
tazobactam (From Zosyn) Allergy Anaphylaxis Verified 09/28/24 23:24
Tetracyclines Allergy very Verified 09/28/24 23:24
disoriented
�Medication �Instructions �Recorded
aspirin 81 mg tablet,delayed 81 mg PO DAILY Blood clot 07/22/17
release prevention/tx
atorvastatin 40 mg tablet 40 mg PO QPM High cholesterol 07/22/17
pantoprazole 40 mg tablet,delayed 40 mg PO QPM Gastrointestinal issue 07/22/17
release
glucosamine sulfate 500 mg tablet 500 mg PO DAILY Supplement 02/16/19
vitamins A,C,N-qran-smcsgs 4,296 1 cap PO DAILY Eye condition 02/16/19
mcg-226 mg-90 mg capsule
(PreserVision AREDS)
albuterol sulfate 90 mcg/actuation 2 puff inhalation R Q4HPRN PRN 07/13/21
aerosol inhaler (Ventolin HFA) sob/wheezing
famotidine 20 mg tablet 20 mg PO DAILY GERD 07/13/21
citalopram 40 mg tablet 40 mg PO DAILY Mental 04/07/22
Health/Anxiety
nifedipine 60 mg tablet,extended 60 mg PO DAILY #30 tabs 04/11/22
release
budesonide 160 mcg-glycopyr 9 2 inh inhalation R BID 12/25/22
mcg-formot 4.8 mcg/actuation HFA Lung/Breathing Issues
inhaler (Breztri Aerosphere)
furosemide 40 mg tablet 40 mg PO DAILY Fluid 12/25/22
Retention/Swelling
montelukast 10 mg tablet 10 mg PO DAILY Lung/Breathing 12/25/22
Issues
potassium chloride 10 mEq 10 meq PO DAILY Electrolyte 12/25/22
tablet,extended release(part/cryst) Repletion
fexofenadine 180 mg tablet 180 mg PO DAILY Allergies 07/09/23
ipratropium 0.5 mg-albuterol 3 mg 3 ml inhalation R Q6HPRN PRN 07/09/23
(2.5 mg base)/3 mL nebulization sob/wheezing
soln
latanoprost 0.005 % eye drops 1 drp BOTH EYES HS Eye Condition 07/09/23
acetaminophen 500 mg tablet 1,000 mg PO Q6H Pain 09/21/24
(Tylenol Extra Strength)
hydromorphone 4 mg tablet 4 mg PO Q4H Pain 09/21/24
lisinopril 5 mg tablet 5 mg PO DAILY Blood Pressure 09/21/24
loperamide 2 mg tablet 2 mg PO DAILY diarrhea 09/21/24
ondansetron HCl 4 mg tablet 4 mg PO Q6HPRN PRN nausea 09/21/24
prednisone 5 mg tablet 5 mg PO DAILY inflammation 09/21/24
Held on 09/23/24.
Instructions: Restart when
done with prednisone taper
therapeutic multivitamin 1 tab PO DAILY Supplement 09/21/24
gabapentin 300 mg capsule 300 mg PO TID #90 caps 09/23/24
prednisone 10 mg tablet See Rx Instructions .Route 09/23/24
.COMPLEX #30 tabs
Vital Signs / Lab Results
Temp Pulse Resp BP Pulse Ox
97.5 F 82 18 137/68 97
09/29/24 05:41 09/29/24 05:41 09/29/24 05:41 09/29/24 05:41 09/29/24 05:41
09/29/24 00:15
09/29/24 00:15
RADIOGRAPHIC FINDINGS:
Xrays right shoulder reveal a displaced proximal humerus fracture
PHYSICAL EXAM:
General: no acute distress
HEENT: approx 3cm linear, horizontal superficial laceration over right frontal scalp without active bleeding, sclera anticteric, normal hearing
Heart: No JVD
Lungs: normal work of breathing on nasal cannula
MSK: Directed exam of right shoulder reveals sling in place. skin intact. no discolorations. diffuse tenderness to palpation about right shoulder. ROM shoulder deferred. full ROM of elbow, wrist, and hand. sensation intact to light touch. cap refill
<2secs
Assessment / Plan
ASSESSMENT: 84yo female with right proximal humerus fracture
PLAN:
Unfortunately, Ms. Mandujano sustained a right proximal humerus fracture with her fall yesterday. She is not interested in surgical intervention and therefore this can be managed nonoperatively. She is to remain non weight bearing to the right arm.
Maintain sling. I did advise her that this fracture can take up to 12 weeks for complete healing and that she may lose some range of motion of her shoulder. Ok for her to perform range of motion of the hand, wrist, and elbow as tolerated. Continue
with pain management as needed. PT/OT evaluation. Follow up outpatient in one week for repeat xrays. Orthopedics will sign off at this time. Please reach out with any additional questions or concerns.
[2024-09-29] MEDS: SYMBICORT 160/4.5 MCG INHALER 2 PUFF INH ×2 (07:43→20:47)
--- NOTE | 2024-09-29 08:25 | VNURNOTE ---
Chart reviewed. Patient is current with [facility] nursing. Will continue to follow hospital course and DC plans.
[2024-09-29] MEDS: CELEXA 40 MG PO (08:39)
[2024-09-29] MEDS: ASPIR LOW (ENTERIC COATED) 81 MG PO (08:39)
[2024-09-29] MEDS: PROCARDIA XL (EXTENDED RELEASE) 60 MG PO (08:40)
[2024-09-29] MEDS: SINGULAIR 10 MG PO (08:40)
[2024-09-29] MEDS: IMODIUM 2 MG PO (08:40)
[2024-09-29] MEDS: NEURONTIN 300 MG PO ×3 (08:40→20:28)
[2024-09-29] MEDS: CLARITIN 10 MG PO (08:40)
[2024-09-29] MEDS: LASIX 40 MG PO (08:40)
[2024-09-29] MEDS: DELTASONE 20 MG PO (08:40)
[2024-09-29] MEDS: PEPCID 20 MG PO (08:40)
[2024-09-29] MEDS: TYLENOL 650 MG PO ×5 (08:41→23:51)
[2024-09-29] MEDS: NSS 1000 IV (15:16)
--- NOTE | 2024-09-29 15:19 | CM ---
manager copy reviewed patient's chart and met with patient and patient was admitted under obs, [facility] letter reviewed and completed and placed on chart, patient lives alone in a one story home, with 2 steps to enter, patient is independent with adl's
and ambulation, patient is on home oxygen at 2 liters from [employer], patient is current with [facility]. Patient and daughter Grazyna are requesting acute rehab, and asking for a referral to [place], referral sent, patient will need PM&R revaluation.
PCP: Dr Anaya
Pharmacy [facility] in [place]
Plan; Referral sent to [place] acute rehab at [facility].
--- NOTE | 2024-09-29 15:52 | W.PN.HOSP.TC ---
Today's Communication/Plan
-
Physical therapy evaluation
Rehab placement
Hold antihypertensives and furosemide
Gentle hydration
Monitor for orthostasis
Consider midodrine
Assessment / Plan
Assessment / Plan
Impression
Right humerus fracture secondary to mechanical fall
Orthostatic hypotension leading to syncope and fall.
Hyperkalemia
Other conditions:
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
CAD with history of stents
Moderate aortic stenosis by echo 07/14
COPD.
Essential hypertension
Dyslipidemia baseline
Chronic pain requiring opioids
Obstructive sleep apnea on BiPAP baseline former smoker
Obesity with BMI of 37
Plan:
Status post mechanical fall with right humeral fracture.
Patient is not a candidate for surgical intervention due to declining functional and respiratory status baseline plan is for conservative treatment including right upper extremity immobilization and physical therapy
Start PT/OT assessment.
Physiatry evaluation with consideration of acute versus subacute rehab.
Orthopedic input appreciated.
COPD
Obstructive sleep apnea.
Chronic hypoxic respiratory failure on oxygen at 2 L.
Continue oxygen supplementation
Continue albuterol
Continue Pulmicort
CPAP at night
Continue steroid taper initiated prior to admission 20 mg daily for 3 days then taper by 10 mg on every fourth day to the maintenance of 5 mg a day.
CAD.
Essential hypertension
Orthostatic hypotension.
Recent echocardiogram with preserved LVEF and moderate aortic stenosis.
Hold nifedipine, lisinopril,.
Hold furosemide
Gentle hydration.
Anticipated Discharge: 24 - 48 hours
Subjective/Interval History
-
Date of Service: September 29, 2024
Objective Data
-
Vital Signs:
Vital Signs
Temp Pulse Resp BP Pulse Ox
97.8 F 96 20 101/67 96
09/29/24 15:00 09/29/24 15:00 09/29/24 15:00 09/29/24 15:00 09/29/24 15:00
I&O
09/28/24 09/29/24 09/30/24
06:59 06:59 06:59
Intake Total 240 / 240
Balance 240 / 240
Physical Exam
-
General: Well Developed and No Apparent Distress
HEENT: Normocephalic, Atraumatic and Moist Mucous Membranes
Respiratory: Clear to Auscultation
Cardiac: Regular Rhythm and S1/S2; Negative Murmur, Rub or Gallop
GI: Soft, Nontender, Nondistended and Normal Bowel Sounds; Negative Organomegaly
Rectal: Deferred by Provider
Musculoskeletal: No Clubbing, No Cyanosis and No Edema
Skin: Negative Rash
Neuro: Nonfocal/Grossly Intact
[2024-09-29] MEDS: PROTONIX 40 MG PO (18:10)
[2024-09-29] MEDS: LIPITOR 40 MG PO (18:10)
[2024-09-29] MEDS: DILAUDID PO ×2 (18:10→18:36)
[2024-09-29] MEDS: LOVENOX 40 MG SC (18:11)
[2024-09-29] MEDS: COLACE 100 MG PO (20:28)
[2024-09-29] MEDS: SENOKOT 17.2 MG PO (20:28)
[2024-09-29] MEDS: XALATAN OPHTHALMIC SOLUTION 1 DROP BOTH EYES (22:30)
[2024-09-30] MEDS: DILAUDID 4 MG PO ×6 (02:09→22:41)
[2024-09-30] MEDS: TYLENOL 650 MG PO ×5 (03:53→20:46)
[2024-09-30 07:15] VITALS: BP 146/71
[2024-09-30 07:59] LABS: Blood Urea Nitrogen 27 mg/dl (7-17); Calcium 9.5 mg/dl (8.4-10.2); Carbon Dioxide 28 mmol/L (22-30); Chloride 102 mmol/L (98-107); Estimated Creatinine Clearance 49 ml/min; Glucose 96 mg/dl (70-99); Potassium 4.3 mmol/L (3.5-5.1); Sodium 135 mmol/L (135-145); eGFR > 60.00
[2024-09-30] MEDS: DILAUDID 0.5 MG IV ×3 (08:02→20:48)
[2024-09-30] MEDS: ASPIR LOW (ENTERIC COATED) 81 MG PO (08:03)
[2024-09-30] MEDS: DELTASONE 20 MG PO (08:03)
[2024-09-30] MEDS: PEPCID 20 MG PO (08:03)
[2024-09-30] MEDS: IMODIUM 2 MG PO (08:03)
[2024-09-30] MEDS: SENOKOT 17.2 MG PO (08:03)
[2024-09-30] MEDS: COLACE 100 MG PO (08:03)
[2024-09-30] MEDS: CELEXA 40 MG PO (08:03)
[2024-09-30] MEDS: NEURONTIN 300 MG PO ×3 (08:03→22:41)
[2024-09-30] MEDS: CLARITIN 10 MG PO (08:03)
[2024-09-30] MEDS: SINGULAIR 10 MG PO (08:03)
[2024-09-30] MEDS: SYMBICORT 160/4.5 MCG INHALER 2 PUFF INH ×2 (08:29→20:27)
--- NOTE | 2024-09-30 13:06 | CM ---
manager of software reviewed patient's chart and referral sent to [place] acute rehab at [facility], and per admissions at [place] they have denied patient as there is no acute rehab diagnosis, alternative options reviewed including [place] acute
rehab, waiting on PM&R evaluation.
Plan; Rehab placement.
[2024-09-30 15:12] VITALS: BP 133/83; BP 156/74
[2024-09-30 15:19] VITALS: BP 133/83
--- NOTE | 2024-09-30 15:30 | W.PN.HOSP.TC ---
Today's Communication/Plan
-
Continue physical therapy
Pending placement to nursing home facility/
Assessment / Plan
Assessment / Plan
Impression
Right humerus fracture secondary to mechanical fall
Orthostatic hypotension leading to syncope and fall.
Hyperkalemia
Other conditions:
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
CAD with history of stents
Moderate aortic stenosis by echo 07/14
COPD.
Essential hypertension
Dyslipidemia baseline
Chronic pain requiring opioids
Obstructive sleep apnea on BiPAP baseline former smoker
Obesity with BMI of 37
Plan:
Status post mechanical fall with right humeral fracture.
Patient is not a candidate for surgical intervention due to declining functional and respiratory status baseline plan is for conservative treatment including right upper extremity immobilization and physical therapy
Start PT/OT assessment.
Physiatry evaluation with consideration of acute versus subacute rehab.
Orthopedic input appreciated.
COPD
Obstructive sleep apnea.
Chronic hypoxic respiratory failure on oxygen at 2 L.
Continue oxygen supplementation
Continue albuterol
Continue Pulmicort
CPAP at night
Continue steroid taper initiated prior to admission 20 mg daily for 3 days then taper by 10 mg on every fourth day to the maintenance of 5 mg a day.
CAD.
Essential hypertension
Orthostatic hypotension.
Recent echocardiogram with preserved LVEF and moderate aortic stenosis.
Hold nifedipine, lisinopril,.
Hold furosemide
Gentle hydration.
Anticipated Discharge: Within 24 hours
Subjective/Interval History
-
Date of Service: September 30, 2024
Objective Data
-
Labs:
Laboratory Results
09/30/24
06:35
Sodium 135
Potassium 4.3
Chloride 102
Carbon Dioxide 28
BUN 27 H
Creatinine 0.8
Glucose 96
Calcium 9.5
Vital Signs:
Vital Signs
Temp Pulse Resp BP Pulse Ox
97.8 F 97 18 133/83 97
09/30/24 15:19 09/30/24 15:19 09/30/24 15:19 09/30/24 15:19 09/30/24 15:19
I&O
09/29/24 09/30/24 10/01/24
06:59 06:59 06:59
Intake Total 1720 / 1720
Output Total 700 / 700
Balance 1020 / 1020
Physical Exam
-
General: Well Developed and No Apparent Distress
HEENT: Normocephalic, Atraumatic and Moist Mucous Membranes
Respiratory: Clear to Auscultation
Cardiac: Regular Rhythm and S1/S2; Negative Murmur, Rub or Gallop
GI: Soft, Nontender, Nondistended and Normal Bowel Sounds; Negative Organomegaly
Rectal: Deferred by Provider
Musculoskeletal: No Clubbing, No Cyanosis and No Edema
Skin: Negative Rash
Neuro: Nonfocal/Grossly Intact
[2024-09-30 16:07] VITALS: BP 133/83; BP 156/74; PULSE 103; PULSE 97
[2024-09-30] MEDS: PROTONIX 40 MG PO (16:39)
[2024-09-30] MEDS: LIPITOR 40 MG PO (16:39)
[2024-09-30] MEDS: LOVENOX 40 MG SC (16:39)
[2024-09-30] MEDS: COLACE PO (20:46)
[2024-09-30] MEDS: SENOKOT PO (20:46)
[2024-09-30] MEDS: XALATAN OPHTHALMIC SOLUTION 1 DROP BOTH EYES (22:43)
[2024-09-30 23:50] VITALS: BP 125/77
[2024-10-01] MEDS: TYLENOL PO (01:14)
[2024-10-01] MEDS: DILAUDID PO (04:17)
[2024-10-01] MEDS: TYLENOL 650 MG PO ×6 (05:03→23:37)
[2024-10-01] MEDS: DILAUDID 4 MG PO ×5 (05:03→22:26)
[2024-10-01] MEDS: SYMBICORT 160/4.5 MCG INHALER 2 PUFF INH ×2 (07:34→19:44)
[2024-10-01] MEDS: DILAUDID 0.5 MG IV ×2 (07:49→19:24)
[2024-10-01] MEDS: CELEXA 40 MG PO (08:38)
[2024-10-01] MEDS: DELTASONE 20 MG PO (08:38)
[2024-10-01] MEDS: ASPIR LOW (ENTERIC COATED) 81 MG PO (08:38)
[2024-10-01] MEDS: COLACE 100 MG PO (08:38)
[2024-10-01] MEDS: PEPCID 20 MG PO (08:38)
[2024-10-01] MEDS: SENOKOT 17.2 MG PO (08:38)
[2024-10-01] MEDS: IMODIUM 2 MG PO (08:39)
[2024-10-01] MEDS: CLARITIN 10 MG PO (08:39)
[2024-10-01] MEDS: SINGULAIR 10 MG PO (08:39)
[2024-10-01] MEDS: NEURONTIN 300 MG PO ×3 (08:39→22:26)
[2024-10-01 08:47] VITALS: BP 189/92
--- NOTE | 2024-10-01 14:08 | CM ---
Chart reviewed and patient has been declined at [place] acute rehab and [place], referral sent to [facility] for skilled placement, per admissions at [facility] they are still reviewing chart, they have been asking for WB status and instruction form
to be completed and they want to make sure that patient will not be having and xrt treatments.
Plan; To follow up with [facility] for possible skilled placement.
[2024-10-01 14:10] VITALS: BP 178/87; BP 189/99; PULSE 90; O2SAT 94
[2024-10-01 14:15] VITALS: BP 177/87; BP 188/89; PULSE 94; O2SAT 94
--- NOTE | 2024-10-01 14:20 | W.PN.HOSP.TC ---
Today's Communication/Plan
-
Continue PT
Placement to [facility] facility pending bed availability
Assessment / Plan
Assessment / Plan
Impression
Right humerus fracture secondary to mechanical fall
Orthostatic hypotension leading to syncope and fall.
Hyperkalemia
Other conditions:
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
CAD with history of stents
Moderate aortic stenosis by echo 07/14
COPD.
Essential hypertension
Dyslipidemia baseline
Chronic pain requiring opioids
Obstructive sleep apnea on BiPAP baseline former smoker
Obesity with BMI of 37
Plan:
Status post mechanical fall with right humeral fracture.
Patient is not a candidate for surgical intervention due to declining functional and respiratory status baseline plan is for conservative treatment including right upper extremity immobilization and physical therapy
Start PT/OT assessment.
Physiatry evaluation with consideration of acute versus subacute rehab.
Orthopedic input appreciated.
COPD
Obstructive sleep apnea.
Chronic hypoxic respiratory failure on oxygen at 2 L.
Continue oxygen supplementation
Continue albuterol
Continue Pulmicort
CPAP at night
Continue steroid taper initiated prior to admission 20 mg daily for 3 days then taper by 10 mg on every fourth day to the maintenance of 5 mg a day.
CAD.
Essential hypertension
Orthostatic hypotension.
Recent echocardiogram with preserved LVEF and moderate aortic stenosis.
Hold nifedipine, lisinopril,.
Hold furosemide
Gentle hydration.
Anticipated Discharge: 24 - 48 hours
Subjective/Interval History
-
Date of Service: October 01, 2024
Objective Data
-
Vital Signs:
Vital Signs
Temp Pulse Resp BP Pulse Ox
97.7 F 87 17 189/92 98
10/01/24 08:47 10/01/24 08:47 10/01/24 08:47 10/01/24 08:47 10/01/24 08:47
I&O
09/30/24 10/01/24 10/02/24
06:59 06:59 06:59
Intake Total 1720 / 1720
Output Total 700 / 700
Balance 1020 / 1020
Physical Exam
-
General: Well Developed and No Apparent Distress
HEENT: Normocephalic, Atraumatic and Moist Mucous Membranes
Respiratory: Clear to Auscultation
Cardiac: Regular Rhythm and S1/S2; Negative Murmur, Rub or Gallop
GI: Soft, Nontender, Nondistended and Normal Bowel Sounds; Negative Organomegaly
Rectal: Deferred by Provider
Musculoskeletal: No Clubbing, No Cyanosis and No Edema
Skin: Negative Rash
Neuro: Nonfocal/Grossly Intact
--- NOTE | 2024-10-01 15:15 | CON.MD ---
Documented by User: Paulina Druan PA-C 10/01/24 16:48
Consultation - Medical
-
Referring Provider:�Lino Shultz
Chief Complaint:�Debility, right humerus fracture
�
History of Present Illness:�This is a 84-year-old female with PMH of (COPD, asthma, metastatic lung cancer with spinal stenosis and radiation to cervical spine with compression, aortic stenosis, migraine, TIA, hypothyroidism, CAD, depression,
anxiety, h/o DVT, AAA, migraines) presenting to the emergency department with a witnessed fall in the bathroom. Buitrago was attempting to sit to have a bowel movement. Daughter was standing right behind but was unable to catch before she landed on her
right side on the bathroom floor. She denied having any chest pain, palpitations. no lightheadedness prior to this episode. Denies focal weakness numbness tingling shortness of breath ,abdominal pain nausea or vomiting. has a laceration line and
pain in her neck and right shoulder.
In the emergency department -ECG shows normal sinus rhythm at a rate of 83 with right bundle branch block and occasional PVC.
X-ray shows- a right proximal humerus fracture. She was placed into a sling. She is not interested in surgical intervention and therefore this can be managed nonoperatively. She is to remain non weight bearing to the right arm. Maintain sling. I did
advise her that this fracture can take up to 12 weeks for complete healing and that she may lose some range of motion of her shoulder. Ok for her to perform range of motion of the hand, wrist, and elbow as tolerated. Continue with pain management as
needed. PT/OT evaluation. Follow up outpatient in one week for repeat xrays. Orthopedics will sign off at this time.
CT of the head shows no acute intracranial injury. CT of the C-spine shows no acute fracture or malalignment, chronic moderate compression deformity of the C6 vertebral body with numerous osseous lesions since throughout the mid and lower cervical
spine.
�
Past Medical History:�COPD, asthma, metastatic lung cancer with spinal stenosis and radiation to cervical spine with compression, aortic stenosis, migraine, TIA, hypothyroidism, CAD, depression, anxiety, shingles)
Procedure History:�Small bowel obstruction status post total colectomy, ileostomy with reversal, Partial small bowel obstruction, Intestinal adhesions, Right total knee arthroplasty , cardiac catheterization with stent, tubal ligation, hernia
repair, cataract extraction
Family History:�Not pertinent
�
Social History:�
Functional Level Premorbidly:�Independent with all activities�, uses rollator for ambulation, sleeps in hospital bed. Daughter assist with ADLs as needed
Functional Level Currently:�Bed mobility�supine to sit�mod assist, sit to supine�mod assist, rolling�min assist, transfer�min assist, patient stood with use of NB QC, minimal assist of 2 and sidesteps 3 feet to head of bed.
�
Tobacco:�Denies�
Alcohol:�Denies�
Drug use:�Denies�
�
Lives with:�Alone, but daughter has been living with her for the past year
24-hour assistance available:�
Number of floors:�One-story home
# steps to enter:�
# steps to second floor:
Potential First floor set up:�Yes
Driving:�
Occupation:�Retired
�
�
Allergies:�
Allergy/AdvReac Type Severity Reaction Status Date / Time
codeine Allergy NAUSEA Verified 09/28/24 23:24
doxycycline Allergy HEART Verified 09/28/24 23:24
PALPITATIONS
Iodinated Contrast Media Allergy IV Verified 09/28/24 23:24
CONTRAST-SOB
meperidine HCl (From Demerol) Allergy Nausea/ligh Verified 09/28/24 23:24
theaded
morphine Allergy Nausea Verified 09/28/24 23:24
norepinephrine Allergy rash to Verified 09/28/24 23:24
ethylnorepinephrine
oxycodone Allergy SEVERE Verified 09/28/24 23:24
NAUSEA
pentazocine Allergy TALWIN-N/V Verified 09/28/24 23:24
pentazocine lactate (From Allergy Nausea Verified 09/28/24 23:24
Talwin)
piperacillin (From Zosyn) Allergy Anaphylaxis Verified 09/28/24 23:24
tazobactam (From Zosyn) Allergy Anaphylaxis Verified 09/28/24 23:24
Tetracyclines Allergy very Verified 09/28/24 23:24
disoriented
�
Review of Systems:�
Constitutional: (x) Normal _
Eye: (x) Normal _
Ear/Nose/Throat: (x) Normal _
Respiratory: (x) Normal _
Cardiovascular: (x) abNormal _cad
Gastrointestinal: (x) Normal _
Genitourinary: (x) Normal _
Musculoskeletal: (x) Normal _
Integumentary: (x) abNormal _fracture of the right humerus
Neurologic: (x) Normal _
Psychiatric: (x) Normal _
Endocrine: (x) Normal _
Hematologic/Lymphatic: (x) Normal _
Allergic/Immunologic: (x) Normal _
�
Medications:�
Active Current Visit Medication List
Category Date Time Status
Acetaminophen [Tylenol] Med 09/29/24 08:00 Active
650 mg PO Q4HWA
Albuterol [ProAIR HFA INHALER] Med 09/29/24 05:11 Active
2 puff INH R Q4HPRN PRN sob/wheezing
Aspirin Low Dose EC [Aspir Low (Enteric Coated)] Med 09/29/24 08:00 Active
81 mg PO DAILY
Atorvastatin [Lipitor] Med 09/29/24 18:00 Active
40 mg PO QPM
Budesonide/Formoterol 160/4.5 [Symbicort 160/4.5 Mcg Med 09/29/24 08:00 Active
Inhaler]
2 puff INH R BID
Citalopram [Celexa] Med 09/29/24 08:00 Active
40 mg PO DAILY
Docusate Sodium [Colace] Med 09/29/24 20:00 Active
100 mg PO BID
Enoxaparin Sodium [Lovenox] Med 09/29/24 18:00 Active
40 mg SC QPM
Famotidine [Pepcid] Med 09/29/24 08:00 Active
20 mg PO DAILY
Flush (0.9% Sodium Chloride) [Flush (Nss)] Med 09/29/24 06:00 Active
See Dose Instructions IV PER PROTOCOL
Furosemide [Lasix] Med 09/29/24 08:00 Hold
40 mg PO DAILY
Gabapentin [Neurontin] Med 09/29/24 08:00 Active
300 mg PO TID
HYDROmorphone [Dilaudid] Med 09/29/24 05:11 Active
0.5 mg IV Q1HPRN PRN
HYDROmorphone [Dilaudid] Med 09/29/24 06:00 Active
4 mg PO Q4H
Ipratropium/Albuterol Sulfate [Duoneb] Med 09/29/24 05:11 Active
3 ml INH R Q6HPRN PRN sob/wheezing
Latanoprost [Xalatan Ophthalmic Solution] Med 09/29/24 22:00 Active
1 drop BOTH EYES HS
Lisinopril [Zestril] Med 09/29/24 08:00 Hold
5 mg PO DAILY
Loperamide [Imodium] Med 09/29/24 08:00 Active
2 mg PO DAILY
Loratadine [Claritin] Med 09/29/24 08:00 Active
10 mg PO DAILY
Magnesium Hydroxide [Milk of Magnesia] Med 09/29/24 05:11 Active
30 ml PO DAILYPRN PRN
Montelukast Sodium [Singulair] Med 09/29/24 08:00 Active
10 mg PO DAILY
NIFEdipine EXTENDED RELEASE [Procardia Xl (Extended Med 09/29/24 08:00 Hold
Release)]
60 mg PO DAILY
Pantoprazole [Protonix] Med 09/29/24 18:00 Active
40 mg PO QPM
Prednisone [Deltasone] Med 09/29/24 08:00 Active
20 mg PO DAILY
Sennosides [Senokot] Med 09/29/24 20:00 Active
17.2 mg PO BID
Tamsulosin [Flomax] Med 09/29/24 05:11 Active
0.4 mg PO DAILYPRN PRN
�
Vitals:�
Temp Pulse Resp BP Pulse Ox
98.4 F 92 17 102/94 97
10/01/24 15:36 10/01/24 15:36 10/01/24 15:36 10/01/24 15:36 10/01/24 15:36
Height 4 ft 11 in
Actual Weight 84.368 kg
Body Mass Index (BMI) 37.6
�
Physical Exam:�
General Appearance/Observation: Well-developed, well-nourished individual in no apparent distress.�
Pain/Comfort Assessment: Denies�
Mood/Affect: Appropriate�
�
Integumentary/Operative Site:�
�� Pressure Ulcer Evaluation: absent over heels.�
��
�� Other Type of Wound: absent�
��
�
Eyes: Conjunctiva/Lids: normal���� Pupils: pupils equal round and reactive to light and Accommodation�
Ears/Nose/Throat: oral mucosa moist,� throat clear.������������ Lips/Teeth/Gums: normal�
Neck: No muscle spasm or tenderness�
Cardiovascular: Heart: regular, no murmur�
Pulses: dorsalis pedis 2+ bilaterally�
Respiratory: Respiratory Effort/Chest Expansion: normal������� Auscultation: Clear to auscultation bilaterally�
Gastrointestinal: abdomen not tender, no distension, normal abdominal bowel sounds
Genitourinary: No Jacobs�
Extremities:�Edema: None�Cyanosis: None�Trophic�changes: None
�
Neurology Exam:
Orientation: Alert, Oriented to self, Time, Place�
Memory: Intact for immediate medical concerns
Comprehension: Intact
Two step command: Intact
Naming: Intact
Cranial Nerves:
�� CNII:�Pupillary light reflex: Intact����Visual Field: NT
�� CN III, IV, : Extraocular muscles: Intact�, ptosis of both eyelids, puffiness underneath both eyes
�� CN V:�Facial Sensation�at�Forehead: Intact,�Maxilla: Intact,�Mandible: Intact
�� CN VII:�Facial movement: Symmetric
�� CN VIII:�Hearing: Normal
�� CN IX/X:�Speech & swallow: Normal,�Position of Uvula: Midline
�� CN XI:�Shoulder shrug: Symmetric
�� CN XII:�Tongue protrusion: Midline
Sensory:
�� Light touch: Intact in left upper extremity, right hand/fingers, and bilateral lower extremities
��
�
Reflexes:
��
Patellar: 1/4 bilaterally
�� Achilles: absent bilaterally
�� Clonus: None
�� Vicenta: Negative bilaterally�
Cerebellar: Dysmetria/Ataxia: NT
Musculoskeletal:
Motor: (Manual muscle scale 0-5)�
Muscle SA EF WE EE FF FA HF KE DF EHL PF
Right� *- *- *- *- 4 4 4 4 5 5 5
Left 5 5 5 5 5 4 4 5 5 5
* deferred due to pain and immobilization�
Tone: Normal in all extremities�
Range of Motion: Passively within normal limits in all extremities�. Deferred right upper extremity in sling
�
Lab Results
Labs
WBC 15.8 10^3/uL (4.8-10.8) H 09/29/24 00:15
RBC 4.01 10^6/uL (4.20-5.40) L 09/29/24 00:15
Hgb 11.7 g/dL (12.0-16.0) L 09/29/24 00:15
Hct 36.2 % (37.0-47.0) L 09/29/24 00:15
MCV 90.3 fL (81.0-99.0) 09/29/24 00:15
MCH 29.2 pg (27.0-31.0) 09/29/24 00:15
MCHC 32.3 g/dL (33.0-37.0) L 09/29/24 00:15
RDW 14.8 % (11.5-14.5) H 09/29/24 00:15
Plt Count 236 10^3/uL (130-400) D 09/29/24 00:15
MPV 9.9 fL (7.4-10.4) 09/29/24 00:15
Abs Immat Gran (auto) 0.7 10^3/uL (0-0.05) H 09/29/24 00:15
Absolute Neuts (auto) 13.1 10^3/uL (1.4-6.5) H 09/29/24 00:15
Absolute Lymphs (auto) 1.2 10^3/uL (1.2-3.4) 09/29/24 00:15
Absolute Monos (auto) 0.7 10^3/uL (0.1-0.6) H 09/29/24 00:15
Absolute Eos (auto) 0.0 10^3/uL (0-0.7) 09/29/24 00:15
Absolute Basos (auto) 0.1 10^3/uL (0-0.2) 09/29/24 00:15
Immature Gran % 4.4 % (0-0.5) H 09/29/24 00:15
Neutrophils % 83.1 % (42.2-75.2) H 09/29/24 00:15
Lymphocytes % 7.3 % (20.5-51.1) L 09/29/24 00:15
Monocytes % 4.4 % (1.7-9.3) 09/29/24 00:15
Eosinophils % 0.3 % (0-6) 09/29/24 00:15
Basophils % 0.5 % (0-2) 09/29/24 00:15
Nucleated RBC % 0 % 09/29/24 00:15
Sodium 135 mmol/L (135-145) 09/30/24 06:35
Potassium 4.3 mmol/L (3.5-5.1) 09/30/24 06:35
Chloride 102 mmol/L (98-107) 09/30/24 06:35
Carbon Dioxide 28 mmol/L (22-30) 09/30/24 06:35
BUN 27 mg/dl (7-17) H 09/30/24 06:35
Creatinine 0.8 mg/dL (0.6-1.0) 09/30/24 06:35
Estimated Creat Clear 49 ml/min 09/30/24 06:35
eGFR > 60.00 09/30/24 06:35
Glucose 96 mg/dl (70-99) 09/30/24 06:35
Calcium 9.5 mg/dl (8.4-10.2) 09/30/24 06:35
Magnesium 1.9 mg/dl (1.6-2.3) 09/29/24 00:15
�
Diagnostic Results:�as per HPI�
X-ray of right shoulder
�Findings suggesting acute comminuted right humeral head fracture as described above. New
Moderate AC joint osteoarthritis. Stable
Assessment: 84-year-old female with right humerus fracture status post mechanical fall associated with ADL impairment.
�
Plan�
�PT/OT to increase independence with ADLs, improve balance, coordination, endurance, strength, mobility, community reintegration, decreased burden of care on others and family education.�
Debility: PT/OT
Right humerus fracture: Managing nonoperatively. Immobilized with sling. Remain non weight bearing to the right arm.
HTN: Lisinopril, nifedipine and Lasix- on hold.
HLD: Statin�
Coronary artery disease�: Aspirin, statin, beta-sarath�
COPD/Sleep apnea/chronic hypoxic respiratory failure: on oxygen 2 L. Continue albuterol, Pulmicort, CPAP at night, continue steroid taper initiated prior to admission 20 mg daily for 3 days then taper by 10 mg on every fourth day to the maintenance
of 5 mg a day, Singulair
Psych: Celexa 40 mg daily monitor mood, adjust medications as needed.�
Skin: monitor for pressure sores/rashes/lesions.�
Pain: acetaminophen as needed.� Gabapentin 3 times daily, hydromorphone 4 mg every 4 hours
Glaucoma: Latanoprost
Bowel/h/o colom resectioning: Imodium 2 mg daily, Senokot, docusate
Bladder: Time void, PVRs, PRN straight cath.�
GI Prophylaxis: Pantoprazole�40 mg daily, Famotidine 20 mg daily,
DVT Prophylaxis: Lovenox 40 mg sc
Pulmonary: Incentive spirometry�
Morbid obesity: Continue to credit support counselor patient about diet adjustments to control obesity. Body habitus and increased force to move body and extremities causes further difficulty with functional tasks.�
Safety: Continue to reinforce assistance with all transfers.�
Code Status:� DNR�
Dispo�(date
Functional and Medical Goals:�Modified Independent with ADL�s, ambulation, transfers�
�
Discharge Destination: SNF
�
Summary of recommendations: Patient not a candidate for acute inpatient rehabilitation
�
Thank you for allowing me to care for your patient. Please contact me with any questions or concerns.

Documented by User: Yordy Cabrera MD 10/01/24 22:36
Consultation - Medical
-
Referring Provider:�Lino Shultz
Chief Complaint:�Debility, right humerus fracture
�
History of Present Illness:�This is a 84-year-old female with PMH of (COPD, asthma, metastatic lung cancer with spinal stenosis and radiation to cervical spine with compression, aortic stenosis, migraine, TIA, hypothyroidism, CAD, depression,
anxiety, h/o DVT, AAA, migraines) presenting to the emergency department with a witnessed fall in the bathroom. Buitrago was attempting to sit to have a bowel movement. Daughter was standing right behind but was unable to catch before she landed on her
right side on the bathroom floor. She denied having any chest pain, palpitations. no lightheadedness prior to this episode. Denies focal weakness numbness tingling shortness of breath ,abdominal pain nausea or vomiting. has a laceration line and
pain in her neck and right shoulder.
In the emergency department -ECG shows normal sinus rhythm at a rate of 83 with right bundle branch block and occasional PVC.
X-ray shows- a right proximal humerus fracture. She was placed into a sling. She is not interested in surgical intervention and therefore this can be managed nonoperatively. She is to remain non weight bearing to the right arm. Maintain sling. I did
advise her that this fracture can take up to 12 weeks for complete healing and that she may lose some range of motion of her shoulder. Ok for her to perform range of motion of the hand, wrist, and elbow as tolerated. Continue with pain management as
needed. PT/OT evaluation. Follow up outpatient in one week for repeat xrays. Orthopedics will sign off at this time.
CT of the head shows no acute intracranial injury. CT of the C-spine shows no acute fracture or malalignment, chronic moderate compression deformity of the C6 vertebral body with numerous osseous lesions since throughout the mid and lower cervical
spine.
�
Past Medical History:�COPD, asthma, metastatic lung cancer with spinal stenosis and radiation to cervical spine with compression, aortic stenosis, migraine, TIA, hypothyroidism, CAD, depression, anxiety, shingles)
Procedure History:�Small bowel obstruction status post total colectomy, ileostomy with reversal, Partial small bowel obstruction, Intestinal adhesions, Right total knee arthroplasty , cardiac catheterization with stent, tubal ligation, hernia
repair, cataract extraction
Family History:�Not pertinent
�
Social History:�
Functional Level Premorbidly:�Independent with all activities�, uses rollator for ambulation, sleeps in hospital bed. Daughter assist with ADLs as needed
Functional Level Currently:�Bed mobility�supine to sit�mod assist, sit to supine�mod assist, rolling�min assist, transfer�min assist, patient stood with use of NB QC, minimal assist of 2 and sidesteps 3 feet to head of bed.
�
Tobacco:�Denies�
Alcohol:�Denies�
Drug use:�Denies�
�
Lives with:�Alone, but daughter has been living with her for the past year
24-hour assistance available:�
Number of floors:�One-story home
# steps to enter:�2
Potential First floor set up:�Yes
Occupation:�Retired
�
�
Allergies:�
Allergy/AdvReac Type Severity Reaction Status Date / Time
codeine Allergy NAUSEA Verified 09/28/24 23:24
doxycycline Allergy HEART Verified 09/28/24 23:24
PALPITATIONS
Iodinated Contrast Media Allergy IV Verified 09/28/24 23:24
CONTRAST-SOB
meperidine HCl (From Demerol) Allergy Nausea/ligh Verified 09/28/24 23:24
theaded
morphine Allergy Nausea Verified 09/28/24 23:24
norepinephrine Allergy rash to Verified 09/28/24 23:24
ethylnorepinephrine
oxycodone Allergy SEVERE Verified 09/28/24 23:24
NAUSEA
pentazocine Allergy TALWIN-N/V Verified 09/28/24 23:24
pentazocine lactate (From Allergy Nausea Verified 09/28/24 23:24
Talwin)
piperacillin (From Zosyn) Allergy Anaphylaxis Verified 09/28/24 23:24
tazobactam (From Zosyn) Allergy Anaphylaxis Verified 09/28/24 23:24
Tetracyclines Allergy very Verified 09/28/24 23:24
disoriented
�
Review of Systems:�
Constitutional: (x) abNormal _fatigue
Eye: (x) Normal _
Ear/Nose/Throat: (x) Normal _
Respiratory: (x) Normal _
Cardiovascular: (x) abNormal _cad
Gastrointestinal: (x) Normal _
Genitourinary: (x) Normal _
Musculoskeletal: (x) Normal _
Integumentary: (x) abNormal _fracture of the right humerus
Neurologic: (x) Normal _
Psychiatric: (x) Normal _
Endocrine: (x) Normal _
Hematologic/Lymphatic: (x) Normal _
Allergic/Immunologic: (x) Normal _
�
Medications:�
Active Current Visit Medication List
Category Date Time Status
Acetaminophen [Tylenol] Med 09/29/24 08:00 Active
650 mg PO Q4HWA
Albuterol [ProAIR HFA INHALER] Med 09/29/24 05:11 Active
2 puff INH R Q4HPRN PRN sob/wheezing
Aspirin Low Dose EC [Aspir Low (Enteric Coated)] Med 09/29/24 08:00 Active
81 mg PO DAILY
Atorvastatin [Lipitor] Med 09/29/24 18:00 Active
40 mg PO QPM
Budesonide/Formoterol 160/4.5 [Symbicort 160/4.5 Mcg Med 09/29/24 08:00 Active
Inhaler]
2 puff INH R BID
Citalopram [Celexa] Med 09/29/24 08:00 Active
40 mg PO DAILY
Docusate Sodium [Colace] Med 09/29/24 20:00 Active
100 mg PO BID
Enoxaparin Sodium [Lovenox] Med 09/29/24 18:00 Active
40 mg SC QPM
Famotidine [Pepcid] Med 09/29/24 08:00 Active
20 mg PO DAILY
Flush (0.9% Sodium Chloride) [Flush (Nss)] Med 09/29/24 06:00 Active
See Dose Instructions IV PER PROTOCOL
Furosemide [Lasix] Med 09/29/24 08:00 Hold
40 mg PO DAILY
Gabapentin [Neurontin] Med 09/29/24 08:00 Active
300 mg PO TID
HYDROmorphone [Dilaudid] Med 09/29/24 05:11 Active
0.5 mg IV Q1HPRN PRN
HYDROmorphone [Dilaudid] Med 09/29/24 06:00 Active
4 mg PO Q4H
Ipratropium/Albuterol Sulfate [Duoneb] Med 09/29/24 05:11 Active
3 ml INH R Q6HPRN PRN sob/wheezing
Latanoprost [Xalatan Ophthalmic Solution] Med 09/29/24 22:00 Active
1 drop BOTH EYES HS
Lisinopril [Zestril] Med 09/29/24 08:00 Hold
5 mg PO DAILY
Loperamide [Imodium] Med 09/29/24 08:00 Active
2 mg PO DAILY
Loratadine [Claritin] Med 09/29/24 08:00 Active
10 mg PO DAILY
Magnesium Hydroxide [Milk of Magnesia] Med 09/29/24 05:11 Active
30 ml PO DAILYPRN PRN
Montelukast Sodium [Singulair] Med 09/29/24 08:00 Active
10 mg PO DAILY
NIFEdipine EXTENDED RELEASE [Procardia Xl (Extended Med 09/29/24 08:00 Hold
Release)]
60 mg PO DAILY
Pantoprazole [Protonix] Med 09/29/24 18:00 Active
40 mg PO QPM
Prednisone [Deltasone] Med 09/29/24 08:00 Active
20 mg PO DAILY
Sennosides [Senokot] Med 09/29/24 20:00 Active
17.2 mg PO BID
Tamsulosin [Flomax] Med 09/29/24 05:11 Active
0.4 mg PO DAILYPRN PRN
�
Vitals:�
Temp Pulse Resp BP Pulse Ox
98.4 F 92 17 102/94 97
10/01/24 15:36 10/01/24 15:36 10/01/24 15:36 10/01/24 15:36 06/12/25 15:36
Height 4 ft 11 in
Actual Weight 84.368 kg
Body Mass Index (BMI) 37.6
Physical Exam:�
General Appearance/Observation: Well-developed, well-nourished female in no apparent distress.�
Pain/Comfort Assessment: Denies�
Mood/Affect: Appropriate�
�
Integumentary/Operative Site:�Forehead laceration with sona clean dry and intact
��
Eyes: Conjunctiva/Lids: normal���� Pupils: pupils equal round and reactive to light and Accommodation�
Ears/Nose/Throat: oral mucosa moist,� throat clear.������������ Lips/Teeth/Gums: normal�
Cardiovascular: Heart: regular, no murmur�
Pulses: dorsalis pedis 2+ bilaterally�
Respiratory: Respiratory Effort/Chest Expansion: normal������� Auscultation: Clear to auscultation bilaterally�
Gastrointestinal: abdomen not tender, no distension, normal abdominal bowel sounds
Genitourinary: No Jacobs�
Extremities:�Edema: None�Cyanosis: None�Trophic�changes: None
�
Neurology Exam:
Orientation: Alert, Oriented to self, Time, Place�
Memory: Intact for immediate medical concerns
Comprehension: Intact
Two step command: Intact
Cranial Nerves:
�� CNII:�Pupillary light reflex: Intact����Visual Field: NT
�� CN III, IV, : Extraocular muscles: Intact�, ptosis of both eyelids, puffiness underneath both eyes
�� CN V:�Facial Sensation�at�Forehead: Intact,�Maxilla: Intact,�Mandible: Intact
�� CN VII:�Facial movement: Symmetric
�� CN VIII:�Hearing: Normal
�� CN IX/X:�Speech & swallow: Normal,�Position of Uvula: Midline
�� CN XI:�Shoulder shrug: Symmetric
�� CN XII:�Tongue protrusion: Midline
Sensory:
�� Light touch: Intact in left upper extremity, right hand/fingers, and bilateral lower extremities
��
Musculoskeletal: Motor: (Manual muscle scale 0-5)�
Muscle SA EF WE EE FF FA HF KE DF EHL PF
Right� *- *- *- *- 4 4 4 4 5 5 5
Left 5 5 5 5 5 4 4 5 5 5
* deferred due to pain and immobilization�
Tone: Normal in all extremities�
Range of Motion: Passively within normal limits in all extremities�. Deferred right upper extremity in sling
�
Lab Results
Labs
WBC 15.8 10^3/uL (4.8-10.8) H 09/29/24 00:15
RBC 4.01 10^6/uL (4.20-5.40) L 09/29/24 00:15
Hgb 11.7 g/dL (12.0-16.0) L 09/29/24 00:15
Hct 36.2 % (37.0-47.0) L 09/29/24 00:15
MCV 90.3 fL (81.0-99.0) 09/29/24 00:15
MCH 29.2 pg (27.0-31.0) 09/29/24 00:15
MCHC 32.3 g/dL (33.0-37.0) L 09/29/24 00:15
RDW 14.8 % (11.5-14.5) H 09/29/24 00:15
Plt Count 236 10^3/uL (130-400) D 09/29/24 00:15
MPV 9.9 fL (7.4-10.4) 09/29/24 00:15
Abs Immat Gran (auto) 0.7 10^3/uL (0-0.05) H 09/29/24 00:15
Absolute Neuts (auto) 13.1 10^3/uL (1.4-6.5) H 09/29/24 00:15
Absolute Lymphs (auto) 1.2 10^3/uL (1.2-3.4) 09/29/24 00:15
Absolute Monos (auto) 0.7 10^3/uL (0.1-0.6) H 09/29/24 00:15
Absolute Eos (auto) 0.0 10^3/uL (0-0.7) 09/29/24 00:15
Absolute Basos (auto) 0.1 10^3/uL (0-0.2) 09/29/24 00:15
Immature Gran % 4.4 % (0-0.5) H 09/29/24 00:15
Neutrophils % 83.1 % (42.2-75.2) H 09/29/24 00:15
Lymphocytes % 7.3 % (20.5-51.1) L 09/29/24 00:15
Monocytes % 4.4 % (1.7-9.3) 09/29/24 00:15
Eosinophils % 0.3 % (0-6) 09/29/24 00:15
Basophils % 0.5 % (0-2) 09/29/24 00:15
Nucleated RBC % 0 % 09/29/24 00:15
Sodium 135 mmol/L (135-145) 09/30/24 06:35
Potassium 4.3 mmol/L (3.5-5.1) 09/30/24 06:35
Chloride 102 mmol/L (98-107) 09/30/24 06:35
Carbon Dioxide 28 mmol/L (22-30) 09/30/24 06:35
BUN 27 mg/dl (7-17) H 09/30/24 06:35
Creatinine 0.8 mg/dL (0.6-1.0) 09/30/24 06:35
Estimated Creat Clear 49 ml/min 09/30/24 06:35
eGFR > 60.00 09/30/24 06:35
Glucose 96 mg/dl (70-99) 09/30/24 06:35
Calcium 9.5 mg/dl (8.4-10.2) 09/30/24 06:35
Magnesium 1.9 mg/dl (1.6-2.3) 09/29/24 00:15
�
Diagnostic Results:�as per HPI�
X-ray of right shoulder
�Findings suggesting acute comminuted right humeral head fracture as described above. New
Moderate AC joint osteoarthritis. Stable
Assessment:
84-year-old female with right humerus fracture status post mechanical fall associated with ADL impairment.
�
Plan�
PT/OT to increase independence with ADLs, improve balance, coordination, endurance, strength, mobility, community reintegration, decreased burden of care on others and family education.�
Debility: PT/OT
Right humerus fracture: Managing nonoperatively. Immobilized with sling. Remain non weight bearing to the right arm.
HTN: Lisinopril, nifedipine and Lasix- on hold.
HLD: Statin�
Coronary artery disease�: Aspirin, statin, beta-sarath�
COPD/Sleep apnea/chronic hypoxic respiratory failure: on oxygen 2 L. Continue albuterol, Pulmicort, CPAP at night, continue steroid taper initiated prior to admission 20 mg daily for 3 days then taper by 10 mg on every fourth day to the maintenance
of 5 mg a day, Singulair
Psych: Celexa 40 mg daily monitor mood, adjust medications as needed.�
Skin: monitor for pressure sores/rashes/lesions.�
Pain: acetaminophen as needed.� Gabapentin 3 times daily, hydromorphone 4 mg every 4 hours
Glaucoma: Latanoprost
Bowel/h/o colom resectioning: Imodium 2 mg daily, Senokot, docusate
Bladder: Time void, PVRs, PRN straight cath.�
GI Prophylaxis: Pantoprazole�40 mg daily, Famotidine 20 mg daily,
DVT Prophylaxis: Lovenox 40 mg sc
Pulmonary: Incentive spirometry�
Morbid obesity: Continue to credit support counselor patient about diet adjustments to control obesity. Body habitus and increased force to move body and extremities causes further difficulty with functional tasks.�
Safety: Continue to reinforce assistance with all transfers.�
Code Status:� DNR�
Functional and Medical Goals:�Modified Independent with ADL�s, ambulation, transfers�
Discharge Destination: SNF
Attending Statement:
I saw and examined the patient today. Reviewed care plan with patient, therapy, nursing, and physician employment legal assistant. I agree with the above subjective and physical exam, and plan as documented by RUDI Duran with adjustments made as necessary.
�
Thank you for allowing me to care for your patient. Please contact me with any questions or concerns.
Consultation
-
Date/Time Consultation Performed: 10/01/24
Requesting Provider: Dr. Lino Ch
Performing Provider: Dr. Yordy Cabrera
Reason for Consultation: Humerus fracture and debility.
[2024-10-01 15:36] VITALS: BP 102/94
[2024-10-01] MEDS: PROTONIX 40 MG PO (17:08)
[2024-10-01] MEDS: LOVENOX 40 MG SC (17:09)
[2024-10-01] MEDS: LIPITOR 40 MG PO (17:09)
[2024-10-01] MEDS: SENOKOT PO ×2 (19:25→19:30)
[2024-10-01] MEDS: COLACE PO ×2 (19:25→19:30)
[2024-10-01] MEDS: XALATAN OPHTHALMIC SOLUTION 1 DROP BOTH EYES (22:26)
[2024-10-01 23:42] VITALS: BP 157/89
[2024-10-02] MEDS: DILAUDID 4 MG PO ×5 (02:59→15:06)
[2024-10-02] MEDS: TYLENOL PO (03:02)
[2024-10-02 07:00] VITALS: BP 170/76
[2024-10-02] MEDS: SYMBICORT 160/4.5 MCG INHALER 2 PUFF INH (07:48)
[2024-10-02] MEDS: ASPIR LOW (ENTERIC COATED) 81 MG PO (08:11)
[2024-10-02] MEDS: CELEXA 40 MG PO (08:11)
[2024-10-02] MEDS: COLACE 100 MG PO (08:11)
[2024-10-02] MEDS: CLARITIN 10 MG PO (08:11)
[2024-10-02] MEDS: NEURONTIN 300 MG PO ×2 (08:11→15:06)
[2024-10-02] MEDS: SINGULAIR 10 MG PO (08:12)
[2024-10-02] MEDS: PEPCID 20 MG PO (08:13)
[2024-10-02] MEDS: DELTASONE 20 MG PO (08:13)
[2024-10-02] MEDS: TYLENOL 650 MG PO ×3 (08:13→15:06)
[2024-10-02] MEDS: IMODIUM PO (08:14)
[2024-10-02] MEDS: SENOKOT 17.2 MG PO (08:14)
--- NOTE | 2024-10-02 08:43 | PN.CDI ---
CDI
- -
CDI:
Physician Documentation Request
Admit Date: 09/30/24 12:54
Dear Doctor Dima,
Please review the following and provide your response in the progress notes.
Clinical Indicators:
- Patient admit after fall
- 10/01 PN 'Right humerus fracture secondary to mechanical fall'
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
- Home med - 5mg Prednisone daily
- Increased to 20mg Prednisone daily
- 05/21/23 Dexa scan indicates osteoporosis
Please provide further specificity regarding the diagnosis of right humerus fracture:
Traumatic
Pathologic due to osteoporosis
Due to a combination of trauma and a pathological process but the trauma alone would not likely have been sufficient to cause the fracture
Other (please specify)
Use of terms such as suspected, likely, concern for, or probable (associated with a specific diagnosis that is being evaluated, monitored, or treated as if it exists) are acceptable and can be coded in the inpatient setting, when documented at the
time of discharge.
Thank you,
Hollie Rebolledo RN
CDI Specialist
Please use your independent medical judgment in providing your response.
--- NOTE | 2024-10-02 08:51 | PN.CDI ---
CDI
- -
CDI:
Physician Documentation Request
Admit Date: 09/30/24 12:54
Dear Doctor Dima,
Please review the following and provide your response in the progress notes.
Clinical Indicators:
- Patient admit after fall
- 09/29 H&P home med hydromorphone 4mg PO Q4h
- 09/29-10/02 4mg x 17 given
- Severe pain 0.5mg IV x 6 given
If possible, please provide further specificity as outlined below:
Opioid Use with dependence
Opioid dependence
Opioid Use
Other (please specify)
Use of terms such as suspected, likely, concern for, or probable (associated with a specific diagnosis that is being evaluated, monitored, or treated as if it exists) are acceptable and can be coded in the inpatient setting, when documented at the
time of discharge.
Thank you,
Hollie Rebolledo RN
CDI Specialist
Please use your independent medical judgment in providing your response.
[2024-10-02 12:00] VITALS: BP 151/75; BP 184/91; O2SAT 97
[2024-10-02 12:19] VITALS: BP 151/75; BP 184/91; PULSE 88; O2SAT 97
--- NOTE | 2024-10-02 12:39 | CM ---
manager ccu continues to follow up with Vivienne at [facility], and they have accepted patient for skilled placement, patient does not have a 3 night stay however [place] is approved for skilled placement through [facility] approval and patient
can go to [facility] today, patient will need ambulance transport, NON WB form completed as requested by Tiana, patient's daughter to bring patient's BIPAP machine to [facility].
[facility]
Report [phone]

Plan; Skilled placement at [facility] today
--- NOTE | 2024-10-02 12:57 | W.DCSUMMARY ---
Discharge Summary
Discharge Data
Date of Admission: 09/30/24
Date of Discharge: 10/02/24
-
Pending Results: No
Hospital Course
Impression
Right humerus fracture secondary to mechanical fall
Orthostatic hypotension leading to syncope and fall.
Hyperkalemia
Other conditions:
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
CAD with history of stents
Moderate aortic stenosis by echo 07/14
COPD.
Essential hypertension
Dyslipidemia baseline
Chronic pain requiring opioids
Obstructive sleep apnea on BiPAP baseline former smoker
Obesity with BMI of 37
Plan:
Status post mechanical fall with right humeral fracture.
Patient is not a candidate for surgical intervention due to declining functional and respiratory status baseline plan is for conservative treatment including right upper extremity immobilization and physical therapy
Continue NWB to the LUE
Tolerates PT with plan to continue at SNF
Physiatry evaluation with consideration of acute versus subacute rehab.
Orthopedic input appreciated.
COPD
Obstructive sleep apnea.
Chronic hypoxic respiratory failure on oxygen at 2 L.
Continue oxygen supplementation
Continue albuterol
Continue Pulmicort
CPAP at night
Continue steroid taper initiated prior to admission 20 mg daily for 3 days then taper by 10 mg on every fourth day to the maintenance of 5 mg a day.
CAD.
Essential hypertension
Orthostatic hypotension, now resolved
Recent echocardiogram with preserved LVEF and moderate aortic stenosis.
Resume nifedipine, lisinopril,.
Resume furosemide
Off IVF with sufficient oral intake
Disposition, DC to SNF
Discharge Plan
-
Patient Disposition: Group Home/SNF
Discharge Diagnosis/Procedures: Right humerus fracture secondary to mechanical fall
Condition: Good
Diet: Regular
Referrals:
Juan Anaya MD [Family Provider, Family Practice]
Fortunato Hwang MD [Active, Orthopedics]
Prescriptions:
New
docusate sodium 100 mg Capsule
100 mg PO BID Qty: 30 0RF
prednisone 10 mg Tablet
10 mg PO DAILY Qty: 5 0RF
Rx Instructions:
Take 10 mg for 3 days, 5 mg fir 3 days and stop
Continued
atorvastatin 40 MG tablet
40 mg PO QPM
aspirin 81 MG tablet,delayed release (DR/EC)
81 mg PO DAILY
pantoprazole 40 MG tablet,delayed release (DR/EC)
40 mg PO QPM
PreserVision AREDS 1 CAP capsule
1 cap PO DAILY
glucosamine sulfate 500 MG tablet
500 mg PO DAILY
famotidine 20 MG tablet
20 mg PO DAILY
albuterol sulfate [Ventolin HFA] 1 PUFF HFA aerosol inhaler
2 puff inhalation R Q4HPRN PRN (Reason: sob/wheezing)
citalopram 40 mg tablet
40 mg PO DAILY
nifedipine 60 mg Tablet Extended Release
60 mg PO DAILY Qty: 30 1RF
furosemide 40 mg tablet
40 mg PO DAILY
montelukast 10 mg tablet
10 mg PO DAILY
potassium chloride 10 mEq tablet,ER particles/crystals
10 meq PO DAILY
Breztri Aerosphere 160-9-4.8 mcg/actuation Hfa Aerosol Inhaler
2 inh INHALATION R BID
fexofenadine 180 mg Tablet
180 mg PO DAILY
latanoprost 0.005 % drops
1 drp BOTH EYES HS
ipratropium-albuterol 0.5 mg-3 mg(2.5 mg base)/3 mL solution for nebulization
3 ml INHALATION R Q6HPRN PRN (Reason: sob/wheezing)
ondansetron HCl 4 mg Tablet
4 mg PO Q6HPRN PRN (Reason: nausea)
prednisone 5 mg Tablet
5 mg PO DAILY
Patient Comments:
Prednisone taper - currently on 10mg
loperamide 2 mg Tablet
2 mg PO DAILY
therapeutic multivitamin Tablet
1 tab PO DAILY
acetaminophen [Tylenol Extra Strength] 500 mg Tablet
1,000 mg PO Q6H
lisinopril 5 mg Tablet
5 mg PO DAILY
gabapentin 300 mg Capsule
300 mg PO TID Qty: 90 0RF
hydromorphone 4 mg Tablet
4 mg PO Q4H Qty: 20 0RF
Discontinued
prednisone 10 mg Tablet
See Rx Instructions .ROUTE .COMPLEX Qty: 30 0RF
Rx Instructions:
Take By Mouth:
40 mg daily x3 days, 30 mg daily x3 days,
20 mg daily x3 days, 10 mg daily x3 days.
Discharge Orders:
Discharge Patient (As Directed); Ordered 10/02/24
Ordered By: Lino hC
Discharge Date and Time
Print Language: QATARI
[2024-10-02 15:10] VITALS: BP 165/87
== END 2024-10-02 16:02 | DRG 563 ==
LOC: 4 WEST ACU 12:54
PROVIDERS: ADMITTING PHYSICIAN Internal Medicine; ATTENDING PHYSICIAN Internal Medicine; CONSULT PHYSICIAN Orthopaedic Surgery Hand Surgery; CONSULT PHYSICIAN Physical Medicine & Rehabilitation; EMERGENCY PHYSICIAN Emergency Medicine; FAMILY PHYSICIAN Family Medicine
DX: S42.291A Other displaced fracture of upper end of right humerus, initial encounter for closed fracture (principal); C79.51 Secondary malignant neoplasm of bone; C34.32 Malignant neoplasm of lower lobe, left bronchus or lung; J96.11 Chronic respiratory failure with hypoxia; I95.1 Orthostatic hypotension; W19.XXXA Unspecified fall, initial encounter; E87.5 Hyperkalemia; Z92.3 Personal history of irradiation; I25.10 Atherosclerotic heart disease of native coronary artery without angina pectoris; Z95.5 Presence of coronary angioplasty implant and graft; J44.89 Other specified chronic obstructive pulmonary disease; Z99.81 Dependence on supplemental oxygen; E78.00 Pure hypercholesterolemia, unspecified; G89.29 Other chronic pain; Z79.891 Long term (current) use of opiate analgesic; G47.33 Obstructive sleep apnea (adult) (pediatric); Z87.891 Personal history of nicotine dependence; E66.9 Obesity, unspecified; Z68.37 Body mass index [BMI] 37.0-37.9, adult; I50.9 Heart failure, unspecified; I11.0 Hypertensive heart disease with heart failure; Z79.899 Other long term (current) drug therapy; S01.01XA Laceration without foreign body of scalp, initial encounter; K21.9 Gastro-esophageal reflux disease without esophagitis; F32.A Depression, unspecified; F41.9 Anxiety disorder, unspecified; E03.9 Hypothyroidism, unspecified; Z86.718 Personal history of other venous thrombosis and embolism; Z86.73 Personal history of transient ischemic attack (TIA), and cerebral infarction without residual deficits; G43.909 Migraine, unspecified, not intractable, without status migrainosus; Z90.49 Acquired absence of other specified parts of digestive tract; Z87.19 Personal history of other diseases of the digestive system; Z88.1 Allergy status to other antibiotic agents; Z88.5 Allergy status to narcotic agent; Z91.041 Radiographic dye allergy status; Z79.82 Long term (current) use of aspirin; D64.9 Anemia, unspecified; I45.10 Unspecified right bundle-branch block; I49.3 Ventricular premature depolarization; Z66 Do not resuscitate; Z79.51 Long term (current) use of inhaled steroids; Z86.0100 Personal history of colon polyps, unspecified; Z96.651 Presence of right artificial knee joint
CPT/HCPCS: 70450; 72125; 73030; 80048; 83735; 85025; 87070; 93005; 94640; 96374; 96376; 97163; 97166; 97530; 97535; 99285

== ENCOUNTER 2024-11-10 09:44 | Emergency (ER) | payer MEDICARE, SELFPAY ==
[2024-11-10 09:50] VITALS: BP 138/61
[2024-11-10 09:52] VITALS: BMI 36.8
[2024-11-10 09:53] VITALS: BP 138/61
[2024-11-10 10:00] VITALS: BP 135/66
--- NOTE | 2024-11-10 10:21 | ED.GENMED ---
History of Present Illness
General
Chief Complaint: Generalized Pain
Source: patient
Exam Limitations: none
Time Seen by Provider: 11/10/24 09:56
Nursing documentation reviewed up to this point in time: agreed with
History of Present Illness
History of Present Illness:
Patient is an 84-year-old female with history of left lower lobe adenocarcinoma(treated with radiation only at [facility]) with no metastasis to the cervical spine CAD with stents moderate aortic stenosis COPD hypertension dyslipidemia chronic pain on
opiates, recent right humerus fracture September 2024 due to fall presents to the ER for evaluation. Patient reports she has chronic neck pain related to her metastasis of her lung cancer however starting yesterday she had sharp pains in her head. She
reports this does not necessarily feel like a headache but she is describing sharp pains on the outside of her left head. She has no visual disturbance, no pain when chewing. No recent trauma. No blood thinners. No recent fevers.
She mentions she had shingles in August 2024.
She does feel that this is similar to when she had shingles.
She is presently followed by [facility] Dr. Daugherty
Past History
Past History
ED Past Medical History: Asthma, CAD, Cancer (Lung CA), COPD, GERD, HTN, Hypercholesterolemia, Hyperthyroidism, Hypothyroidism, Psychiatric (Anxiety, depression), Other (TIA, Migraines, Sleep apnea, DVT, Hemorrhoids, Hiatal hernia, C-diff, Ovarian
cyst, Renal calculus, UTI, Overactive Parathyroid, Anemia, Fibrosis, AAA) and Other (Small bowel obstruction 2004, total colectomy for polyps, ileostomy with reversal)
ED Past Surgical History: Bowel resection (Total proctocolectomy with Ileostomy and then reversal), Cardiac (Catheterization, Stent), Gynecological (Tubal), Orthopedic (Right hand tendon repair, Right knee replacement) and Other (Hernia, Cataracts,
Right vein stripping)
Social History
Tobacco: Former smoker
Alcohol: None
Drug: None
Personal:
Living: alone
Employment: Retired
Family History
Family History: CAD
Phy Exam
General Physical Exam
General Presentation: no apparent distress
General age: appears stated age
General Skin: warm and dry
General Habitus: elderly
General Mental: alert
General Hydration: appears well hydrated
ENT Exam
ENT Exam: EOMI
Neurological Exam
Neurological Exam: alert, oriented x3, no motor deficits and no sensory deficits
Musculoskeletal Exam
Musculoskeletal Exam: full ROM and other (No pain to left temporal region)
Skin Exam
Skin Exam: normal color and warm/dry
Psychiatric Exam
Psychiatric Exam: normal mood/affect
Course
Orders/Labs/Results
Orders:
Orders
11/10/24 10:35
CT Head W/o Iv Contrast Urgent
Comment:
Reason For Exam: headache
11/10/24 10:38
IV Insert/Care/Rem.- Treatment PRN
11/10/24 10:46
Complete Blood Count/With Diff Urgent
Comprehensive Metabolic Panel Urgent
11/10/24 13:20
HYDROmorphone [Dilaudid] 1 mg IV NOW STA
Abnormal Lab Results
11/10/24
10:46
WBC 11.8 H 10^3/uL
(4.8-10.8)
RBC 3.33 L 10^6/uL
(4.20-5.40)
Hgb 9.9 L g/dL
(12.0-16.0)
Hct 30.9 L %
(37.0-47.0)
MCHC 32.0 L g/dL
(33.0-37.0)
Abs Immat Gran (auto) 0.1 H 10^3/uL
(0-0.05)
Absolute Neuts (auto) 9.3 H 10^3/uL
(1.4-6.5)
Absolute Monos (auto) 0.9 H 10^3/uL
(0.1-0.6)
Immature Gran % 0.6 H %
(0-0.5)
Neutrophils % 78.8 H %
(42.2-75.2)
Lymphocytes % 10.2 L %
(20.5-51.1)
Carbon Dioxide 33 H mmol/L
(22-30)
BUN 28 H mg/dl
(7-17)
Alkaline Phosphatase 302 H U/L
(38-126)
11/10/24 10:46
11/10/24 10:46
Vital Signs
Initial and Last Documented VS:
Initial Vital Signs
BP
138/61
11/10/24 09:50
Last Documented Vital Signs
Temp Pulse Resp BP Pulse Ox
97.5 F 64 18 135/66 98
11/10/24 09:53 11/10/24 10:00 11/10/24 09:53 11/10/24 10:00 11/10/24 12:00
Medical Grade Shoemaker consulted with Physician
Medical Grade Shoemaker consulted with physician?: Yes
Name of Physician Consulted: Dali
MDM/Problems Addressed
Differential Diagnosis Includes:
Not limited to metastatic disease of neck and head less likely intracranial hemorrhage less likely at temporalis
MDM/Problems Addressed:
As documented patient is an 84-year-old female with metastatic lung cancer with mets to her cervical spine. She presents with a left-sided scalp/head pain however does not feel like this actual headache. She did have shingles on the right scalp
face and neck in August and does feel like this may be similar. No obvious rash to the left scalp or neck. No intracranial hemorrhage on CAT scan however as per radiologist patient does have metastatic disease in the right scalp. Patient's white
count minimally elevated however she has no visual deficits no jaw claudication and not tender over the temporal artery not consistent with temporal arteritis. Likely either early shingles or metastatic cancer pain. Her Dilaudid which she takes at
home 6 mg did not help her pain which so prompted her to come to the ER will give a dose of IV Dilaudid here in the ER and reassess.
1430:Patient feeling improvement from Dilaudid and would like to try to go home. This again is likely possible metastatic disease pain or possible early shingles discussed close outpatient follow-up with family doctor and her oncologist. Daughter
at bedside and will take her home.
Chronic conditions affecting care:
Metastatic lung disease with metastasis to c spine
*Radiology
Radiology exam reviewed: radiology read reviewed
*Pulse Oximetry
SaO2: 97
Nasal Cannula flow liters per minute: 2
Patient hypoxic: no
*Critical Care Note
Total Time (30-74mins, 75-104mins- exclusive of procedures): Not Applicable
Data Reviewed
Review of Other/Old Records Reveals: Labs and Discharge Summary
ED Attending Note
-
Portions of this chart may have been created with voice recognition software.� Occasional wrong word or��sound alike� substitutions may have occurred due to the inherent limitations of voice recognition software.
Discharge Plan
Departure
Patient Disposition: Home (Routine Discharge)
Date of Disposition: 11/10/24
Time of Disposition: 14:42
Patient with high blood pressure during this ER visit?: Yes
Condition: Fair
Covid-19: Not Applicable
Discharge Problem:
Head pain
Instructions: BLOOD PRESSURE
Prescriptions:
No Action
atorvastatin 40 MG tablet
40 mg PO QPM
aspirin 81 MG tablet,delayed release (DR/EC)
81 mg PO DAILY
pantoprazole 40 MG tablet,delayed release (DR/EC)
40 mg PO QPM
PreserVision AREDS 1 CAP capsule
1 cap PO DAILY
glucosamine sulfate 500 MG tablet
500 mg PO DAILY
famotidine 20 MG tablet
20 mg PO DAILY
albuterol sulfate [Ventolin HFA] 1 PUFF HFA aerosol inhaler
2 puff inhalation R Q4HPRN PRN (Reason: sob/wheezing)
citalopram 40 mg tablet
40 mg PO DAILY
nifedipine 60 mg Tablet Extended Release
60 mg PO DAILY Qty: 30 1RF
furosemide 40 mg tablet
40 mg PO DAILY
montelukast 10 mg tablet
10 mg PO DAILY
potassium chloride 10 mEq tablet,ER particles/crystals
10 meq PO DAILY
Breztri Aerosphere 160-9-4.8 mcg/actuation Hfa Aerosol Inhaler
2 inh INHALATION R BID
fexofenadine 180 mg Tablet
180 mg PO DAILY
latanoprost 0.005 % drops
1 drp BOTH EYES HS
ipratropium-albuterol 0.5 mg-3 mg(2.5 mg base)/3 mL solution for nebulization
3 ml INHALATION R Q6HPRN PRN (Reason: sob/wheezing)
ondansetron HCl 4 mg Tablet
4 mg PO Q6HPRN PRN (Reason: nausea)
prednisone 5 mg Tablet
5 mg PO DAILY
Patient Comments:
Prednisone taper - currently on 10mg
loperamide 2 mg Tablet
2 mg PO DAILY
therapeutic multivitamin Tablet
1 tab PO DAILY
acetaminophen [Tylenol Extra Strength] 500 mg Tablet
1,000 mg PO Q6H
lisinopril 5 mg Tablet
5 mg PO DAILY
gabapentin 300 mg Capsule
300 mg PO TID Qty: 90 0RF
docusate sodium 100 mg Capsule
100 mg PO BID Qty: 30 0RF
prednisone 10 mg Tablet
10 mg PO DAILY Qty: 5 0RF
Rx Instructions:
Take 10 mg for 3 days, 5 mg fir 3 days and stop
hydromorphone 4 mg Tablet
4 mg PO Q4H Qty: 20 0RF
Referrals:
Emiliano Daugherty, [Active, Hematology / Oncology]
Juan Anaya MD [Family Provider, Family Practice]
Activity Restrictions/Additional Instructions:
As discussed this is likely pain related to your cancer metastasis or possible early shingles however you do not have a rash at this time. Continue to take your pain medication as previously instructed. Closely follow-up with your family doctor
the next several days as well as your oncologist. Return if any worsening of symptoms.
Interventions
Interventions:
*Risk Screen - Suicide Last Done: 11/10/24 09:58
*General Assessment Last Done: 11/10/24 09:58
*Neglect/Abuse Screening Last Done: 11/10/24 09:58
*ED COVID-19 Vaccine History Last Done: 11/10/24 09:58
*Nursing Disposition Last Done: 11/10/24 12:21
Discharge Date and Time
Print Language: MARSHALLESE
[2024-11-10 10:53] LABS: Hematocrit 30.9 % (37.0-47.0); Hemoglobin 9.9 g/dL (12.0-16.0); Mean Corp Hgb Conc. 32.0 g/dL (33.0-37.0); Mean Corpuscular Volume 92.8 fL (81.0-99.0); Nucleated Red Blood Cells % 0 %; Platelet Count 172 10^3/uL (130-400); Red Cell Dist. Width 14.3 % (11.5-14.5)
[2024-11-10 11:22] LABS: ALT (SGPT) 11 U/L (0-35); AST (SGOT) 24 U/L (14-36); Albumin 4.0 g/dl (3.5-5.0); Alkaline Phosphatase 302 U/L (38-126); Blood Urea Nitrogen 28 mg/dl (7-17); Calcium 10.2 mg/dl (8.4-10.2); Carbon Dioxide 33 mmol/L (22-30); Chloride 102 mmol/L (98-107); Estimated Creatinine Clearance 50 ml/min; Glucose 95 mg/dl (70-99); Potassium 4.0 mmol/L (3.5-5.1); Sodium 138 mmol/L (135-145); Total Protein 6.5 g/dl (6.3-8.2); eGFR > 60.00
[2024-11-10] MEDS: DILAUDID 1 MG IV (14:08)
[2024-11-10 14:52] VITALS: BP 173/74
[2024-11-10 15:42] VITALS: BP 173/74
== END 2024-11-10 15:15 | disposition home or self-care (01) ==
LOC: EMR 09:44
PROVIDERS: Nurse Practitioner; EMERGENCY PHYSICIAN Emergency Medicine; FAMILY PHYSICIAN Family Medicine
DX: R51.9 Headache, unspecified (principal); E03.9 Hypothyroidism, unspecified; E78.00 Pure hypercholesterolemia, unspecified; G47.30 Sleep apnea, unspecified; I10 Essential (primary) hypertension; I25.10 Atherosclerotic heart disease of native coronary artery without angina pectoris; J44.9 Chronic obstructive pulmonary disease, unspecified; Z86.73 Personal history of transient ischemic attack (TIA), and cerebral infarction without residual deficits; Z87.19 Personal history of other diseases of the digestive system; Z87.891 Personal history of nicotine dependence; Z92.3 Personal history of irradiation; Z85.118 Personal history of other malignant neoplasm of bronchus and lung; Z95.5 Presence of coronary angioplasty implant and graft
CPT/HCPCS: 96374; 99284; 70450; 80053; 85025

== ENCOUNTER 2024-11-12 08:16 | Inpatient (IN) | payer MEDICARE, SELFPAY ==
--- NOTE | 2024-11-10 20:51 | ED.GENMED ---
History of Present Illness
General
Chief Complaint: Generalized Pain
Source: patient and family (daughter)
Exam Limitations: none
Time Seen by Provider: 11/10/24 20:51
Nursing documentation reviewed up to this point in time: agreed with
History of Present Illness
History of Present Illness:
Patient returns to ED wtih increasing weakness, poor appetite, persistent pain. SHe was seen in ED earlier today for increasing pain Treated with IV dilaudid successfully and discharged home. Daughter states she has gotten progressively weaker
at home tonight. Unable to ambulate. Transferring to bedside commode. Daughter states she has not had anything to eat or drink since leaving ED today. Daughter states she is unable to care for patient at this point due to weakness. Brought to
ED via EMS for eval.
Past History
Past History
ED Past Medical History: Asthma, CAD, Cancer (Lung CA), COPD, GERD, HTN, Hypercholesterolemia, Hyperthyroidism, Hypothyroidism, Psychiatric (Anxiety, depression), Other (TIA, Migraines, Sleep apnea, DVT, Hemorrhoids, Hiatal hernia, C-diff, Ovarian
cyst, Renal calculus, UTI, Overactive Parathyroid, Anemia, Fibrosis, AAA) and Other (Small bowel obstruction 2004, total colectomy for polyps, ileostomy with reversal)
ED Past Surgical History: Bowel resection (Total proctocolectomy with Ileostomy and then reversal), Cardiac (Catheterization, Stent), Gynecological (Tubal), Orthopedic (Right hand tendon repair, Right knee replacement) and Other (Hernia, Cataracts,
Right vein stripping)
Social History
Tobacco: Former smoker
Alcohol: None
Drug: None
Personal:
Living: alone
Employment: Retired
Family History
Family History: CAD
Review of Systems
Review of Systems
Allergies reviewed?: Yes
All Other Systems: ROS reviewed and negative except as documented in HPI and ROS
Constitutional: Reports fatigue
EENT: Reports no symptoms
Respiratory: Reports no symptoms
Cardiac: Reports no symptoms
ABD/GI: Reports anorexia
: Reports no symptoms
Musculoskeletal: Reports no symptoms
Skin: Reports no symptoms
Neurological: Reports weakness
Psychiatric: Reports no symptoms
Phy Exam
General Physical Exam
General Presentation: mild distress
General age: appears stated age
General Skin: warm and dry
General Habitus: obese
General Mental: usual mental status
Cardiovascular Exam
Cardiovascular Exam: tachycardia
Pulmonary Exam
Pulmonary Exam: lungs clear and no respiratory distress
Gastrointestinal Exam
Gastrointestinal Exam: non tender and soft
Neurological Exam
Neurological Exam: oriented x3, CN II-XII intact, no motor deficits and speech normal
Musculoskeletal Exam
Musculoskeletal Exam: neuro vasc intact
Skin Exam
Skin Exam: normal color, warm/dry and no rash
Psychiatric Exam
Psychiatric Exam: normal mood/affect
Course
Orders/Labs/Results
Orders:
Orders
11/10/24 22:08
Urinalysis Reflex To Culture Urgent
Date Specimen was Collected: 11/10/24
Time Specimen was Collected: 22:19
11/10/24 22:09
0.9% Sodium Chloride 1000 ml [Nss] 1,000 ml IV BOLUS
11/10/24 23:14
Admit/Transfer Patient As Directed
Co-Sign Provider:
Level of Care: Observation services
Assign to:: Medical/Surgical
Physician / Group: ayaan
Diagnosis: ambulatory dysfunction
PRN Pain Medication Management As Directed
May give lesser potent ordered pain med per pt: Yes
preference::
Protocol:: Medication orders for pain may be administered in a
manner that supports deferring to patient preference
when the pt is:
- Requesting an ordered lesser potent pain medication.
Least to most potent pain medications are defined
as: acetaminophen < NSAID < tramadol < opioids
(morphine, oxycodone, hydromorphone).
- Requesting a lesser dose of the same medication IF
ORDERED.
- Requesting a less intrusive route of administration
if both routes are prescribed by the provider (PO <
IV).
11/10/24 23:15
Code Status As Directed
Resuscitation Status: Do not resuscitate
Reached after discussion with pt or family/Healthcare POA: Yes
DNR Bracelet Application ONCE
11/10/24 23:32
EKG [Electrocardiogram (*1)] Stat
Reason for Study: Tachycardia
11/10/24 23:35
HYDROmorphone [Dilaudid] 0.5 mg IV NOW STA
11/10/24 23:37
PRN Pain Medication Management As Directed
May give lesser potent ordered pain med per pt: Yes
preference::
Protocol:: Medication orders for pain may be administered in a
manner that supports deferring to patient preference
when the pt is:
- Requesting an ordered lesser potent pain medication.
Least to most potent pain medications are defined
as: acetaminophen < NSAID < tramadol < opioids
(morphine, oxycodone, hydromorphone).
- Requesting a lesser dose of the same medication IF
ORDERED.
- Requesting a less intrusive route of administration
if both routes are prescribed by the provider (PO <
IV).
11/10/24 23:50
D-Dimer Stat
PT/INR [Prothrombin Time] Stat
Troponin I Stat
11/10/24 23:54
COVID-19 Antigen Stat
Source: Nasal Swab
11/11/24 00:49
Acetaminophen [Tylenol] 650 mg PO Q4HPRN PRN
Albuterol [ProAIR HFA INHALER] 2 puff INH R Q4HPRN PRN sob/wheezing
Bisacodyl [Dulcolax] 10 mg RECTAL [id number] PRN
Docusate W/Senna [Senokot-S] 1 tablet PO BIDPRN PRN
HYDROmorphone [Dilaudid] 3 mg PO Q4HPRN PRN moderate to severe pain
Ipratropium/Albuterol Sulfate [Duoneb] 3 ml INH R Q6HPRN PRN sob/wheezing
Polyethylene Glycol Powder [Miralax] 17 grams PO DAILYPRN PRN
11/11/24 00:49
Case Management Consult ONCE
Case Management Consult: Discharge Planning
Activity As Directed
Activity Level: As Tolerated
Vital Signs As Directed
Frequency: Per unit guidelines
Cpap [RESP] Routine
Patient to use own unit?: No
Set Pressure (cm H2O): 5
O2 Therapy [RESP] Routine
Nasal Cannula Liter Flow: 2 LPM
Titrate/Wean O2 to maintain O2 sat greater than (%): 90
Ot Eval And Treat Routine
Pt Eval And Treat Routine
Activity Level: As Tolerated
DX Deep Vein Thrombosis Video Routine
11/11/24 05:29
Complete Blood Count/No Diff IN AM
Urine Microscopic Reflex Cult Urgent
Urine Culture Urgent
CAROLINE Source: U
Specimen Description:
Date Specimen was Collected: 11/10/24
Time Specimen was Collected: 22:19
11/11/24 Breakfast
Regular
At Your Request: Limited, Application Systems Architect Required
Does patient need a safe tray?: No
11/11/24 08:00
Aspirin Low Dose EC [Aspir Low (Enteric Coated)] 81 mg PO DAILY
Atorvastatin [Lipitor] 40 mg PO DAILY
Budesonide/Formoterol 160/4.5 [Symbicort 160/4.5 Mcg Inhaler] 2 puff INH R BID
Citalopram [Celexa] 40 mg PO DAILY
Famotidine [Pepcid] 20 mg PO DAILY
Furosemide [Lasix] 40 mg PO DAILY
Gabapentin [Neurontin] 300 mg PO BID
Lisinopril [Zestril] 5 mg PO DAILY
Loratadine [Claritin] 10 mg PO DAILY
Montelukast Sodium [Singulair] 10 mg PO DAILY
NIFEdipine EXTENDED RELEASE [Procardia Xl (Extended Release)] 60 mg PO DAILY
Potassium Chloride [KCl] 10 meq PO DAILY
Prednisone [Deltasone] 5 mg PO DAILY
11/11/24 18:00
Enoxaparin Sodium [Lovenox] 40 mg SC QPM
Pantoprazole [Protonix] 40 mg PO QPM
11/11/24 22:00
Latanoprost [Xalatan Ophthalmic Solution] 1 drop BOTH EYES HS
11/13/24 11:00
DC Protocol for Telemetry ONCE
Abnormal Lab Results
11/10/24 11/10/24
20:51 23:50
D-Dimer 7.25 H ug/mlFEU
(0.00-0.50)
POC Glucose 128 H mg/dl
(70-99)
Vital Signs
Initial and Last Documented VS:
Initial Vital Signs
Pulse Ox
97
11/10/24 20:52
Last Documented Vital Signs
Temp Pulse Resp BP Pulse Ox
98.3 F 100 20 144/71 95
11/11/24 20:05 11/11/24 20:07 11/11/24 20:07 11/11/24 20:05 11/11/24 20:07
*Pulse Oximetry
Patient hypoxic: no
*Critical Care Note
Total Time (30-74mins, 75-104mins- exclusive of procedures): Not Applicable
Update Note
Update Note:
Patient to ED with increasing weakness. Seen in ED earlier today with increasing pain to her head. CT reveals new metastatic lesions left calvarium. She was given IV dilaudid with improvement and discharge home. Daughter states she has gotten
progressively weaker since returning home and daughter is unable to care for her. She arrives via EMS, reports pain level is tolerable but confirms weakness. Labs reviewed for this AM, stable. Will admit to hospitalist for her weakness. WIll
need case management consult for possible placement.
ED Attending Note
-
Portions of this chart may have been created with voice recognition software.� Occasional wrong word or��sound alike� substitutions may have occurred due to the inherent limitations of voice recognition software.
Discharge Plan
Departure
Patient Disposition: Admit
Date of Disposition: 11/10/24
Time of Disposition: 22:34
Presentation/result/management discussed w/ accepting MD/DO: Hospitalist
Patient with high blood pressure during this ER visit?: No
Condition: Good
Covid-19: Not Applicable
Discharge Problem:
Weakness
Interventions
Interventions:
*Risk Screen - Suicide Last Done: 11/10/24 21:48
*General Assessment Last Done: 11/10/24 21:48
*Neglect/Abuse Screening Last Done: 11/10/24 21:48
*ED COVID-19 Vaccine History Last Done: 11/11/24 02:03
*Nursing Disposition Last Done: 11/11/24 19:58
Discharge Date and Time
Discharge Date/Time: 11/11/24 19:58
[2024-11-10 20:52] LABS: Glucose - Point of Care 128 mg/dl (70-99)
[2024-11-10 22:17] VITALS: BP 187/85
[2024-11-10] MEDS: NSS 1000 IV (22:21)
--- NOTE | 2024-11-10 22:51 | HPS.HSE ---
Family Physician
-
Family Physician: Juan Anaya
Chief Complaint
-
generalized weakness
History of Present Illness
84-year-old with past medical history for asthma, coronary artery disease, lung cancer, COPD, hypertension, hyperlipidemia, hypothyroidism, TIA, sleep apnea, DVT, AAA patient returns to ED with increasing weakness, poor appetite since this morning.
she usually uses walker, today she was not able to use walker or she was even very weak to do activities of daily living. she complained of STALLWORTH, dizzy. denied fever, chills, cough, congestion. denied chest pain, sob. denied abdominal pain,n,v,d.
denied dysuria or hematuria. she is complaining or right arm pain from previous fracture.
she was evaluated in the ER today and discharge home.
Medical History
Past Medical History
Past Medical History: Reports Other
Additional Past Medical History:
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
Past Surgical History: Reports Other
Additional Past Surgical History:
Cardiac stent
Hand surgery
Right hand tendon repair
Bilateral tubal ligation
Bilateral cataract extraction
Polypectomy
Right knee replacement
Social History
Alcohol: None
Drug: None
Family History
Family History: Not pertinent
Allergies / Home Medications
Allergies reflects when Allergies were last updated in [facility].
Home Medications with original date entered in [facility]
Allergy/Medication List:
Allergies
Allergy/AdvReac Type Severity Reaction Status Date / Time
codeine Allergy NAUSEA Verified 09/28/24 23:24
doxycycline Allergy HEART Verified 09/28/24 23:24
PALPITATIONS
Iodinated Contrast Media Allergy IV Verified 09/28/24 23:24
CONTRAST-SOB
meperidine HCl (From Demerol) Allergy Nausea/ligh Verified 09/28/24 23:24
theaded
morphine Allergy Nausea Verified 09/28/24 23:24
norepinephrine Allergy rash to Verified 09/28/24 23:24
ethylnorepinephrine
oxycodone Allergy SEVERE Verified 09/28/24 23:24
NAUSEA
pentazocine Allergy TALWIN-N/V Verified 09/28/24 23:24
pentazocine lactate (From Allergy Nausea Verified 09/28/24 23:24
Talwin)
piperacillin (From Zosyn) Allergy Anaphylaxis Verified 09/28/24 23:24
tazobactam (From Zosyn) Allergy Anaphylaxis Verified 09/28/24 23:24
Tetracyclines Allergy very Verified 09/28/24 23:24
disoriented
Home Medications
aspirin 81 mg tablet,delayed release 81 mg PO DAILY Blood clot prevention/tx 07/22/17
atorvastatin 40 mg tablet 40 mg PO QPM High cholesterol 07/22/17
pantoprazole 40 mg tablet,delayed release 40 mg PO QPM Gastrointestinal issue 07/22/17
glucosamine sulfate 500 mg tablet 500 mg PO DAILY Supplement 02/16/19
vitamins A,C,A-ddbd-ituevy 4,296 mcg-226 mg-90 mg capsule (PreserVision AREDS) 1 cap PO DAILY Eye condition 02/16/19
albuterol sulfate 90 mcg/actuation aerosol inhaler (Ventolin HFA) 2 puff inhalation R Q4HPRN PRN sob/wheezing 07/13/21
famotidine 20 mg tablet 20 mg PO DAILY GERD 07/13/21
citalopram 40 mg tablet 40 mg PO DAILY Mental Health/Anxiety 04/07/22
nifedipine 60 mg tablet,extended release 60 mg PO DAILY #30 tabs 04/11/22
budesonide 160 mcg-glycopyr 9 mcg-formot 4.8 mcg/actuation HFA inhaler (Breztri Aerosphere) 2 inh inhalation R BID Lung/Breathing Issues 12/25/22
furosemide 40 mg tablet 40 mg PO DAILY Fluid Retention/Swelling 12/25/22
montelukast 10 mg tablet 10 mg PO DAILY Lung/Breathing Issues 12/25/22
potassium chloride 10 mEq tablet,extended release(part/cryst) 10 meq PO DAILY Electrolyte Repletion 12/25/22
fexofenadine 180 mg tablet 180 mg PO DAILY Allergies 07/09/23
ipratropium 0.5 mg-albuterol 3 mg (2.5 mg base)/3 mL nebulization soln 3 ml inhalation R Q6HPRN PRN sob/wheezing 07/09/23
latanoprost 0.005 % eye drops 1 drp BOTH EYES HS Eye Condition 07/09/23
acetaminophen 500 mg tablet (Tylenol Extra Strength) 1,000 mg PO Q6H Pain 09/21/24
lisinopril 5 mg tablet 5 mg PO DAILY Blood Pressure 09/21/24
loperamide 2 mg tablet 2 mg PO DAILY diarrhea 09/21/24
ondansetron HCl 4 mg tablet 4 mg PO Q6HPRN PRN nausea 09/21/24
prednisone 5 mg tablet 5 mg PO DAILY inflammation 09/21/24
therapeutic multivitamin 1 tab PO DAILY Supplement 09/21/24
gabapentin 300 mg capsule 300 mg PO TID #90 caps 09/23/24
docusate sodium 100 mg capsule 100 mg PO BID #30 caps 10/02/24
hydromorphone 4 mg tablet 4 mg PO Q4H Pain #20 tabs 10/02/24
prednisone 10 mg tablet 10 mg PO DAILY #5 tabs 10/02/24
Review of Systems
-
Constitutional: Reports Fatigue
EENT: Reports No Symptoms
Respiratory: Reports No Symptoms
Cardiac: Reports No Symptoms
Abdomen/GI: Reports No Symptoms
: Reports No Symptoms
Musculoskeletal: Reports No Symptoms
Skin: Reports No Symptoms
Neurological: Reports Dizzy, Headache and Weakness
Endocrine: Reports No Symptoms
Hematologic/Lymphatic: Reports No Symptoms
Psych: Reports No Symptoms
Physical Exam
Vital Signs
Vital Signs
Pulse Resp BP Pulse Ox
123 30 187/85 97
11/10/24 22:17 11/10/24 22:17 11/10/24 22:17 11/10/24 22:17
Physical Exam
General: Well Developed, Well Nourished and No Apparent Distress
HEENT: NormoCephalic, Moist mucous membranes and Atraumatic
Respiratory: Clear
Cardiac: S1/S2 and Regular Rhythm; No Murmur or Rub
GI: Soft, Non Tender, Non Distended and Normal Bowel Sounds; No Organomegaly
Rectal: Deferred by Provider
Musculoskeletal: No Clubbing, No Cyanosis and No Edema
Skin: No Rash
Neuro: AO x 3 and Nonfocal/grossly intact
Psych: Calm
Data Reviewed
-
CT Scan: Report Reviewed by me
Lab Data: Labs Reviewed by me
Impression/Plan
-
# Generalized weakness secondary to metastatic cancer pain
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
# Chronic hypoxic respiratory failure, uses 2 L baseline continue supplemental oxygen to keep sat greater than 90.
# Right shoulder fracture pain
- PT/OT consulted
- Case management consulted for dispo planning
# Leukocytosis likely from metastatic cancer
- WBCs 11.8, patient is afebrile
- Continue to monitor
#htn urgency/tachycardia likely from pain
-obtain D dimer
-Dilaudid prn for pain
# Anemia of chronic disease
- Hemoglobin stable at 10.9, no active bleeding continue to monitor
# History of coronary artery disease with stents
# Moderate aortic stenosis
- Aspirin continued
# COPD
- Singular
# Essential hypertension
# Dyslipidemia
- Atorvastatin, nifedipine, lisinopril continue
# Obstructive sleep apnea
- CPAP continued
# GERD
- PPI continued
# DVT prophylaxis
- Lovenox
# CODE STATUS
- DNR
[2024-11-10 23:00] VITALS: BP 181/85
--- NOTE | 2024-11-10 23:20 | PHANOTE ---
11/10/2024, pt. is not sure if she is taking Nifedipine 60 mg ER daily or not; this med. is in pt.'s pharmacy fill data; could not confirm with patient.
[2024-11-10] MEDS: DILAUDID 0.5 MG IV (23:44)
--- NOTE | 2024-11-10 23:46 | W.PN.UPDATE ---
Update Note
Progress Note Update
Patient seen in conjunction with TAYLOR. I agree with the findings on history and physical. I concur with the assessment and plan.
Briefly, this is a 84-year-old with past medical history significant for lung cancer who was status post treatment and radiation but not currently, hypertension, GERD, COPD on 4 L home O2, LILLIAN on CPAP, hyperparathyroid brought to the emergency
department earlier in the morning for persistent pain, decreased appetite and weakness. Patient suffered a right shoulder fracture 1 month ago and has been on sling and pain control since then. Appears to have worsening pain without any new trauma
at this time. After evaluation in the ED in the morning for increasing pain she was given Dilaudid and successfully discharged home. Workup at that time shows no acute abnormalities. Daughter brought the patient back tonight for weakness at home
and inability to ambulate. She feels that she could not transfer to bedside commode and therefore cannot take over at home. Patient reports that she has not had anything to eat or drink since leaving the ED.
On arrival in the emergency department this time the patient has been tachycardic to the 120s. Blood pressure was 180/80 with a oxygen saturation of 90% on 4 L. ECG shows sinus tachycardia with incomplete right bundle branch and from prior.
CBC from earlier in the morning is unchanged from prior and at baseline. Electrolytes were all normal BUN/creatinine were 31 and 0.8 with a glucose of 95.
CT of the head was negative.
Given she has not had anything to eat all day she was given a liter of normal saline in the ED.
Assessment and plan
84-year-old with multiple medical comorbidities most recently a right shoulder fracture with ambulatory dysfunction and uncontrolled pain who returns to the emergency department after successful pain management with inability to ambulate at home,
decreased appetite and failure to thrive. Cannot manage care of the patient. She is now tachycardic to the 120s whereas she was not tachycardic in the morning. On exam she was grimacing with pain in the lower back and buttocks.
Tachycardia -denies shortness of breath, chest pain, lightheadedness or dizziness. History of decreased p.o. intake and possibly dehydration but patient is quite hypertensive.
- Admit to MedSurg observation
- Obtain temp, check flu and COVID
- Check D-dimer
- Troponin
- Pain control with IV Dilaudid x 1
- Status post 1 L normal saline, hold Lasix for now and monitor
Ambulatory dysfunction -right shoulder pain, chronic pain from metastatic malignancy
- Continue pain control with home regimen
- Bowel regimen
- PT consult
- Case management
Chronic hypoxic respiratory failure
- Continue 4 L removed
- CPAP at bedtime
- Continue Breztri
- As needed nebs
DVT prophylaxis�Lovenox subcu
CODE STATUS�DNR
[2024-11-11] VITALS (19 sets, daily range): BP systolic 125–235; BP diastolic 57–102; BMI 36.2
[2024-11-11 00:17] LABS: INR 1.06; PT 14.1 Sec (11.4-14.6)
[2024-11-11 00:25] LABS: COVID-19 Antigen Negative (Negative)
[2024-11-11 00:28] LABS: D-Dimer 7.25 ug/mlFEU (0.00-0.50)
[2024-11-11 00:42] LABS: Troponin I 0.026 ng/ml
[2024-11-11] MEDS: LOPRESSOR 5 MG IV (01:42)
[2024-11-11] MEDS: DELTASONE 50 MG PO ×3 (01:42→13:00)
[2024-11-11 05:41] LABS: Hematocrit 32.7 % (37.0-47.0); Hemoglobin 10.4 g/dL (12.0-16.0); Mean Corp Hgb Conc. 31.8 g/dL (33.0-37.0); Mean Corpuscular Volume 91.3 fL (81.0-99.0); Platelet Count 161 10^3/uL (130-400); Red Cell Dist. Width 14.0 % (11.5-14.5)
[2024-11-11 05:54] LABS: Urine Character Slightly Cloudy (Clear)
--- NOTE | 2024-11-11 05:59 | PTCARENOTE ---
Pt awake intermittently t/o the night. Pt inc of urine, pt also assisted on bed fox and able to void. Urine sample sent to lab. Pt refused to wear CPAP as ordered overnight, Dr. Benton notified. pt remains on 4LO2 NC, POX 99%. HR in the 90's in NSR post
Lopressor administration. BP remains elevated. Pt repositioned per comfort. Right arm sling in place. Left AC int capped. No issues to report. Will continue to monitor.
[2024-11-11 06:03] LABS: Urine Red Blood Cell 30-40 /HPF (0-2); Urine White Cell 40-50 /HPF (0-5)
[2024-11-11] MEDS: DILAUDID 3 MG PO (06:24)
[2024-11-11] MEDS: CLARITIN 10 MG PO (07:35)
[2024-11-11] MEDS: LIPITOR 40 MG PO (07:35)
[2024-11-11] MEDS: KCL 10 MEQ PO (07:35)
[2024-11-11] MEDS: ASPIR LOW (ENTERIC COATED) 81 MG PO (07:35)
[2024-11-11] MEDS: NEURONTIN 300 MG PO ×2 (07:35→20:24)
[2024-11-11] MEDS: PEPCID 20 MG PO (07:35)
[2024-11-11] MEDS: PROCARDIA XL (EXTENDED RELEASE) 60 MG PO (07:35)
[2024-11-11] MEDS: ZESTRIL 5 MG PO (07:35)
[2024-11-11] MEDS: SINGULAIR 10 MG PO (07:36)
[2024-11-11] MEDS: STERILE WATER FOR INJECTION 10 ML IV ×3 (07:36→18:42)
[2024-11-11] MEDS: ROCEPHIN 1000 MG IV (07:36)
[2024-11-11] MEDS: LASIX 40 MG PO (07:36)
[2024-11-11] MEDS: SPIRIVA RESPIMAT 2.5 MCG 2 PUFF INH (08:21)
[2024-11-11] MEDS: SYMBICORT 160/4.5 MCG INHALER 2 PUFF INH ×2 (08:21→20:03)
--- NOTE | 2024-11-11 08:30 | W.PN.HOSP.TC ---
Today's Communication/Plan
-
Azactam, pending Ucx
PT/OT
CM for placement
could not reach either daughter over the phone
Assessment / Plan
Assessment / Plan
84yo F with PMHX of COPD on chronic prednisone, hypothyroidism, anxiety, CAD, HLD, Hx of TIA, migraines, HX of DVT, AAA, TIA, lung CA s/p RT and kamryn, spinal mets, brought by daughter since patient had progressive decline at home and could not care
for herself since discharge after hospital in September. Patient stated she cannot bath anc cannot cook for herself. Concern for progressive ambulatory dysfunction 2/2 comorbidities exacerbated by recebnt R shoulder Fx. Also cannot exclude UTI
A/P:
#Ambulatory deficiency 2/2 worsening R shoulder pain
2/2 R shoulder Fx - managed non-operatively
R shoulder XR
PT/OT
CM for placement
No symptoms of iatrogenic adrenal insufficiency at this time, check cortisol level on pre-admit labs if possible
pain mgmt
#Pyuria, concern for UTI
with leukocytosis (however can be 2/2 steroids too) and amb dysfunction -resonable to treat
developed itch after Ceftriaxone vs pain meds side effect, with HX of penicillin allergy - reasonable to corn Azactam, in spite that she tolerated ceftriaxone before, but now cannot distinguish real allergy vs opioids side ffect
Benadryl PRN
#Elevated ddimer
same before
CT chest for PE and US LE pending
#Chronic hypoxic respiratory failure 2/2 COPD/Asthma not in exacerbation on 4L home O2
Cont bronchodilators
cont prednisone
#Mild-moderate
#mild pulmonary HTN
Echo with EF 70-75%
No clinical signs of volume overload
#chronic Alk.phos elevation
no RUQ pain
most likely 2/2 metastatic CA
#Mild anemia
follow up PCP
#Hypercalcemia
mild 2/2 CA
follow Ca
#Essential HTN
#CAD stable
#Migraines
#Hx of TIA
#Hypothyroidism
cont home meds
#Hx of recurrent shingles
no clinical signs at this time
#Hx of dysphasia
s/p VSE: IDDSI Level 7 Regular (pick soft/moist foods), thin liquids, concerning for esophageal dysphagia, previously outpatient GI was recommended and reasonable to keep same reccs at this time
DVT ppx lovenox
DNR/DNI
I have spent at least 55min reviewing chart, test results and direct patient care
Anticipated Discharge: 24 - 48 hours
Subjective/Interval History
-
Date of Service: November 11, 2024
Objective Data
-
Labs:
Laboratory Results
11/10/24 11/11/24
23:50 05:29
WBC 14.2 H
Hgb 10.4 L
Hct 32.7 L
Plt Count 161
PT 14.1
INR 1.06
Vital Signs:
Vital Signs
Temp Pulse Resp BP Pulse Ox
98.5 F 102 20 205/96 96
11/11/24 03:52 11/11/24 08:28 11/11/24 08:28 11/11/24 06:00 11/11/24 08:28
Review of Systems
-
History Source: Patient
All other systems: Reviewed and negative
Constitutional: Reports Fatigue
Musculoskeletal: Reports Other (R shoulder pain)
Physical Exam
-
General: No Apparent Distress
HEENT: Normocephalic
Respiratory: Clear to Auscultation
Cardiac: Regular Rhythm
GI: Soft, Nontender and Nondistended
Genito-urinary: No Costovertebral Tender
Neuro: Awake, Alert, Oriented and AO x 3
Psych: Calm
--- NOTE | 2024-11-11 08:33 | VNURNOTE ---
Chart reviewed. Patient is current with [facility]. Will continue to follow hospital course and DC plans.
--- NOTE | 2024-11-11 09:42 | CM ---
Addendum entered by Shraddha Borjas 11/11/24 10:39:
CM updated patient daughter about OBS/CAMPOS and daughter asked if patient could return to [facility]. CM spoke with admissions at SNF and notified [facility] liaison about request. CM will send referral via all scripts.
Addendum entered by Shraddha Borjas 11/11/24 10:02:
Patient requesting to return to [facility], awaiting PT/OT assessment and will review with patient daughter updated information regarding OBS/CAMPOS status.
Original Note:
Patient seen at bedside in ED. Patient states that she lives alone in a one story home. Patient was at [facility] until last saturday when she returned home with [facility] to follow. VN is current. Patient has 2 daughters that visit and support. Patient
PCP is Dr. Anaya and she uses the [facility] in [place]. Patient is here as an OBS patient and CM provided form to patient. Patient daughter Grazyna answered phone and indicated that her mother was visiting [facility] on Saturday and
that Grazyna wanted to make sure that the patient had the ability to chose her living arrangements. CM updated physician about patient request..
[2024-11-11] MEDS: BENADRYL 12.5 MG IV (10:15)
[2024-11-11] MEDS: PROCARDIA XL (EXTENDED RELEASE) 30 MG PO (10:15)
[2024-11-11] MEDS: CELEXA 40 MG PO (10:16)
[2024-11-11] MEDS: DELTASONE PO (10:16)
[2024-11-11] MEDS: AZACTAM 1000 MG IV ×2 (10:17→18:42)
[2024-11-11 11:35] LABS: Cortisol, Random 27.8 ug/dl
[2024-11-11] MEDS: BENADRYL 50 MG PO (13:00)
--- NOTE | 2024-11-11 18:29 | W.PN.UPDATE ---
Update Note
Progress Note Update
XR shoulder reviewed with ortho - no complications seen, ongoing healing, prolonged pain expected
[2024-11-11] MEDS: PROTONIX 40 MG PO (18:33)
[2024-11-11] MEDS: LOVENOX 40 MG SC (18:34)
[2024-11-11] MEDS: TYLENOL 650 MG PO (20:24)
--- NOTE | 2024-11-11 21:25 | W.PN.UPDATE ---
Update Note
Progress Note Update
RN reached out because the pt stated she doesn't want to wear her cpap because 'it bothers my shingles'. Some scabbed, some healing lesions visualized around the C3/4 dermatomes. Pt denies that she was placed on any antivirals for this- discussed
with Dr. Velazquez and he would like her in isolation for the time being- and to start her on Valtrex despite rash appearing >72 hrs ago- no extra pain meds at this�time- PRN Tylenol already in place. � ��
[2024-11-11] MEDS: XALATAN OPHTHALMIC SOLUTION 1 DROP BOTH EYES (22:21)
[2024-11-11] MEDS: VALTREX 1000 MG PO (22:45)
--- NOTE | 2024-11-11 23:00 | PTCARENOTE ---
Patient received via bed from . Received report from previous RN. Pt on 4L NC. SpO2 95%. Pt has a moist productive cough. Pt utilizing the Yankauer for oral suction. Pt continuing to refuse the CPAP. Pt states 'I can't wear that mask'. Despite
education, pt refusing CPAP. NSR on the monitor. HR 85. Pt has a pink rash on neck, no scabbing or open draining wounds. Scalp has dry skin otherwise no wounds. R arm in a sling, skin inspected underneath, skin is ecchymotic purple and yellow. VSS.
Assessment and vitals as charted. Pt tolerating frequent turning and repositioning. Pt oriented to the unit. Call gamez within reach.
[2024-11-12] VITALS (14 sets, daily range): BP systolic 113–144; BP diastolic 63–85; PULSE 97; O2SAT 95
--- NOTE | 2024-11-12 00:28 | PTCARENOTE ---
Patient stating her glasses are 'in her bags'. Checked all belongings and bags, no glasses found. Reached out to previous RN via TT. No glasses were found in previous room. Called ED nurse, no glasses found.
[2024-11-12] MEDS: STERILE WATER FOR INJECTION 10 ML IV (03:01)
[2024-11-12] MEDS: AZACTAM 1000 MG IV (03:01)
[2024-11-12 03:32] LABS: Hematocrit 30.5 % (37.0-47.0); Hemoglobin 9.9 g/dL (12.0-16.0); Mean Corp Hgb Conc. 32.5 g/dL (33.0-37.0); Mean Corpuscular Volume 90.5 fL (81.0-99.0); Nucleated Red Blood Cells % 0 %; Platelet Count 171 10^3/uL (130-400); Red Cell Dist. Width 13.6 % (11.5-14.5)
[2024-11-12 03:55] LABS: Blood Urea Nitrogen 19 mg/dl (7-17); Calcium 10.3 mg/dl (8.4-10.2); Carbon Dioxide 33 mmol/L (22-30); Chloride 102 mmol/L (98-107); Estimated Creatinine Clearance 55 ml/min; Glucose 114 mg/dl (70-99); Potassium 3.9 mmol/L (3.5-5.1); Sodium 138 mmol/L (135-145); eGFR > 60.00
[2024-11-12] MEDS: BENADRYL 12.5 MG IV (04:12)
[2024-11-12] MEDS: DILAUDID 3 MG PO ×3 (04:28→17:23)
--- NOTE | 2024-11-12 04:33 | PTCARENOTE ---
Patients eyes swollen and red. Pt states they feel 'itchy'. Pt does not feel itchy anywhere else. TAYLOR Nieto made aware. PRN Benadryl administered. See JUN. Pt having 10/10 neck/head pain. PRN Dilaudid administered. See JUN.
[2024-11-12] MEDS: DILAUDID 1 MG IV (05:31)
--- NOTE | 2024-11-12 05:41 | PTCARENOTE ---
Patients pain persisting. Pt states pain is 8/10 to neck and back. Pt tearful and states she 'wants the pain to end'. TAYLOR Nieto notified, order for IV Dilaudid see JUN.
[2024-11-12] MEDS: SPIRIVA RESPIMAT 2.5 MCG 2 PUFF INH (07:46)
[2024-11-12] MEDS: SYMBICORT 160/4.5 MCG INHALER 2 PUFF INH ×2 (07:46→20:32)
[2024-11-12] MEDS: PEPCID 20 MG PO (08:25)
[2024-11-12] MEDS: ASPIR LOW (ENTERIC COATED) 81 MG PO (08:25)
[2024-11-12] MEDS: NEURONTIN 300 MG PO ×2 (08:25→20:13)
[2024-11-12] MEDS: SINGULAIR 10 MG PO (08:25)
[2024-11-12] MEDS: DELTASONE 5 MG PO (08:25)
[2024-11-12] MEDS: LASIX 40 MG PO (08:25)
[2024-11-12] MEDS: LIPITOR 40 MG PO (08:26)
[2024-11-12] MEDS: CELEXA 40 MG PO (08:26)
[2024-11-12] MEDS: CLARITIN 10 MG PO (08:26)
[2024-11-12] MEDS: PROCARDIA XL (EXTENDED RELEASE) 90 MG PO (08:26)
[2024-11-12] MEDS: KCL 10 MEQ PO (08:26)
[2024-11-12] MEDS: ZESTRIL 5 MG PO (08:26)
--- NOTE | 2024-11-12 08:55 | CON.ONC ---
Consultation
-
Date Consultation Requested: 11/11/24
Date Consultation Performed: 11/12/24
Impression
Impression
Adenocarcinoma with bony metastases
Progressive decline in performance status
Recent shingles
Hypoxic respiratory failure
Asthma with alpha 1 antitrypsin deficiency
Chronic anemia
History of C6 cord compression
Shoulder injury
Plan
Plan
Patient is well aware of her declining performance status and has divulged that she does not want active therapy for her malignancy
She is interested in hospice however does not want to discuss this with her children until after her daughter's birthday on Saturday
Will continue to monitor for supportive care
Patient History
History of Present Illness
84-year-old with past medical history for adenocarcinoma of the lung diagnosed nearly 5 years ago (SBRT) now with metastatic recurrence and C6 compression with retropulsion of bone, alpha 1 antitrypsin deficiency with asthma, coronary artery
disease, lung cancer, COPD, hypertension, hyperlipidemia, hypothyroidism, TIA, sleep apnea, DVT, AAA patient returns to ED with increasing weakness, poor appetite since this morning. She continues to have declining performance status. She
complained of STALLWORTH, dizzy. denied fever, chills, cough, congestion. denied chest pain, sob. denied abdominal pain,n,v,d. denied dysuria or hematuria. she is complaining or right arm pain from previous fracture.
Past-Medical/Surgical History
Past Medical History
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
Past Surgical History: Reports Other
Additional Past Surgical History:
Cardiac stent
Hand surgery
Right hand tendon repair
Bilateral tubal ligation
Bilateral cataract extraction
Polypectomy
Right knee replacement
Social History
Alcohol: None
Drug: None
Family History
Family History: Not pertinent
Patient Medication
�Medication �Instructions �Recorded �Confirmed �Last Taken �Type
aspirin 81 mg tablet,delayed 81 mg PO DAILY Blood clot 07/22/17 11/10/24 11/09/24 History
release prevention/tx
atorvastatin 40 mg tablet 40 mg PO DAILY High cholesterol 07/22/17 11/10/24 11/09/24 History
pantoprazole 40 mg tablet,delayed 40 mg PO QPM Gastrointestinal issue 07/22/17 11/10/24 09/28/24 History
release
glucosamine sulfate 500 mg tablet 500 mg PO DAILY Supplement 02/16/19 11/10/24 11/09/24 History
famotidine 20 mg tablet 20 mg PO DAILY GERD 07/13/21 11/10/24 11/09/24 History
citalopram 40 mg tablet 40 mg PO DAILY Mental 04/07/22 11/10/24 11/09/24 History
Health/Anxiety
budesonide 160 mcg-glycopyr 9 2 inh inhalation R BID 12/25/22 11/10/24 11/09/24 History
mcg-formot 4.8 mcg/actuation HFA Lung/Breathing Issues
inhaler (Breztri Aerosphere)
furosemide 40 mg tablet 40 mg PO DAILY Fluid 12/25/22 11/10/24 11/09/24 History
Retention/Swelling
montelukast 10 mg tablet 10 mg PO DAILY Lung/Breathing 12/25/22 11/10/24 09/28/24 History
Issues
potassium chloride 10 mEq 10 meq PO DAILY Electrolyte 12/25/22 11/10/24 09/28/24 History
tablet,extended release(part/cryst) Repletion
fexofenadine 180 mg tablet 180 mg PO DAILY Allergies 07/09/23 11/10/24 11/09/24 History
ipratropium 0.5 mg-albuterol 3 mg 3 ml inhalation R Q6HPRN PRN 07/09/23 11/10/24 11/09/24 History
(2.5 mg base)/3 mL nebulization sob/wheezing
soln
latanoprost 0.005 % eye drops 1 drp BOTH EYES HS Eye Condition 07/09/23 11/10/24 11/09/24 History
acetaminophen 500 mg tablet 1,000 mg PO Q6H Pain 09/21/24 11/10/24 11/09/24 History
(Tylenol Extra Strength)
lisinopril 5 mg tablet 5 mg PO DAILY Blood Pressure 09/21/24 11/10/24 11/09/24 History
loperamide 2 mg tablet 2 mg PO DAILY diarrhea 09/21/24 11/10/24 09/28/24 History
ondansetron HCl 4 mg tablet 4 mg PO Q6HPRN PRN nausea 09/21/24 11/10/24 Unknown History
prednisone 5 mg tablet 5 mg PO DAILY inflammation 09/21/24 11/10/24 09/20/24 History
therapeutic multivitamin 1 tab PO DAILY Supplement 09/21/24 11/10/24 09/28/24 History
albuterol sulfate 90 mcg/actuation 2 puff inhalation R Q4HPRN PRN 11/10/24 11/10/24 11/09/24 History
aerosol inhaler sob/wheezing
gabapentin 300 mg capsule 300 mg PO BID 11/10/24 11/10/24 11/09/24 History
hydromorphone 2 mg tablet 2 mg PO Q4HPRN PRN moderate to 11/10/24 11/11/24 Unknown History
severe pain
nifedipine 60 mg tablet,extended 60 mg PO DAILY 11/10/24 Unknown History
release 24 hr
vitamins A,C,W-gydv-wyfmhv 4,296 1 cap PO DAILY 11/10/24 11/10/24 11/09/24 History
mcg-226 mg-90 mg capsule
(PreserVision AREDS)
Active Medications
Generic Name Dose Route Start Last Admin
Trade Name Freq PRN Reason Stop Dose Admin
Acetaminophen 650 mg 11/11/24 00:49 11/11/24 20:24
Acetaminophen 325 Mg Tablet PO 12/09/24 00:48 650 mg
Q4HPRN PRN Administration
mild pain/STALLWORTH/temp> 100.4F
Albuterol 2 puff 11/11/24 00:49
Albuterol Hfa [90 Mcg/Dose] Inhaler INH
R Q4HPRN PRN
sob/wheezing
Protocol
Albuterol/Ipratropium 3 ml 11/11/24 00:49
Ipratropium 0.5/Albuterol 3 Mg (3 Ml Ampul) INH
R Q6HPRN PRN
sob/wheezing
Protocol
Aspirin 81 mg 11/11/24 08:00 11/12/24 08:25
Aspirin 81 Mg (Enteric Coated) Tablet PO 12/09/24 07:59 81 mg
DAILY NIKHIL Administration
Atorvastatin Calcium 40 mg 11/11/24 08:00 11/12/24 08:26
Atorvastatin (Lipitor) 40 Mg Tablet PO 12/09/24 07:59 40 mg
DAILY NIKHIL Administration
Aztreonam 1,000 mg 11/11/24 10:00 11/12/24 03:01
Aztreonam 1,000 Mg/10 Ml Vial IV 1,000 mg
Q8H NIKHIL Administration
Bisacodyl 10 mg 11/11/24 00:49
Bisacodyl 10 Mg Rectal Suppository RECTAL 12/09/24 00:48
[id number] PRN
constipation
Budesonide/Formoterol Fumarate 2 puff 11/11/24 08:00 11/12/24 07:46
Symbicort Inhaler 160/4.5 INH 12/09/24 07:59 2 puff
R BID NIKHIL Administration
Citalopram Hydrobromide 40 mg 11/11/24 08:00 11/12/24 08:26
Citalopram 40 Mg Tablet PO 12/09/24 07:59 40 mg
DAILY NIKHIL Administration
Diphenhydramine HCl 12.5 mg 11/11/24 08:16 11/12/24 04:12
Diphenhydramine 50 Mg/Ml 1 Ml Vial IV 12/09/24 08:15 12.5 mg
Q4HPRN PRN Administration
pruritus
Enoxaparin Sodium 40 mg 11/11/24 18:00 11/11/24 18:34
Enoxaparin Sodium 40 Mg/0.4 Ml Syringe SC 12/09/24 17:59 40 mg
QPM NIKHIL Administration
Famotidine 20 mg 11/11/24 08:00 11/12/24 08:25
Famotidine 20 Mg Tablet PO 12/09/24 07:59 20 mg
DAILY NIKHIL Administration
Furosemide 40 mg 11/11/24 08:00 11/12/24 08:25
Furosemide 40 Mg Tablet PO 12/09/24 07:59 40 mg
DAILY NIKHIL Administration
Gabapentin 300 mg 11/11/24 08:00 11/12/24 08:25
Gabapentin 300 Mg Capsule PO 12/09/24 07:59 300 mg
BID NIKHIL Administration
Hydralazine HCl 5 mg 11/11/24 08:07
Hydralazine 20 Mg/Ml Vial IV 12/09/24 08:06
Q6HPRN PRN
SBP >180 DBP>105
Hydromorphone HCl 3 mg 11/11/24 00:49 11/12/24 04:28
Hydromorphone 2 Mg Tablet PO 11/25/24 00:48 3 mg
Q4HPRN PRN Administration
moderate to severe pain
Latanoprost 1 drop 11/11/24 22:00 11/11/24 22:21
Latanoprost 0.005% (Ophthalmic Solution) 2.5 Ml Bottle BOTH EYES 12/09/24 21:59 1 drop
HS NIKHIL Administration
Lisinopril 5 mg 11/11/24 08:00 11/12/24 08:26
Lisinopril 5 Mg Tablet PO 12/09/24 07:59 5 mg
DAILY NIKHIL Administration
Loratadine 10 mg 11/11/24 08:00 11/12/24 08:26
Loratadine 10 Mg Tablet PO 12/09/24 07:59 10 mg
DAILY NIKHIL Administration
Metoprolol Tartrate 5 mg 11/11/24 01:26 11/11/24 01:42
Metoprolol 5 Mg/5 Ml Vial IV 12/09/24 01:25 5 mg
Q6HPRN PRN Administration
SBP> 170
Montelukast Sodium 10 mg 11/11/24 08:00 11/12/24 08:25
Montelukast Sodium 10 Mg Tablet PO 12/09/24 07:59 10 mg
DAILY NIKHIL Administration
Nifedipine 90 mg 11/12/24 08:00 11/12/24 08:26
Nifedipine 30 Mg Extended Release Tablet PO 12/10/24 07:59 90 mg
DAILY NIKHIL Administration
Pantoprazole Sodium 40 mg 11/11/24 18:00 11/11/24 18:33
Pantoprazole 40 Mg Delayed Release Tablet PO 12/09/24 17:59 40 mg
QPM NIKHIL Administration
Polyethylene Glycol 17 grams 11/11/24 00:49
Polyethylene Glycol Powder 17 Grams Packet PO 12/09/24 00:48
DAILYPRN PRN
constipation
Potassium Chloride 10 meq 11/11/24 08:00 11/12/24 08:26
Potassium Chloride 10 Meq Extended Release Tablet PO 12/09/24 07:59 10 meq
DAILY NIKHIL Administration
Prednisone 5 mg 11/11/24 08:00 11/12/24 08:25
Prednisone 5 Mg Tablet PO 12/09/24 07:59 5 mg
DAILY NIKHIL Administration
Senna/Docusate Sodium 1 tablet 11/11/24 00:49
Docusate W/Senna (Marisela-Colace) Tablet PO 12/09/24 00:48
BIDPRN PRN
constipation
Sodium Chloride 0 flush 11/11/24 01:00
Sodium Chloride 0.9% (Flush) Syringe IV 12/09/24 00:59
PER PROTOCOL NIKHIL
Sterile Water 10 ml 11/11/24 10:00 11/12/24 03:01
Sterile Water For Injection 10 Ml Vial IV 12/09/24 09:59 10 ml
Q8H NIKHIL Administration
Tiotropium Stuart 2 puff 11/11/24 08:00 11/12/24 07:46
Tiotropium (Spiriva Respimat) 2.5 Mcg Inhaler INH 12/09/24 07:59 2 puff
R DAILY NIKHIL Administration
Review of Systems
-
Review of systems unremarkable other than those complaints noted in the HPI
Physical Exam
-
Physical Exam
General: Well Developed, Well Nourished and No Apparent Distress
HEENT: No scleral icterus, mucous membranes dry and Atraumatic
Respiratory: Clear
Cardiac: S1/S2 and Regular Rhythm; No Murmur or Rub
GI: Soft, Non Tender, Non Distended and Normal Bowel Sounds; No Organomegaly
Musculoskeletal: No Clubbing, No Cyanosis and No Edema
Skin: No Rash
Neuro: AO x 3 and Nonfocal/grossly intact
Psych: Calm
Labs
Lab Results
WBC 12.3 10^3/uL (4.8-10.8) H 11/12/24 02:58
RBC 3.37 10^6/uL (4.20-5.40) L 11/12/24 02:58
Hgb 9.9 g/dL (12.0-16.0) L 11/12/24 02:58
Hct 30.5 % (37.0-47.0) L 11/12/24 02:58
MCV 90.5 fL (81.0-99.0) 11/12/24 02:58
MCH 29.4 pg (27.0-31.0) 11/12/24 02:58
MCHC 32.5 g/dL (33.0-37.0) L 11/12/24 02:58
RDW 13.6 % (11.5-14.5) 11/12/24 02:58
Plt Count 171 10^3/uL (130-400) 11/12/24 02:58
MPV 10.1 fL (7.4-10.4) 11/12/24 02:58
Abs Immat Gran (auto) 0.1 10^3/uL (0-0.05) H 11/12/24 02:58
Absolute Neuts (auto) 10.9 10^3/uL (1.4-6.5) H 11/12/24 02:58
Absolute Lymphs (auto) 0.7 10^3/uL (1.2-3.4) L 11/12/24 02:58
Absolute Monos (auto) 0.7 10^3/uL (0.1-0.6) H 11/12/24 02:58
Absolute Eos (auto) 0.0 10^3/uL (0-0.7) 11/12/24 02:58
Absolute Basos (auto) 0.0 10^3/uL (0-0.2) 11/12/24 02:58
Immature Gran % 0.4 % (0-0.5) 11/12/24 02:58
Neutrophils % 88.3 % (42.2-75.2) H 11/12/24 02:58
Lymphocytes % 5.5 % (20.5-51.1) L 11/12/24 02:58
Monocytes % 5.6 % (1.7-9.3) 11/12/24 02:58
Eosinophils % 0.0 % (0-6) 11/12/24 02:58
Basophils % 0.2 % (0-2) 11/12/24 02:58
Creatinine 0.7 mg/dL (0.6-1.0) 11/12/24 02:58
Vital Signs
Vital Signs
Temp Pulse Resp BP Pulse Ox
97.9 F 93 20 119/67 95
11/12/24 03:12 11/12/24 08:00 11/12/24 08:00 11/12/24 08:00 11/12/24 08:00
--- NOTE | 2024-11-12 09:20 | CON.ID ---
Consultation
-
Date/Time Consultation Requested: 11/12/2024 0704
Date/Time Consultation Performed: 11/12/2024 0920
Requesting Provider: Dr. Alba
Performing Provider: Dr. Garcia
Reason for Consultation: Suspected shingles
Chief Complaint / Past History
History of Present Illness
Aisha Mandujano is an 84-year-old female being evaluated at the request of Dr. Alba regarding possible shingles. History is obtained from chart review, along with patient interview.
The patient reports that she has chronic neck pain secondary to her known cervical metastasis, but yesterday she developed sharp pains in her head. She denies it feeling like a headache but describes sharp pain on the outside of her left head area.
No visual disturbances. The patient reports that she broke her shoulder approximately 6 weeks ago, spent 1 week here in the hospital and has been in rehab for the past 5 weeks. She recently was discharged home, but the daughter related to the ER
staff that the patient has gotten progressively weaker at home, and was unable to ambulate.
She was brought to the ER on the morning of 11/10 for further workup. Nothing acute was noted, and the patient was discharged back to home, but returned later in the evening. Upon return, she was found to be tachycardic with elevated blood
pressure. Additionally, she was found to have a leukocytosis. Later in the evening, the patient did not want to wear her CPAP because 'it bothers my shingles'. Scabbed lesions were reported, but the patient was initially placed on isolation and
started on Valtrex. Valtrex has since been discontinued. Infectious Diseases asked to comment upon further antimicrobial therapy.
At this point in time, patient denies any fevers or chills. She still complains of some left neck and right neck discomfort. She denies any abdominal pain. She denies any dysuria.
Past History
Additional Past Medical History:
Asthma
CAD
Lung CA with cervical spine mets
COPD
GERD
HTN
HLD
Anxiety/depression
TIA
Migraines
Hx DVT
Nephrolithiasis
AAA
Additional Past Surgical History:
Prior ileostomy with reversal
PCI with stenting
Tubal ligation
Right hand surgery
Right knee replacement
Hernia repair
Allergy History:
codeine Allergy (Verified 09/28/24 23:24)
NAUSEA
doxycycline Allergy (Verified 09/28/24 23:24)
HEART PALPITATIONS
Iodinated Contrast Media Allergy (Verified 09/28/24 23:24)
IV CONTRAST-SOB
meperidine HCl (From Demerol) Allergy (Verified 09/28/24 23:24)
Nausea/lightheaded
morphine Allergy (Verified 09/28/24 23:24)
Nausea
norepinephrine Allergy (Verified 09/28/24 23:24)
rash to ethylnorepinephrine
oxycodone Allergy (Verified 09/28/24 23:24)
SEVERE NAUSEA
pentazocine Allergy (Verified 09/28/24 23:24)
TALWIN-N/V
pentazocine lactate (From Talwin) Allergy (Verified 09/28/24 23:24)
Nausea
piperacillin (From Zosyn) Allergy (Verified 11/11/24 09:57)
Anaphylaxis, tolerated cefazolin, ceftriaxone, cefdinir
Tetracyclines Allergy (Verified 09/28/24 23:24)
very disoriented
Medications Reviewed: Yes
Current Antibiotics:
Aztreonam 1 gm IV q.8 hours
Social History
Tobacco: Former Smoker
Alcohol: None
Drug: None
Personal:
Living: Alone
Family History
Family History: Not Pertinent
Review of Systems
Vital Signs
Temp Pulse Resp BP Pulse Ox
97.9 F 93 20 119/67 95
11/12/24 03:12 11/12/24 08:00 11/12/24 08:00 11/12/24 08:00 11/12/24 08:00
Physical Exam
Physical Exam
Constitutional: No Acute Distress, Comfortable, Chronically Ill, Non-toxic and Obese
Eyes: No Conjunctival Hemorrhage and Sclera Anicteric
Oral: No Thrush and No Ulcers
Cardiovascular: Regular Rate and S1/S2; Negative S3/S4
Pulmonary: Clear; Negative Rhonchi or Coarse
Gastrointestinal: Soft, Non Tender and Non Distended
Genito-Urinary: Negative Jacobs
Extremities: Edema; Negative Cyanosis or Erythema
Skin: Warm, Dry and Other (Areas of skin discoloration right lower cheek area extending onto neck. No vesicles noted in cervical or scalp area.)
Neurological: Awake and Alert
Psychological: Calm
Lab / Diagnostic Study Results
11/12/24 02:58
11/12/24 02:58
Abs Immat Gran (auto) 0.1 10^3/uL (0-0.05) H 11/12/24 02:58
Absolute Neuts (auto) 10.9 10^3/uL (1.4-6.5) H 11/12/24 02:58
Absolute Lymphs (auto) 0.7 10^3/uL (1.2-3.4) L 11/12/24 02:58
Absolute Monos (auto) 0.7 10^3/uL (0.1-0.6) H 11/12/24 02:58
Absolute Basos (auto) 0.0 10^3/uL (0-0.2) 11/12/24 02:58
Immature Gran % 0.4 % (0-0.5) 11/12/24 02:58
Neutrophils % 88.3 % (42.2-75.2) H 11/12/24 02:58
Lymphocytes % 5.5 % (20.5-51.1) L 11/12/24 02:58
Monocytes % 5.6 % (1.7-9.3) 11/12/24 02:58
Eosinophils % 0.0 % (0-6) 11/12/24 02:58
Basophils % 0.2 % (0-2) 11/12/24 02:58
PT 14.1 Sec (11.4-14.6) 11/10/24 23:50
INR 1.06 11/10/24 23:50
Ur Squamous Epith Cells 11-15 /LPF (Few) 11/11/24 05:29
Microbiology Results
Micro:
11/11/24 05:29 Urine Culture - Pending
Urine
Imaging:
11/11/2024 CT chest PE study: no evidence of pulmonary embolism. Stable and increased left lower lobe suspected residual/recurrent neoplasm. Small left pleural effusion. Please see full dictation for additional detail.
Assessment / Plan
Hx shingles
- No current lesions. No need for antivirals.
Abnormal UA
- Patient without symptomatology.
- No need for antibiotic coverage.
Lung CA with cervical spine mets
Asthma
CAD
COPD
GERD
HTN
HLD
Anxiety/depression
TIA
Migraines
Hx DVT
Nephrolithiasis
AAA
Recommendations:
At present, patient without urinary symptomatology. No need for antibiotic coverage of abnormal urinalysis.
No active vesicles or evidence of active shingles. No need for antivirals.
Continue with supportive care.
Heme-onc note reviewed. Patient contemplating transitioning to hospice, but awaiting an upcoming family event.
Monitor white count and temperature curve.
Follow off antibiotics.
[2024-11-12] MEDS: STERILE WATER FOR INJECTION IV ×2 (11:00→17:10)
[2024-11-12] MEDS: OLOPATADINE 0.1% OPHTHALMIC SOLUTION 1 DROP OPHTH ×2 (11:01→20:13)
[2024-11-12] MEDS: AZACTAM IV (11:07)
--- NOTE | 2024-11-12 12:16 | W.PN.HOSP.TC ---
Today's Communication/Plan
-
patient to make decision on hospice eventually
D/C to rehab
Assessment / Plan
Assessment / Plan
84yo F with PMHX of COPD on chronic prednisone, hypothyroidism, anxiety, CAD, HLD, Hx of TIA, migraines, HX of DVT, AAA, TIA, lung CA s/p RT and kamryn, spinal mets, brought by daughter since patient had progressive decline at home and could not care
for herself since discharge after hospital in September. Patient stated she cannot bath anc cannot cook for herself. Concern for progressive ambulatory dysfunction 2/2 comorbidities exacerbated by recebnt R shoulder Fx. Also cannot exclude UTI, but since
no symptoms - ID recommended to monotor of Abx. As per conversation with Oncologist and patient and due to poor functional status of the patient - hospice recommended. patient will make decision with her family. Otherwise - medically stable to be
d/c to [facility]
A/P:
#GOC
Hospice recommended
#Ambulatory deficiency 2/2 worsening R shoulder pain
2/2 R shoulder Fx - managed non-operatively
R shoulder XR
PT/OT
CM for placement
No symptoms of iatrogenic adrenal insufficiency at this time, check cortisol level on pre-admit labs if possible
pain mgmt
#Pyuria, concern for UTI
with leukocytosis (however can be 2/2 steroids too)
Stop Abx as per ID
#Elevated ddimer
same before
CT chest for PE and US LE neg for VTE, stable other findings
#Chronic hypoxic respiratory failure 2/2 COPD/Asthma not in exacerbation on 4L home O2
Cont bronchodilators
cont prednisone
#Mild-moderate
#mild pulmonary HTN
Echo with EF 70-75%
No clinical signs of volume overload
#chronic Alk.phos elevation
no RUQ pain
most likely 2/2 metastatic CA
#Mild anemia
follow up PCP
#Hypercalcemia, chronic
mild 2/2 CA
follow Ca
#Essential HTN
#CAD stable
#Migraines
#Hx of TIA
#Hypothyroidism
cont home meds
#Hx of recurrent shingles
no clinical signs at this time
#Hx of dysphasia
s/p VSE: IDDSI Level 7 Regular (pick soft/moist foods), thin liquids, concerning for esophageal dysphagia, previously outpatient GI was recommended and reasonable to keep same reccs at this time
#b/l allergic conjunctivitis
Olopatadine drops
DVT ppx lovenox
DNR/DNI
I have spent at least 35min reviewing chart, test results and direct patient care
Anticipated Discharge: Within 24 hours
Subjective/Interval History
-
Date of Service: November 12, 2024
Objective Data
-
Labs:
Laboratory Results
11/12/24
02:58
WBC 12.3 H
Hgb 9.9 L
Hct 30.5 L
Plt Count 171
Sodium 138
Potassium 3.9
Chloride 102
Carbon Dioxide 33 H
BUN 19 H
Creatinine 0.7
Glucose 114 H
Calcium 10.3 H
Vital Signs:
Vital Signs
Temp Pulse Resp BP Pulse Ox
98.0 F 93 20 119/67 96
11/12/24 07:22 11/12/24 08:00 11/12/24 08:00 11/12/24 08:00 11/12/24 08:35
I&O
11/11/24 11/12/24 11/13/24
06:59 06:59 06:59
Intake Total 240 / 240
Balance 240 / 240
Review of Systems
-
History Source: Patient
All other systems: Reviewed and negative
Physical Exam
-
General: No Apparent Distress
HEENT: Other (b/l red conjuctiva)
GI: Soft
Neuro: Awake, Alert, Oriented and AO x 3
Psych: Calm
--- NOTE | 2024-11-12 12:28 | CM ---
Addendum entered by Kia Moreno 11/12/24 13:46:
Per Attending, patient's Discharge on hold; Facility notified
Addendum entered by Kia Moreno 11/12/24 12:55:
Ambulance [id number] today; facility notified
Original Note:
Per Attending, patient is stable for discharge today
Plan: Discharge to [facility] today via ambulance
Report # [phone]
--- NOTE | 2024-11-12 12:43 | W.DCSUMMARY ---
Discharge Summary
Discharge Data
Date of Admission: 11/12/24
Date of Discharge: 11/12/24
-
Pending Results: No
Hospital Course
84yo F with PMHX of COPD on chronic prednisone, hypothyroidism, anxiety, CAD, HLD, Hx of TIA, migraines, HX of DVT, AAA, TIA, lung CA s/p RT and kamryn, spinal mets, brought by daughter since patient had progressive decline at home and could not care
for herself since discharge after hospital in September. Patient stated she cannot bath anc cannot cook for herself. Concern for progressive ambulatory dysfunction 2/2 comorbidities exacerbated by recebnt R shoulder Fx. Also cannot exclude UTI, but since
no symptoms - ID recommended to monotor of Abx. As per conversation with Oncologist and patient and due to poor functional status of the patient - hospice recommended. patient will make decision with her family. Otherwise - medically stable to be
d/c to STR. Noticed urinary retention without dyscomfort and patient able to urinate
I have spent at least 35min reviewing chart, test results and direct patient care
Patient was managed for:
#GOC
#Ambulatory deficiency 2/2 worsening R shoulder pain
#Pyuria, UTI ruled out, asymptomatic bacteriuria
#Elevated ddimer
#Chronic hypoxic respiratory failure 2/2 COPD/Asthma not in exacerbation on 4L home O2
#Mild-moderate
#mild pulmonary HTN
#chronic Alk.phos elevation
#Mild anemia
#Hypercalcemia, chronic
#Essential HTN
#CAD stable
#Migraines
#Hx of TIA
#Hypothyroidism
#Hx of recurrent shingles
#Hx of dysphasia
#b/l allergic conjunctivitis
Discharge Plan
-
Patient Disposition: Long Term/SNF
Discharge Diagnosis/Procedures: Ambulatory deficiency
Diet: Low Residue and Other diet
Additional Diets: soft/moist
Referrals:
Juan Anaya MD [Family Provider, Family Practice]
Prescriptions:
New
nifedipine 30 mg Tablet Extended Release
90 mg PO DAILY Qty: 90 0RF
olopatadine 0.1 % Drops
1 drp ophthalmic (eye) BID Qty: 5 0RF
Continued
atorvastatin 40 MG tablet
40 mg PO DAILY
aspirin 81 MG tablet,delayed release (DR/EC)
81 mg PO DAILY
pantoprazole 40 MG tablet,delayed release (DR/EC)
40 mg PO QPM
glucosamine sulfate 500 MG tablet
500 mg PO DAILY
famotidine 20 MG tablet
20 mg PO DAILY
citalopram 40 mg tablet
40 mg PO DAILY
furosemide 40 mg tablet
40 mg PO DAILY
montelukast 10 mg tablet
10 mg PO DAILY
potassium chloride 10 mEq tablet,ER particles/crystals
10 meq PO DAILY
Breztri Aerosphere 160-9-4.8 mcg/actuation Hfa Aerosol Inhaler
2 inh INHALATION R BID
fexofenadine 180 mg Tablet
180 mg PO DAILY
latanoprost 0.005 % drops
1 drp BOTH EYES HS
ipratropium-albuterol 0.5 mg-3 mg(2.5 mg base)/3 mL solution for nebulization
3 ml INHALATION R Q6HPRN PRN (Reason: sob/wheezing)
ondansetron HCl 4 mg Tablet
4 mg PO Q6HPRN PRN (Reason: nausea)
prednisone 5 mg Tablet
5 mg PO DAILY
loperamide 2 mg Tablet
2 mg PO DAILY
therapeutic multivitamin Tablet
1 tab PO DAILY
acetaminophen [Tylenol Extra Strength] 500 mg Tablet
1,000 mg PO Q6H
lisinopril 5 mg Tablet
5 mg PO DAILY
albuterol sulfate 90 mcg/actuation Hfa Aerosol Inhaler
2 puff INHALATION R Q4HPRN PRN (Reason: sob/wheezing)
PreserVision AREDS 4,296 mcg-226 mg-90 mg Capsule
1 cap PO DAILY
gabapentin 300 mg capsule
300 mg PO BID
hydromorphone 2 mg Tablet
2 mg PO Q4HPRN PRN (Reason: moderate to severe pain) Qty: 6 0RF
Discontinued
nifedipine 60 mg tablet extended release 24hr
60 mg PO DAILY
Discharge Orders:
Discharge Patient (As Directed); Ordered 11/12/24
Ordered By: Flaquito Alba
Discharge Date and Time
Print Language: SINHALA
--- NOTE | 2024-11-12 13:57 | W.PN.UPDATE ---
Update Note
Progress Note Update
Now with concern for worsening dysphagia as per daughter - hold D/C and get MANNEQUIN MAKER
--- NOTE | 2024-11-12 14:15 | PTCARENOTE ---
Pt's daughter informed this RN pt was having trouble swallowing/ difficulty chewing. Dr. Alba notified via TT. D/c held and Speech Therapy consulted. Family updated on plan of care.
--- NOTE | 2024-11-12 15:13 | CON.NEURO4 ---
Addendum entered and electronically signed by hO Ballesteros MD 11/12/24 16:16:
Studies reviewed.
I have personally examined the patient. I reviewed and agree with the GAS REGULATOR REPAIRER HELPER's Note.
My addenda:
Awake, alert, interactive. No acute distress.
Speech intact.
Follows 2-step requests w/o difficulty. No tremor.
Extra-ocular movements grossly intact.
Facial movements full and symmetric. Hearing intact to normal conversational volume.
Normal UE movements on the left, restricted on the right due to arm fracture.
Neck: full ROM.
Chest: no dyspnea
Heart: no JVD
Ext: (-) Clubbing, (-) Cyanosis, (-) Edema
IMPRESSIONS/RECOMMENDATIONS:
Abrupt onset of dysphagia beginning more than 24 hours prior to the stroke alert initiation
Most likely secondary to cervical spine metastases
Check MRI of brain to discover if patient has experienced an acute ischemic intracranial lesion or occult tumor
Continue supportive care
Goal of normotension
Provide aspirin routinely
Provide atorvastatin
D/W patient / family / nursing
All questions answered.
Will continue to follow peripherally.
Original Note:
Documented by User: Meka Sotelo NP 11/12/24 16:04
Consultation - Neurology 4
-
CONSULTING PHYSICIAN: Oh Ballesteros MD
REFERRING PHYSICIAN: Hospitalists/Dr. Alba
DICTATED BY: TAYLOR Bentley
DATE/TIME OF REQUEST: 11/12/24
DATE/TIME OF CONSULTATION: 11/12/24
Reason for Consultation: Stroke Alert
History of Present Illness:
This is an 84-year-old right-handed female with a PMH of lung cancer with cervical spine metastasis who has presented to the hospital on 11/10/24 with report of severe left head pain. She was initially discharged home the same day but returned later
in the day due to report of progressive weakness and inability to ambulate. CT head was obtained on arrival and demonstrates new metastatic disease in the left calvarium. Patient and her daughter report that two days ago (11/10/24) her speech started
sounding dysarthric, her right face felt tingly, and she noted difficulty swallowing, which was new. Today (11/13/23), speech therapy evaluated the patient and noted significant dysphagia and a stroke alert was activated. Repeat CT head was obtained
and is negative for any acute abnormalities. She endorses a 6/10 left-sided headache. She denies any dizziness, vision changes, and new weakness. She notes urinary urgency/incomplete bladder emptying. She denies bowel incontinence. She is taking
aspirin 81mg daily.
Past Medical History: Lung cancer with cervical spine mets, C6 compression and retropulsion of bone, HTN, HLD, CAD, migraines, COPD, GERD, anxiety, depression, DVT, nephrolithiasis, AAA, asthma, recent shingles, LILLIAN (cpap), R humerus fracture
09/2024, SBO
Surgical History: Ileostomy s/p reversal, tubal ligation, cardiac stent, R TKR, R hand surgery, hernia repair, b/l cataract removal, polypectomy
Family History: Reviewed and noncontributory.
Social History: Former smoker. Denies alcohol and illicit drug use.
Allergies: See below.
Home Medications: See below.
Review of Symptoms:
Patient denies any fever, chest pain, shortness of breath, or GI symptoms.
�Per the HPI.�All systems are reviewed negative except above.
Physical Exam:
The patient is afebrile, abdomen is nondistended, breathing is mildly labored, skin is warm and dry, RUE in a sling.
NIH Stroke Scale:
I performed the NIH stroke scale on the patient on 11/12/24 at 1515. The patient scored 1 points on the NIH stroke scale assessment, which were assigned as follows: See below.
Neurologic Examination:
The patient is awake, alert and oriented x 3. She is able to follow commands and answer questions appropriately. There is no aphasia. Speech is very minimally dysarthric. On cranial nerve assessment, pupils are 3 mm bilateral, round and reactive to
light and accommodation. Visual corbin are full. Extraocular movements are intact. Facial sensations are intact and bilaterally symmetrical, there is no facial asymmetry. Hearing is intact bilaterally to normal conversation volume. Tongue palate
and uvula are midline. Motor strengths are 5/5 left upper, TEQUILA Right upper due to pain, and 5-5 bilateral lower extremities on medical research [place] scale. There is no drift. there is a diffuse low amplitude tremor. Deep tendon reflexes are 2+
bilateral upper and lower extremities, there are multiple beats on clonus in bilateral Achilles. Babinski is absent bilaterally. There was no extinction noted on double simultaneous stimulation. Coordination is intact by finger to nose in the LUE,
TEQUILA RUE.
Lab Results: See below.
Neuro Imaging:
1. CT Head 11/10/24: There are moderate changes of cortical atrophy and chronic ischemic disease. There is metastatic disease involving the right calvarium which could be a cause of pain.
2. CT Head 11/12/24: Unchanged from prior.
Differentials for the patient's presentation include:
1. New onset dysphagia; posstible etiologies include subacute stroke, new brain metastasis, or known cervical spine metastasis.
Patient has the following risk factors for their symptoms: Lung cancer with spinal mets, HTN, HLD
IV Tenecteplase/IAT candidacy: Not a candidate due to symptom onset 48 hours ago.
Recommendations:
-MRI brain w/ and w/o contrast pending.
-Continue aspirin 81mg daily.
-Goal normotension.
-LDL goal <70 if MRI demonstrates a stroke. Lipid panel pending. Continue atorvastatin 40mg daily.
-Goal normoglycemia, hbA1c is pending.
-NIHSS and neurological checks per unit guidelines.
-Provide patient/family with a stroke education packet.
-PT/OT/ST evaluations.
-DVT prophylaxis.
Discussed patient care with: Dr. Ballesteros, the patient, patient's daugher
Vital Signs and Labs
-
Vital Signs and Labs:
Vital Signs
Temp Pulse Resp BP Pulse Ox
98.5 F 101 27 141/71 96
11/12/24 11:14 11/12/24 14:10 11/12/24 14:10 11/12/24 14:10 11/12/24 14:10
Lab Results
11/12/24 02:58
11/12/24 02:58
PT 14.1 Sec (11.4-14.6) 11/10/24 23:50
INR 1.06 11/10/24 23:50
Sodium 138 mmol/L (135-145) 11/12/24 02:58
Potassium 3.9 mmol/L (3.5-5.1) 11/12/24 02:58
BUN 19 mg/dl (7-17) H 11/12/24 02:58
Glucose 114 mg/dl (70-99) H 11/12/24 02:58
Calcium 10.3 mg/dl (8.4-10.2) H 11/12/24 02:58
Medications
-
Active Medications
Generic Name Dose Route Start Last Admin
Trade Name Freq PRN Reason Stop Dose Admin
Acetaminophen 650 mg 11/11/24 00:49 11/11/24 20:24
Acetaminophen 325 Mg Tablet PO 12/09/24 00:48 650 mg
Q4HPRN PRN Administration
mild pain/STALLWORTH/temp> 100.4F
Albuterol 2 puff 11/11/24 00:49
Albuterol Hfa [90 Mcg/Dose] Inhaler INH
R Q4HPRN PRN
sob/wheezing
Protocol
Albuterol/Ipratropium 3 ml 11/11/24 00:49
Ipratropium 0.5/Albuterol 3 Mg (3 Ml Ampul) INH
R Q6HPRN PRN
sob/wheezing
Protocol
Aspirin 81 mg 11/11/24 08:00 11/12/24 08:25
Aspirin 81 Mg (Enteric Coated) Tablet PO 12/09/24 07:59 81 mg
DAILY NIKHIL Administration
Atorvastatin Calcium 40 mg 11/11/24 08:00 11/12/24 08:26
Atorvastatin (Lipitor) 40 Mg Tablet PO 12/09/24 07:59 40 mg
DAILY NIKHIL Administration
Bisacodyl 10 mg 11/11/24 00:49
Bisacodyl 10 Mg Rectal Suppository RECTAL 12/09/24 00:48
[id number] PRN
constipation
Budesonide/Formoterol Fumarate 2 puff 11/11/24 08:00 11/12/24 07:46
Symbicort Inhaler 160/4.5 INH 12/09/24 07:59 2 puff
R BID NIKHIL Administration
Citalopram Hydrobromide 40 mg 11/11/24 08:00 11/12/24 08:26
Citalopram 40 Mg Tablet PO 12/09/24 07:59 40 mg
DAILY NIKHIL Administration
Diphenhydramine HCl 12.5 mg 11/11/24 08:16 11/12/24 04:12
Diphenhydramine 50 Mg/Ml 1 Ml Vial IV 12/09/24 08:15 12.5 mg
Q4HPRN PRN Administration
pruritus
Enoxaparin Sodium 40 mg 11/11/24 18:00 11/11/24 18:34
Enoxaparin Sodium 40 Mg/0.4 Ml Syringe SC 12/09/24 17:59 40 mg
QPM NIKHIL Administration
Famotidine 20 mg 11/11/24 08:00 11/12/24 08:25
Famotidine 20 Mg Tablet PO 12/09/24 07:59 20 mg
DAILY NIKHIL Administration
Furosemide 40 mg 11/11/24 08:00 11/12/24 08:25
Furosemide 40 Mg Tablet PO 12/09/24 07:59 40 mg
DAILY NIKHIL Administration
Gabapentin 300 mg 11/11/24 08:00 11/12/24 08:25
Gabapentin 300 Mg Capsule PO 12/09/24 07:59 300 mg
BID NIKHIL Administration
Hydralazine HCl 5 mg 11/11/24 08:07
Hydralazine 20 Mg/Ml Vial IV 12/09/24 08:06
Q6HPRN PRN
SBP >180 DBP>105
Hydromorphone HCl 3 mg 11/11/24 00:49 11/12/24 11:01
Hydromorphone 2 Mg Tablet PO 11/25/24 00:48 3 mg
Q4HPRN PRN Administration
moderate to severe pain
Latanoprost 1 drop 11/11/24 22:00 11/11/24 22:21
Latanoprost 0.005% (Ophthalmic Solution) 2.5 Ml Bottle BOTH EYES 12/09/24 21:59 1 drop
HS NIKHIL Administration
Lisinopril 5 mg 11/11/24 08:00 11/12/24 08:26
Lisinopril 5 Mg Tablet PO 12/09/24 07:59 5 mg
DAILY NIKHIL Administration
Loratadine 10 mg 11/11/24 08:00 11/12/24 08:26
Loratadine 10 Mg Tablet PO 12/09/24 07:59 10 mg
DAILY NIKHIL Administration
Metoprolol Tartrate 5 mg 11/11/24 01:26 11/11/24 01:42
Metoprolol 5 Mg/5 Ml Vial IV 12/09/24 01:25 5 mg
Q6HPRN PRN Administration
SBP> 170
Montelukast Sodium 10 mg 11/11/24 08:00 11/12/24 08:25
Montelukast Sodium 10 Mg Tablet PO 12/09/24 07:59 10 mg
DAILY NIKHIL Administration
Nifedipine 90 mg 11/12/24 08:00 11/12/24 08:26
Nifedipine 30 Mg Extended Release Tablet PO 12/10/24 07:59 90 mg
DAILY NIKHIL Administration
Olopatadine HCl 0 drop 11/12/24 09:15 11/12/24 11:01
Olopatadine 0.1% Ophthalmic Solution 5 Ml Bottle OPHTH 12/10/24 09:14 1 drop
BID NIKHIL Administration
Pantoprazole Sodium 40 mg 11/11/24 18:00 11/11/24 18:33
Pantoprazole 40 Mg Delayed Release Tablet PO 12/09/24 17:59 40 mg
QPM NIKHIL Administration
Polyethylene Glycol 17 grams 11/11/24 00:49
Polyethylene Glycol Powder 17 Grams Packet PO 12/09/24 00:48
DAILYPRN PRN
constipation
Potassium Chloride 10 meq 11/11/24 08:00 11/12/24 08:26
Potassium Chloride 10 Meq Extended Release Tablet PO 12/09/24 07:59 10 meq
DAILY NIKHIL Administration
Prednisone 5 mg 11/11/24 08:00 11/12/24 08:25
Prednisone 5 Mg Tablet PO 12/09/24 07:59 5 mg
DAILY NIKHIL Administration
Senna/Docusate Sodium 1 tablet 11/11/24 00:49
Docusate W/Senna (Marisela-Colace) Tablet PO 12/09/24 00:48
BIDPRN PRN
constipation
Sodium Chloride 0 flush 11/11/24 01:00
Sodium Chloride 0.9% (Flush) Syringe IV 12/09/24 00:59
PER PROTOCOL NIKHIL
Sterile Water 10 ml 11/11/24 10:00 11/12/24 11:00
Sterile Water For Injection 10 Ml Vial IV 12/09/24 09:59 Not Given
Q8H NIKHIL
Tiotropium [place] 2 puff 11/11/24 08:00 11/12/24 07:46
Tiotropium (Spiriva Respimat) 2.5 Mcg Inhaler INH 12/09/24 07:59 2 puff
R DAILY NIKHIL Administration
Home Medications
�Medication �Instructions �Recorded
aspirin 81 mg tablet,delayed 81 mg PO DAILY Blood clot 07/22/17
release prevention/tx
atorvastatin 40 mg tablet 40 mg PO DAILY High cholesterol 07/22/17
pantoprazole 40 mg tablet,delayed 40 mg PO QPM Gastrointestinal issue 07/22/17
release
glucosamine sulfate 500 mg tablet 500 mg PO DAILY Supplement 02/16/19
famotidine 20 mg tablet 20 mg PO DAILY GERD 07/13/21
citalopram 40 mg tablet 40 mg PO DAILY Mental 04/07/22
Health/Anxiety
budesonide 160 mcg-glycopyr 9 2 inh inhalation R BID 12/25/22
mcg-formot 4.8 mcg/actuation HFA Lung/Breathing Issues
inhaler (Breztri Aerosphere)
furosemide 40 mg tablet 40 mg PO DAILY Fluid 12/25/22
Retention/Swelling
montelukast 10 mg tablet 10 mg PO DAILY Lung/Breathing 12/25/22
Issues
potassium chloride 10 mEq 10 meq PO DAILY Electrolyte 12/25/22
tablet,extended release(part/cryst) Repletion
fexofenadine 180 mg tablet 180 mg PO DAILY Allergies 07/09/23
ipratropium 0.5 mg-albuterol 3 mg 3 ml inhalation R Q6HPRN PRN 07/09/23
(2.5 mg base)/3 mL nebulization sob/wheezing
soln
latanoprost 0.005 % eye drops 1 drp BOTH EYES HS Eye Condition 07/09/23
acetaminophen 500 mg tablet 1,000 mg PO Q6H Pain 09/21/24
(Tylenol Extra Strength)
lisinopril 5 mg tablet 5 mg PO DAILY Blood Pressure 09/21/24
loperamide 2 mg tablet 2 mg PO DAILY diarrhea 09/21/24
ondansetron HCl 4 mg tablet 4 mg PO Q6HPRN PRN nausea 09/21/24
prednisone 5 mg tablet 5 mg PO DAILY inflammation 09/21/24
therapeutic multivitamin 1 tab PO DAILY Supplement 09/21/24
albuterol sulfate 90 mcg/actuation 2 puff inhalation R Q4HPRN PRN 11/10/24
aerosol inhaler sob/wheezing
gabapentin 300 mg capsule 300 mg PO BID Neurological 11/10/24
Condition
vitamins A,C,L-cfsb-horzcb 4,296 1 cap PO DAILY Supplement 11/10/24
mcg-226 mg-90 mg capsule
(PreserVision AREDS)
hydromorphone 2 mg tablet 2 mg PO Q4HPRN PRN moderate to 11/12/24
severe pain #6 tabs
nifedipine 30 mg tablet,extended 90 mg (3 x 30 mg) PO DAILY #90 tabs 11/12/24
release
olopatadine 0.1 % eye drops 1 drp ophthalmic (eye) BID #5 mL 11/12/24
NIH Stroke Score
Subsequent NIH Scale
Date of Subsequent NIH Scale: 11/12/24
Time of Subsequent NIH Scale: 15:15
NIH Stroke Score
Level of Consciousness: 0 - Alert
LOC Questions: 0-Answers both correctly
LOC Commands: 0-Performs both correctly
Best Horizontal Gaze: 0-Normal
Visual [place]: 0=Normal, no visual loss
Facial Palsy: 0=Normal, symmetrical
Motor - Right Arm: 0=No drift 10 seconds
Motor - Left Arm: 0=No drift 10 seconds
Motor - Right Le-No drift 5 seconds
Motor - Left Le-No drift 5 seconds
Limb Ataxia: 0-Absent
Sensation: 0-Normal
Best Language: 0-No aphasia
Dysarthria: 1-Mild slurring
Extinction and Inattention: 0-No abnormality
NIH Total Score:: 1
Modified [place] (mRS) Score
Modified [place] Scale (mRS): Moderately severe disability. Unable to attend to bodily needs/walk.
Score: 4
Alteplase Contraindication
Inclusion and Exclusion criteria reviewed: Yes
Reasons for NON-Tx with Thrombolytics ABSOLUTE Exclusions: Greater than 4.5 hrs from onset of sxs
Allergies
-
Allergies
Allergy/AdvReac Type Severity Reaction Status Date / Time
codeine Allergy NAUSEA Verified 09/28/24 23:24
doxycycline Allergy HEART Verified 09/28/24 23:24
PALPITATIONS
Iodinated Contrast Media Allergy IV Verified 09/28/24 23:24
CONTRAST-SOB
meperidine HCl (From Demerol) Allergy Nausea/ligh Verified 09/28/24 23:24
theaded
morphine Allergy Nausea Verified 09/28/24 23:24
norepinephrine Allergy rash to Verified 09/28/24 23:24
ethylnorepinephrine
oxycodone Allergy SEVERE Verified 09/28/24 23:24
NAUSEA
pentazocine Allergy TALWIN-N/V Verified 09/28/24 23:24
pentazocine lactate (From Allergy Nausea Verified 09/28/24 23:24
Talwin)
piperacillin (From Zosyn) Allergy Anaphylaxis, Verified 11/11/24 09:57
tolerated
cefazolin,
ceftriaxone,
cefdinir
tazobactam (From Zosyn) Allergy Anaphylaxis Verified 09/28/24 23:24
Tetracyclines Allergy very Verified 09/28/24 23:24
disoriented

Documented by User: Oh Ballesteros MD 11/12/24 16:13
NIH Stroke Score
NIH Stroke Score
NIH Total Score:: 1
Modified [place] (mRS) Score
Score: 4
Past History
Past History
ED Past Medical History: Asthma, CAD, Cancer (Lung CA), COPD, GERD, HTN, Hypercholesterolemia, Hyperthyroidism, Hypothyroidism, Psychiatric (Anxiety, depression), Other (TIA, Migraines, Sleep apnea, DVT, Hemorrhoids, Hiatal hernia, C-diff, Ovarian
cyst, Renal calculus, UTI, Overactive Parathyroid, Anemia, Fibrosis, AAA) and Other (Small bowel obstruction 2004, total colectomy for polyps, ileostomy with reversal)
ED Past Surgical History: Bowel resection (Total proctocolectomy with Ileostomy and then reversal), Cardiac (Catheterization, Stent), Gynecological (Tubal), Orthopedic (Right hand tendon repair, Right knee replacement) and Other (Hernia, Cataracts,
Right vein stripping)
Social History
Tobacco: Former smoker
Alcohol: None
Drug: None
Personal:
Living: alone
Employment: Retired
Family History
Family History: CAD
[2024-11-12 15:20] LABS: Glucose - Point of Care 113 mg/dl (70-99)
--- NOTE | 2024-11-12 15:27 | RR ---
A Rapid Response was called on this patient, please see Rapid Response form.
Speech at bedside to work with pt. This RN and Dr. Alba notified by ST that pt is noticing numbness on the L side of her face and difficulty moving her L cheek and L jaw since yesterday. Advised by MD to call RR and stroke alert. RR team and
neurology to bedside. Pt to CT via bed with RR team.
--- NOTE | 2024-11-12 16:00 | PTCARENOTE ---
Pt returned from [facility] of 1.
--- NOTE | 2024-11-12 16:01 | PTOTSP ---
Dysphagia Evaluation
Patient presents with signs concerning for acute worsened oral/pharyngeal dysphagia of unknown etiology with reported onset 11/11/2024. Signs concerning for aspiration noted with thin liquids during clinical bedside swallow. Dysphagia risk factors
include COPD, lung cancer with mets to spine, GERD.
A stroke alert was called due to patient report of abrupt new onset of left facial numbness and left mandibular weakness (not appreciated) as of 11/11, dysphonia and dysarthria (not appreciated) since 11/10, and abrupt new onset of difficulty
swallowing as of 11/11.
Recommend:
1. Temporary NPO
2. Medications: crushed in puree
3. Repeat video swallow study if medically appropriate
[2024-11-12] MEDS: PROTONIX PO (17:01)
[2024-11-12] MEDS: LOVENOX 40 MG SC (17:25)
[2024-11-12] MEDS: TYLENOL 650 MG PO (20:14)
[2024-11-12] MEDS: XALATAN OPHTHALMIC SOLUTION 1 DROP BOTH EYES (20:15)
--- NOTE | 2024-11-12 23:23 | PTCARENOTE ---
Patient AAOx3, anxious at times. NIH 0. Neurocheck Q4H. NSR on the monitor HR 84. Received pt on 2L NC SpO2 95%. Pt took pills crushed in puree with no issues. Pt c/o neck and back pain. PRN Tylenol administered see MAR. R arm sling intact. R arm
ecchymotic. Pt incontinent of urine. Pt tolerating frequent turning and repositioning. Call gamez within reach.
[2024-11-13] VITALS (8 sets, daily range): BP systolic 113–153; BP diastolic 53–125; BMI 36.5
[2024-11-13] MEDS: DILAUDID 3 MG PO ×5 (00:11→20:28)
[2024-11-13] MEDS: TYLENOL 650 MG PO ×3 (00:14→17:33)
[2024-11-13] MEDS: STERILE WATER FOR INJECTION IV ×3 (01:54→17:54)
[2024-11-13] MEDS: BENADRYL 12.5 MG IV (04:03)
[2024-11-13 04:52] LABS: Hematocrit 31.8 % (37.0-47.0); Hemoglobin 10.2 g/dL (12.0-16.0); Mean Corp Hgb Conc. 32.1 g/dL (33.0-37.0); Mean Corpuscular Volume 91.4 fL (81.0-99.0); Nucleated Red Blood Cells % 0 %; Platelet Count 172 10^3/uL (130-400); Red Cell Dist. Width 13.6 % (11.5-14.5)
[2024-11-13 05:13] LABS: ALT (SGPT) < 10 U/L (0-35); AST (SGOT) 19 U/L (14-36); Albumin 3.6 g/dl (3.5-5.0); Alkaline Phosphatase 431 U/L (38-126); Blood Urea Nitrogen 17 mg/dl (7-17); Calcium 10.0 mg/dl (8.4-10.2); Carbon Dioxide 34 mmol/L (22-30); Chloride 99 mmol/L (98-107); Estimated Creatinine Clearance 55 ml/min; Glucose 81 mg/dl (70-99); HDL Cholesterol 70 mg/dl; LDL Cholesterol, Calculated 67 mg/dl; Potassium 3.6 mmol/L (3.5-5.1); Sodium 137 mmol/L (135-145); Total Protein 6.1 g/dl (6.3-8.2); Very Low Density Lipoprotein 42 mg/dl (0-30); eGFR > 60.00
--- NOTE | 2024-11-13 07:41 | PTCARENOTE ---
On walking rounds pt AAAOx3 sitting up in bed Reading HF booklet. Pt v paced on monitor awaiting Echo
[2024-11-13] MEDS: SPIRIVA RESPIMAT 2.5 MCG 2 PUFF INH (08:13)
[2024-11-13] MEDS: SYMBICORT 160/4.5 MCG INHALER 2 PUFF INH ×2 (08:13→20:01)
[2024-11-13] MEDS: ASPIR LOW (ENTERIC COATED) 81 MG PO (08:20)
[2024-11-13] MEDS: PROCARDIA XL (EXTENDED RELEASE) 90 MG PO (08:20)
[2024-11-13] MEDS: CLARITIN 10 MG PO (08:20)
[2024-11-13] MEDS: NEURONTIN 300 MG PO ×2 (08:21→20:28)
[2024-11-13] MEDS: SINGULAIR 10 MG PO (08:21)
[2024-11-13] MEDS: KCL 10 MEQ PO (08:22)
[2024-11-13] MEDS: CELEXA 40 MG PO (08:22)
[2024-11-13] MEDS: ZESTRIL 5 MG PO (08:22)
[2024-11-13] MEDS: PEPCID 20 MG PO (08:22)
[2024-11-13] MEDS: LIPITOR 40 MG PO (08:23)
[2024-11-13] MEDS: LASIX 40 MG PO (08:23)
[2024-11-13] MEDS: DELTASONE 5 MG PO (08:23)
[2024-11-13] MEDS: OLOPATADINE 0.1% OPHTHALMIC SOLUTION 1 DROP OPHTH ×2 (08:24→20:29)
[2024-11-13 09:08] LABS: Glycohemoglobin (HgbA1c) 5.4 % (4.0-5.6)
--- NOTE | 2024-11-13 09:10 | PTCARENOTE ---
Pt statesshe wants to talk to Hospice, was agreeable to video swallow . Pain is 8/10 , pain med given before transporting to XRAY via stretcher
--- NOTE | 2024-11-13 09:38 | PTCARENOTE ---
Spoke with daughter Grazyna at length. She is arranging out pt hospice for her mother. They are declining MRI family is following pt wishwes. Will TTT Dr Alba
--- NOTE | 2024-11-13 10:09 | PTCARENOTE ---
Delmy with son Lewis re plan of care and spoke to daughter Grazyna with VS update
--- NOTE | 2024-11-13 10:28 | W.PN.HOSP.TC ---
Today's Communication/Plan
-
DC
Assessment / Plan
Assessment / Plan
84yo F with PMHX of COPD on chronic prednisone, hypothyroidism, anxiety, CAD, HLD, Hx of TIA, migraines, HX of DVT, AAA, TIA, lung CA s/p RT and kamryn, spinal mets, brought by daughter since patient had progressive decline at home and could not care
for herself since discharge after hospital in September. Patient stated she cannot bath anc cannot cook for herself. Concern for progressive ambulatory dysfunction 2/2 comorbidities exacerbated by recebnt R shoulder Fx. Also cannot exclude UTI, but since
no symptoms - ID recommended to monotor of Abx. As per conversation with Oncologist and patient and due to poor functional status of the patient - hospice recommended. Patient ultimately decided to start hospice as also agreed with daughter - in
[facility]. Started to c/o L face numbness with trouble swallowing that is started on 11/12/24, but patient did not report until 11/13.5. Neurologist recommended MRI however patient and family declined. Medically stable to be d/c to [facility]
A/P:
#GOC
Hospice recommended
#L face numbness
#Hx of dysphasia
ACUTE CARE PHYSICAL THERAPIST and S/P VSE
most likely 2/[address] head showed Ill-defined confluent foci of hypoattenuation within the right parieto-occipital skull, new compared to prior study
MRI declined by patient and family due to now hospice approach
#Ambulatory deficiency 2/2 worsening R shoulder pain
2/2 R shoulder Fx - managed non-operatively
R shoulder XR
PT/OT
CM for placement
No symptoms of iatrogenic adrenal insufficiency at this time, check cortisol level on pre-admit labs if possible
pain mgmt
#Pyuria, concern for UTI
with leukocytosis (however can be 2/2 steroids too)
Stop Abx as per ID
#Elevated ddimer
same before
CT chest for PE and US LE neg for VTE, stable other findings
#Chronic hypoxic respiratory failure 2/2 COPD/Asthma not in exacerbation on 4L home O2
Cont bronchodilators
cont prednisone
#Mild-moderate
#mild pulmonary HTN
Echo with EF 70-75%
No clinical signs of volume overload
#chronic Alk.phos elevation
no RUQ pain
most likely 2/2 metastatic CA
#Mild anemia
follow up PCP
#Hypercalcemia, chronic
mild 2/2 CA
follow Ca
#Essential HTN
#CAD stable
#Migraines
#Hx of TIA
#Hypothyroidism
cont home meds
#Hx of recurrent shingles
no clinical signs at this time
#b/l allergic conjunctivitis
Olopatadine drops
DVT ppx lovenox
DNR/DNI
I have spent at least 35min reviewing chart, test results and direct patient care
Anticipated Discharge: Today
Subjective/Interval History
-
Date of Service: November 13, 2024
Objective Data
-
Labs:
Laboratory Results
11/13/24
04:00
WBC 11.6 H
Hgb 10.2 L
Hct 31.8 L
Plt Count 172
Sodium 137
Potassium 3.6
Chloride 99
Carbon Dioxide 34 H
BUN 17
Creatinine 0.7
Glucose 81
Calcium 10.0
Total Bilirubin 0.7
AST 19
ALT < 10
Alkaline Phosphatase 431 H
Vital Signs:
Vital Signs
Temp Pulse Resp BP Pulse Ox
97.9 F 90 21 153/62 91
11/13/24 07:05 11/13/24 09:00 11/13/24 09:00 11/13/24 08:22 11/13/24 09:00
I&O
11/12/24 11/13/2411/14/25
06:59 06:59 06:59
Intake Total 240 / 240
Output Total 600 / 600
Balance 240 / 240 -600 / -600
Review of Systems
-
History Source: Patient
All other systems: Reviewed and negative
Physical Exam
-
General: No Apparent Distress
Neuro: Awake, Alert, Oriented and AO x 3
Psych: Calm
--- NOTE | 2024-11-13 10:33 | W.DCSUMMARY ---
Discharge Summary
Discharge Data
Date of Admission: 11/12/24
Date of Discharge: 11/13/24
-
Pending Results: No
Hospital Course
84yo F with PMHX of COPD on chronic prednisone, hypothyroidism, anxiety, CAD, HLD, Hx of TIA, migraines, HX of DVT, AAA, TIA, lung CA s/p RT and kamryn, spinal mets, brought by daughter since patient had progressive decline at home and could not care
for herself since discharge after hospital in September. Patient stated she cannot bath anc cannot cook for herself. Concern for progressive ambulatory dysfunction 2/2 comorbidities exacerbated by recebnt R shoulder Fx. Also cannot exclude UTI, but since
no symptoms - ID recommended to monotor of Abx. As per conversation with Oncologist and patient and due to poor functional status of the patient - hospice recommended. Patient ultimately decided to start hospice as also agreed with daughter - in
[facility]. Started to c/o L face numbness with trouble swallowing that is started on 11/12/24, but patient did not report until 11/13.5. Neurologist recommended MRI however patient and family declined. Medically stable to be d/c to [facility]
I have spent at least 35min reviewing chart, test results and direct patient care
PAtient was managed for:
#GOC
#L face numbness
#Hx of dysphasia
#Ambulatory deficiency 2/2 worsening R shoulder pain
#Pyuria, concern for UTI
#Elevated ddimer
#Chronic hypoxic respiratory failure 2/2 COPD/Asthma not in exacerbation on 4L home O2
#Mild-moderate
#mild pulmonary HTN
#chronic Alk.phos elevation
#Mild anemia
#Hypercalcemia, chronic
#Essential HTN
#CAD stable
#Migraines
#Hx of TIA
#Hypothyroidism
#Hx of recurrent shingles
#b/l allergic conjunctivitis
Discharge Plan
-
Patient Disposition: Residential/SNF
Discharge Diagnosis/Procedures: Ambulatory deficiency
Diet: Low Residue and Other diet
Additional Diets: soft/moist
Referrals:
Juan Anaya MD [Family Provider, [facility]]
Prescriptions:
New
nifedipine 30 mg Tablet Extended Release
90 mg PO DAILY Qty: 90 0RF
olopatadine 0.1 % Drops
1 drp ophthalmic (eye) BID Qty: 5 0RF
Continued
atorvastatin 40 MG tablet
40 mg PO DAILY
aspirin 81 MG tablet,delayed release (DR/EC)
81 mg PO DAILY
pantoprazole 40 MG tablet,delayed release (DR/EC)
40 mg PO QPM
glucosamine sulfate 500 MG tablet
500 mg PO DAILY
famotidine 20 MG tablet
20 mg PO DAILY
citalopram 40 mg tablet
40 mg PO DAILY
furosemide 40 mg tablet
40 mg PO DAILY
montelukast 10 mg tablet
10 mg PO DAILY
potassium chloride 10 mEq tablet,ER particles/crystals
10 meq PO DAILY
Breztri Aerosphere 160-9-4.8 mcg/actuation Hfa Aerosol Inhaler
2 inh INHALATION R BID
fexofenadine 180 mg Tablet
180 mg PO DAILY
latanoprost 0.005 % drops
1 drp BOTH EYES HS
ipratropium-albuterol 0.5 mg-3 mg(2.5 mg base)/3 mL solution for nebulization
3 ml INHALATION R Q6HPRN PRN (Reason: sob/wheezing)
ondansetron HCl 4 mg Tablet
4 mg PO Q6HPRN PRN (Reason: nausea)
prednisone 5 mg Tablet
5 mg PO DAILY
loperamide 2 mg Tablet
2 mg PO DAILY
therapeutic multivitamin Tablet
1 tab PO DAILY
acetaminophen [Tylenol Extra Strength] 500 mg Tablet
1,000 mg PO Q6H
lisinopril 5 mg Tablet
5 mg PO DAILY
albuterol sulfate 90 mcg/actuation Hfa Aerosol Inhaler
2 puff INHALATION R Q4HPRN PRN (Reason: sob/wheezing)
PreserVision AREDS 4,296 mcg-226 mg-90 mg Capsule
1 cap PO DAILY
gabapentin 300 mg capsule
300 mg PO BID
hydromorphone 2 mg Tablet
2 mg PO Q4HPRN PRN (Reason: moderate to severe pain) Qty: 6 0RF
Discontinued
nifedipine 60 mg tablet extended release 24hr
60 mg PO DAILY
Discharge Orders:
Discharge Patient (As Directed); Ordered 11/13/24
Ordered By: Flaquito Alba
Discharge Date and Time
Print Language: SWEDISH
--- NOTE | 2024-11-13 11:38 | W.PN.ID1 ---
Date of Service
Date of Service: November 13, 2024
Today's Communication
Sign off
Assessment / Plan
Hx shingles
- No current lesions. No need for antivirals.
Abnormal UA
- Patient without symptomatology.
- No need for antibiotic coverage.
Lung CA with cervical spine mets
Asthma
CAD
COPD
GERD
HTN
HLD
Anxiety/depression
TIA
Migraines
Hx DVT
Nephrolithiasis
AAA
Recommendations:
Patient has now decided to pursue hospice level care.
Nothing further to add from an Infectious Diseases standpoint.
Will sign off and see again at your request.
Chief Complaint
-: Leukocytosis
Subjective / Review of Systems
Review of Systems: No Fever and No Chills
Vital Signs / Physical Exam
Vital Signs
Vital Signs
Temp Pulse Resp BP Pulse Ox
97.9 F 90 21 153/62 91
11/13/24 07:05 11/13/24 09:00 11/13/24 09:00 11/13/24 08:22 11/13/24 09:00
Physical Exam
Constitutional: Comfortable, Chronically Ill and Non-toxic
Pulmonary: Non Labored
Gastrointestinal: Non Distended
Neurological: Awake, Alert and Oriented
Objective Data
Lab Data
Lab Results
11/13/24 04:00
11/13/24 04:00
PT 14.1 Sec (11.4-14.6) 11/10/24 23:50
INR 1.06 11/10/24 23:50
Estimated Creat Clear 55 ml/min 11/13/24 04:00
Total Bilirubin 0.7 mg/dl (0.2-1.3) 11/13/24 04:00
AST 19 U/L (14-36) 11/13/24 04:00
ALT < 10 U/L (0-35) 11/13/24 04:00
Alkaline Phosphatase 431 U/L (38-126) H 11/13/24 04:00
Most recent labs reviewed.
Micro Results:
11/11/24 05:29 Urine Culture - Final
Urine
Imaging:
11/11/2024 CT chest PE study: no evidence of pulmonary embolism. Stable and increased left lower lobe suspected residual/recurrent neoplasm. Small left pleural effusion. Please see full dictation for additional detail.
--- NOTE | 2024-11-13 12:47 | PTOTSP ---
Speech Therapy VSE:
Patient presents with�functional-mild�oral and�functional�pharyngeal stage of swallowing. No confirmed penetration nor aspiration visualized during the study. At most, moderate pharyngeal residue observed with puree, however liquid wash assisted
with complete pharyngeal clearance.��Please see patient care note for full details of swallowing physiology.
Recommend:��
1. Initiation of IDDSI Level 6 (soft and bite sized solids) + added moisture and thin liquids
2. Medications as tolerated. Can administer crushed versus whole in puree for comfort
3. General aspiration precautions: small bites/sips, slow rate, supervision with meals, liquid wash, added moisture, cyclic ingestion given known esophageal retention from previous VSE
4. Modifiable risk factors for aspiration pneumonia including encouraging frequent and thorough oral care, pulmonary hygiene measures, and increasing physical mobility as medically feasible
5. BRICK STACKER to follow for education regarding VSE findings and recommendations, training in swallow precautions, and trials of higher level solids
--- NOTE | 2024-11-13 13:54 | PTOTSP ---
S/w RN who reports pt is going on hospice. PT will sign off.
--- NOTE | 2024-11-13 15:55 | W.PN.UPDATE ---
Update Note
Progress Note Update
As per CM: SNF did not get it together to accept the patient today and [facility] did not get their contract with the SNF also. Patient will not be able to go to SNF until Saturday
Patient remains medcially stable for d/c from my perspective
--- NOTE | 2024-11-13 16:17 | CM ---
Patient with Hx metastatic lung CA with Dx L face numbness, ambulatory deficiency 2/2 worsening R shoulder pain 2/2 R shoulder Fx. O2 2L. Wearing Shoulder sling. Receiving IV Dilaudid prn. Dysphagia diet. Per nurse; bedrest.
CM Consult: Hospice
Spoke with Lizzy, s [facility] ([place] [phone]) this morning; she informed CM this morning that she was actively working on getting this patient accepted to their facility today, however they need daughter to submit LTC financial
application and their finance person to approve the patient for private pay in their LTC unit. They also need their nurse to review her referral for acceptance. Lizzy stated if not cleared today by their finance person the next time they could
accept would be 11/16. She was aware of the need to coordinate with the patient's daughter and [facility]. Called her back at 2pm and 3:15pm and left messages with no response.
Spoke with [facility] ([place] [phone], fax [phone]); the daughter had contacted them requesting their hospice, and they are aware patient will be going to [facility]. Shon stated that they will need to do a one time
contract with the SNF- asked her to please work on that today. Faxed hospice order and face sheet as requested. Provided update to Shon that they will need to provide the pain meds for the patient at [facility] - will not be sending scripts for pain
meds.
Messages with Dr Alba; he will not be sending scripts for pain meds to hospice.
Met with patient and spoke with daughters Grazyna and Shraddha multiple times by phone; all agree to d/c to [facility] with [facility]. IMM completed. Dtr Grazyna completed LTC application today and gave to the SNF. Provided update to
Grazyna that hospice needs to get approval from SNF to start care there, and that [facility] did not respond this afternoon about accepting her mother today, therefore the next possible time for patient to d/c to their SNF would be 11/16.
Grazyna expressed disappointment with the SNF for not completing the arrangements today.
Plan [facility] with [facility] Mon 11/16.
[2024-11-13] MEDS: PROTONIX 40 MG PO (17:34)
[2024-11-13] MEDS: LOVENOX 40 MG SC (17:35)
[2024-11-13] MEDS: XALATAN OPHTHALMIC SOLUTION 1 DROP BOTH EYES (20:29)
--- NOTE | 2024-11-13 22:17 | PTCARENOTE ---
Patient aao x3 since start of shift. Patient c/o pain 6/10 to right shoulder and neck. PRN pain medication administered per order. Positive results noted. Pox 95% on 3L o2 n/c. Patient repositioned for pressure relief and comfort. Uses call gamez
appropriately and requesting bed fox as needed. Call gamez within reach. Will continue to monitor patient closely.
[2024-11-14] MEDS: STERILE WATER FOR INJECTION IV (02:03)
[2024-11-14] MEDS: DILAUDID 3 MG PO ×4 (03:14→19:42)
[2024-11-14 03:23] VITALS: BP 160/80
--- NOTE | 2024-11-14 03:28 | PTCARENOTE ---
Patient attempted to void, unable to void on bedpan. C/o pressure to bladder. Bladder scanned for 404ml. Straight cath performed per order for 400ml of dark yellow urine. Patient verbalizes relief. Pt c/o pain 6/10 to right shoulder and neck. PRN
Dilaudid po administered per order. Patient repositioned for comfort and pressure relief. Will continue to monitor patient closely.
[2024-11-14] MEDS: SYMBICORT 160/4.5 MCG INHALER 2 PUFF INH ×2 (07:57→19:51)
[2024-11-14] MEDS: SPIRIVA RESPIMAT 2.5 MCG 2 PUFF INH (07:57)
[2024-11-14] MEDS: ASPIR LOW (ENTERIC COATED) 81 MG PO (08:04)
[2024-11-14] MEDS: PROCARDIA XL (EXTENDED RELEASE) 90 MG PO (08:04)
[2024-11-14 08:05] VITALS: BP 158/75
[2024-11-14] MEDS: KCL 10 MEQ PO (08:06)
[2024-11-14] MEDS: SINGULAIR 10 MG PO (08:06)
[2024-11-14] MEDS: LASIX 40 MG PO (08:06)
[2024-11-14] MEDS: CLARITIN 10 MG PO (08:06)
[2024-11-14] MEDS: NEURONTIN 300 MG PO ×2 (08:06→19:42)
[2024-11-14] MEDS: PEPCID 20 MG PO (08:07)
[2024-11-14] MEDS: ZESTRIL 5 MG PO (08:07)
[2024-11-14] MEDS: LIPITOR 40 MG PO (08:07)
[2024-11-14] MEDS: DELTASONE 5 MG PO (08:07)
[2024-11-14] MEDS: CELEXA 40 MG PO (08:07)
--- NOTE | 2024-11-14 08:40 | PTCARENOTE ---
Pt crying in pain, given po dilaudid 3 mg pt is requesting IV Dilaudid as she states she is suffering and is now on hospice and is suppose to be comfortable. DR Alba TT
[2024-11-14] MEDS: OLOPATADINE 0.1% OPHTHALMIC SOLUTION 1 DROP OPHTH ×2 (09:24→19:42)
--- NOTE | 2024-11-14 09:24 | W.PN.HOSP.TC ---
Today's Communication/Plan
-
Comfort care pending d/c to hospice
Assessment / Plan
Assessment / Plan
84yo F with PMHX of COPD on chronic prednisone, hypothyroidism, anxiety, CAD, HLD, Hx of TIA, migraines, HX of DVT, AAA, TIA, lung CA s/p RT and kamryn, spinal mets, brought by daughter since patient had progressive decline at home and could not care
for herself since discharge after hospital in September. Patient stated she cannot bath anc cannot cook for herself. Concern for progressive ambulatory dysfunction 2/2 comorbidities exacerbated by recebnt R shoulder Fx. Also cannot exclude UTI, but since
no symptoms - ID recommended to monitor of Abx. As per conversation with Oncologist and patient and due to poor functional status of the patient - hospice recommended. Patient ultimately decided to start hospice as also agreed with daughter - in
[facility]. Started to c/o L face numbness with trouble swallowing that is started on 11/12/24, but patient did not report until 11/13.5. Neurologist recommended MRI however patient and family declined since now focused on comfort care. Medically
stable to be d/c to [facility]
A/P:
#GOC
Hospice recommended - family arranging hospice in facility, apparently could not establish prior to 11/16/24
Patient in distress with R shoulder pain: discussed GOC with patient on 11/14/24 - she is persistent in her wishes to continue with hospice care, comfort is a priority and she does not want any tests run for her. Same discussed with daughter Grazyna
afterwards. Due to worsening pain and preference to avoid discomfort - comfort care only advised. Mikaela was explained that in this case no additional studies to be done, in the case of patient deterioration - she will have symptomatic treatment
only for pain, anxiety, dyspnea without additional diagnostic or treatment steps including but not limited to Abx, IVF, cardiovascular meds. Daughter verbalized understanding of that and prefer comfort focused approach.
#L face numbness
#Hx of dysphasia
PARCEL POST DELIVERY and S/P VSE
most likely 2/[address] head showed Ill-defined confluent foci of hypoattenuation within the right parieto-occipital skull, new compared to prior study
MRI declined by patient and family due to now hospice approach
#Ambulatory deficiency 2/2 worsening R shoulder pain
2/2 R shoulder Fx - managed non-operatively
R shoulder XR
PT/OT
CM for placement
No symptoms of iatrogenic adrenal insufficiency at this time, check cortisol level on pre-admit labs if possible
pain mgmt
#Pyuria, concern for UTI
with leukocytosis (however can be 2/2 steroids too)
Stop Abx as per ID
#Elevated ddimer
same before
CT chest for PE and US LE neg for VTE, stable other findings
#Chronic hypoxic respiratory failure 2/2 COPD/Asthma not in exacerbation on 4L home O2
Cont bronchodilators
cont prednisone
#Mild-moderate
#mild pulmonary HTN
Echo with EF 70-75%
No clinical signs of volume overload
#chronic Alk.phos elevation
no RUQ pain
most likely 2/2 metastatic CA
#Mild anemia
follow up PCP
#Hypercalcemia, chronic
mild 2/2 CA
follow Ca
#Essential HTN
#CAD stable
#Migraines
#Hx of TIA
#Hypothyroidism
cont home meds
#Hx of recurrent shingles
no clinical signs at this time
#b/l allergic conjunctivitis
Olopatadine drops
DVT ppx lovenox
DNR/DNI
I have spent at least 51min reviewing chart, test results and direct patient care
Anticipated Discharge: 24 - 48 hours
Subjective/Interval History
-
Date of Service: November 14, 2024
Objective Data
-
Vital Signs:
Vital Signs
Temp Pulse Resp BP Pulse Ox
98.2 F 101 20 158/75 98
11/14/24 07:00 07/25/25 20:10 11/14/24 08:03 11/14/24 08:05 11/14/24 00:12
I&O
11/13/24 11/14/24 11/15/24
06:59 06:59 06:59
Output Total 600 / 600 400 / 400
Balance -600 / -600 -400 / -400
Review of Systems
-
History Source: Patient
All other systems: Reviewed and negative
Musculoskeletal: Reports Joint Pain
Physical Exam
-
General: Appears in Distress and Pain
HEENT: Normocephalic
Respiratory: Clear to Auscultation
Cardiac: Regular Rhythm
GI: Soft, Nontender and Nondistended
Neuro: Awake, Alert, Oriented and AO x 3
Psych: Calm
[2024-11-14] MEDS: ZOFRAN 4 MG IV (09:27)
[2024-11-14] MEDS: LEVSIN 0.125 MG PO (10:41)
[2024-11-14] MEDS: DILAUDID 0.5 MG IV ×2 (11:15→17:40)
--- NOTE | 2024-11-14 11:20 | PTCARENOTE ---
Pt moaning in pain and is still nauseated . Family at bedside.
[2024-11-14] MEDS: TYLENOL 650 MG PO ×2 (12:36→19:47)
--- NOTE | 2024-11-14 12:48 | PTCARENOTE ---
Pt bladder scan 592 Dr lara notified order for Jacobs given for end of life comfort
[2024-11-14] MEDS: PROTONIX PO (17:40)
[2024-11-14] MEDS: LOVENOX 40 MG SC (17:40)
--- NOTE | 2024-11-14 17:47 | PTCARENOTE ---
Pt moaning at times refusing food Dilaudid .5 IV given as ordered
[2024-11-14 19:44] VITALS: BP 145/75
[2024-11-14] MEDS: XALATAN OPHTHALMIC SOLUTION 1 DROP BOTH EYES (21:38)
--- NOTE | 2024-11-14 22:06 | PTCARENOTE ---
Pt c/o severe pain, moaning. PRN medication given as ordered. Pt requested PRN tylenol in addition to other ordered pain mgmt. Pt refused repositioning at this time d/t severe pain. No new complaints at this time. Jacobs catheter remains in place.
Sling maintained on RUE. Call gamez within reach. Bed alarm in place for pt safety.
[2024-11-14 22:30] VITALS: BP 112/68
[2024-11-15] MEDS: TYLENOL 650 MG PO (04:36)
[2024-11-15] MEDS: DILAUDID 0.5 MG IV ×8 (04:44→21:26)
[2024-11-15] MEDS: DILAUDID 3 MG PO (07:09)
[2024-11-15] MEDS: SYMBICORT 160/4.5 MCG INHALER 2 PUFF INH ×2 (08:10→19:30)
[2024-11-15] MEDS: SPIRIVA RESPIMAT 2.5 MCG 2 PUFF INH (08:10)
[2024-11-15] MEDS: CLARITIN PO (08:42)
[2024-11-15] MEDS: LIPITOR PO (08:42)
[2024-11-15] MEDS: CELEXA PO (08:42)
[2024-11-15] MEDS: DELTASONE PO (08:42)
[2024-11-15] MEDS: OLOPATADINE 0.1% OPHTHALMIC SOLUTION OPHTH (08:42)
[2024-11-15] MEDS: LASIX PO (08:42)
[2024-11-15] MEDS: ASPIR LOW (ENTERIC COATED) PO (08:42)
[2024-11-15] MEDS: NEURONTIN PO ×2 (08:42→20:40)
[2024-11-15] MEDS: PROCARDIA XL (EXTENDED RELEASE) PO (08:43)
[2024-11-15] MEDS: PEPCID PO (08:43)
[2024-11-15] MEDS: ZESTRIL PO (08:43)
[2024-11-15] MEDS: SINGULAIR PO (08:43)
[2024-11-15] MEDS: PEPCID 20 MG PO (11:18)
--- NOTE | 2024-11-15 11:21 | W.PN.HOSP.TC ---
Today's Communication/Plan
-
Patient had bad night - not able to sleep due to pain, anxiety - discussed with patient and family and agreed on more agressive symptoms management
Assessment / Plan
Assessment / Plan
84yo F with PMHX of COPD on chronic prednisone, hypothyroidism, anxiety, CAD, HLD, Hx of TIA, migraines, HX of DVT, AAA, TIA, lung CA s/p RT and kamryn, spinal mets, brought by daughter since patient had progressive decline at home and could not care
for herself since discharge after hospital in September. Patient stated she cannot bath anc cannot cook for herself. Concern for progressive ambulatory dysfunction 2/2 comorbidities exacerbated by recebnt R shoulder Fx. Also cannot exclude UTI, but since
no symptoms - ID recommended to monitor of Abx. As per conversation with Oncologist and patient and due to poor functional status of the patient - hospice recommended. Patient ultimately decided to start hospice as also agreed with daughter - in
[facility]. Started to c/o L face numbness with trouble swallowing that is started on 11/12/24, but patient did not report until 11/13.5. Neurologist recommended MRI however patient and family declined since now focused on comfort care. Discussed in
details with patient and daughter that with more aggressive symptom management - there is likelihood that patient will become more lethargic or eventually unresponsive, and they agree with such approach as comfort is a priority for patient and
family Medically stable to be d/c to [facility]
A/P:
#GOC
Hospice recommended - family arranging hospice in facility, apparently could not establish prior to 11/16/24
Patient in distress with R shoulder pain: discussed GOC with patient on 11/14/24 - she is persistent in her wishes to continue with hospice care, comfort is a priority and she does not want any tests run for her. Same discussed with daughter Grazyna
afterwards. Due to worsening pain and preference to avoid discomfort - comfort care only advised. Mikaela was explained that in this case no additional studies to be done, in the case of patient deterioration - she will have symptomatic treatment
only for pain, anxiety, dyspnea without additional diagnostic or treatment steps including but not limited to Abx, IVF, cardiovascular meds. Daughter verbalized understanding of that and prefer comfort focused approach.
#L face numbness
#Hx of dysphasia
ACCOUNTANT BUDGET and S/P VSE
most likely 2/[address] head showed Ill-defined confluent foci of hypoattenuation within the right parieto-occipital skull, new compared to prior study
MRI declined by patient and family due to now hospice approach
#Ambulatory deficiency 2/2 worsening R shoulder pain
2/2 R shoulder Fx - managed non-operatively
R shoulder XR
PT/OT
CM for placement
No symptoms of iatrogenic adrenal insufficiency at this time, check cortisol level on pre-admit labs if possible
pain mgmt
#Pyuria, concern for UTI
with leukocytosis (however can be 2/2 steroids too)
Stop Abx as per ID
#Elevated ddimer
same before
CT chest for PE and US LE neg for VTE, stable other findings
#Chronic hypoxic respiratory failure 2/2 COPD/Asthma not in exacerbation on 4L home O2
Cont bronchodilators
cont prednisone
#Mild-moderate
#mild pulmonary HTN
Echo with EF 70-75%
No clinical signs of volume overload
#chronic Alk.phos elevation
no RUQ pain
most likely 2/2 metastatic CA
#Mild anemia
follow up PCP
#Hypercalcemia, chronic
mild 2/2 CA
follow Ca
#Essential HTN
#CAD stable
#Migraines
#Hx of TIA
#Hypothyroidism
cont home meds
#Hx of recurrent shingles
no clinical signs at this time
#b/l allergic conjunctivitis
Olopatadine drops
DVT ppx lovenox
DNR/DNI
I have spent at least 51min reviewing chart, test results and direct patient care
Anticipated Discharge: 24 - 48 hours
Subjective/Interval History
-
Date of Service: November 15, 2024
Objective Data
-
Vital Signs:
Vital Signs
Temp Pulse Resp BP Pulse Ox
98.3 F 85 16 112/68 95
11/14/24 23:00 11/14/24 23:00 11/15/24 08:14 11/14/24 22:30 11/14/24 23:00
I&O
11/14/24 11/15/24 11/16/24
06:59 06:59 06:59
Output Total 400 / 400 1250 / 1250
Balance -400 / -400 -1250 / -1250
Review of Systems
-
History Source: Patient
All other systems: Reviewed and negative
Constitutional: Reports Other (pain)
Physical Exam
-
General: Pain
Cardiac: Regular Rhythm
GI: Soft
Neuro: Awake, Alert, Oriented and AO x 3
Psych: Calm
--- NOTE | 2024-11-15 12:03 | PTCARENOTE ---
pt c/o pain. reached out to floyd. verbal order for dilaudid 0.5mg received and administered to patient. grand daughter at bedside.
[2024-11-15] MEDS: BENADRYL 12.5 MG IV (14:22)
[2024-11-15] MEDS: ATIVAN 0.5 MG SL ×2 (15:01→20:45)
--- NOTE | 2024-11-15 15:08 | W.PN.UPDATE ---
Update Note
Progress Note Update
Patient significantly uncomfortable, moaning as per RN: will increase Dilaudid to 1mg q1h PRN with option to switch to drip. Family also requested increased pain medication
--- NOTE | 2024-11-15 15:18 | PTCARENOTE ---
pt moaning out in pain. ativan given. family requesting additional dose of dilaudid. Dr. barrientos notified. ordered entered. 0.5mg dilaudid admin. will monitor.
[2024-11-15] MEDS: DILAUDID 1 MG IV ×3 (16:07→22:48)
[2024-11-15 16:10] VITALS: BP 187/159
[2024-11-15 16:11] VITALS: BP 140/58
[2024-11-15 16:13] VITALS: BP 140/80
[2024-11-15] MEDS: DILAUDID 0.25 MG IV ×3 (16:55→18:58)
[2024-11-15] MEDS: TYLENOL/FEVERALL 650 MG RECTAL (17:00)
[2024-11-15] MEDS: DILAUDID 50 IV (17:19)
--- NOTE | 2024-11-15 17:29 | PTCARENOTE ---
axillary temp of 100. cross coverage md aware. Tylenol rectal ordered and admin. pt w/ significant dyspnea and pain. Dilaudid gtt initiated on step one. 0.25 Dilaudid prn admin as well. family updated.
[2024-11-15] MEDS: PROTONIX PO (17:54)
--- NOTE | 2024-11-15 19:03 | PTCARENOTE ---
pt dilaudid gtt increased to step 2 (0.5mg/hr) per protocol based on end of life pain/dyspnea.
[2024-11-15 20:29] VITALS: BP 165/71
[2024-11-15] MEDS: OLOPATADINE 0.1% OPHTHALMIC SOLUTION 1 DROP OPHTH (20:39)
--- NOTE | 2024-11-15 21:10 | PTCARENOTE ---
Addendum entered by Gibran Hatch RN 11/15/24 21:35:
Patient's symptoms appear to be unchanged after breakthrough medication x3. Increased to step 3 per protocol; Dilaudid gtt at 1mg/hr.
Original Note:
Patient moaning/groaning with paradoxical breathing. Unable to verbalize pain; utilizing nonverbal RDOS. Refer to MAR for breakthrough administration of pain medication.
[2024-11-15] MEDS: ROBINUL 0.2 MG IV (21:25)
[2024-11-16] MEDS: DILAUDID 1 MG IV (00:33)
--- NOTE | 2024-11-16 01:21 | PTCARENOTE ---
Called Grazyna- no answer, left voicemail.
Called Shraddha- gave an update on patient's responsiveness and breathing. Family to come to visit.
[2024-11-16] MEDS: DILAUDID 1.5 MG IV ×3 (01:56→06:45)
[2024-11-16] MEDS: ROBINUL 0.2 MG IV (02:02)
--- NOTE | 2024-11-16 02:38 | PTCARENOTE ---
Payton(daughter) at bedside. States this is the most comfortable shes seen the patient in awhile. Thankful for care.
Dilaudid gtt at step 4: 1.5mg/hr. Rounding Q1 hour.
--- NOTE | 2024-11-16 06:37 | PTCARENOTE ---
Grazyna(daughter)arrived at bedside. Patient appears to be comfortable; respirations shallow and unlabored. RR 30s. No moaning or grunting. Pt lethargic. Dilaudid gtt per the work list. Heart sounds distant. Call gamez within reach. Daughter
requesting CT scan record. Medical records number given for daughter to call. Daughters thankful for care.
--- NOTE | 2024-11-16 06:53 | PTCARENOTE ---
Daughter came out from room to report patient's breathing has changed. RN entered room is find patient agonal and gasping for air. Breakthrough IV Dilaudid given. Patient's breathing stopped a few minutes thereafter. Heart sounds not present with
stethoscope. TAYLOR Solorzano made aware and came to bedside to assess. Oncoming RN updated. Daughter at bedside, awaiting for more family to visit at this time. Declined planer feeder services. Comfort food tray ordered for family.
--- NOTE | 2024-11-16 07:16 | W.PN.DEATH ---
Pronouncement of
-
Called to see patient to pronounce.
No spontaneous heart tones or respirations noted.
Patient not responsive to verbal stimuli.
Patient is pronounced .
Time of : 06:53
Date of : 11/16/24
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
Family Notified: Yes (daughters present)
--- NOTE | 2024-11-16 07:30 | PTCARENOTE ---
Patient received from night supervisor. Night was HEAD SWAMPER at bedside to pronounce patient as she had just at change of shift. Two of the patients daughters at bedside, awaiting more family to come in. Hans was offered but declined by
daughter.
--- NOTE | 2024-11-16 09:15 | W.DCSUMMARY ---
Discharge Summary
Discharge Data
Date of Admission: 11/12/24
Date of Discharge: 11/16/24
-
Pending Results: No
Hospital Course
84yo F with PMHX of COPD on chronic prednisone, hypothyroidism, anxiety, CAD, HLD, Hx of TIA, migraines, HX of DVT, AAA, TIA, lung CA s/p RT and kamryn, spinal mets, brought by daughter since patient had progressive decline at home and could not care
for herself since discharge after hospital in September. Patient stated she cannot bath anc cannot cook for herself. Concern for progressive ambulatory dysfunction 2/2 comorbidities exacerbated by recebnt R shoulder Fx. Also cannot exclude UTI, but since
no symptoms - ID recommended to monitor of Abx. As per conversation with Oncologist and patient and due to poor functional status of the patient - hospice recommended. Patient ultimately decided to start hospice as also agreed with daughter - in
[facility]. Started to c/o L face numbness with trouble swallowing that is started on 11/12/24, but patient did not report until 11/13.5. Neurologist recommended MRI however patient and family declined since now focused on comfort care. Discussed in
details with patient and daughter that with more aggressive symptom management - there is likelihood that patient will become more lethargic or eventually unresponsive, and they agree with such approach as comfort is a priority for patient and
family. Patient eventually on 11/16/24 at 6:53am
Patient was managed for:
#L face numbness
#Hx of dysphasia
#Ambulatory deficiency 2/2 worsening R shoulder pain
#Pyuria, concern for UTI
#Elevated ddimer
#Chronic hypoxic respiratory failure 2/2 COPD/Asthma not in exacerbation on 4L home O2
#Mild-moderate
#mild pulmonary HTN
#chronic Alk.phos elevation
#Mild anemia
#Hypercalcemia, chronic
#Essential HTN
#CAD stable
#Migraines
#Hx of TIA
#Hypothyroidism
#Hx of recurrent shingles
#b/l allergic conjunctivitis
Discharge Plan
-
Patient Disposition: Care Home/SNF
Discharge Diagnosis/Procedures: Ambulatory deficiency
Diet: Low Residue and Other diet
Additional Diets: soft/moist
Referrals:
Juan Anaya MD [Family Provider, [facility]]
Prescriptions:
New
nifedipine 30 mg Tablet Extended Release
90 mg PO DAILY Qty: 90 0RF
olopatadine 0.1 % Drops
1 drp ophthalmic (eye) BID Qty: 5 0RF
Continued
atorvastatin 40 MG tablet
40 mg PO DAILY
aspirin 81 MG tablet,delayed release (DR/EC)
81 mg PO DAILY
pantoprazole 40 MG tablet,delayed release (DR/EC)
40 mg PO QPM
glucosamine sulfate 500 MG tablet
500 mg PO DAILY
famotidine 20 MG tablet
20 mg PO DAILY
citalopram 40 mg tablet
40 mg PO DAILY
furosemide 40 mg tablet
40 mg PO DAILY
montelukast 10 mg tablet
10 mg PO DAILY
potassium chloride 10 mEq tablet,ER particles/crystals
10 meq PO DAILY
Breztri Aerosphere 160-9-4.8 mcg/actuation Hfa Aerosol Inhaler
2 inh INHALATION R BID
fexofenadine 180 mg Tablet
180 mg PO DAILY
latanoprost 0.005 % drops
1 drp BOTH EYES HS
ipratropium-albuterol 0.5 mg-3 mg(2.5 mg base)/3 mL solution for nebulization
3 ml INHALATION R Q6HPRN PRN (Reason: sob/wheezing)
ondansetron HCl 4 mg Tablet
4 mg PO Q6HPRN PRN (Reason: nausea)
prednisone 5 mg Tablet
5 mg PO DAILY
loperamide 2 mg Tablet
2 mg PO DAILY
therapeutic multivitamin Tablet
1 tab PO DAILY
acetaminophen [Tylenol Extra Strength] 500 mg Tablet
1,000 mg PO Q6H
lisinopril 5 mg Tablet
5 mg PO DAILY
albuterol sulfate 90 mcg/actuation Hfa Aerosol Inhaler
2 puff INHALATION R Q4HPRN PRN (Reason: sob/wheezing)
PreserVision AREDS 4,296 mcg-226 mg-90 mg Capsule
1 cap PO DAILY
gabapentin 300 mg capsule
300 mg PO BID
hydromorphone 2 mg Tablet
2 mg PO Q4HPRN PRN (Reason: moderate to severe pain) Qty: 6 0RF
Discontinued
nifedipine 60 mg tablet extended release 24hr
60 mg PO DAILY
Discharge Date and Time
Print Language: KOREAN
--- NOTE | 2024-11-16 09:59 | PN.CDI ---
Addendum entered and electronically signed by Flaquito Alba MD 11/24/24 13:44:
Incorrect assumption in request - no changes to be made
Original Note:
CDI
- -
CDI:
Physician Documentation Request
Admit Date: 11/12/24 08:16
Dear Doctor Anjali,
Patient is admitted with lung cancer.
Home Medication: hydromorphone 4 mg tablet 4 mg PO Q4H Pain #20 tabs 10/02/24
11/10: Hydromorphone Hcl 0.5 mg IV administered stat
11/12: Hydromorphone Hcl 1 mg IV administered stat
Hydromorphone Hcl 3mg PO Q4H PRN administered
11/11: 06:24
11/12: 04:28, 11:01, 17:23
11/13: 00:11, 04:48, 08:51, 14:04, 20:28
11/14: 03:14, 08:32, 12:36, 19:42
11/15: 07:09
11/12 PCN: 'Patients pain persisting. Pt states pain is 8/10 to neck and back. Pt tearful and states she 'wants the pain to end'. TAYLOR Nieto notified, order for IV Dilaudid'
If possible, please provide further specificity as outlined below:
Opioid dependence
Opioid use
Other
Use of terms such as suspected, likely, concern for, or probable (associated with a specific diagnosis that is being evaluated, monitored, or treated as if it exists) are acceptable and can be coded in the inpatient setting, when documented at the
time of discharge.
Thank you,
Shyann Smith RN, BSN
CDI Specialist
Available via [place] text
Please use your independent medical judgment in providing your response.
--- NOTE | 2024-11-16 12:31 | CM ---
Patient with Hx metastatic lung CA.
[facility] with [facility]; she was already aware patient had today.
[facility]
== END 2024-11-16 06:53 | disposition expired | DRG 181 ==
LOC: IMU 08:16
PROVIDERS: Internal Medicine; Nurse Practitioner; Nurse Practitioner Family; Registered Nurse; ADMITTING PHYSICIAN Internal Medicine; ATTENDING PHYSICIAN Internal Medicine; CONSULT PHYSICIAN Internal Medicine Infectious Disease; EMERGENCY PHYSICIAN Emergency Medicine; FAMILY PHYSICIAN Family Medicine; OTHER PHYSICIAN Internal Medicine Hematology & Oncology; OTHER PHYSICIAN Psychiatry & Neurology Neurology
DX: C34.32 Malignant neoplasm of lower lobe, left bronchus or lung (principal); C79.51 Secondary malignant neoplasm of bone; S42.91XA Fracture of right shoulder girdle, part unspecified, initial encounter for closed fracture; J96.11 Chronic respiratory failure with hypoxia; G95.20 Unspecified cord compression; G89.3 Neoplasm related pain (acute) (chronic); I16.0 Hypertensive urgency; D63.8 Anemia in other chronic diseases classified elsewhere; I06.0 Rheumatic aortic stenosis; I10 Essential (primary) hypertension; G47.33 Obstructive sleep apnea (adult) (pediatric); K21.9 Gastro-esophageal reflux disease without esophagitis; Z66 Do not resuscitate; X58.XXXA Exposure to other specified factors, initial encounter; J44.89 Other specified chronic obstructive pulmonary disease; E88.01 Alpha-1-antitrypsin deficiency; I27.20 Pulmonary hypertension, unspecified; I25.10 Atherosclerotic heart disease of native coronary artery without angina pectoris; F32.A Depression, unspecified; F41.9 Anxiety disorder, unspecified; R79.89 Other specified abnormal findings of blood chemistry; E83.52 Hypercalcemia; G43.909 Migraine, unspecified, not intractable, without status migrainosus; H10.13 Acute atopic conjunctivitis, bilateral; E78.00 Pure hypercholesterolemia, unspecified; E03.9 Hypothyroidism, unspecified; E66.9 Obesity, unspecified; R13.10 Dysphagia, unspecified; Z11.52 Encounter for screening for COVID-19; Z68.36 Body mass index [BMI] 36.0-36.9, adult; Z79.899 Other long term (current) drug therapy; Z79.52 Long term (current) use of systemic steroids; Z79.82 Long term (current) use of aspirin; Z86.73 Personal history of transient ischemic attack (TIA), and cerebral infarction without residual deficits; Z86.718 Personal history of other venous thrombosis and embolism; Z87.891 Personal history of nicotine dependence; Z95.5 Presence of coronary angioplasty implant and graft
CPT/HCPCS: 70450; 71275; 73030; 74230; 80048; 80053; 80061; 81003; 81015; 82533; 82962; 83036; 84484; 85025; 85027; 85379; 85610; 87086; 87811; 92610; 92611; 93005; 93970; 94640; 94660; 96360; 96374; 97163; 97167; 99284; Q9967